=== PATIENT | female | born 1950 | race Hispanic/Latino ===

== ENCOUNTER 2018-10-13 17:51 | Emergency (ER) | payer MEDICARE, OTHER ==
--- OUTSIDE RECORDS SUMMARY | 2018-10-13 17:53 | XMS REPORT ---
:1950 [facility] [address] [place] [address] Care Team Providers Name Role Phone Unavailable Unavailable Unavailable Problems This patient has no known problems. Allergies, Adverse Reactions, Alerts This patient has no known allergies or adverse reactions. Medications This patient has no known medications.
[2018-10-13] MEDS ORDERED: HYDROCODONE/APAP 5/325 MG TAB ONE (19:17)
--- NOTE | 2018-10-13 20:46 | RAD REPORT ---
EXAM DESCRIPTION: US - Extremity Venous Uni Ltd - 10/13/2018 8:10 pm CLINICAL HISTORY: Left leg pain and swelling COMPARISON: None. TECHNIQUE: Real-time sonographic evaluation of the left lower extremity deep venous system was perfo rmed. FINDINGS: Normal compressibility, flow augmentation, phasic flow and spontaneous flow are identified in the left lower extremity common femoral, superficial femoral, popliteal and posterior tibial vein s. No intraluminal filling defects seen. IMPRESSION: No DVT in the left lower extremity.
[2018-10-13] MEDS ORDERED: KETOROLAC 30 MG/ML INJ ONE (20:52)
--- NOTE | 2018-10-13 21:00 | ER ---
Nurse's Notes [facility] Name: Chanel Castillo Age: 67 yrs Sex: Female : 1950 Arrival Date: 10/13/2018 Time: 17:53 Bed 16 Private MD: Diagnosis: Pain in left knee Presentation: 10/13 18:14 Presenting complaint: Patient states: Pain to the back of the left knee since 1500 aj1 today. States that she has tried lidocaine and icy hot with no relief. Denies any injury to the knee. Transition of care: patient was not received from another setting of care. Onset of symptoms was October 13, 2018 at 15:00. Risk Assessment: Do you want to hurt yourself or someone else? Patient reports no desire to harm self or others. Initial Sepsis Screen: Does the patient meet any 2 criteria? No. Patient's initial sepsis screen is negative. Does the patient have a suspected source of infection? No. Patient's initial sepsis screen is negative. Care prior to arrival: None. 18:14 Method Of Arrival: Wheelchair aj1 18:14 Acuity: TYRESE 4 aj1 Triage Assessment: 18:16 General: Appears in no apparent distress. uncomfortable, Behavior is calm, cooperative, aj1 appropriate for age. Pain: Complains of pain in posterior aspect of left knee Pain currently is 7 out of 10 on a pain scale. Neuro: Level of Consciousness is awake, alert, obeys commands. Cardiovascular: Patient's skin is warm and dry. Respiratory: Airway is patent Respiratory effort is even, unlabored, Respiratory pattern is regular, symmetrical. Historical: - Allergies: 18:16 No Known Allergies; aj1 - PMHx: 18:16 Hypothyroidism; Diabetes - NIDDM; Hyperlipidemia; Hypertension; aj1 - Immunization history:: Flu vaccine is not up to date. - Social history:: Smoking status: Patient/guardian denies using tobacco. - Ebola Screening: : Patient denies travel to an Ebola-affected area in the 21 days before illness onset. Screenin:25 Abuse screen: Denies threats or abuse. Nutritional screening: No deficits noted. rb1 Tuberculosis screening: No symptoms or risk factors identified. Fall Risk None identified. Assessment: 18:25 General: Appears comfortable, Behavior is calm, cooperative, Denies fever. Pain: rb1 Complains of pain in posterior aspect of left knee Pain currently is 10 out of 10 on a pain scale. Pain began x 3 days Aggravated by increased activity, weight bearing. Neuro: Level of Consciousness is awake, alert, obeys commands, Oriented to person, place, time, situation. Cardiovascular: Capillary refill < 3 seconds is brisk in bilateral fingers. Respiratory: Airway is patent Respiratory effort is even, unlabored, Respiratory pattern is regular, symmetrical, Denies cough, shortness of breath. GI: No signs and/or symptoms were reported involving the gastrointestinal system. : No signs and/or symptoms were reported regarding the genitourinary system. Derm: Skin is pink, warm \T\ dry. Musculoskeletal: Range of motion: intact in all extremities. 19:25 Reassessment: Patient is alert, oriented x 3, equal unlabored respirations, skin lp1 warm/dry/pink. Reassessment: Aware of pending ultrasound. Pain: Complains of pain in posterior aspect of left knee Pain currently is 8 out of 10 on a pain scale. 19:52 Reassessment: Ultrasound at bedside. lp1 20:35 Reassessment: Patient and/or family updated on plan of care and expected duration. Pain lp1 level reassessed. Patient states no pain relief; Provider notified. Vital Signs: 18:16 BP 173 / 73; Pulse 81; Resp 18; Temp 98.1; Pulse Ox 99% on R/A; Weight 112.94 kg (R); aj1 Height 5 ft. 3 in. (160.02 cm) (R); Pain 7/10; 19:30 BP 151 / 62; Pulse 66; Resp 18; Pulse Ox 97% on R/A; lp1 21:00 BP 162 / 63; Pulse 73; Resp 18; Pulse Ox 98% on R/A; Pain 7/10; lp1 18:16 Body Mass Index 44.11 (112.94 kg, 160.02 cm) aj1 ED Course: 17:53 Patient arrived in ED. as 18:15 Triage completed. aj1 18:16 Arm band placed on. aj1 18:21 Chantel Hurley NP is PHCP. rh1 18:21 Gianni Jerez MD is Attending Physician. rh1 18:25 Patient has correct armband on for positive identification. Placed in gown. Bed in low rb1 position. Call light in reach. Side rails up X 1. Pulse ox on. NIBP on. 18:49 Gela Bhatt, RN is Primary Nurse. rb1 20:08 US Extremity Venous Unilateral Ltd In Process Unspecified. EDMS 20:08 Ultrasound completed. Patient tolerated well. sg3 20:36 Patient did not have IV access during this emergency room visit. lp1 20:58 Kenny Aldana MD is Referral Physician. rh1 21:19 No provider procedures requiring assistance completed. lp1 Administered Medications: 19:19 Drug: Hersey 5 mg-325 mg 1 tabs {Note: RASS 0.} Route: PO; lp1 20:36 Follow up: Response: No change in condition; Pain is unchanged, physician notified; lp1 RASS: Alert and Calm (0) 20:55 Drug: Ketorolac 30 mg Route: IM; Site: left deltoid; lp1 21:20 Follow up: Response: Medication administered at discharge. lp1 Outcome: 20:59 Discharge ordered by . rh1 21:19 Discharged to home via wheelchair, with family. lp1 21:19 Condition: good 21:19 Discharge instructions given to patient, Instructed on discharge instructions, follow up and referral plans. medication usage, Demonstrated understanding of instructions, follow-up care, medications, Prescriptions given X 1. 21:20 Patient left the ED. lp1 Signatures: Dispatcher [employer] EDNJ Anca Banks RN RN ajAni Espino Laura, RN RN lp1 Chantel Hurley, PACK OPERATOR PACK OPERATOR rh1 Gela Bhatt, RN RN rb1 [place] sg3 Corrections: (The following items were deleted from the chart) 20:36 19:19 Hersey 5 mg-325 mg 1 tabs PO lp1 lp1
--- NOTE | 2018-10-13 21:01 | EDPHYS ---
Physician Documentation [facility] Name: Chanel Castillo Age: 67 yrs Sex: Female : 1950 Arrival Date: 10/13/2018 Time: 17:53 Bed 16 Private MD: ED Physician Gianni Jerez HPI: 10/13 18:27 This 67 yrs old Female presents to ER via Wheelchair with complaints of Thigh rh1 Pain, Knee Pain. 18:27 The patient presents with decreased range of motion, pain, that is acute, tenderness. rh1 The complaints affect the left hamstring, posterior aspect of left knee and left calf. Context: The problem was sustained at home, resulted from an unknown cause, the patient can fully bear weight, the patient is able to ambulate, with moderate difficulty, Problem is a result from a previous injury: No. Onset: The symptoms/episode began/occurred 3 day(s) ago. Modifying factors: The symptoms are alleviated by laying back, abduction of leg. the symptoms are aggravated by movement, bending knee. Associated signs and symptoms: Pertinent positives: calf tenderness, Pertinent negatives fever, numbness, swelling, tingling, warmth, weakness. Treatment prior to arrival includes: over the counter medications, Tylenol. Severity of symptoms: At their worst the symptoms were moderate, in the emergency department the symptoms are unchanged. The patient has experienced similar episodes in the past, with the last episode occurring last month, today's symptoms are similar, to when the patient was apparently diagnosed with osteoarthritis, with steroid injection. The patient has not recently seen a physician. She began with left leg pain 3 days ago, worse today. Pain worse at popliteal fossa, and radiates into posterior thigh. Also with pain and tenderness into left calf. No trauma, no recent travel, no SOB, chest pain, soughing or hemoptysis.. Historical: - Allergies: 18:16 No Known Allergies; aj1 - PMHx: 18:16 Hypothyroidism; Diabetes - NIDDM; Hyperlipidemia; Hypertension; aj1 - Immunization history:: Flu vaccine is not up to date. - Social history:: Smoking status: Patient/guardian denies using tobacco. - Ebola Screening: : Patient denies travel to an Ebola-affected area in the 21 days before illness onset. ROS: 18:27 Constitutional: Negative for fever, chills rh1 18:27 Cardiovascular: Negative for chest pain, edema, palpitations. 18:27 Respiratory: Negative for cough, dyspnea on exertion, hemoptysis, shortness of breath, wheezing. 18:27 Abdomen/GI: Negative for abdominal pain, nausea, vomiting. 18:27 Abdomen/GI: Negative for 18:27 Back: Negative for decreased range of motion, pain at rest, pain with movement, radiated pain. 18:27 : Negative for small amounts, burning with urination. 18:27 MS/extremity: Positive for decreased range of motion, pain, tenderness, Negative for abrasion, contusion, ecchymosis, laceration, paresthesias, swelling, tingling. 18:27 Skin: Negative for cellulitis, discoloration, ecchymosis, erythema. 18:27 Neuro: Negative for numbness, tingling, weakness. 18:27 All other systems are negative. Exam: 18:27 Constitutional: This is a well developed, well nourished patient who is awake, alert, rh1 and in no acute distress. Head/Face: Normocephalic, atraumatic. 18:27 Neck: Trachea midline, and no cervical lymphadenopathy. Supple, full range of motion without nuchal rigidity. No Meningismus. Chest/axilla: Normal chest wall appearance and motion. Nontender with no deformity. No lesions are appreciated. Cardiovascular: Regular rate and rhythm with a normal S1 and S2. No gallops, murmurs, or rubs. No JVD. No pulse deficits. Respiratory: Lungs have equal breath sounds bilaterally, clear to auscultation. No rales, rhonchi or wheezes noted. No increased work of breathing. Abdomen/GI: Soft, non-tender, with normal bowel sounds. No distension. No guarding or rebound. No evidence of tenderness throughout. Back: No spinal tenderness. No costovertebral tenderness. Full range of motion. Skin: Warm, dry with normal turgor. Normal color with no rashes, no lesions, and no evidence of cellulitis. 18:27 ENT: Mouth: Oral mucosa: normal, pink and intact. 18:27 Musculoskeletal/extremity: Extremities: grossly normal except: noted in the left hamstring and posterior aspect of left knee: decreased ROM, pain, swelling, tenderness, difficult to assess for swelling due to adipose tissue, no appreciable asymmetry at posterior leg, There is no evidence of abrasion, contusion, deformity, erythema, laceration, ROM: full passive range of motion, in the left leg and left hamstring and posterior aspect of left knee, limited active range of motion, in the left hamstring and posterior aspect of left knee, limited active range of motion due to pain, in the left hamstring and posterior aspect of left knee, limited passive range of motion due to pain, in the left hamstring and posterior aspect of left knee, Pulses: noted to be 2+ in the right radial artery, right posterior tibial artery, right dorsalis pedis artery, left radial artery, left posterior tibial artery and left dorsalis pedis artery, Perfusion: the extremity is pink, warm, with brisk capillary refill, Calf tenderness, that is mild, of the left lower extremeity, Sensation intact. DVT Exam: no tenderness, negative Homans' sign noted on exam, no appreciated bluish discoloration, no erythema, no increased warmth, pain, that is mild, of the left leg, of the left hamstring and posterior aspect of left knee, Calves: have equal circumference, are tender, on left. 18:27 Neuro: Orientation: is normal, to person, place \T\ time. Mentation: is normal, lucid, able to follow commands, Motor: is normal, moves all fours, strength is 5/5 in all extremities, Sensation: is normal, no obvious gross deficits, numbness, is not appreciated, tingling, is not appreciated, Gait: is steady, antalgic. Vital Signs: 18:16 BP 173 / 73; Pulse 81; Resp 18; Temp 98.1; Pulse Ox 99% on R/A; Weight 112.94 kg (R); aj1 Height 5 ft. 3 in. (160.02 cm) (R); Pain 7/10; 19:30 BP 151 / 62; Pulse 66; Resp 18; Pulse Ox 97% on R/A; lp1 21:00 BP 162 / 63; Pulse 73; Resp 18; Pulse Ox 98% on R/A; Pain 7/10; lp1 18:16 Body Mass Index 44.11 (112.94 kg, 160.02 cm) aj MDM: 18:27 Patient medically screened. rh1 20:57 Data reviewed: vital signs, nurses notes, radiologic studies, ultrasound, and as a rh1 result, I will discharge patient. Data interpreted: Pulse oximetry: on room air is 97 %. Interpretation: normal. Counseling: I had a detailed discussion with the patient and/or guardian regarding: the historical points, exam findings, and any diagnostic results supporting the discharge/admit diagnosis, radiology results, the need for outpatient follow up, a family practitioner, a orthopedic surgeon, to return to the emergency department if symptoms worsen or persist or if there are any questions or concerns that arise at home. Special discussion: I discussed with the patient/guardian in detail that at this point there is no indication for admission to the hospital. It is understood, however, that if the symptoms persist or worsen the patient needs to return immediately for re-evaluation. 10/13 19:00 Order name: US Extremity Venous Unilateral Ltd; Complete Time: 20:50 rh1 Administered Medications: 19:19 Drug: [place] 5 mg-325 mg 1 tabs {Note: RASS 0.} Route: PO; lp1 20:36 Follow up: Response: No change in condition; Pain is unchanged, physician notified; lp1 RASS: Alert and Calm (0) 20:55 Drug: Ketorolac 30 mg Route: IM; Site: left deltoid; lp1 21:20 Follow up: Response: Medication administered at discharge. lp1 Disposition: 10/14 07:39 Co-signature as Attending Physician, Gianni Jerez MD. rn Disposition: 10/13/18 20:59 Discharged to Home. Impression: Pain in left knee. - Condition is Stable. - Discharge Instructions: Elastic Bandage and RICE, Joint Pain, Arthritis, Musculoskeletal Pain, Knee Pain. - Prescriptions for Tramadol 50 mg Oral Tablet - take 1 tablet by ORAL route every 8 hours as needed; 12 tablet. - Medication Reconciliation Form, Thank You Letter, Antibiotic Education, Prescription Opioid Use form. - Follow up: Private Physician; When: 1 - 2 days; Reason: Recheck today's complaints, Continuance of care, Re-evaluation by your physician. Follow up: Kenny Aldana MD; When: 7 - 10 days; Reason: Further diagnostic work-up, Recheck today's complaints, Continuance of care. Follow up: Emergency Department; When: As needed; Reason: If symptoms return, Worsening of condition. - Problem is new. - Symptoms have improved. Signatures: Dispatcher [employer] EDMS Darren, Anca, RN RN aj1 Gianni Jerez MD MD rn Genesis Pena RN RN lp1 Chantel Hurley, [employer] ASSEMBLER [employer] rh1 Corrections: (The following items were deleted from the chart) 10/13 21:20 20:59 10/13/2018 20:59 Discharged to Home. Impression: Pain in left knee. Condition is lp1 Stable. Forms are Medication Reconciliation Form, Thank You Letter, Antibiotic Education, Prescription Opioid Use. Follow up: Private Physician; When: 1 - 2 days; Reason: Recheck today's complaints, Continuance of care, Re-evaluation by your physician. Follow up: Dr. Kenny Aldana; When: 7 - 10 days; Reason: Further diagnostic work-up, Recheck today's complaints, Continuance of care. Follow up: Emergency Department; When: As needed; Reason: If symptoms return, Worsening of condition. Problem is new. Symptoms have improved. rh1
[2018-10-14 04:14] VITALS: TEMP 98.1
[2018-10-14 04:17] VITALS: BP 162/63; O2SAT 98
== END 2018-10-13 21:20 | disposition home or self-care (01) ==
LOC: ER 17:51
DX: M25.562 Pain in left knee (principal)
CPT/HCPCS: 93971; 96372; 99284

== ENCOUNTER 2018-10-27 15:43 | Emergency (ER) | payer MEDICARE ==
--- OUTSIDE RECORDS SUMMARY | 2018-10-27 15:45 | XMS REPORT ---
:1950 [facility] Address [address] [place] [address] Care Team Providers Name Role Phone Unavailable Unavailable Unavailable Problems This patient has no known problems. Allergies, Adverse Reactions, Alerts This patient has no known allergies or adverse reactions. Medications This patient has no known medications.
--- NOTE | 2018-10-27 16:28 | ER ---
Nurse's Notes [facility] Name: Chanel Castillo Age: 67 yrs Sex: Female : 1950 Arrival Date: 10/27/2018 Time: 15:47 Bed 14 Private MD: Unknown, Unknown Diagnosis: Allergy, unspecified;Rash and other nonspecific skin eruption Presentation: 10/27 15:52 Presenting complaint: Patient states: I feel like I have a bug in my left ear. la1 Transition of care: patient was not received from another setting of care. Onset of symptoms was October 27, 2018. Risk Assessment: Do you want to hurt yourself or someone else? Patient reports no desire to harm self or others. Initial Sepsis Screen: Does the patient meet any 2 criteria? No. Patient's initial sepsis screen is negative. Does the patient have a suspected source of infection? No. Patient's initial sepsis screen is negative. Care prior to arrival: None. 15:52 Method Of Arrival: Ambulatory la1 15:52 Acuity: TYRESE 5 la1 Historical: - Allergies: 15:52 No Known Allergies; la1 - PMHx: 15:52 Diabetes - NIDDM; Hyperlipidemia; Hypertension; Hypothyroidism; la1 - Immunization history:: Adult Immunizations up to date. - Social history:: Smoking status: Patient/guardian denies using tobacco. - Ebola Screening: : No symptoms or risks identified at this time. Screenin:00 Abuse screen: Denies threats or abuse. Nutritional screening: No deficits noted. rb1 Tuberculosis screening: No symptoms or risk factors identified. Fall Risk None identified. Assessment: 16:00 General: Appears in no apparent distress. comfortable, Behavior is calm, cooperative. rb1 Pain: Denies pain. Neuro: Level of Consciousness is awake, alert, obeys commands, Oriented to person, place, time, situation. Cardiovascular: Capillary refill < 3 seconds is brisk in bilateral fingers. Respiratory: Airway is patent Respiratory effort is even, unlabored, Respiratory pattern is regular, symmetrical. GI: No signs and/or symptoms were reported involving the gastrointestinal system. : No signs and/or symptoms were reported regarding the genitourinary system. Derm: Rash noted that is red, on generalized. Musculoskeletal: Range of motion: intact in all extremities. 16:44 Reassessment: Patient appears in no apparent distress at this time. No changes from rb1 previously documented assessment. Vital Signs: 15:52 BP 164 / 59; Pulse 77; Resp 16; Temp 98.1; Pulse Ox 98% on R/A; Weight 112.04 kg; la1 Height 5 ft. 3 in. (160.02 cm); 15:52 Body Mass Index 43.75 (112.04 kg, 160.02 cm) la1 ED Course: 15:47 Patient arrived in ED. ag5 15:49 Unknown, Unknown is Private Physician. ag5 15:52 Triage completed. la1 15:52 Arm band placed on left wrist. la1 16:00 Patient has correct armband on for positive identification. Bed in low position. Call rb1 light in reach. Side rails up X 1. Pulse ox on. NIBP on. 16:06 Shelly Chaparro FNP-C is [facility]. snw 16:06 Shari Quan MD is Attending Physician. snw 16:22 Gela Bhatt, RN is Primary Nurse. rb1 16:44 No provider procedures requiring assistance completed. Patient did not have IV access rb1 during this emergency room visit. Administered Medications: 16:33 Drug: Pepcid 20 mg Route: PO; rb1 16:43 Follow up: Response: Medication administered at discharge. rb1 16:34 Drug: Atarax 50 mg Route: PO; rb1 16:43 Follow up: Response: Medication administered at discharge. rb1 Outcome: 16:26 Discharge ordered by . snw 16:44 Discharged to home ambulatory, with family. rb1 16:44 Condition: stable 16:44 Discharge instructions given to patient, Instructed on discharge instructions, follow up and referral plans. medication usage, Demonstrated understanding of instructions, follow-up care, medications, Prescriptions given X 2. 16:44 Patient left the ED. rb1 Signatures: Shelly Chaparro FNP-C [employer]PAREL RENTAL CLERK-[employer]nw Jasvir Mon RN RN la Gela Bhatt, JAVIER RN rb1 Mello Anderson ag5
--- NOTE | 2018-10-27 16:28 | EDPHYS ---
Physician Documentation [facility] Name: Chanel Castillo Age: 67 yrs Sex: Female : 1950 Arrival Date: 10/27/2018 Time: 15:47 Bed 14 Private MD: Unknown, Unknown ED Physician Shari Quan HPI: 10/27 16:16 This 67 yrs old Female presents to ER via Ambulatory with complaints of Rash, snw Insect In Ear. 16:16 The patient's rash thought to be caused by insect bites, Dermatitis. The rash is snw located on the body diffusely. The rash can be described as papular, patchy. Onset: The symptoms/episode began/occurred suddenly, 2 day(s) ago, and became persistent. Associated signs and symptoms: Pertinent positives: itching. Severity of symptoms: At their worst the symptoms were moderate. The patient has not experienced similar symptoms in the past. It is unknown whether or not the patient has recently seen a physician. helping move and felt something fly at left ear, no fb noted. Pt with rash, papule, concerned for bedbugs. Historical: - Allergies: 15:52 No Known Allergies; la1 - PMHx: 15:52 Diabetes - NIDDM; Hyperlipidemia; Hypertension; Hypothyroidism; la1 - Immunization history:: Adult Immunizations up to date. - Social history:: Smoking status: Patient/guardian denies using tobacco. - Ebola Screening: : No symptoms or risks identified at this time. ROS: 16:16 Constitutional: Negative for fever, chills, and weight loss, Eyes: Negative for injury, snw pain, redness, and discharge, ENT: Negative for injury, pain, and discharge, concerned for bug in left ear canal Neck: Negative for injury, pain, and swelling, Cardiovascular: Negative for chest pain, palpitations, and edema, Respiratory: Negative for shortness of breath, cough, wheezing, and pleuritic chest pain, Abdomen/GI: Negative for abdominal pain, nausea, vomiting, diarrhea, and constipation, Back: Negative for injury and pain, : Negative for injury, bleeding, discharge, and swelling, MS/Extremity: Negative for injury and deformity, Neuro: Negative for headache, weakness, numbness, tingling, and seizure, Psych: Negative for depression, anxiety, suicide ideation, homicidal ideation, and hallucinations. 16:16 Skin: Positive for rash. Exam: 16:15 Constitutional: This is a well developed, well nourished patient who is awake, alert, snw and in no acute distress. Head/Face: Normocephalic, atraumatic. Eyes: Pupils equal round and reactive to light, extra-ocular motions intact. Lids and lashes normal. Conjunctiva and sclera are non-icteric and not injected. Cornea within normal limits. Periorbital areas with no swelling, redness, or edema. Neck: Trachea midline, no thyromegaly or masses palpated, and no cervical lymphadenopathy. Supple, full range of motion without nuchal rigidity, or vertebral point tenderness. No Meningismus. Chest/axilla: Normal chest wall appearance and motion. Nontender with no deformity. No lesions are appreciated. Cardiovascular: Regular rate and rhythm with a normal S1 and S2. No gallops, murmurs, or rubs. Normal PMI, no JVD. No pulse deficits. Respiratory: Lungs have equal breath sounds bilaterally, clear to auscultation and percussion. No rales, rhonchi or wheezes noted. No increased work of breathing, no retractions or nasal flaring. Abdomen/GI: Soft, non-tender, with normal bowel sounds. No distension or tympany. No guarding or rebound. No evidence of tenderness throughout. Back: No spinal tenderness. No costovertebral tenderness. Full range of motion. MS/ Extremity: Pulses equal, no cyanosis. Neurovascular intact. Full, normal range of motion. Neuro: Awake and alert, GCS 15, oriented to person, place, time, and situation. Cranial nerves II-XII grossly intact. Motor strength 5/5 in all extremities. Sensory grossly intact. Cerebellar exam normal. Normal gait. Psych: Awake, alert, with orientation to person, place and time. Behavior, mood, and affect are within normal limits. 16:15 ENT: External ear(s): are unremarkable, Ear canal(s): are normal, TM's: are normal, Nose: is normal. 16:15 Skin: Appearance: normal except for affected area, lesion(s), papule(s) noted. Vital Signs: 15:52 BP 164 / 59; Pulse 77; Resp 16; Temp 98.1; Pulse Ox 98% on R/A; Weight 112.04 kg; la1 Height 5 ft. 3 in. (160.02 cm); 15:52 Body Mass Index 43.75 (112.04 kg, 160.02 cm) la1 MDM: 16:06 Patient medically screened. snw 16:41 Data reviewed: vital signs, nurses notes. Data interpreted: Pulse oximetry: on room air snw is 98 %. Interpretation: normal. Counseling: I had a detailed discussion with the patient and/or guardian regarding: the historical points, exam findings, and any diagnostic results supporting the discharge/admit diagnosis, the need for outpatient follow up, to return to the emergency department if symptoms worsen or persist or if there are any questions or concerns that arise at home. Special discussion: Based on the history and exam findings, there is no indication for further emergent testing or inpatient evaluation. I discussed with the patient/guardian the need to see the primary care provider for further evaluation of the symptoms. Administered Medications: 16:33 Drug: Pepcid 20 mg Route: PO; rb1 16:43 Follow up: Response: Medication administered at discharge. rb1 16:34 Drug: Atarax 50 mg Route: PO; rb1 16:43 Follow up: Response: Medication administered at discharge. rb1 Disposition: 10/28 07:13 Co-signature as Attending Physician, Shari Quan MD. ma2 Disposition: 10/27/18 16:26 Discharged to Home. Impression: Allergy, unspecified, Rash and other nonspecific skin eruption. - Condition is Stable. - Discharge Instructions: Allergies, Adult, Insect Bite, Rash. - Prescriptions for Vistaril 50 mg Oral capsule - take 1 capsule by ORAL route 4 times per day; 30 capsule. Pepcid 20 mg Oral Tablet - take 1 tablet by ORAL route once daily; 20 tablet. - Medication Reconciliation Form, Thank You Letter, Antibiotic Education, Prescription Opioid Use form. - Follow up: Private Physician; When: 2 - 3 days; Reason: Recheck today's complaints, Continuance of care, Re-evaluation by your physician. Follow up: Emergency Department; When: As needed; Reason: Worsening of condition. Signatures: Shelly Chaparro, DANIELLE-C NEWSPAPER JOURNALIST-[employer] Jasvir Mon RN RN la1 Gela Bhatt RN RN rb1 Shari Quan MD MD ma2 Corrections: (The following items were deleted from the chart) 10/27 16:44 16:26 10/27/2018 16:26 Discharged to Home. Impression: Allergy, unspecified; Rash and rb1 other nonspecific skin eruption. Condition is Stable. Forms are Medication Reconciliation Form, Thank You Letter, Antibiotic Education, Prescription Opioid Use. Follow up: Private Physician; When: 2 - 3 days; Reason: Recheck today's complaints, Continuance of care, Re-evaluation by your physician. Follow up: Emergency Department; When: As needed; Reason: Worsening of condition. snw
[2018-10-27] MEDS ORDERED: FAMOTIDINE 20 MG TAB ONE (16:31)
[2018-10-27] MEDS ORDERED: hydrOXYzine HCl 25 MG TAB ONE (16:31)
[2018-10-27 16:49] VITALS: BP 164/59; TEMP 98.1; O2SAT 98
== END 2018-10-27 16:44 | disposition home or self-care (01) ==
LOC: ER 15:43
DX: R21 Rash and other nonspecific skin eruption (principal); T78.40XA Allergy, unspecified, initial encounter
CPT/HCPCS: 99283

== ENCOUNTER 2019-10-17 14:47 | Emergency (ER) | payer MEDICARE ==
--- OUTSIDE RECORDS SUMMARY | 2019-10-17 14:49 | XMS REPORT | Continuity of Care Document ---
:1950 Author Organization [facility] t Address [address] [place] [address] Care Team Providers Name Role Phone Unavailable Unavailable Unavailable Problems This patient has no known problems. Allergies, Adverse Reactions, Alerts This patient has no known allergies or adverse reactions. Medications This patient has no known medications. Procedures This patient has no known procedures. Results This patient has no known results.
[2019-10-17] MEDS ORDERED: MORPHINE 4 MG/ML SYR ONE (15:55)
[2019-10-17] MEDS ORDERED: DIAZEPAM 10 MG/2 ML INJ SYRINGE ONE (15:55)
[2019-10-17] MEDS ORDERED: ONDANSETRON 4 MG/2 ML VIAL ONE (15:56)
--- NOTE | 2019-10-17 16:17 | RAD REPORT ---
EXAM DESCRIPTION: CT - Stone Protocol - 10/17/2019 3:49 pm CLINICAL HISTORY: low back pain , abdominal pain COMPARISON: CT ABD PELVIS W CONTRAST dated 03/31/2014 TECHNIQUE: Axial [address] imaging of the abdomen and pelvis was performed without IV contrast. No IV contrast was given because of allergy, abnormal renal function, patient refusal or physician re quest. No oral contrast administered. All CT scans are performed using dose optimization technique as appropriate and may include automated exposure control or mA/KV adjustment according to patient size. FINDINGS: No suspicious findings in the lung bases. No pericardial thickening or effusion. No focal suspicious liver parenchymal lesion. An anterior subcapsular right lobe low-density mass is probably a cyst unchanged from 2015. There is a slightly nodular contour to the liver. Cirrhosis or h epatic parenchymal disease cannot be excluded. There is been minimal change from 2015. Spleen and rae creas show no acute findings. Gallbladder is absent. No biliary tree dilatation. No hydronephrosis or suspicious renal mass. No significant adrenal finding. Isodense renal masses an d pyelonephritis cannot be excluded in the absence of IV contrast. The urinary bladder is without sig nificant finding. No dilated bowel loops or bowel wall thickening. No appendicitis findings or acute GI finding. No noni e air, free fluid or inflammatory stranding. No hernia, mass or bulky lymphadenopathy. Pelvic floor laxity present. Uterus and ovaries show no suspicious findings. Disc and bone degenerative changes are present. IMPRESSION: No acute or emergent CT abdomen or pelvis finding. Liver shows a slightly nodular capsule contour which could indicate cirrhosis or diffuse hepatic pare nchymal disease. No suspicious liver lesion. Full assessment is limited is the absence of IV contrast. Isodense renal masses and pyelonephritis ca nnot be excluded in the absence of contrast.
[2019-10-17] MEDS ORDERED: FENTANYL CITR 100 MCG/2 ML ONE (17:16)
--- NOTE | 2019-10-17 18:36 | EDPHYS ---
Physician Documentation [facility] Name: Chanel Castillo Age: 68 yrs Sex: Female : 1950 Arrival Date: 10/17/2019 Time: 15:00 Bed 13 Private MD: ED Physician Gianni Jerez HPI: 10/16 15:25 This 68 yrs old Female presents to ER via EMS with complaints of Back Pain. jmm 15:25 The patient presents with pain that is acute. Onset: The symptoms/episode jmm began/occurred gradually, 1 day(s) ago. The pain radiates to the left leg. Associated signs and symptoms: Pertinent negatives: abdominal pain, dysuria, fever, hematuria, incontinence, numbness, tingling, urinary retention, vomiting, weakness. This is a 68 year old female with a history of DM, HLP, HTN, hypothyroidism that presents to the ED with complaints of left lower back pain which radiates down her left leg. Denies incontinence, weakness, numbness to that extremity. Patient states having milder episodes of pain over the past 3 months. Denies fever. . Historical: - Allergies: 15:03 No Known Allergies; bp - Home Meds: 15:03 levothyroxine 137 mcg tab 1 tab once daily [Active]; hydrochlorothiazide 25 mg Oral tab bp 1 tab once daily [Active]; metoprolol succinate 50 mg oral Tb24 1 tab once daily [Active]; glipizide 10 mg Oral tab 1 tab 2 times per day [Active]; metformin 1,000 mg Oral tab 1 tab 2 times per day [Active]; - PMHx: 15:03 Diabetes - NIDDM; Hyperlipidemia; Hypertension; Hypothyroidism; bp - Immunization history:: Adult Immunizations up to date. - Social history:: Smoking status: Patient denies any tobacco usage or history of. ROS: 15:25 Constitutional: Negative for fever, chills, and weight loss, Cardiovascular: Negative jmm for chest pain, palpitations, and edema, Respiratory: Negative for shortness of breath, cough, wheezing, and pleuritic chest pain. 15:25 Back: Positive for pain with movement. 15:25 All other systems are negative. Exam: 15:25 Constitutional: This is a well developed, well nourished patient who is awake, alert, jmm and in no acute distress. Head/Face: atraumatic. Eyes: EOMI, no conjunctival erythema appreciated ENT: Moist Mucus Membranes Neck: Trachea midline, Supple Chest/axilla: Normal chest wall appearance and motion. Cardiovascular: Regular rate and rhythm. No edema appreciated Respiratory: Normal respirations, no respiratory distress appreciated Abdomen/GI: Non distended, soft 15:25 Back: pain noted to the left lower lumbar region, no midline tenderness. 15:25 Musculoskeletal/extremity: ROM: intact in all extremities. 15:25 Neuro: extensor hallucis longus intact. 15:25 Psych: Behavior/mood is pleasant, cooperative. Vital Signs: 15:00 BP 116 / 86; Pulse 79; Resp 19; Temp 98.5; Pulse Ox 99% ; bp 16:14 BP 145 / 62; Pulse 64; Resp 16; Pulse Ox 91% ; bp 17:00 BP 143 / 50; Pulse 62; Resp 17; Pulse Ox 99% ; bp 18:00 BP 151 / 61; Pulse 59; Resp 16; Pulse Ox 97% ; bp MDM: 15:25 Patient medically screened. [facility] 18:17 Data reviewed: vital signs, nurses notes. Counseling: I had a detailed discussion with [facility] the patient and/or guardian regarding: the historical points, exam findings, and any diagnostic results supporting the discharge/admit diagnosis, the need for outpatient follow up, to return to the emergency department if symptoms worsen or persist or if there are any questions or concerns that arise at home. ED course: Pain is improved.. 10/16 15:33 Order name: CT Stone Protocol; Complete Time: 16:22 [facility] 10/16 15:33 Order name: Saline Lock; Complete Time: 16:13 [facility] 10/16 17:26 Order name: Misc. Order: ambulate; Complete Time: 18:46 [facility] Administered Medications: 16:00 Drug: morphine 4 mg Route: IVP; Site: right forearm; bp 17:07 Follow up: Response: Pain is decreased bp 16:00 Drug: Zofran (Ondansetron) 4 mg Route: IVP; Site: right forearm; bp 17:08 Follow up: Response: No adverse reaction bp 16:00 Drug: Valium 2 mg Route: IVP; Site: right forearm; bp 17:08 Follow up: Response: Pain is decreased bp 17:00 Drug: fentaNYL (PF) 50 mcg Route: IVP; Site: right forearm; bp 17:28 Follow up: Response: Pain is decreased bp Disposition: 10/17/19 18:35 Discharged to Home. Impression: Sciatica, left side. - Condition is Stable. - Discharge Instructions: Sciatica. - Prescriptions for Ultracet 37.5- 325 mg Oral Tablet - take 1 tablet by ORAL route every 6 hours - for up to 5 days; do not exceed 8 tablets per day.; 20 tablet. orphenadrine citrate 100 mg Oral Tablet Sustained Release - take 1 tablet by ORAL route 2 times per day As needed; 20 tablet. - Medication Reconciliation Form, Thank You Letter, Antibiotic Education, Prescription Opioid Use form. - Follow up: Private Physician; When: 2 - 3 days; Reason: Recheck today's complaints, Continuance of care, Re-evaluation by your physician. Addendum: 10/19/2019 19:28 Co-signature as Attending Physician, Gianni Jerez MD. r n Signatures: Dispatcher [employer] EDMS Lucas Ahmadi PA PA jmm Nieto, Roman, MD MD rn Peltier, Brian RN RN bp Dayanna Pavon RN RN vc Corrections: (The following items were deleted from the chart) 10/16 19:11 18:35 10/17/2019 18:35 Discharged to Home. Impression: Sciatica, left side. Condition vc is Stable. Forms are Medication Reconciliation Form, Thank You Letter, Antibiotic Education, Prescription Opioid Use. Follow up: Private Physician; When: 2 - 3 days; Reason: Recheck today's complaints, Continuance of care, Re-evaluation by your physician. mekhi
--- NOTE | 2019-10-17 18:36 | ER ---
Nurse's Notes [facility] Name: Chanel Castillo Age: 68 yrs Sex: Female : 1950 Arrival Date: 10/17/2019 Time: 15:00 Bed 13 Private MD: Diagnosis: Sciatica, left side Presentation: 10/16 15:00 Chief complaint: EMS states: SCIATIC PATTERN PAIN SINCE Y/D ON LEFT. Coronavirus bp screen: At this time, the client does not indicate any symptoms associated with coronavirus-19. Ebola Screen: No symptoms or risks identified at this time. Initial Sepsis Screen: Does the patient meet any 2 criteria? No. Patient's initial sepsis screen is negative. Does the patient have a suspected source of infection? No. Patient's initial sepsis screen is negative. Risk Assessment: Do you want to hurt yourself or someone else? Patient reports no desire to harm self or others. Onset of symptoms was October 16, 2019. Care prior to arrival: Glucose check: 188. 15:00 Method Of Arrival: EMS: [facility] bp 15:00 Acuity: TYRESE 3 bp Triage Assessment: 15:03 General: Appears in no apparent distress. uncomfortable, obese, Behavior is bp cooperative, appropriate for age, anxious. Pain: Complains of pain in back. EENT: No deficits noted. Neuro: No deficits noted. Cardiovascular: No deficits noted. Respiratory: No deficits noted. GI: No signs and/or symptoms were reported involving the gastrointestinal system. : No signs and/or symptoms were reported regarding the genitourinary system. Derm: No deficits noted. Musculoskeletal: Range of motion: intact in all extremities. Historical: - Allergies: 15:03 No Known Allergies; bp - Home Meds: 15:03 levothyroxine 137 mcg tab 1 tab once daily [Active]; hydrochlorothiazide 25 mg Oral tab bp 1 tab once daily [Active]; metoprolol succinate 50 mg oral Tb24 1 tab once daily [Active]; glipizide 10 mg Oral tab 1 tab 2 times per day [Active]; metformin 1,000 mg Oral tab 1 tab 2 times per day [Active]; - PMHx: 15:03 Diabetes - NIDDM; Hyperlipidemia; Hypertension; Hypothyroidism; bp - Immunization history:: Adult Immunizations up to date. - Social history:: Smoking status: Patient denies any tobacco usage or history of. Screenin:00 Abuse screen: Denies threats or abuse. Denies injuries from another. Nutritional bp screening: No deficits noted. Tuberculosis screening: No symptoms or risk factors identified. Fall Risk None identified. Assessment: 15:00 General: SEE TRIAGE NOTE. bp 16:00 Reassessment: PT RETURNED FROM CT. bp 17:00 Reassessment: PT STATES SOME RELIEF OF S/S. Neuro: Level of Consciousness is awake, bp alert, obeys commands, Oriented to person, place, time, situation. 18:00 Reassessment: PROVIDER AT B/S FOR RE-EVAL. bp 18:46 Reassessment: PT AMBULATED TO BATHROOM WITH ASSISTANCE. AWAITING FAMILY ARRIVAL FOR D/C bp HOME. Vital Signs: 15:00 BP 116 / 86; Pulse 79; Resp 19; Temp 98.5; Pulse Ox 99% ; bp 16:14 BP 145 / 62; Pulse 64; Resp 16; Pulse Ox 91% ; bp 17:00 BP 143 / 50; Pulse 62; Resp 17; Pulse Ox 99% ; bp 18:00 BP 151 / 61; Pulse 59; Resp 16; Pulse Ox 97% ; bp ED Course: 15:00 Patient arrived in ED. bp 15:00 Patient has correct armband on for positive identification. Bed in low position. Call bp light in reach. Side rails up X2. 15:01 Triage completed. bp 15:05 Arm band placed on. bp 15:10 Lucas Ahmadi PA is PHCP. jm 15:10 Gianni Jerez MD is Attending Physician. jmm 15:39 Sly Reese, JAVIER is Primary Nurse. bp 15:49 CT Stone Protocol In Process Unspecified. EDMS 16:00 Inserted saline lock: 22 gauge in right forearm, using aseptic technique. bp 18:46 No provider procedures requiring assistance completed. IV discontinued, intact, bp bleeding controlled, No redness/swelling at site. Pressure dressing applied. Administered Medications: 16:00 Drug: morphine 4 mg Route: IVP; Site: right forearm; bp 17:07 Follow up: Response: Pain is decreased bp 16:00 Drug: Zofran (Ondansetron) 4 mg Route: IVP; Site: right forearm; bp 17:08 Follow up: Response: No adverse reaction bp 16:00 Drug: Valium 2 mg Route: IVP; Site: right forearm; bp 17:08 Follow up: Response: Pain is decreased bp 17:00 Drug: fentaNYL (PF) 50 mcg Route: IVP; Site: right forearm; bp 17:28 Follow up: Response: Pain is decreased bp Outcome: 18:35 Discharge ordered by MD. rooney 18:47 Discharged to home via wheelchair. bp 18:47 Condition: stable 18:47 Discharge instructions given to patient, Instructed on discharge instructions, follow up and referral plans. medication usage, Demonstrated understanding of instructions, follow-up care, medications, Prescriptions given X 2. 19:11 Patient left the ED. vc Signatures: Dispatcher [employer] EDMS Lucas Ahmadi PA PA Sly Boswell RN RN bp Dayanna Pavon RN RN vc Corrections: (The following items were deleted from the chart) 15:05 15:05 Antipyretic given from triage as ordered by the ER provider. Arm band placed on bpbp 18:48 18:46 Reassessment: PT AMBULATED TO BATHROOM WITH ASSISTANCE bp bp
[2019-10-17 19:38] VITALS: TEMP 98.5
[2019-10-17 19:42] VITALS: BP 151/61; O2SAT 97
== END 2019-10-17 19:11 | disposition home or self-care (01) ==
LOC: ER 14:47
DX: M54.32 Sciatica, left side (principal); I10 Essential (primary) hypertension; E03.9 Hypothyroidism, unspecified; E78.5 Hyperlipidemia, unspecified; E11.9 Type 2 diabetes mellitus without complications
CPT/HCPCS: 76377; 74176; 96375; 96374; 99284; J3360; J3010; J2405

== ENCOUNTER 2020-11-05 10:44 | Inpatient (IN) | payer MEDICARE ==
[2020-11-05] MEDS ORDERED: ONDANSETRON 4 MG/2 ML VIAL ONE (12:27)
[2020-11-05] MEDS ORDERED: NA CHLORIDE 0.9% 500 ML ONE (12:28)
[2020-11-05 12:38] LABS: Absolute Lymphocytes (CBC) 1.3 K/uL (0.7-4.9); Basophils % 0.5 % (0-1.3); Hematocrit 31.2 % (36.0-45.0); Lymphocytes % 24.1 % (15.3-44.8); MPV 7.4 fL (7.6-11.3); RBC Red Blood Cell Count 3.53 M/uL (3.86-4.86)
[2020-11-05 12:59] LABS: ALT/SGPT 21 U/L (12-78); AST/SGOT 35 U/L (15-37); Albumin 3.3 g/dL (3.4-5.0); Alkaline Phosphatase 117 U/L (45-117); BUN Blood Urea Nitrogen 38 mg/dL (7-18); Bicarbonate 15 mmol/L (21-32); Bilirubin Direct 0.1 mg/dL (0-0.2); Bilirubin Total 0.3 mg/dL (0.2-1.0); Glucose Level 158 mg/dL (74-106); Lipase 208 U/L (73-393); Potassium 4.6 mmol/L (3.5-5.1); Protein, Total 8.2 g/dL (6.4-8.2); Sodium Level 136 mmol/L (136-145); Troponin (Emerg Dept Use Only) < 0.02 ng/mL (0.0-0.045)
--- NOTE | 2020-11-05 13:25 | RAD REPORT ---
EXAM DESCRIPTION: Peter Single View11/05/2020 1:13 pm CLINICAL HISTORY: Cough COMPARISON: 2014 FINDINGS: Mild bilateral pulmonary opacities. The heart is normal size IMPRESSION: Mild bilateral pulmonary opacities suspicious for a mild pneumonia
[2020-11-05 13:28] LABS: Urine Blood Trace-lysed (Negative); Urine Glucose 1+ (Negative); Urine Protein 2+ (Negative); Urine pH 5.5 (5.0-7.0)
[2020-11-05 14:10] LABS: SARS-COV-2 RT PCR POSITIVE (NEGATIVE)
--- NOTE | 2020-11-05 15:10 | ER ---
Nurse's Notes [facility] Name: Chanel Castillo Age: 69 yrs Sex: Female : 1950 Arrival Date: 11/05/2020 Time: 10:48 Bed 23 Private MD: James Solitario Diagnosis: Acute Kidney Injury;Diarrhea;Coronavirus Presentation: 11/05 11:35 Chief complaint: Patient states: Feeling weak/tired for about a week, states cough and vg1 shortness of breath. Went to [facility] yesterday for Covid test, results are pending. States has been having diarrhea for about a week as well that comes and goes. Coronavirus screen: Vaccine status: Patient reports receiving the 2nd dose of the covid vaccine. Client presents with at least one sign or symptom that may indicate coronavirus-19. Standard/surgical mask placed on the client. Provider contacted for isolation considerations. Ebola Screen: Patient negative for fever greater than or equal to 101.5 degrees Fahrenheit, and additional compatible Ebola Virus Disease symptoms. No acute neurological deficit is noted. Initial Sepsis Screen: Does the patient meet any 2 criteria? No. Patient's initial sepsis screen is negative. Does the patient have a suspected source of infection? No. Patient's initial sepsis screen is negative. Risk Assessment: Do you want to hurt yourself or someone else? Patient reports no desire to harm self or others. Onset of symptoms was October 29, 2020. 11:35 Method Of Arrival: Wheelchair vg1 11:35 Method Of Arrival: EMS: [facility] vg1 11:35 Acuity: TYRESE 3 vg1 Triage Assessment: 11:38 The onset of the patients symptoms was. General: Appears in no apparent distress. vg1 uncomfortable, Behavior is calm, cooperative. Pain: Denies pain. Neuro: Level of Consciousness is awake, alert, obeys commands, Oriented to person, place, time, situation. Historical: - Allergies: 11:38 No Known Allergies; vg1 - Home Meds: 11:38 metoprolol succinate 50 mg Oral Tb24 1 tab once daily [Active]; metformin 1,000 mg Oral vg1 tab 1 tab 2 times per day [Active]; levothyroxine 137 mcg tab 1 tab once daily [Active]; glipizide 10 mg Oral tab 1 tab 2 times per day [Active]; - PMHx: 11:38 Diabetes - NIDDM; Hyperlipidemia; Hypertension; Hypothyroidism; vg1 - Immunization history:: Adult Immunizations up to date, Client reports receiving the 2nd dose of the Covid vaccine. - Social history:: Smoking status: Patient denies any tobacco usage or history of. Assessment: 12:33 General: Appears uncomfortable. Pain: Denies pain. Neuro: Level of Consciousness is tc5 awake, alert, obeys commands, Oriented to person, place, time, situation, Food Analyst are equal bilaterally. Cardiovascular: No deficits noted. Respiratory: Reports shortness of breath on exertion cough that is non-productive, dry, persistent. GI: No deficits noted. : No deficits noted. Musculoskeletal: Reports general weakness x 1 week. kavon tested yesterday,states she called her PCP about her spouse because he has covid and her PCP told her to come to the er because how she sounds on the phone. Vital Signs: 11:35 BP 113 / 60; Pulse 70; Resp 20; Temp 97.1; Pulse Ox 99% ; Weight 111.13 kg; Height 5 vg1 ft. 3 in. (160.02 cm); Pain 0/10; 12:39 BP 155 / 60; Pulse 67; Resp 16; Pulse Ox 100% ; Pain 0/10; tc5 14:00 BP 145 / 63; Pulse 69; Resp 16; Pulse Ox 100% ; tc5 14:00 BP 145 / 63; Pulse 64; Resp 20; Pulse Ox 99% ; tc5 17:52 BP 155 / 68; Pulse 62; Resp 20; Pulse Ox 99% ; tc5 11:35 Body Mass Index 43.40 (111.13 kg, 160.02 cm) vg1 ED Course: 10:48 Patient arrived in ED. mr 10:48 James Solitario MD is Private Physician. mr 11:38 Triage completed. vg1 11:38 Arm band placed on. vg1 11:42 COVID swab sent to lab. Flu and/or RSV swab sent to lab. vg1 11:45 Lucas Ahmadi PA is PHCP. [facility] 11:45 Gianni Jerez MD is Attending Physician. [facility] 11:54 Ghazal Lopez RN is Primary Nurse. tc5 12:32 Inserted saline lock: 20 gauge in right antecubital area, using aseptic technique. tc5 Blood collected. 13:13 XRAY Chest (1 view) In Process Unspecified. EDMS 15:08 James Solitario MD is Hospitalizing Provider. nevin Administered Medications: 12:20 Drug: NS 0.9% 500 ml Route: IV; Rate: bolus; Site: right antecubital; tc5 14:00 Follow up: BP 145 / 63; Pulse 69 bpm; Resp 16 bpm; Pulse Ox 100% tc5 17:54 Follow up: Response: No adverse reaction tc5 12:20 Drug: Zofran (Ondansetron) 4 mg Route: IVP; Site: right antecubital; tc5 13:59 Follow up: Response: No adverse reaction tc5 17:54 Follow up: Response: No adverse reaction tc5 14:49 Drug: NS 0.9% 1000 ml Route: IV; Rate: 75 ml/hr; Site: right antecubital; tc5 Outcome: 15:09 Decision to Hospitalize by Provider. nevin 10 17:03 Patient left the ED. oh Signatures: Dispatcher [employer] EDMS Lucas Ahmadi PA PA jmm Rivera, Mary mr Silvia Burger, RN RN vg1 Juaquin Lovelace, RN RN oh Ghazal Lopez, RN RN tc5
--- NOTE | 2020-11-05 15:10 | EDPHYS ---
Physician Documentation [facility] Name: Chanel Castillo Age: 69 yrs Sex: Female : 1950 Arrival Date: 11/05/2020 Time: 10:48 Bed 23 Private MD: James Solitario ED Physician Gianni Jerez HPI: 11/05 10:57 This 69 yrs old Female presents to ER via EMS with complaints of Weakness, jmm COVID+. 10:57 The patient or guardian reports cough. Onset: The symptoms/episode began/occurred jmm gradually. Modifying factors: The symptoms are alleviated by nothing. the symptoms are aggravated by nothing. Associated signs and symptoms: Pertinent positives: diarrhea. The patient has not experienced similar symptoms in the past. This 69-year-old female with history of hyperlipidemia, diabetes mellitus, hypertension, hypothyroidism that presents emerged part with complaints of cough, shortness of breath, diarrhea, generalized weakness beginning approximately 1 week ago. Denies vomiting, abdominal pain.. Historical: - Allergies: 11:38 No Known Allergies; vg1 - Home Meds: 11:38 metoprolol succinate 50 mg Oral Tb24 1 tab once daily [Active]; metformin 1,000 mg Oral vg1 tab 1 tab 2 times per day [Active]; levothyroxine 137 mcg tab 1 tab once daily [Active]; glipizide 10 mg Oral tab 1 tab 2 times per day [Active]; - PMHx: 11:38 Diabetes - NIDDM; Hyperlipidemia; Hypertension; Hypothyroidism; vg1 - Immunization history:: Adult Immunizations up to date, Client reports receiving the 2nd dose of the Covid vaccine. - Social history:: Smoking status: Patient denies any tobacco usage or history of. ROS: 10:57 Constitutional: Positive for fatigue. jmm 10:57 Respiratory: Positive for cough. 10:57 Abdomen/GI: Positive for diarrhea. 10:57 All other systems are negative. Exam: 10:57 Constitutional: This is a well developed, well nourished patient who is awake, alert, jmm and in no acute distress. Head/Face: atraumatic. Eyes: EOMI, no conjunctival erythema appreciated ENT: Moist Mucus Membranes Neck: Trachea midline, Supple Chest/axilla: Normal chest wall appearance and motion. Cardiovascular: Regular rate and rhythm. No edema appreciated Respiratory: Normal respirations, no respiratory distress appreciated Abdomen/GI: Non distended, soft Back: Normal ROM Skin: General appearance color normal MS/ Extremity: Moves all extremities, no obvious deformities appreciated, no edema noted to the lower extremities Neuro: Awake and alert, normal gait Psych: Behavior is normal, Mood is normal, Patient is cooperative and pleasant Vital Signs: 11:35 BP 113 / 60; Pulse 70; Resp 20; Temp 97.1; Pulse Ox 99% ; Weight 111.13 kg; Height 5 vg1 ft. 3 in. (160.02 cm); Pain 0/10; 12:39 BP 155 / 60; Pulse 67; Resp 16; Pulse Ox 100% ; Pain 0/10; tc5 14:00 BP 145 / 63; Pulse 69; Resp 16; Pulse Ox 100% ; tc5 14:00 BP 145 / 63; Pulse 64; Resp 20; Pulse Ox 99% ; tc5 17:52 BP 155 / 68; Pulse 62; Resp 20; Pulse Ox 99% ; tc5 11:35 Body Mass Index 43.40 (111.13 kg, 160.02 cm) vg1 MDM: 12:26 Patient medically screened. [facility] 15:07 Data reviewed: vital signs, nurses notes. Counseling: I had a detailed discussion with [facility] the patient and/or guardian regarding: the historical points, exam findings, and any diagnostic results supporting the discharge/admit diagnosis, lab results, radiology results, the need for further work-up and treatment in the hospital. ED course: Patient's creatinine is elevated. Most likely ARNOLD secondary to diarrhea. I discussed the patient with Dr. Solitario whom accepted the patient to his service. . 11/05 11:46 Order name: Basic Metabolic Panel; Complete Time: 13: [facility] 11/05 11:46 Order name: CBC with Diff; Complete Time: 12:58 [facility] 11/05 11:46 Order name: Hepatic Function; Complete Time: 13: [facility] 11/05 11:46 Order name: Lipase; Complete Time: 13:01 [facility] 11/05 11:46 Order name: Troponin (emerg Dept Use Only); Complete Time: 13: [facility] 11/05 13:28 Order name: Urine Dipstick-Ancillary; Complete Time: 13:29 [facility] 11/05 14:11 Order name: COVID-19/FLU A+B; Complete Time: 14:15 [facility] 11/05 17:48 Order name: Hemoglobin A1c [facility] 11/05 17:48 Order name: Thyroid Stimulating Hormone [facility] 11/05 17:48 Order name: Comprehensive Metabolic Panel [facility] 11/05 17:48 Order name: Comprehensive Metabolic Panel [facility] 11/05 17:48 Order name: Comprehensive Metabolic Panel [facility] 11/05 10:57 Order name: XRAY Chest (1 view); Complete Time: 13:29 rn 11/05 11:46 Order name: IV Saline Lock; Complete Time: 12:29 [facility] 11/05 11:46 Order name: Labs collected and sent; Complete Time: 12:30 [facility] 11/05 17:48 Order name: Comprehensive Metabolic Panel [facility] 11/05 17:48 Order name: Social Service Consult [facility] 11/05 17:48 Order name: 75g Consistent Carbohydrate (ADA 2200) [facility] 11/05 17:48 Order name: CBC with Automated Diff [facility] 11/05 17:48 Order name: CBC with Automated Diff [facility] 11/05 17:48 Order name: CBC with Automated Diff [facility] 11/05 17:48 Order name: CBC with Automated Diff [facility] 11/05 19:59 Order name: Glucose, Ancillary Testing [facility] 11/06 06:47 Order name: Glucose, Ancillary Testing [facility] 11/06 13:02 Order name: Glucose, Ancillary Testing [facility] Administered Medications: 12:20 Drug: NS 0.9% 500 ml Route: IV; Rate: bolus; Site: right antecubital; tc5 14:00 Follow up: BP 145 / 63; Pulse 69 bpm; Resp 16 bpm; Pulse Ox 100% tc5 17:54 Follow up: Response: No adverse reaction tc5 12:20 Drug: Zofran (Ondansetron) 4 mg Route: IVP; Site: right antecubital; tc5 13:59 Follow up: Response: No adverse reaction tc5 17:54 Follow up: Response: No adverse reaction tc5 14:49 Drug: NS 0.9% 1000 ml Route: IV; Rate: 75 ml/hr; Site: right antecubital; tc5 Disposition: 18:20 Co-signature as Attending Physician, Gianni Jerez MD I agree with the assessment and rn plan of care. Attestation: The patient's history, exam findings, diagnostics, and a summary of any interventions or procedures was reviewed in detail with Lucas LATHAM. Disposition Summary: 11/05/20 15:09 Hospitalization Ordered Hospitalization Status: Observation [facility] Provider: James Solitario Condition: Stable jm Problem: new jmm Symptoms: are unchanged jmm Bed/Room Type: Standard [facility] Location: [facility] ER HOLD(11/05/20 19:20) tl1 Room Assignment: ERHOLD-(11/05/20 19:20) tl1 Diagnosis - Acute Kidney Injury jmm - Diarrhea jmm - Coronavirus [facility] Forms: - Medication Reconciliation Form jmm - SBAR form [facility] Signatures: Dispatcher [employer] EDSD Lucas Ahmadi PA PA [facility] Gianni Jerez MD MD rn Lasagna, Tonya, RN RN tl1 Silvia Burger, RN RN vg1 Ghazal Lopez, RN RN tc5 Corrections: (The following items were deleted from the chart) 12:51 11:41 CORONAVIRUS+MR.LAB.BRZ ordered. [facility] EDMS 12:52 11:41 Influenza Screen (A \T\ B)+BA.LAB.BRZ ordered. [facility] EDMS 19:20 15:09 Telemetry/MedSurg (observation) [facility] tl1 19:20 15:09 [facility] tl1
[2020-11-05] MEDS ORDERED: NA CHLORIDE 0.9% 1,000 ML ONE (15:11)
[2020-11-05] MEDS ORDERED: D50W 25 GM/50 ML SYRINGE IV PRN (17:46)
[2020-11-05] MEDS ORDERED: HYDRALAZINE HCL 20 MG/ML VIAL IV PRN (17:46)
[2020-11-05] MEDS ORDERED: GLUCAGON 1 MG/VIAL IM PRN (17:46)
--- NOTE | 2020-11-05 17:54 | P.HP ---
Certification for Inpatient Patient admitted to: Inpatient With expected LOS: >2 Midnights Practitioner: I am a practitioner with admitting privileges, knowledge of patient current condition, hospital course, and medical plan of care. Services: Services provided to patient in accordance with Admission requirements found in Title 42 Section 412.3 of the Code of Federal Regulations Patient History Date of Service: 11/05/20 Primary Care Provider: Altaf Reason for admission: covid History of Present Illness: Patient is an office patient of [facility]. She called this morning as her was admitted this weekend for covid. Was discharged earlier this week. They are both fully vaccinated. The patient stated that her was sob on exertion. However she was cough and seem sob herself. The patient had gotten tested yesterday and was waiting for the results. However she did not have a pulse oximeter for either of them. Was instructed to call ems and both of them to come to the ER. She was actually found to have covid and pneumonia. She is doing well. not hypoxic on room air. She is a little tachypic. Allergies No Known Drug Allergies Allergy (Verified 07/25/16 11:53) Unknown Home Medications: Glyburide,Micronized [Glynase] 5 mg PO BID 03/31/14 Levothyroxine [Synthroid*] 137 mcg PO [id number] 03/31/14 Loratadine [Claritin*] 10 mg PO DAILY PRN 03/31/14 Metformin HCl [Metformin ER Osmotic] 1,000 mg PO BID 03/31/14 Ferrous Sulfate [Iron] 325 mg PO DAILY 06/16/16 Gabapentin [Neurontin*] 100 mg PO TID 06/16/16 Pantoprazole [Protonix Tab*] 40 mg PO DAILY 06/16/16 Rosuvastatin [Crestor*] 10 mg PO BEDTIME 06/16/16 Vitamin B Complex [B Complex] 1 each PO DAILY 06/16/16 - Past Medical/Surgical History Diabetic: Yes -: oa, thyroid, dm, -: appy, [place], l breast biopsy, tumor removed l calf - Social History Alcohol use: No CD- Drugs: No Caffeine use: Yes Review of Systems 10-point ROS is otherwise unremarkable Respiratory: Shortness of Breath Physical Examination - Physical Exam General: Alert, In no apparent distress HEENT: Atraumatic, PERRLA, Mucous membr. moist/pink, EOMI, Sclerae nonicteric Neck: Supple, 2+ carotid pulse no bruit, No LAD, Without JVD or thyroid abnormality Respiratory: Crackles/rales, Expiratory wheezes Cardiovascular: Regular rate/rhythm, Normal S1 S2 Gastrointestinal: Normal bowel sounds, No tenderness Musculoskeletal: No tenderness Integumentary: No rashes Neurological: Normal gait, Normal speech, Normal strength at 5/5 x4 extr, Normal tone, Normal affect Lymphatics: No axilla or inguinal lymphadenopathy - Studies Laboratory Data (last 24 hrs) 11/05/20 12:20: WBC 5.50, Hgb 10.1 L, Hct 31.2 L, Plt Count 208 11/05/20 12:20: Sodium 136, Potassium 4.6, BUN 38 H, Creatinine 1.81 H, Glucose 158 H, Total Bilirubin 0.3, AST 35, ALT 21, Alkaline Phosphatase 117, Lipase 208 Assessment and Plan - Problems (Diagnosis) (1) COVID-19 Current Visit: Yes Status: Acute Plan: will admit start the patient on steroids, eliquis and vitamin protochol. Will need home oxygen and see if we can get her home health. She most likely will do well at home with the right support As well as follow up (2) DM2 (diabetes mellitus, type 2) Current Visit: Yes Status: Chronic Plan: will start her on sliding scale insulin. Will check her a1c Qualifiers: Diabetes mellitus terminal clerk insulin use: without terminal clerk use Diabetes mellitus complication status: without complication Qualified Code(s): E11.9 - Type 2 diabetes mellitus without complications (3) Hypothyroidism Current Visit: Yes Status: Acute Plan: restart her levothyroxine. Check a tsh on the patient Qualifiers: Hypothyroidism type: unspecified Qualified Code(s): E03.9 - Hypothyroidism, unspecified (4) Hyperlipidemia Current Visit: Yes Status: Acute Plan: continue statin Qualifiers: Hyperlipidemia type: mixed hyperlipidemia Qualified Code(s): E78.2 - Mixed hyperlipidemia Discharge Plan: Home Plan to discharge in: 24 Hours - Advance Directives Does patient have a Living Will: No Does patient have a Durable POA for Healthcare: No - Code Status/Comfort Care Code Status Assessed: No Code Status: Full Code Physician Review: Patient Assessed, Agree with Above Assessment and Plan Critical Care: No Time Spent Managing Pts Care (In Minutes): 70
[2020-11-05] MEDS ORDERED: NA CHLORIDE 0.9% 1,000 ML IV SCH (18:00)
[2020-11-05] MEDS: APIXABAN 5 MG TABLET PO SCH (20:39)
[2020-11-05] MEDS: METHYLPREDNISOLONE 125 MG INJ IV SCH (20:41)
[2020-11-05] MEDS: GABAPENTIN 100 MG CAP PO SCH (20:43)
[2020-11-05] MEDS: INSULIN -REGULAR HUMAN 50 UNIT/0.5 ML ML SQ SCH (20:44)
[2020-11-05] MEDS ORDERED: ROSUVASTATIN 10 MG TAB PO SCH (21:00)
[2020-11-05] MEDS ORDERED: METHYLPRED NA SUC 80 MG in NA CHLORIDE 0.9% 100 ML IV SCH (21:00)
[2020-11-06 01:31] VITALS: BMI 45.7
[2020-11-06 03:53] LABS: Absolute Lymphocytes (CBC) 0.4 K/uL (0.7-4.9); Basophils % 0.3 % (0-1.3); Hematocrit 29.7 % (36.0-45.0); Lymphocytes % 9.2 % (15.3-44.8); MPV 8.2 fL (7.6-11.3); RBC Red Blood Cell Count 3.34 M/uL (3.86-4.86)
[2020-11-06 04:16] LABS: Albumin 2.9 g/dL (3.4-5.0); Bilirubin Total 0.2 mg/dL (0.2-1.0); Potassium 5.5 mmol/L (3.5-5.1); Protein, Total 7.6 g/dL (6.4-8.2)
[2020-11-06] MEDS ORDERED: LEVOTHYROXINE SOD 0.025 MG TAB PO SCH (06:30)
[2020-11-06] MEDS ORDERED: LEVOTHYROXINE SOD 0.112 MG TAB PO SCH (06:30)
[2020-11-06] MEDS ORDERED: PANTOPRAZOLE 40MG TABLET PO SCH (07:30)
[2020-11-06] MEDS: INSULIN -REGULAR HUMAN 50 UNIT/0.5 ML ML SQ SCH ×2 (07:30→11:30)
[2020-11-06] MEDS ORDERED: INFLUENZA VACCINE (for 6+ mo) 0.5 ML DOSE IMVAC ONE ×2 (08:00→09:13)
[2020-11-06] MEDS ORDERED: INSULIN -REGULAR HUMAN 50 UNIT/0.5 ML ML ONE ×2 (08:49→13:20)
[2020-11-06] MEDS ORDERED: NA CHLORIDE 0.9% 1,000 ML ONE (08:49)
[2020-11-06] MEDS: GABAPENTIN 100 MG CAP PO SCH (09:00)
[2020-11-06] MEDS: METHYLPREDNISOLONE 125 MG INJ IV SCH (09:00)
[2020-11-06] MEDS ORDERED: ASCORBIC ACID 500 MG TABLET PO SCH (09:00)
[2020-11-06] MEDS: APIXABAN 5 MG TABLET PO SCH (09:00)
[2020-11-06] MEDS ORDERED: VITAMIN D 5,000 UNIT CAP PO SCH (09:00)
[2020-11-06] MEDS ORDERED: ZINC SULFATE 220 MG CAP PO SCH (09:00)
[2020-11-06] MEDS ORDERED: ASCORBIC ACID 500 MG TABLET ONE (09:11)
[2020-11-06] MEDS ORDERED: ZINC SULFATE 220 MG CAP ONE (09:12)
[2020-11-06] MEDS ORDERED: APIXABAN 5 MG TABLET ONE (09:12)
[2020-11-06] MEDS ORDERED: METHYLPREDNISOLONE 40 MG INJ ONE (09:13)
--- NOTE | 2020-11-06 10:44 | P.DS ---
Admission Date: 11/05/20 Discharge Date: 11/06/20 Primary Care Provider: Altaf Disposition: ROUTINE DISCHARGE Discharge Condition: GOOD Reason for Admission: covid - Problems (1) COVID-19 Current Visit: Yes Status: Acute (2) DM2 (diabetes mellitus, type 2) Current Visit: Yes Status: Chronic Qualifiers: Diabetes mellitus mcfp insulin use: without mcfp use Diabetes mellitus complication status: without complication Qualified Code(s): E11.9 - Type 2 diabetes mellitus without complications (3) Hypothyroidism Current Visit: Yes Status: Acute Qualifiers: Hypothyroidism type: unspecified Qualified Code(s): E03.9 - Hypothyroidism, unspecified (4) Hyperlipidemia Current Visit: Yes Status: Acute Qualifiers: Hyperlipidemia type: mixed hyperlipidemia Qualified Code(s): E78.2 - Mixed hyperlipidemia Brief History of Present Illness: Patient is an office patient of [facility]. She called this morning as her was admitted this weekend for covid. Was discharged earlier this week. They are both fully vaccinated. The patient stated that her was sob on exertion. However she was cough and seem sob herself. The patient had gotten tested yesterday and was waiting for the results. However she did not have a pulse oximeter for either of them. Was instructed to call ems and both of them to come to the ER. She was actually found to have covid and pneumonia. She is doing well. not hypoxic on room air. She is a little tachypic. Hospital Course: Patient did well. Will discharge her on 10 days of decadrone. Will have her follow up on Monday with a home visit. Will have the patiient discharged at the same time as her in room 411. Vital Signs/Physical Exam: Temp Pulse Resp BP Pulse Ox 98.3 F 76 20 173/76 H 96 11/06/20 08:00 11/06/20 08:00 11/05/20 20:00 11/06/20 08:00 11/06/20 08:00 General: Alert, In no apparent distress HEENT: Atraumatic, PERRLA, EOMI Neck: Supple, JVD not distended Respiratory: Clear to auscultation bilaterally, Normal air movement Cardiovascular: Regular rate/rhythm, Normal S1 S2 Gastrointestinal: Normal bowel sounds, No tenderness Musculoskeletal: No tenderness Integumentary: No rashes Neurological: Normal speech, Normal tone, Normal affect Lymphatics: No axilla or inguinal lymphadenopathy Laboratory Data at Discharge: WBC 4.00 K/uL (4.3-10.9) L D 11/06/20 03:13 Hgb 9.5 g/dL (12.0-15.0) L 11/06/20 03:13 Hct 29.7 % (36.0-45.0) L 11/06/20 03:13 Plt Count 172 K/uL (152-406) 11/06/20 03:13 Sodium 140 mmol/L (136-145) 11/06/20 03:13 Potassium 5.5 mmol/L (3.5-5.1) H 11/06/20 03:13 BUN 36 mg/dL (7-18) H 11/06/20 03:13 Creatinine 1.41 mg/dL (0.55-1.3) H 11/06/20 03:13 Glucose 194 mg/dL (74-106) H 11/06/20 03:13 Total Bilirubin 0.2 mg/dL (0.2-1.0) 11/06/20 03:13 AST 30 U/L (15-37) 11/06/20 03:13 ALT 21 U/L (12-78) 11/06/20 03:13 Alkaline Phosphatase 109 U/L (45-117) 11/06/20 03:13 Lipase 208 U/L (73-393) 11/05/20 12:20 Home Medications: Glyburide,Micronized [Glynase] 5 mg PO BID 03/31/14 Levothyroxine [Synthroid*] 137 mcg PO [id number] 03/31/14 Loratadine [Claritin*] 10 mg PO DAILY PRN 03/31/14 Metformin HCl [Metformin ER Osmotic] 1,000 mg PO BID 03/31/14 Ferrous Sulfate [Iron] 325 mg PO DAILY 06/16/16 Gabapentin [Neurontin*] 100 mg PO TID 06/16/16 Pantoprazole [Protonix Tab*] 40 mg PO DAILY 06/16/16 Rosuvastatin [Crestor*] 10 mg PO BEDTIME 06/16/16 Vitamin B Complex [B Complex] 1 each PO DAILY 06/16/16 Apixaban [Eliquis] 5 mg PO BID 15 Days #30 tablet 11/06/20 Ascorbic Acid [Vitamin C*] 500 mg PO DAILY 30 Days #30 tablet 11/06/20 Cholecalciferol (Vitamin D3) [Vitamin D 5,000 IU Cap*] 5,000 unit PO DAILY 30 Days #30 cap 11/06/20 Dexamethasone [Decadron] 4 mg PO DAILY 10 Days #10 tablet 11/06/20 Zinc Sulfate [Zinc Sulfate*] 220 mg PO DAILY 30 Days #30 cap 11/06/20 New Medications: Dexamethasone [Decadron] 4 mg PO DAILY 10 Days #10 tablet Apixaban [Eliquis] 5 mg PO BID 15 Days #30 tablet Ascorbic Acid [Vitamin C*] 500 mg PO DAILY 30 Days #30 tablet Cholecalciferol (Vitamin D3) [Vitamin D 5,000 IU Cap*] 5,000 unit PO DAILY 30 Days #30 cap Zinc Sulfate [Zinc Sulfate*] 220 mg PO DAILY 30 Days #30 cap Diet: ADA Activity: Ad marcelino Followup: James Solitario MD [Primary Care Provider] - 11/09/20 Physician Review: Patient Assessed, Agree with Above Assessment and Plan Time spent managing pt's care (in minutes): 30
[2020-11-06 17:01] VITALS: BP 168/81; TEMP 98.1
[2020-11-06 17:14] VITALS: O2SAT 99
== END 2020-11-06 17:50 | disposition home health service (06) | DRG 177 ==
LOC: SUPCPDRO 10:44 → ER 10:44 → ERHOLD 17:47
PROVIDERS: ADMIT Internal Medicine; ATTEND Internal Medicine
DX: U07.1 COVID-19 (principal); J12.82 Pneumonia due to coronavirus disease 2019; E11.9 Type 2 diabetes mellitus without complications; E03.9 Hypothyroidism, unspecified; E78.2 Mixed hyperlipidemia; Z23 Encounter for immunization
CPT/HCPCS: 0240U; 36415; 71045; 80048; 80053; 80076; 81003; 82947; 83036; 83690; 84443; 84484; 85025; 90471; 96374; 99284; J2405; J2920; J7030; J7040; Q2035

== ENCOUNTER 2022-02-06 10:17 | Inpatient (IN) | payer MEDICARE, OTHER ==
--- OUTSIDE RECORDS SUMMARY | 2022-02-06 10:20 | XMS REPORT | Continuity of Care Document ---
:1950 Author Organization [facility] t Address [address] [place] [address] Dr. [address]. [address] [place] [address] Care Team Providers Name Role Phone MENG CALHOUN Primary Care Physician Unavailable RADIOLOGY Attending Clinician Unavailable Radiology Attending Clinician Unavailable Pob, Adc Lab Main Attending Clinician Unavailable Meagan Brown MD Attending Clinician MEAGAN BROWN Attending Clinician Unavailable Doctor Unassigned, [place] Attending Clinician Unavailable Michelle Pringle RN Attending Clinician Unavailable Only, Ang Db Test Attending Clinician Unavailable Ana Pond Attending Clinician HOMERO GONZALES Attending Clinician Unavailable Marcio Linares Attending Clinician Lab, Adc Fam Pob I Attending Clinician Unavailable TAYLOR MCADAMSAYDOMINGO Attending Clinician Unavailable MENG PRADO Admitting Clinician Unavailable Payers Payer Name Policy Type Policy Number Effective Date Expiration Date Rossi sohaitzel GAMA/KADE [id number] 2020 MEDICARE ADVANTAGE 00:00:00 Problems Condition Condition Condition Status Onset Resolution Last Treating Co mments Source Name Details Category Date Date Treatment Clinician Date Obesity Obesity Disease Active Overview: Univ ers 09-12 Formattin ity of 00:00: g of this [place] 00 note Medical might be Branch different from the original. ICD10 Diagnosis Term Coin Collector Utility Type II or Type II or Disease Active U nivers unspecifie unspecifie 09-12 it y of d type d type 00:00: [place] diabetes diabetes 00 Medica l mellitus mellitus Branch with with unspecifie unspecifie d d complicati complicati on, not on, not stated as stated as uncontroll uncontroll ed ed Essential Essential Disease Active Overview: Univers hypertensi hypertensi 09-12 Formattin ity of on on 00:00: g of this note Medical might be Branch different from the original. ICD10 Diagnosis Term Coin Collector Utility Hypothyroi Hypothyroi Disease Active U nivers d d 09-12 ity of 00:00: [place] [address] Medical Branch Lump or Lump or Disease Active Univers mass in mass in 09-12 ity of breast breast 00:00: [address] Branch Allergies, Adverse Reactions, Alerts Allergy Allergy Status Severity Reaction(s) Onset Inactive Treating Comm ents Source Name Type Date Date Clinician NO KNOWN Drug Active Univers ALLERGIE Class ity of S [facility] [place] Social History Social Habit Start Date Stop Date Quantity Comments Source Alcohol intake 2017-12-26 2017-12-26 Current University of 00:00:00 00:00:00 non-drinker of [facility] alcohol [place] (finding) Tobacco use and 2012-09-12 2012-09-12 Never used Universit y of exposure 00:00:00 00:00:00 [facility] History of 1992-09-12 Smoker University of tobacco use 00:00:00 [facility] Sex Ass[birth year] At [birth year] Universit y of 00:00:00 00:00:00 [facility] [place] Smoking Status Start Date Stop Date Source Former smoker 2012-09-12 00:00:00 2012-09-12 00:00:00 Universi ty of [facility] Medications Ordered Filled Start Stop Current Ordering Indication Dosage Frequency Signature Comments Components Source Medication Medication Date Date Medication? Clinician (SIG) Name Name GLYBURIDE Yes 10mg Take 10 mg Un maddison ORAL 4-05 by mouth 2 ity of 14:33: (two) [place] 56 times Medical daily. Branch METFORMIN Yes 100mg Take 100 Uni vers HCL 4-05 mg by ity of (METFORMIN 14:33: [place] OR[place] 56 (two) Medical times Branch daily. Levothyroxi Yes Take by Uni vers ne 4-05 mouth ity of (TIROSINT) 14:33: daily. [place] 125 mcg Cap [address] [place] [address] Branch LORATADINE 2017-0 Yes Take by Univ ers (CLARITIN 4-05 mouth ity of ORAL) 14:33: daily. [address] DIPHENHYDRA 2017-0 Yes Take by Uni vers MINE HCL 4-05 mouth. ity of (BENADRYL 14:33: [place] ALLERGY Medical ORAL) Branch ferrous 2017-0 Yes 325mg Take 325 Unive rs sulfate 4-05 mg by ity of (IRON) 325 14:33: mouth 2 [place] mg (65 mg 56 (two) Medical iron) times Branch tablet daily. OMEPRAZOLE 2017-0 Yes Take by Univ ers ORAL 4-05 mouth. ity of 14:33: [address] GLYBURIDE 2017-0 Yes 10mg Take 10 mg Un maddison ORAL 4-05 by mouth 2 ity of 14:33: (two) [place] [address] times Medical daily. Branch METFORMIN 2017-0 Yes 100mg Take 100 Uni vers HCL 4-05 mg by ity of (METFORMIN 14:33: [place] 2 [place] ORAL[place] 56 (two) Medical times Branch daily. Levothyroxi 2017-0 Yes Take by Uni vers ne 4-05 mouth ity of (TIROSINT) 14:33: daily. [place] [address] Cap [address] [place] [address] Branch LORATADINE 2017-0 Yes Take by Univ ers (CLARITIN 4-05 mouth ity of ORAL) 14:33: daily. [address] DIPHENHYDRA 2017-0 Yes Take by Uni vers MINE HCL 4-05 mouth. ity of (BENADRYL 14:33: [place] ALLERGY Medical ORAL) Branch ferrous 2017-0 Yes 325mg Take 325 Unive rs sulfate 4-05 mg by ity of (IRON) 325 14:33: mouth 2 [place] mg (65 mg 56 (two) Medical iron) times Branch tablet daily. OMEPRAZOLE 2017-0 Yes Take by Univ ers ORAL 4-05 mouth. ity of 14:33: [address] Immunizations Ordered Filled Immunization Date Status Comments [facility] e Immunization Name Name SARS-COV-2 COVID-19 2020-05-23 Completed Unive rsity of PFIZER VACCINE 00:00:00 [facility] SARS-COV-2 COVID-19 2020-05-23 Completed Unive rsity of PFIZER VACCINE 00:00:00 [facility] SARS-COV-2 COVID-19 2020-05-03 Completed Unive rsity of PFIZER VACCINE 00:00:00 [facility] SARS-COV-2 COVID-19 2020-05-03 Completed Unive rsity of PFIZER VACCINE 00:00:00 [facility] Branch TDAP 2011-08-04 Completed University 00:00:00 [facility] TDAP 2011-08-04 Completed University 00:00:00 [facility] [place] Procedures Procedure Date / Time Performed Performing Clinician Sour e CONSENT/REFUSAL FOR 2021-05-26 14:57:40 Doctor Unassigned, No [facility] DIAGNOSIS AND Name Medical Branch TREATMENT ASSIGNMENT OF BENEFITS 2021-05-26 14:57:09 Doctor Unassigned, No [facility] Name Medical Branch IR FNA (FINE NEEDLE 2021-03-10 19:42:30 [facility], [facility] WITH [facility] Encounters Start End Encounter Admission Attending Care Care Encounter Source Date/Time Date/Time Type Type Clinicians Facility Department ID 2021-05-26 2021-05-26 Outpatient R RADIOLOGY [facility] [id number] Univers 10:01:16 23:59:00 ity of [facility] [place] 2021-05-26 2021-05-26 [facility] Radiology [facility] 1.2.840.114 [id number] Univers 10:01:16 23:59:00 Encounter [place] [id number] ity of [place] [id number] [facility] [id number] [facility] 800 Branch 2021-03-10 2021-03-10 [facility] Radiology [facility] 1.2.840.114 [id number] Univers 10:22:38 23:59:00 Encounter [place] [id number] ity of [place] [id number] [facility] [id number] [facility] 806 Branch 2021-03-10 2021-03-10 Swatch Clerk Martina Hernandez Lab Main [facility] 1.2.8 40.114 [id number] Univers 13:15:00 13:30:00 Visit Meagan Brown [id number] ity of [place] [id number] [place] [id number] Fl dical [address] 2021-03-10 2021-03-10 Outpatient R KEVIN, [facility] [id number] Univers 13:15:00 13:15:00 MEAGAN ity [facility] 2021-03-10 2021-03-10 Outpatient R ZOEYAKIL, [facility] [id number] Univers 13:15:00 13:15:00 MEAGAN ity [facility] 2021-03-10 2021-03-10 Outpatient R RADIOLOGY [facility] [id number] Univers 00:00:00 00:00:00 ity of [facility] [place] 2021-01-14 2021-01-14 Hospital Radiology [facility] 1.2.840.114 [id number] Univers 09:30:24 23:59:00 Encounter [place] [id number] ity of [place] [id number] [facility] [place] [id number] [address] 2021-01-14 2021-01-14 Hospital Radiology [facility] 1.2.840.114 [id number] Univers 09:29:47 09:29:47 Encounter [place] [id number] ity of [place] [id number] [facility] [id number] [address] 2021-01-14 2021-01-14 Outpatient R RADIOLOGY [facility] [id number] Univers 09:29:02 09:29:02 ity of [facility] [place] 2021-01-14 2021-01-14 Hospital Radiology [facility] 1.2.840.114 [id number] Univers 09:29:02 09:29:02 Encounter [place] [id number] ity of [place] [id number] [facility] [id number] [address] 2021-01-14 2021-01-14 Orders Doctor MORSE 1.2.840.114 [id number] Univers 00:00:00 00:00:00 Only Unassigned, DONALDO [id number] ity of [place] [facility] [id number] Adam as [id number] [facility] 009 Branch 2020-11-06 2020-11-06 Letter LITO Pringle 1.2.840.114 [id number] Univers 00:00:00 00:00:00 (Out) Michelle FULTON [id number] it y of [facility] [id number] Adam as [id number] [facility] 019 Branch 2020-11-04 2020-11-04 Laboratory Only, Ang Db Test [facility] 1.2.8 40.114 [id number] Univers 13:35:53 13:50:53 Only Ana Saucedo [facility] [id number] ity of [place] [id number] Adam as Demetris?Blea [phone] [address] Medical Office Building 2020-11-04 2020-11-04 Outpatient R [facility] [id number] Univers 13:30:00 13:30:00 ity of [facility] [place] 2020-05-24 2020-05-24 Outpatient [facility] [id number] Univers 14:40:00 14:40:00 ity of [facility] [place] 2020-05-23 2020-05-23 Outpatient [facility] [id number] Univers 14:40:00 14:40:00 ity of [facility] [place] 2020-05-06 2020-05-06 Hospital Radiology [facility] 1.2.840.114 [id number] Univers 10:24:40 23:59:00 Encounter [place] [id number] ity [place] [id number] [place] [id number] [facility] 800 Branch 2020-05-06 2020-05-06 Outpatient R RADIOLOGY [facility] [id number] Univers 00:00:00 00:00:00 ity of [facility] [place] 2020-05-06 2020-05-06 Orders Doctor MORSE 1.2.840.114 [id number] Univers 00:00:00 00:00:00 Only Unassigned, DONALDO [id number] ity of [place] [facility] [id number] Adam as [id number] [place] [address] Branch 2020-05-03 2020-05-03 Outpatient R CHRISTIAN [facility] [id number] Univers 15:25:00 15:25:00 HOMERO ity of [facility] [place] 2020-02-05 2020-02-05 [facility] 1.2.840.114 [id number] Univers 00:00:00 00:00:00 [facility] [place] [id number] it y of [place] [id number] Adam as Professio [id number] Fl dical nal [address] [place] Office Building 2020-02-04 2020-02-04 Laboratory Lab, Adc Fam Pob I [facility] 1.2. 840.114 [id number] Univers 14:24:19 14:44:19 Only [facility] [place] [id number] ity of [place] [id number] Adam as Professio [phone] Fl dical nal [address] [place] Office [address] One 2020-02-04 2020-02-04 [facility] [id number] Univers 14:40:00 14:40:00 [facility] ity [facility] 2020-02-04 2020-02-04 Letter Doctor MORSE 1.2.840.114 [id number] Univers 00:00:00 00:00:00 (Out) Unassigned, DONALDO [id number] ity of [place] [facility] [id number] Adam as [phone] [address] Results This patient has no known results.
[2022-02-06 11:16] LABS: Absolute Lymphocytes (CBC) 0.8 K/uL (0.7-4.9); Hematocrit 35.4 % (36.0-45.0); Lymphocytes % 15.7 % (15.3-44.8); MCV 92.9 fL (80-100); RBC Red Blood Cell Count 3.81 M/uL (3.86-4.86)
[2022-02-06 11:24] LABS: Protime INR 1.03
[2022-02-06 11:36] LABS: Albumin 3.5 g/dL (3.4-5.0); Bilirubin Direct 0.2 mg/dL (0-0.2); Bilirubin Total 0.5 mg/dL (0.2-1.0); Magnesium 2.3 mg/dL (1.6-2.4); Protein, Total 8.3 g/dL (6.4-8.2)
[2022-02-06 11:40] LABS: Troponin High Sensitivity 123.4 pg/mL (<58.9)
[2022-02-06 11:48] LABS: SARS-COV-2 RT PCR NEGATIVE (NEGATIVE)
[2022-02-06] MEDS ORDERED: FUROSEMIDE 40 MG/4 ML VIAL ONE (12:00)
[2022-02-06] MEDS ORDERED: FUROSEMIDE 20 MG/ 2ML VIAL ONE (12:00)
--- NOTE | 2022-02-06 12:13 | EDPHYS ---
Physician Documentation [facility] Name: Chanel Castillo Age: 71 yrs Sex: Female : 1950 Arrival Date: 02/06/2022 Time: 10:18 Bed 14 Private MD: ED Physician Gianni Jerez HPI: 02/06 11:14 This 71 yrs old Female presents to ER via EMS with complaints of Breathing rn Difficulty, Shortness Of Breath. 11:14 The patient has shortness of breath at rest, with light activity. Onset: The rn symptoms/episode began/occurred 3 month(s) ago. Duration: The symptoms are intermittent. The patient's shortness of breath is aggravated by exertion, light activity, walking, is alleviated by rest, sitting up. Associated signs and symptoms: Pertinent positives: non-productive cough, Pertinent negatives: fever, hemoptysis, loss of consciousness. Severity of symptoms: At their worst the symptoms were moderate in the emergency department the symptoms are unchanged. The patient has experienced similar episodes in the past. The patient has been recently seen by a physician:. Pt reports 3-4 months of sob, seen by cardiology and pcp, has had ECHO, told needs heart cath. Came in because sob got worse over last 2 days, assoc with cough, no fever. . Historical: - Allergies: 10:56 carvedilol; kc6 - PMHx: 10:30 Diabetes - NIDDM; Hyperlipidemia; Hypothyroidism; Hypertension; kr3 - PSHx: 10:30 Cholecystectomy; kr3 - Immunization history:: Adult Immunizations up to date. - Social history:: Smoking status: Patient/guardian denies using tobacco, the patient reports quitting approximately 30 years ago. - Family history:: not pertinent. - Hospitalizations: : No recent hospitalization is reported. ROS: 11:14 Constitutional: Negative for fever, chills, and weight loss, Eyes: Negative for injury, rn pain, redness, and discharge, Neck: Negative for injury, pain, and swelling, Cardiovascular: Negative for palpitations, and edema, Respiratory: Negative for wheezing, and pleuritic chest pain, Abdomen/GI: Negative for abdominal pain, nausea, vomiting, diarrhea, and constipation, MS/Extremity: Negative for injury and deformity, Skin: Negative for injury, rash, and discoloration, Neuro: Negative for headache, weakness, numbness, tingling, and seizure. Exam: 11:14 Constitutional: This is a well developed, well nourished patient who is awake, alert, rn mild tachypnea, on nasal cannula Head/Face: Normocephalic, atraumatic. Cardiovascular: Regular rate and rhythm. No pulse deficits. Respiratory: Mild tachypnea, no retractions, clear bilateral breath sounds Abdomen/GI: Soft, non-tender Skin: Warm, dry MS/ Extremity: Pulses equal, no cyanosis. + non-pitting edema bilateral lower ext Neuro: Awake and alert, GCS 15 13:28 ECG was reviewed by the Attending Physician. rn Vital Signs: 10:19 BP 153 / 72; Pulse 71; Resp 18; Temp 98.1; Pulse Ox 100% on 2 lpm NC; Weight 94.8 kg; kr3 Height 5 ft. 2 in. (157.48 cm); Pain 0/10; 10:59 BP 155 / 69; Pulse 72; Resp 18 S; Pulse Ox 95% on 2 lpm NC; Pain 0/10; kc6 11:59 BP 159 / 76; Pulse 74; Resp 22 S; Pulse Ox 97% on 4 lpm NC; Pain 0/10; kc6 12:59 BP 141 / 67; Pulse 67; Resp 20 S; Pulse Ox 95% on 3 lpm NC; Pain 0/10; kc6 13:59 BP 144 / 67; Pulse 71; Resp 15 S; Pulse Ox 96% on 3 lpm NC; Pain 0/10; kc6 16:00 BP 104 / 67; Pulse 68; Resp 18; Pulse Ox 95% on 3 lpm NC; kb3 18:00 BP 157 / 69; Pulse 80; Resp 20; Pulse Ox 95% on 3 lpm NC; kb3 18:00 BP 157 / 73; Pulse 71; Resp 20; Pulse Ox 93% on 3 lpm NC; kb3 10:19 Body Mass Index 38.23 (94.80 kg, 157.48 cm) kr3 MDM: 10:26 Patient medically screened. rn 12:09 Differential diagnosis: Anemia CHF exacerbation, Myocardial Infarction Pneumothorax rn pulmonary edema. Data reviewed: vital signs, nurses notes, lab test result(s), EKG, radiologic studies, plain films, and as a result, I will admit patient. Counseling: I had a detailed discussion with the patient and/or guardian regarding: the historical points, exam findings, and any diagnostic results supporting the discharge/admit diagnosis, lab results, radiology results, the need for further work-up and treatment in the hospital. Response to treatment: the patient's symptoms have mildly improved after treatment, and as a result, I will admit patient. Admission orders: after a detailed discussion of the patient's condition and case, the admit orders are written by me. ED course: Pt walked to bathroom, had severe sob, O2 sat dropped to low 80s, improved on oxygen, ordered bipap but improved without it. Elevated BNP and troponin, possible CHF, will admit for further care to hospitalist service, yenni given here. Acute SC considered given elevated troponin, and was recommended to get heart cath, will have cardiology consultation as well. COVID/flu neg. . 14:40 Test interpretation: by ED physician or midlevel provider: ECG, plain radiologic rn studies, CXR consistent with interstitial prominence/volume overload. 02/06 10:32 Order name: BMP; Complete Time: 11:49 rn 02/06 10:32 Order name: Blood Culture Adult (2) rn 02/06 10:32 Order name: CBC with Diff; Complete Time: 11:40 rn 02/06 10:32 Order name: Hepatic Function; Complete Time: 11:49 rn 02/06 10:32 Order name: Magnesium; Complete Time: 11:49 rn 02/06 10:32 Order name: NT PRO-BNP; Complete Time: 11:49 rn 02/06 10:32 Order name: PT-INR; Complete Time: 11:40 rn 02/06 10:32 Order name: Ptt, Activated; Complete Time: 11:40 rn 02/06 10:32 Order name: Troponin HS; Complete Time: 11:49 rn 02/06 10:32 Order name: COVID-19/FLU A+B; Complete Time: 11:49 rn 02/06 14:00 Order name: Hemoglobin A1c EDPA 02/06 14:00 Order name: Lipid Profile EDPA 02/06 14:00 Order name: Thyroid Stimulating Hormone EDPA 02/06 14:00 Order name: CBC with Automated Diff EDPA 02/06 10:32 Order name: XRAY CXR (1 view) rn 02/06 10:32 Order name: EKG; Complete Time: 10:33 rn 02/06 11:50 Order name: BIPAP rn 02/06 13:56 Order name: Social Service Consult EDMS 02/06 14:00 Order name: 60g Consistent Carbohydrate (ADA 1800/1999) EDMS 02/06 14:00 Order name: CBC with Automated Diff EDMS 02/06 14:00 Order name: CBC with Automated Diff EDMS 02/06 14:00 Order name: CBC with Automated Diff EDMS 02/06 14:00 Order name: Comprehensive Metabolic Panel EDMS 02/06 14:00 Order name: Comprehensive Metabolic Panel EDMS 02/06 14:00 Order name: Comprehensive Metabolic Panel EDMS 02/06 14:00 Order name: Comprehensive Metabolic Panel EDMS 02/06 14:03 Order name: CONS Physician Consult EDMS 02/06 17:01 Order name: Glucose, Ancillary Testing EDMS 02/06 21:09 Order name: Troponin High Sensitivity EDMS 02/06 10:32 Order name: Cardiac monitoring; Complete Time: 10:55 rn 02/06 10:32 Order name: EKG - Nurse/Tech; Complete Time: 10:56 rn 02/06 10:32 Order name: IV Saline Lock; Complete Time: 10:56 rn 02/06 10:32 Order name: Labs collected and sent; Complete Time: 10:56 rn 02/06 10:32 Order name: O2 Per Protocol; Complete Time: 10:56 rn 02/06 10:32 Order name: O2 Sat Monitoring; Complete Time: 10:56 rn EC:28 Rate is 73 beats/min. Rhythm is regular. QRS is negative in leads I, aVF. AK interval rn is normal. QRS interval is prolonged at 142 msec. QT interval is normal. No Q waves. T waves are Normal. No ST changes noted. Clinical impression: NSR w/ Non-specific ST/T Changes. Interpreted by me. Reviewed by me. Administered Medications: 12:12 Drug: Lasix (furosemide) 60 mg Route: IVP; Site: right antecubital; kc6 13:13 Follow up: Response: No adverse reaction kc6 Disposition Summary: 02/06/22 12:12 Hospitalization Ordered Hospitalization Status: Inpatient Admission rn Location: Telemetry/MedSur (Inpatient) rn Condition: Stable rn Problem: an ongoing problem rn Symptoms: have improved rn Bed/Room Type: Standard rn Provider: James Solitario(02/06/22 12:53) rn Room Assignment: 224(02/06/22 18:33) dw Diagnosis - Unspecified combined systolic (congestive) and diastolic (congestive) heart failure rn - Hypoxemia rn - Elevated troponin rn Forms: - Medication Reconciliation Form rn - SBAR form rn Signatures: Dispatcher [employer] Romana Pinzon RN RN dw Gianni Jerez MD MD rn Reid, Kelley, RN RN kr3 Sarah Presley RN RN kc6 Corrections: (The following items were deleted from the chart) 12:53 12:12 Zaid Farias rn rn 18:33 12:12 rn marika
--- NOTE | 2022-02-06 12:13 | ER ---
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 PCP mentioned CHF but has not diagnosed anything yet. Patient was told to come to ER if breathing difficulty became worse. The SOB became worse over the last couple of days, I can only walk a couple steps now. Patient allowed son to take car and she got in after him and drank out of a bottle of water and she believes she developed a cough from that. Coronavirus screen: Vaccine status: Patient reports receiving the 2nd dose of the covid vaccine. Client denies travel out of the [place] in the last 14 days. Ebola Screen: Patient denies travel to an Ebola-affected area in the 21 days before illness onset. Initial Sepsis Screen: Does the patient meet any 2 criteria? No. Patient's initial sepsis screen is negative. Does the patient have a suspected source of infection? No. Patient's initial sepsis screen is negative. Risk Assessment: Do you want to hurt yourself or someone else? Patient reports no desire to harm self or others. Onset of symptoms was February 02, 2022. 10:19 Method Of Arrival: EMS kr3 10:19 Acuity: TYRESE 3 kr3 Triage Assessment: 10:32 General: Appears in no apparent distress. comfortable, Behavior is cooperative, kr3 appropriate for age. Pain: Denies pain. Historical: - Allergies: 10:56 carvedilol; kc6 - PMHx: 10:30 Diabetes - NIDDM; Hyperlipidemia; Hypothyroidism; Hypertension; kr3 - PSHx: 10:30 Cholecystectomy; kr3 - Immunization history:: Adult Immunizations up to date. - Social history:: Smoking status: Patient/guardian denies using tobacco, the patient reports quitting approximately 30 years ago. - Family history:: not pertinent. - Hospitalizations: : No recent hospitalization is reported. Screenin:58 [facility] ED Fall Risk Assessment (Adult) History of falling in the last 3 months, kc6 including since admission No falls in past 3 months (0 pts) Confusion or Disorientation No (0 pts) Intoxicated or Sedated No (0 pts) Impaired Gait No (0 pts) Mobility Assist Device Used No (0 pt) Altered Elimination No (0 pt) Score/Fall Risk Level 0 - 2 = Low Risk Oriented to surroundings, Maintained a safe environment, Educated pt \T\ family on fall prevention, incl call for assistance when getting out of bed, Assessed \T\ reinforced patient's understanding of fall precautions, Provided non-skid footwear, Hourly rounding (assess needs \T\ fall precautionary measures) done, Used ambulatory aids as needed (educated on \T\ assisted with), Used gait belt as appropriate. Abuse screen: Denies threats or abuse. Denies injuries from another. Nutritional screening: No deficits noted. Tuberculosis screening: No symptoms or risk factors identified. Assessment: 10:57 General: Appears in no apparent distress. comfortable, Behavior is calm, cooperative, kc6 appropriate for age. Pain: Denies pain. Neuro: Reece Agitation-Sedation Scale (RASS): 0 - Alert and Calm Level of Consciousness is awake, alert, obeys commands, Oriented to person, place, time, situation, Appropriate for age. Cardiovascular: Heart tones S1 S2 present Capillary refill < 3 seconds. Respiratory: Reports shortness of breath Airway is patent Trachea midline Respiratory effort is even, unlabored, Respiratory pattern is regular, symmetrical, Breath sounds with wheezes bilaterally. GI: No signs and/or symptoms were reported involving the gastrointestinal system. : No signs and/or symptoms were reported regarding the genitourinary system. EENT: No signs and/or symptoms were reported regarding the EENT system. Derm: No signs and/or symptoms reported regarding the dermatologic system. Skin is intact, Skin is pink, warm \T\ dry. Musculoskeletal: No signs and/or symptoms reported regarding the musculoskeletal system. Circulation, motion, and sensation intact. Capillary refill < 3 seconds, Range of motion: intact in all extremities. 11:54 Reassessment: client short of breath ambulating to bathroom. 77% on RA. 94% on 3L NC. kc6 Dr. Jerez notified. 11:57 Reassessment: Patient appears in no apparent distress at this time. No changes from kc6 previously documented assessment. Patient and/or family updated on plan of care and expected duration. Pain level reassessed. Patient is alert, oriented x 3, equal unlabored respirations, skin warm/dry/pink. Patient denies pain at this time. 12:57 Reassessment: Patient appears in no apparent distress at this time. No changes from kc6 previously documented assessment. Patient and/or family updated on plan of care and expected duration. Pain level reassessed. Patient is alert, oriented x 3, equal unlabored respirations, skin warm/dry/pink. Patient denies pain at this time. 13:57 Reassessment: Patient appears in no apparent distress at this time. No changes from kc6 previously documented assessment. Patient and/or family updated on plan of care and expected duration. Pain level reassessed. Patient is alert, oriented x 3, equal unlabored respirations, skin warm/dry/pink. Patient denies pain at this time. Reassessment: please see [facility] for further charting. Vital Signs: 10:19 BP 153 / 72; Pulse 71; Resp 18; Temp 98.1; Pulse Ox 100% on 2 lpm NC; Weight 94.8 kg; kr3 Height 5 ft. 2 in. (157.48 cm); Pain 0/10; 10:59 BP 155 / 69; Pulse 72; Resp 18 S; Pulse Ox 95% on 2 lpm NC; Pain 0/10; kc6 11:59 BP 159 / 76; Pulse 74; Resp 22 S; Pulse Ox 97% on 4 lpm NC; Pain 0/10; kc6 12:59 BP 141 / 67; Pulse 67; Resp 20 S; Pulse Ox 95% on 3 lpm NC; Pain 0/10; kc6 13:59 BP 144 / 67; Pulse 71; Resp 15 S; Pulse Ox 96% on 3 lpm NC; Pain 0/10; kc6 16:00 BP 104 / 67; Pulse 68; Resp 18; Pulse Ox 95% on 3 lpm NC; kb3 18:00 BP 157 / 69; Pulse 80; Resp 20; Pulse Ox 95% on 3 lpm NC; kb3 18:00 BP 157 / 73; Pulse 71; Resp 20; Pulse Ox 93% on 3 lpm NC; kb3 10:19 Body Mass Index 38.23 (94.80 kg, 157.48 cm) kr3 ED Course: 10:18 Patient arrived in ED. kr3 10:26 Gianni Jerez MD is Attending Physician. rn 10:27 Triage completed. kr3 10:52 Sarah Presley, RN is Primary Nurse. kc6 10:55 XRAY CXR (1 view) Sent. mm9 10:55 COVID-19/FLU A+B Sent. mm9 10:56 BMP Sent. mm9 10:56 Blood Culture Adult (2) Sent. mm9 10:56 CBC with Diff Sent. mm9 10:56 Hepatic Function Sent. mm9 10:56 Magnesium Sent. mm9 10:56 NT PRO-BNP Sent. mm9 10:56 PT-INR Sent. mm9 10:56 Ptt, Activated Sent. mm9 10:56 Troponin HS Sent. mm9 10:56 Patient has correct armband on for positive identification. Placed in gown. Bed in low mm9 position. Call light in reach. Side rails up X 1. Warm blanket given. vehicle monitor technician on. Pulse ox on. NIBP on. 10:57 EKG done, by ED staff, reviewed by Gianni Jerez MD. mm9 11:12 Arm band placed on. kc6 11:35 BMP Sent. rs5 11:35 Blood Culture Adult (2) Sent. rs5 11:35 Hepatic Function Sent. rs5 11:35 Magnesium Sent. rs5 11:35 NT PRO-BNP Sent. rs5 11:35 Troponin HS Sent. rs5 11:35 Inserted saline lock: 22 gauge in right antecubital area, using aseptic technique. rs5 Blood collected. 11:36 Inserted saline lock: 22 gauge in left antecubital area, using aseptic technique. Blood rs5 collected. intraosseous access. 11:36 IV discontinued, intact, bleeding controlled, No redness/swelling at site. Pressure rs5 dressing applied. 12:09 XRAY CXR (1 view) In Process Unspecified. EDMS 12:11 Richard Brady MD is Hospitalizing Provider. rn 12:11 Zaid Farias is Hospitalizing Provider. rn 12:14 pur-wick in place. kc6 12:53 James Solitario MD is Hospitalizing Provider. rn 18:46 No provider procedures requiring assistance completed. kc6 19:10 Primary Nurse role handed off by Sarah Presley RN mw2 20:36 Bree Murillo, RN is Primary Nurse. kb3 Administered Medications: 12:12 Drug: Lasix (furosemide) 60 mg Route: IVP; Site: right antecubital; kc6 13:13 Follow up: Response: No adverse reaction kc6 Medication: 18:46 VIS not applicable for this client. kc6 Output: 21:11 Urine: 1200ml (Voided); Total: 1200ml. kb3 Outcome: 12:12 Decision to Hospitalize by Provider. rn 13:31 Admitted to ER Hold. Please see [facility] for further documentation. kc6 13:31 Condition: stable 13:31 Instructed on the need for admit. 20:57 Admitted to Med/surg accompanied by tech, via stretcher, with oxygen, Report called to kb3 Noé RN 20:57 Condition: stable 20:57 Instructed on the need for admit. 21:13 Patient left the ED. 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 PCP mentioned CHF but has not diagnosed anything yet. Patient was told to come to ER if breathing difficulty became worse. Patient allowed son to take car and she got in after him and drank out of a bottle of water and she believes she developed a cough from that. kr3
--- NOTE | 2022-02-06 13:32 | RAD REPORT ---
EXAM DESCRIPTION: RAD - Chest Single View - 02/06/2022 12:07 pm CLINICAL HISTORY: Cough COMPARISON: Two view chest 12/13/2021 TECHNIQUE: AP portable chest image was obtained 02/06/2022 12:07 pm . FINDINGS: No one focal area of dense consolidation seen. Interstitial markings are increased over th e comparison are scattered alveolar opacities in the lung hernandez. Findings are more prominent in the right base. Heart size is upper normal to slightly enlarged. Vasculature is within upper limits of normal. Trach ea is in the midline. No measurable pleural effusion and no pneumothorax. No acute bony abnormality seen. No acute aortic findings suspected. IMPRESSION: Increased interstitial opacification in the lung hernandez with scattered alveolar opacitie s, more prominent in the right base. Of mild failure or volume overload is suspected. Patient could have right base mild or early pneumoni a.
--- NOTE | 2022-02-06 13:49 | P.HP ---
Certification for Inpatient Patient admitted to: Inpatient With expected LOS: >2 Midnights Patient will require the following post-hospital care: Home Health Services Practitioner: I am a practitioner with admitting privileges, knowledge of patient current condition, hospital course, and medical plan of care. 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 She only suffered from diabetes previously. 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 The patient developed chronic sob with hypoxia. ckd. Was seen by Dr. Harmon last month. He was considering a cath on the patient. The last 3 days the patient has been getting progressively sob with minimal exertion. She came to the ER as instructed by Dr. Harmon. The patient was found to be hypoxic, fluid overloaded and with an elevated bnp and troponin. Nursing reports she desaturated to 77% ambulating to the bathroom. which is less than 50 feet from her room. The patient has a slightly elevated creatine. Was approx 1.4 to 1.8 at her baseline. Allergies No Known Drug Allergies Allergy (Verified 07/25/16 11:53) Unknown Home Medications: Glyburide,Micronized [Glynase] 5 mg PO BID 03/31/14 Levothyroxine [Synthroid*] 137 mcg PO [id number] 03/31/14 Loratadine [Claritin*] 10 mg PO DAILY PRN 03/31/14 Metformin HCl [Metformin ER Osmotic] 1,000 mg PO BID 03/31/14 Ferrous Sulfate [Iron] 325 mg PO DAILY 06/16/16 Gabapentin [Neurontin*] 100 mg PO TID 06/16/16 Pantoprazole [Protonix Tab*] 40 mg PO DAILY 06/16/16 Rosuvastatin [Crestor*] 10 mg PO BEDTIME 06/16/16 Vitamin B Complex [B Complex] 1 each PO DAILY 06/16/16 Apixaban [Eliquis] 5 mg PO BID 15 Days #30 tablet 11/06/20 Ascorbic Acid [Vitamin C*] 500 mg PO DAILY 30 Days #30 tablet 11/06/20 Cholecalciferol (Vitamin D3) [Vitamin D 5,000 IU Cap*] 5,000 unit PO DAILY 30 Days #30 cap 11/06/20 Zinc Sulfate [Zinc Sulfate*] 220 mg PO DAILY 30 Days #30 cap 11/06/20 dexAMETHasone [Decadron] 4 mg PO DAILY 10 Days #10 tablet 11/06/20 - Past Medical/Surgical History Diabetic: Yes -: oa, thyroid, dm, -: appy, kerwin, l breast biopsy, tumor removed l calf - Social History Alcohol use: No CD- Drugs: No Caffeine use: Yes Review of Systems 10-point ROS is otherwise unremarkable Respiratory: Shortness of Breath Cardiovascular: Edema Physical Examination - Physical Exam General: Alert, In no apparent distress HEENT: Atraumatic, PERRLA, Mucous membr. moist/pink, EOMI, Sclerae nonicteric Neck: Supple, 2+ carotid pulse no bruit, No LAD, Without JVD or thyroid abnormality Respiratory: Clear to auscultation bilaterally, Normal air movement, Crackle s/rales (mild basilar) Cardiovascular: Regular rate/rhythm, Normal S1 S2, Edema (1+) Gastrointestinal: Normal bowel sounds, No tenderness Musculoskeletal: No tenderness Integumentary: No rashes Neurological: Normal gait, Normal speech, Normal strength at 5/5 x4 extr, Normal tone, Normal affect Lymphatics: No axilla or inguinal lymphadenopathy - Studies Laboratory Data (last 24 hrs) 02/06/22 10:57: PT 11.3, INR 1.03, APTT 32.5 02/06/22 10:57: WBC 5.10, Hgb 11.5 L, Hct 35.4 L, Plt Count 140 L 02/06/22 10:57: Sodium 139, Potassium 4.0, BUN 45 H, Creatinine 1.97 H, Glucose 127 H, Magnesium 2.3, Total Bilirubin 0.5, AST 34, ALT 38, Alkaline Phosphatase 201 H Assessment and Plan - Problems (Diagnosis) (1) Acute CHF (congestive heart failure) Current Visit: Yes Status: Acute Plan: Will start the patient on Lasix. Will have her seen by Dr. Harmon. will need to monitor the creatine. Qualifiers: Heart failure type: unspecified Qualified Code(s): I50.9 - Heart failure, unspecified (2) Hypothyroidism Current Visit: No Status: Chronic Plan: restart her levothyroxine. Will check a thyroid level. Qualifiers: Hypothyroidism type: unspecified Qualified Code(s): E03.9 - Hypothyroidism, unspecified (3) DM2 (diabetes mellitus, type 2) Current Visit: No Status: Chronic Plan: normally on januvia. Start the patient on a sliding scale and an ada diet. Qualifiers: Diabetes mellitus exterminator helper insulin use: without detention use Diabetes mellitus complication status: without complication Qualified Code(s): E11.9 - Type 2 diabetes mellitus without complications Discharge Plan: Home Plan to discharge in: 24 Hours - Advance Directives Does patient have a Living Will: No Does patient have a Durable POA for Healthcare: No - Code Status/Comfort Care Code Status Assessed: Yes Code Status: Full Code Physician Review: Patient Assessed, Agree with Above Assessment and Plan Critical Care: No Time Spent Managing Pts Care (In Minutes): 50
[2022-02-06] MEDS ORDERED: HYDRALAZINE HCL 20 MG/ML VIAL IV PRN (13:56)
[2022-02-06] MEDS: BENZONATATE 100 MG CAP PO PRN ×2 (14:55→22:00)
[2022-02-06] MEDS: ENOXAPARIN 30 MG/0.3 ML SQ SCH (17:00)
[2022-02-06] MEDS: ACETAMINOPHEN 500 MG TAB PO SCH (17:00)
[2022-02-06] MEDS ORDERED: ENOXAPARIN 30 MG/0.3 ML SQ ONE (17:37)
--- NOTE | 2022-02-06 19:34 | CON ---
Date of Consultation: 02/06/2022 Reason For Consultation: Shortness of breath and CHF exacerbation. History Of Present Illness: This is a 71-year-old female with a past medical history of hypertension , diabetes, hypothyroidism, dyslipidemia, presented to the hospital with progressive shortness of yong ath on minimal exertion along with orthopnea and lower extremity edema. In the emergency room, she w as hypoxic, fluid overloaded, and after diuresis with Lasix, the patient is feeling better. Denies h aving any active chest pain. Past Medical History: As outlined above in the HPI. Medications: Refer to reconciliation sheet for detailed list. Allergies: NO KNOWN DRUG ALLERGIES. Family History: No premature coronary artery disease or cancer. Social History: She does not smoke or drink. Does not use any drugs. Review of Systems: All systems reviewed and they were negative except what mentioned in HPI. Physical Examination: Vital Signs: Temperature is 98.4, pulse 81, breathing at 18, blood pressure 138/61, saturating 96%. General: Pleasant middle-aged female, in no apparent distress. Head and Neck: Pupils are equal, reactive to light. Intact eye movements. Mild JVD elevation. Lungs: Positive bilateral air entry with faint crackles on the bases. No accessory muscle use or mu scle retraction. Heart: Irregular. No extra sounds. Abdomen: Soft, nontender. Bowel sounds positive. No organomegaly. No masses or hernia. No rigidi ty or rebound. Extremities: 2+ edema bilaterally. No clubbing or cyanosis. Intact pulses. Skin: No rash. Neurologic: Alert, awake, oriented x3. No acute focal deficits appreciated. Investigations: BUN 45, creatinine 1.97, and hemoglobin is 11.5. Troponin is 123. NT-proBNP is 11, 542. Chest x-ray showed a CHF. Assessment And Recommendations: 1.Acute congestive heart failure exacerbation. Agree with 80 mg of Lasix; however, we will make it q.12 hours. Monitor BUN, creatinine, electrolytes, and obtain echo tomorrow. 2.Elevated troponin. Obtain an echo and trend troponin further and diurese. Reassess labs in the m orning. 3.Chronic kidney disease, unsure for creatinine baseline. Recommend Nephrology evaluation. SR/MODL Voice ID: [id number] Report ID: [id number]
[2022-02-07] MEDS: ACETAMINOPHEN 500 MG TAB PO SCH ×3 (01:28→16:07)
[2022-02-07 06:50] LABS: Absolute Lymphocytes (CBC) 0.7 K/uL (0.7-4.9); Hematocrit 33.7 % (36.0-45.0); Lymphocytes % 16.2 % (15.3-44.8); MCV 92.9 fL (80-100); RBC Red Blood Cell Count 3.62 M/uL (3.86-4.86)
[2022-02-07 07:20] LABS: Albumin 2.9 g/dL (3.4-5.0); Bilirubin Total 0.5 mg/dL (0.2-1.0); Protein, Total 7.1 g/dL (6.4-8.2); Thyroid Stimulating Hormone 2.14 uIU/mL (0.358-3.740)
[2022-02-07] MEDS: FUROSEMIDE 40 MG/4 ML VIAL IV SCH ×2 (07:56→16:05)
[2022-02-07] MEDS ORDERED: FUROSEMIDE 40 MG/4 ML VIAL IV SCH (09:00)
--- NOTE | 2022-02-07 11:51 | P.PN ---
Subjective Date of Service: 02/07/22 Primary Care Provider: Iggy Chief Complaint: chf exacerbation Subjective: Improving Review of Systems 10-point ROS is otherwise unremarkable Physical Examination - Vital Signs Temperature: 97.5 F Blood Pressure: 132/61 Pulse: 69 Respirations: 16 Pulse Ox (%): 95 - Physical Exam General: Alert, In no apparent distress HEENT: Atraumatic, PERRLA, EOMI Neck: Supple, JVD not distended Respiratory: Clear to auscultation bilaterally, Normal air movement Cardiovascular: No edema (much improved from yesterday), Regular rate/rhythm, Normal S1 S2 Gastrointestinal: Normal bowel sounds, No tenderness Musculoskeletal: No tenderness Integumentary: No rashes Neurological: Normal speech, Normal tone, Normal affect Lymphatics: No axilla or inguinal lymphadenopathy Assessment And Plan - Current Problems (Diagnosis) (1) Acute CHF (congestive heart failure) Current Visit: Yes Status: Acute Plan: Will start the patient on Lasix. Will have her seen by Dr. Harmon. will need to monitor the creatine. 02/07/22 Will await the echo. She is improving from a fluid standpoint. Her baseline creatine is 1.4-1.8 Qualifiers: Heart failure type: unspecified Qualified Code(s): I50.9 - Heart failure, unspecified (2) Hypothyroidism Current Visit: No Status: Chronic Plan: restart her levothyroxine. Will check a thyroid level. Qualifiers: Hypothyroidism type: unspecified Qualified Code(s): E03.9 - Hypothyroidism, unspecified (3) DM2 (diabetes mellitus, type 2) Current Visit: No Status: Chronic Plan: normally on januvia. Start the patient on a sliding scale and an ada diet. Qualifiers: Diabetes mellitus chcf insulin use: without terminal makeup operator use Diabetes mellitus complication status: without complication Qualified Code(s): E11.9 - Type 2 diabetes mellitus without complications (4) CKD (chronic kidney disease) stage 3, GFR 30-59 ml/min Current Visit: Yes Status: Chronic Plan: baseline creatine is 1.4 to 1.8 She is improving. Will continue to monitor. Will hold on the nephrology consult unless she worsens. She has seen Dr. Wilson in the past. Qualifiers: Chronic kidney disease stage 3 subtype: stage 3b (GFR 30-44) Qualified Code(s): N18.32 - Chronic kidney disease, stage 3b Discharge Plan: Home Plan to discharge in: 48 Hours - Code Status/Comfort Care Code Status Assessed: No Physician Review: Patient Assessed, Agree with Above Assessment and Plan Critical Care: No Time Spent Managing PTS Care (In Minutes): 20
[2022-02-07] MEDS: ENOXAPARIN 30 MG/0.3 ML SQ SCH (16:04)
[2022-02-07] MEDS: BENZONATATE 100 MG CAP PO PRN (16:07)
[2022-02-07 16:34] VITALS: BMI 36.0
--- NOTE | 2022-02-07 17:23 | PN ---
Date of Progress Note: 02/07/2022 Subjective: Seen by bedside. She is improving. Diuresed very well on Lasix. Her BUN and creatinin e improved. Denies having any chest pain. She is generally weak. No nausea, vomiting, or diaphores is. No other complaints. Physical Examination: Vital Signs: Reviewed. Head and Neck: Pupils are equal, reactive to light. Intact eye movements. No JVD. No cervical lym phadenopathy. Neck is supple. Thyroid is not enlarged. Lungs: Clear to auscultation bilaterally. No rhonchi, wheezing, or crackles. No accessory muscle u se. Heart: Irregular with S3 gallop. Abdomen: Soft, nontender. Bowel sounds positive. No organomegaly. No masses or hernia. No rigidi ty or rebound. Extremities: She has 1 to 2+ pedal edema. No clubbing or cyanosis. Intact pulses. Skin: No rash. Neurologic: Alert, awake, oriented x3. No acute focal deficits appreciated. Investigations: BUN is 43, creatinine 1.7, down from 40 5/1.97 and troponin remained low at 121. Assessment And Recommendations: 1.Acute congestive heart failure exacerbation. Responding very well to diuretics. Continue Lasix 8 0 mg q.12 hours. Monitor BUN, creatinine, electrolytes, and obtain an echo. 2.Elevated troponin. Troponin remains in the low level. Likely, this is demand ischemia. Diurese the patient appropriately and obtain the echo. There are no wall motion abnormalities and the patien t can be evaluated further as an outpatient. 3.Acute on chronic renal failure due to fluid retention and elevated central venous pressure. Improved with Lasix and diuresis. Continue current management. SR/MODL Voice ID: [id number] Report ID: [id number]
[2022-02-08] MEDS: ACETAMINOPHEN 500 MG TAB PO SCH ×3 (00:26→18:28)
[2022-02-08] MEDS: BENZONATATE 100 MG CAP PO PRN ×3 (00:26→21:25)
[2022-02-08 06:49] LABS: Absolute Lymphocytes (CBC) 0.9 K/uL (0.7-4.9); Hematocrit 35.8 % (36.0-45.0); Lymphocytes % 19.4 % (15.3-44.8); MCV 91.9 fL (80-100); MPV 7.8 fL (7.6-11.3); RBC Red Blood Cell Count 3.89 M/uL (3.86-4.86)
[2022-02-08 07:11] LABS: Bilirubin Total 0.6 mg/dL (0.2-1.0); Potassium 4.2 mmol/L (3.5-5.1); Protein, Total 7.6 g/dL (6.4-8.2)
--- NOTE | 2022-02-08 08:12 | P.PN ---
Subjective Date of Service: 02/08/22 Primary Care Provider: Iggy Chief Complaint: chf exacerbation Subjective: Improving Review of Systems 10-point ROS is otherwise unremarkable Physical Examination - Vital Signs Temperature: 97.3 F Blood Pressure: 117/58 Pulse: 64 Respirations: 18 Pulse Ox (%): 96 - Physical Exam General: Alert, In no apparent distress HEENT: Atraumatic, PERRLA, EOMI Neck: Supple, JVD not distended Respiratory: Clear to auscultation bilaterally, Normal air movement Cardiovascular: Regular rate/rhythm, Normal S1 S2 Gastrointestinal: Normal bowel sounds, No tenderness Musculoskeletal: No tenderness Integumentary: No rashes Neurological: Normal speech, Normal tone, Normal affect Lymphatics: No axilla or inguinal lymphadenopathy Assessment And Plan - Current Problems (Diagnosis) (1) CKD (chronic kidney disease) stage 3, GFR 30-59 ml/min Current Visit: Yes Status: Chronic Plan: baseline creatine is 1.4 to 1.8 She is improving. Will continue to monitor. Will hold on the nephrology consult unless she worsens. She has seen Dr. Wilson in the past. 02/08/21 Slight worsening. Will hold the lasix. She is currently has a normal fluid status. Will given intermittent lasix on a day by day basis Qualifiers: Chronic kidney disease stage 3 subtype: stage 3b (GFR 30-44) Qualified Code(s): N18.32 - Chronic kidney disease, stage 3b (2) Acute CHF (congestive heart failure) Current Visit: Yes Status: Acute Plan: Will start the patient on Lasix. Will have her seen by Dr. Harmon. will need to monitor the creatine. 02/07/22 Will await the echo. She is improving from a fluid standpoint. Her baseline creatine is 1.4-1.8 Qualifiers: Heart failure type: unspecified Qualified Code(s): I50.9 - Heart failure, unspecified (3) Hypothyroidism Current Visit: No Status: Chronic Plan: restart her levothyroxine. Will check a thyroid level. Qualifiers: Hypothyroidism type: unspecified Qualified Code(s): E03.9 - Hypothyroidism, unspecified (4) DM2 (diabetes mellitus, type 2) Current Visit: No Status: Chronic Plan: normally on januvia. Start the patient on a sliding scale and an ada diet. Qualifiers: Diabetes mellitus moth exterminator insulin use: without moth exterminator use Diabetes mellitus complication status: without complication Qualified Code(s): E11.9 - Type 2 diabetes mellitus without complications Discharge Plan: Home Plan to discharge in: 24 Hours - Code Status/Comfort Care Code Status Assessed: No Physician Review: Patient Assessed, Agree with Above Assessment and Plan Critical Care: No Time Spent Managing PTS Care (In Minutes): 20
[2022-02-08] MEDS ORDERED: LEVOTHYROXINE SOD 0.112 MG TAB PO SCH (09:00)
[2022-02-08] MEDS ORDERED: APIXABAN 5 MG TABLET PO SCH (09:00)
[2022-02-08] MEDS: dexAMETHasone 4 MG TAB PO SCH (09:05)
[2022-02-08] MEDS: PANTOPRAZOLE 40MG TABLET PO SCH (09:06)
[2022-02-08] MEDS: ASCORBIC ACID 500 MG TABLET PO SCH (09:06)
[2022-02-08] MEDS: FERROUS SULFATE 325 MG TAB PO SCH (09:06)
[2022-02-08] MEDS: GABAPENTIN 100 MG CAP PO SCH ×3 (09:07→21:25)
[2022-02-08] MEDS: LEVOTHYROXINE SOD 0.112 MG TAB PO SCH (10:15)
[2022-02-08] MEDS: LEVOTHYROXINE SOD 0.025 MG TAB PO SCH (10:15)
--- NOTE | 2022-02-08 18:10 | PN ---
Date of Progress Note: 02/08/2022 Subjective: Seen by bedside. She is doing better. Continues to have shortness of breath on exertio n. No orthopnea. No lower extremity edema. No nausea, vomiting, or diarrhea. No dysuria, polyuria , or urinary urgency. All other systems reviewed and they are negative. Physical Examination: Vital Signs: Temperature is 97.8, pulse 70, breathing at 16, blood pressure 104/57, and saturating 9 6% on room air. General: A pleasant elderly female, in no apparent distress. Head And Neck: Pupils are equal and reactive to light. Intact eye movements. No JVD. No cervical lymphadenopathy. Neck is supple. Thyroid is not enlarged. Lungs: Clear to auscultation bilaterally. No rhonchi, wheezing, or crackles. No accessory muscle u se. Heart: Regular rate and rhythm. No extra sounds. Abdomen: Soft, nontender. Bowel sounds positive. No organomegaly. No masses or hernia. No rigidi ty or rebound. Extremities: No clubbing or cyanosis. Intact pulses. Skin: No rash. Neurologic: Alert, awake, and oriented x3. No acute focal deficits appreciated. Investigations: BUN 52 and creatinine 1.9. Assessment/recommendation: 1.Severe pulmonary hypertension. On echo her right ventricular systolic pressure is above 90 mmHg. She will need further evaluation with left and right heart catheterization to determine the etiology behind the pulmonary hypertension. The patient seems to be euvolemic from the fluid standpoint. 2.Kggci-ie-rrvulyv diastolic heart failure. The patient has normal ejection fraction; however, she has severe pulmonary hypertension and the filling pressures appear normal on echo now so likely we ar e dealing with the primary pulmonary arterial hypertension. Plan for left and right heart catheteriz ation as above. 3.Chronic kidney failure, this is stable. Hold Lasix for now due to the fact that she is slightly o gerda diuresed. SR/MODL Voice ID: [id number] Report ID: [id number]
[2022-02-08] MEDS ORDERED: GLUCAGON 1 MG/VIAL IM PRN (18:44)
[2022-02-08] MEDS ORDERED: DEXTROSE 10%-WATER 500 ML IV BAG IV PRN (18:57)
[2022-02-08] MEDS: ROSUVASTATIN 10 MG TAB PO SCH (21:25)
[2022-02-08] MEDS: INSULIN -REGULAR HUMAN 50 UNIT/0.5 ML ML SQ SCH (21:31)
[2022-02-09] MEDS: ACETAMINOPHEN 500 MG TAB PO SCH ×3 (00:52→21:35)
[2022-02-09] MEDS: LEVOTHYROXINE SOD 0.112 MG TAB PO SCH (05:22)
[2022-02-09] MEDS: LEVOTHYROXINE SOD 0.025 MG TAB PO SCH (05:22)
[2022-02-09 06:32] LABS: Absolute Lymphocytes (CBC) 0.6 K/uL (0.7-4.9); Hematocrit 36.9 % (36.0-45.0); Lymphocytes % 9.4 % (15.3-44.8); MCV 93.7 fL (80-100); MPV 7.9 fL (7.6-11.3); RBC Red Blood Cell Count 3.94 M/uL (3.86-4.86)
[2022-02-09 06:48] LABS: Albumin 3.1 g/dL (3.4-5.0); Bilirubin Total 0.4 mg/dL (0.2-1.0); Potassium 4.3 mmol/L (3.5-5.1); Protein, Total 7.6 g/dL (6.4-8.2)
--- NOTE | 2022-02-09 07:08 | ECHO ---
HEIGHT: 5 ft 2 in WEIGHT: 197 lb 0 oz DATE OF STUDY: 02/08/[address]: Trey Harmon 2-DIMENSIONAL: YES M.MODE: YES DOPPLER: YES COLOR FLOW: YES TDS: PORTABLE: YES DEFINITY: BUBBLE STUDY: DIAGNOSIS: CONGESTIVE HEART FAILURE CARDIAC HISTORY: CATHERIZATION: SURGERY: PROSTHETIC VALVE: PACEMAKER: MEASUREMENTS (cm) DIASTOLIC (NORMALS) SYSTOLIC (NORMALS) IVSd 1.2 (0.6-1.2) LA Diam 3.2 (1.9-4.0) LVEF 78% LVIDd 3.9 (3.5-5.7) LVIDs 2.1 (2.0-3.5) %FS 46% LVPWd 1.2 (0.6-1.2) Ao Diam 3.0 (2.0-3.7) 2 DIMENSIONAL ASSESSMENT: RIGHT ATRIUM: NORMAL LEFT ATRIUM: NORMAL RIGHT VENTRICLE: MILDLY DILATED LEFT VENTRICLE: MILD LEFT VENTRICULAR HYPERTROPHY TRICUSPID VALVE: MILD TRICUSPID REGURGITATION MITRAL VALVE: TRACE MITRAL REGURGITATION PULMONIC VALVE: NORMAL AORTIC VALVE: NORMAL PERICARDIAL EFFUSION: SMALL AORTIC ROOT: NORMAL LEFT VENTRICULAR WALL MOTION: NORMAL DOPPLER/COLOR FLOW: SEE BELOW COMMENTS: 1. NORMAL LEFT VENTRICULAR EJECTION FRACTION GREATER THAN 60% WITH NORMAL WALL MOTION. 2. MILD CONCENTRIC LEFT VENTRICULAR HYPERTROPHY 3. MODERATE TRICUSPID REGURGITATION 4. MILDLY DILATED RIGHT VENTRICLE WITH NORMAL RIGHT VENTRICULAR FUNCTION 5. SEVERE PULMONARY HYPERTENSION WITH RIGHT VENTRICULAR SYSTOLIC PRESSURE OF GREATER THAN 90 mmHg. 6. MILD MITRAL REGURGITATION 7. SMALL PERICARDIAL EFFUSION TECHNOLOGIST: TITI DOZIER
[2022-02-09] MEDS: INSULIN -REGULAR HUMAN 50 UNIT/0.5 ML ML SQ SCH ×4 (07:30→21:35)
[2022-02-09] MEDS: GABAPENTIN 100 MG CAP PO SCH ×3 (08:54→21:34)
[2022-02-09] MEDS: FERROUS SULFATE 325 MG TAB PO SCH (08:54)
[2022-02-09] MEDS: PANTOPRAZOLE 40MG TABLET PO SCH (08:55)
[2022-02-09] MEDS: dexAMETHasone 4 MG TAB PO SCH (08:57)
[2022-02-09] MEDS: ASCORBIC ACID 500 MG TABLET PO SCH (08:58)
--- NOTE | 2022-02-09 09:12 | P.PN ---
Subjective Date of Service: 02/09/22 Primary Care Provider: Iggy Chief Complaint: chf exacerbation Subjective: No new changes Review of Systems 10-point ROS is otherwise unremarkable Physical Examination - Vital Signs Temperature: 97.5 F Blood Pressure: 121/58 Pulse: 69 Respirations: 18 Pulse Ox (%): 95 - Physical Exam General: Alert, In no apparent distress HEENT: Atraumatic, PERRLA, EOMI Neck: Supple, JVD not distended Respiratory: Clear to auscultation bilaterally, Normal air movement Cardiovascular: Regular rate/rhythm, Normal S1 S2 Gastrointestinal: Normal bowel sounds, No tenderness Musculoskeletal: No tenderness Integumentary: No rashes Neurological: Normal speech, Normal tone, Normal affect Lymphatics: No axilla or inguinal lymphadenopathy Assessment And Plan - Current Problems (Diagnosis) (1) Pulmonary HTN Current Visit: Yes Status: Acute Plan: Possible cath tormorrow. This may be diastolic dysfunction Will consult Dr. Ybarra. Who has seen her in the past (2) CKD (chronic kidney disease) stage 3, GFR 30-59 ml/min Current Visit: Yes Status: Chronic Plan: baseline creatine is 1.4 to 1.8 She is improving. Will continue to monitor. Will hold on the nephrology consult unless she worsens. She has seen Dr. Wilson in the past. 02/[address] Lester/Anamika . Especially as the patient has a possible cath tomorrow Qualifiers: Chronic kidney disease stage 3 subtype: stage 3b (GFR 30-44) Qualified Code(s): N18.32 - Chronic kidney disease, stage 3b (3) Acute CHF (congestive heart failure) Current Visit: Yes Status: Acute Plan: Will start the patient on Lasix. Will have her seen by Dr. Harmon. will need to monitor the creatine. 02/07/22 Will await the echo. She is improving from a fluid standpoint. Her baseline creatine is 1.4-1.8 Qualifiers: Heart failure type: unspecified Qualified Code(s): I50.9 - Heart failure, unspecified (4) Hypothyroidism Current Visit: No Status: Chronic Plan: restart her levothyroxine. Will check a thyroid level. Qualifiers: Hypothyroidism type: unspecified Qualified Code(s): E03.9 - Hypothyroidism, unspecified (5) DM2 (diabetes mellitus, type 2) Current Visit: No Status: Chronic Plan: normally on januvia. Start the patient on a sliding scale and an ada diet. Qualifiers: Diabetes mellitus residential insulin use: without residential use Diabetes mellitus complication status: without complication Qualified Code(s): E11.9 - Type 2 diabetes mellitus without complications Discharge Plan: Home Plan to discharge in: 48 Hours - Code Status/Comfort Care Code Status Assessed: No Physician Review: Patient Assessed, Agree with Above Assessment and Plan Critical Care: No Time Spent Managing PTS Care (In Minutes): 25
--- NOTE | 2022-02-09 11:56 | PN ---
Date of Progress Note: 02/09/2022 Subjective: Seen by bedside. Clinically, is doing much better. No significant shortness of breath. Review of Systems: No chest pain. Has shortness of breath on exertion. No nausea, vomiting, or diarrhea. No abdominal pain. No dysuria, polyuria, or urinary urgency. All other systems reviewed and they were negative. Physical Examination: Vital Signs: Temperature is 97.5, pulse 69, breathing at 18, blood pressure 121/58, saturating 95%. General: Pleasant elderly female, in no apparent distress. Head and Neck: Pupils are equal, reactive to light. Intact eye movements. No JVD. No cervical lym phadenopathy. Neck is supple. Thyroid is not enlarged. Lungs: Clear to auscultation bilaterally. No rhonchi, wheezing, or crackles. No accessory muscle u se. Heart: Regular rate and rhythm. No extra sounds. Abdomen: Soft, nontender. Bowel sounds positive. No organomegaly. No masses or hernia. No rigidi ty or rebound. Extremities: No edema, clubbing, or cyanosis. Intact pulses. Skin: No rash. Neurologic: Alert, awake, oriented x3. No acute focal deficits appreciated. Lymph Nodes: No cervical or axillary lymphadenopathy. Investigations: BUN is 74, creatinine is 2.24, hemoglobin is 11.9. Assessment And Recommendation: 1.Severe pulmonary hypertension. The right ventricular systolic pressure on echo is above 90 mmHg d espite the fact that she is dry and diuresed very well. This is suggestive of primary arterial pulmo nary hypertension. I will plan for left and right heart catheterization once her kidney status is mo re stable. 2.Acute on chronic renal failure. Recommend Nephrology evaluation, keep her off the diuretics and m aybe gentle hydration might be required. 3.Acute on chronic diastolic heart failure exacerbation. She is euvolemic at the present time. SR/MODL Voice ID: [id number] Report ID: [id number]
[2022-02-09] MEDS: BENZONATATE 100 MG CAP PO PRN ×2 (12:08→21:35)
--- NOTE | 2022-02-09 12:40 | P.CNS ---
Date of Consult: 02/09/22 Reason for Consult: Pulmonary hypertension Primary Care Provider: Iggy Chief Complaint: Pulmonary hypertension shortness of breath History of Present Illness: Patient is 71 years of age admitted with acute on chronic dyspnea she has been having problems patient since patient got COVID and was found to have severe pulmonary hypertension with mild right ventricular dilatation no prior history of any cardiopulmonary problems history of coronary artery disease currently feels better denies any swelling of lower extremity also has chronic renal failure patient's renal function is steadily worsened Allergies No Known Drug Allergies Allergy (Verified 07/25/16 11:53) Unknown Home Medications: Levothyroxine [Synthroid*] 137 mcg PO [id number] 03/31/14 Loratadine [Claritin*] 10 mg PO DAILY PRN 03/31/14 Ferrous Sulfate [Iron] 325 mg PO DAILY 06/16/16 Gabapentin [Neurontin*] 100 mg PO TID 06/16/16 Rosuvastatin [Crestor*] 10 mg PO BEDTIME 06/16/16 Vitamin B Complex [B Complex] 1 each PO DAILY 06/16/16 Apixaban [Eliquis] 5 mg PO BID 15 Days #30 tablet 11/06/20 Ascorbic Acid [Vitamin C*] 500 mg PO DAILY 30 Days #30 tablet 11/06/20 Cholecalciferol (Vitamin D3) [Vitamin D 5,000 IU Cap*] 5,000 unit PO DAILY 30 Days #30 cap 11/06/20 Zinc Sulfate [Zinc Sulfate*] 220 mg PO DAILY 30 Days #30 cap 11/06/20 Amlodipine [Norvasc] 5 mg PO DAILY 02/08/22 Sitagliptin Phosphate [Januvia] 100 mg PO 02/08/22 - Past Medical/Surgical History Diabetic: Yes -: oa, thyroid, dm, -: appy, kerwin, l breast biopsy, tumor removed l calf - Social History Smoking Status: Never smoker Alcohol use: No CD- Drugs: No Caffeine use: Yes Place of Residence: Home Review of Systems 10-point ROS is otherwise unremarkable General: Weakness Respiratory: Shortness of Breath Physical Examination Temp Pulse Resp BP Pulse Ox 97.7 F 76 16 135/63 94 02/09/22 12:00 02/09/22 12:00 02/09/22 12:00 02/09/22 12:00 02/09/22 12:00 General: Alert, In no apparent distress, Oriented x3 Respiratory: Clear to auscultation bilaterally, Diminished Cardiovascular: No edema, Regular rate/rhythm, Normal S1 S2 Gastrointestinal: Normal bowel sounds, Soft and benign - Problems (1) Pulmonary HTN Current Visit: Yes Status: Acute Plan: Patient is 71 years of age admitted with dyspnea on exertion she does have severe pulmonary hypertension suspect is due to diastolic dysfunction her symptoms of gotten worse since COVID chest x-ray does show some interstitial changes and is anticoagulated on Eliquis recommend perfusion scan and a CT of the chest without contrast to evaluate for pulmonary fibrosis demand holding on cardiac catheterization for now we will start her on low-dose sildenafil that can be increased labs reviewed oxygenation satisfactory patient does not smoke patient's BNP was 11,000VQ R/O Chronic thromboembloic pulm HTN./ add IV lasix /DC steroids
--- NOTE | 2022-02-09 13:23 | RAD REPORT ---
EXAM DESCRIPTION: CT - Thorax Wo Con - 02/09/2022 12:56 pm CLINICAL HISTORY: Pulmonary hypertension blood pulmonary fibrosis COMPARISON: February 06, 2022 chest x-ray TECHNIQUE: Computed axial tomography of the chest was obtained. Contrast was not requested. All CT scans are performed using dose optimization technique as appropriate and may include automated exposure control or mA/KV adjustment according to patient size. FINDINGS: The evaluation of mediastinum, elly and vessels is limited secondary to lack of IV contras t administration. The lungs are clear. Gvyc-nu-nndkkvhb centrilobular emphysema. No mediastinal or hilar lymphadenopathy is seen. A pleural effusion is not present. No pericardial effusion. Prominence of the central pulmonary arteries. Cirrhotic liver. 12 millimeter low-density lesion liver IMPRESSION: Prominence of the central pulmonary arteries can indicate pulmonary to hypertension Mild to moderate COPD Cirrhosis. 12 millimeter low-density lesion liver probably a cyst
[2022-02-09] MEDS: [UNRECOGNIZED DRUG - OTHER] PO SCH (15:32)
[2022-02-09] MEDS: FUROSEMIDE 40 MG/4 ML VIAL IV SCH (15:37)
--- NOTE | 2022-02-09 15:50 | RAD REPORT ---
EXAM DESCRIPTION: NM - Vent Perfusion VQ Scan - 02/09/2022 3:12 pm CLINICAL HISTORY: Shortness of breath/pulmonary hypertension COMPARISON: CT chest February 09, 2022 TECHNIQUE: Ventilation images not obtained secondary to xenon shortage 6.8 millicuries Technetium-99 MAA was administered intravenously. Anterior, posterior, lateral and ob lique views of the lungs were taken. FINDINGS: The lungs demonstrate relatively homogeneous radiotracer activity on the perfusion sequenc es. No large segmental/lobar defects seen IMPRESSION: No evidence of a pulmonary embolus
--- NOTE | 2022-02-09 16:09 | EKG ---
Test Date: 2022-02-06 Test Time: 10:50:31 Round Cutter Operator: DILCIA MEASUREMENT RESULTS: Intervals: Rate: 73 HI: 188 QRSD: 142 QT: 446 QTc: 491 Batchelor: P: 60 HI: 188 QRS: -82 T: 25 INTERPRETIVE STATEMENTS: Normal sinus rhythm Right bundle branch block Left anterior fascicular block Bifascicular block Septal infarct, age undetermined Abnormal ECG Compared to ECG 04/27/2016 14:13:25 Myocardial infarct finding now present Bifascicular block still present Electronically Signed On 02-09-22 16:06:43 LASTING MACHINE OPERATOR HAND METHOD by Trey Harmon
[2022-02-09] MEDS: ROSUVASTATIN 10 MG TAB PO SCH (21:34)
--- NOTE | 2022-02-09 22:31 | P.CNS ---
Date of Consult: 02/09/22 Reason for Consult: ARNOLD/ CKD Requesting Physician: James Solitario Primary Care Provider: Iggy Chief Complaint: Pulmonary hypertension shortness of breath History of Present Illness: She only suffered from diabetes previously. 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 The patient developed chronic sob with hypoxia. ckd. Was seen by Dr. Harmon last month. He was considering a cath on the patient. The last 3 days the patient has been getting progressively sob with minimal exertion. She came to the ER as instructed by Dr. Harmon. The patient was found to be hypoxic, fluid overloaded and with an elevated bnp and troponin. Nursing reports she desaturated to 77% ambulating to the bathroom, which is less than 50 feet from her room. The patient has a slightly elevated creatine was approx 1.4 to 1.8 at her baseline. [facility] [place] 11:14 This 71 yrs old Female presents to ER via EMS with complaints of Breathing rn Difficulty, Shortness Of Breath. 11:14 The patient has shortness of breath at rest, with light activity. Onset: The rn symptoms/episode began/occurred 3 month(s) ago. Duration: The symptoms are intermittent. The patient's shortness of breath is aggravated by exertion, light activity, walking, is alleviated by rest, sitting up. Associated signs and symptoms: Pertinent positives: non-productive cough, Pertinent negatives: fever, hemoptysis, loss of consciousness. Severity of symptoms: At their worst the symptoms were moderate in the emergency department the symptoms are unchanged. The patient has experienced similar episodes in the past. The patient has been recently seen by a physician:. Pt reports 3-4 months of sob, seen by cardiology and pcp, has had ECHO, told needs heart cath. Came in because sob got worse over last 2 days, assoc with cough, no fever. She denies NSAIDs and reports Tylenol prn. She denies any difficulty with urination. Allergies No Known Drug Allergies Allergy (Verified 07/25/16 11:53) Unknown Home medications list reviewed: Yes Home Medications: Levothyroxine [Synthroid*] 137 mcg PO [id number] 03/31/14 Loratadine [Claritin*] 10 mg PO DAILY PRN 03/31/14 Ferrous Sulfate [Iron] 325 mg PO DAILY 06/16/16 Gabapentin [Neurontin*] 100 mg PO TID 06/16/16 Rosuvastatin [Crestor*] 10 mg PO BEDTIME 06/16/16 Vitamin B Complex [B Complex] 1 each PO DAILY 06/16/16 Apixaban [Eliquis] 5 mg PO BID 15 Days #30 tablet 11/06/20 Ascorbic Acid [Vitamin C*] 500 mg PO DAILY 30 Days #30 tablet 11/06/20 Cholecalciferol (Vitamin D3) [Vitamin D 5,000 IU Cap*] 5,000 unit PO DAILY 30 Days #30 cap 11/06/20 Zinc Sulfate [Zinc Sulfate*] 220 mg PO DAILY 30 Days #30 cap 11/06/20 Amlodipine [Norvasc] 5 mg PO DAILY 02/08/22 Sitagliptin Phosphate [Januvia] 100 mg PO 02/08/22 - Past Medical/Surgical History Diabetic: Yes -: oa, thyroid, dm, -: appy, kerwin, l breast biopsy, tumor removed l calf - Social History Smoking Status: Never smoker Alcohol use: No CD- Drugs: No Caffeine use: Yes Place of Residence: Home Review of Systems 10-point ROS is otherwise unremarkable General: Weakness Respiratory: SOB with Excertion Physical Examination Temp Pulse Resp BP Pulse Ox 97.7 F 71 18 130/60 93 02/09/22 20:00 02/09/22 20:00 02/09/22 20:00 02/09/22 20:00 02/09/22 20:00 General: Oriented x3, Cooperative HEENT: Atraumatic Neck: Supple Respiratory: Clear to auscultation bilaterally Cardiovascular: No edema, Regular rate/rhythm Gastrointestinal: Soft and benign, Non-distended Musculoskeletal: No clubbing, No contractures Integumentary: No rashes, No cyanosis Neurological: Normal speech Blood work reviewed in the chart. Imagings Data: EXAM DESCRIPTION: NM - Vent Perfusion VQ Scan - 02/09/2022 3:12 pm CLINICAL HISTORY: Shortness of breath/pulmonary hypertension COMPARISON: CT chest February 09, 2022 TECHNIQUE: Ventilation images not obtained secondary to xenon shortage 6.8 millicuries Technetium-99 MAA was administered intravenously. Anterior, posterior, lateral and oblique views of the lungs were taken. FINDINGS: The lungs demonstrate relatively homogeneous radiotracer activity on the perfusion sequences. No large segmental/lobar defects seen IMPRESSION: No evidence of a pulmonary embolus EXAM DESCRIPTION: RAD - Chest Single View - 02/06/2022 12:07 pm CLINICAL HISTORY: Cough COMPARISON: Two view chest 12/13/2021 TECHNIQUE: AP portable chest image was obtained 02/06/2022 12:07 pm . FINDINGS: No one focal area of dense consolidation seen. Interstitial markings are increased over the comparison are scattered alveolar opacities in the lung hernandez. Findings are more prominent in the right base. Heart size is upper normal to slightly enlarged. Vasculature is within upper limits of normal. Trachea is in the midline. No measurable pleural effusion and no pneumothorax. No acute bony abnormality seen. No acute aortic findings suspected. IMPRESSION: Increased interstitial opacification in the lung hernandez with scattered alveolar opacities, more prominent in the right base. Of mild failure or volume overload is suspected. Patient could have right base mild or early pneumonia. LEFT VENTRICULAR WALL MOTION: NORMAL DOPPLER/COLOR FLOW: SEE BELOW COMMENTS: 1. NORMAL LEFT VENTRICULAR EJECTION FRACTION GREATER THAN 60% WITH NORMAL WALL MOTION. 2. MILD CONCENTRIC LEFT VENTRICULAR HYPERTROPHY 3. MODERATE TRICUSPID REGURGITATION 4. MILDLY DILATED RIGHT VENTRICLE WITH NORMAL RIGHT VENTRICULAR FUNCTION 5. SEVERE PULMONARY HYPERTENSION WITH RIGHT VENTRICULAR SYSTOLIC PRESSURE OF GREATER THAN 90 mmHg. 6. MILD MITRAL REGURGITATION 7. SMALL PERICARDIAL EFFUSION Conclusions/Impression: Stage I ARNOLD in the setting of diuresis CKD IIIb -No NSAIDs Hyponatremia -Continue furosemide Diastolic CHF, A/C Pulmonary HTN Moderate TR -Continue furosemide DM II with polyneuropathy -RISS -Continue Gabapentin Anemia in chronic illness -Monitor H&H Thank you kindly for the consultation
[2022-02-10] MEDS: ACETAMINOPHEN 500 MG TAB PO SCH ×3 (01:00→17:00)
[2022-02-10] MEDS: LEVOTHYROXINE SOD 0.112 MG TAB PO SCH (06:12)
[2022-02-10] MEDS: INSULIN -REGULAR HUMAN 50 UNIT/0.5 ML ML SQ SCH ×4 (07:30→21:41)
--- NOTE | 2022-02-10 08:04 | P.PN ---
Subjective Date of Service: 02/10/22 Primary Care Provider: Iggy Chief Complaint: Pulmonary hypertension shortness of breath Subjective: No new changes Review of Systems 10-point ROS is otherwise unremarkable Physical Examination - Vital Signs Temperature: 97.0 F Blood Pressure: 124/65 Pulse: 69 Respirations: 18 Pulse Ox (%): 96 - Physical Exam General: Alert, In no apparent distress HEENT: Atraumatic, PERRLA, EOMI Neck: Supple, JVD not distended Respiratory: Clear to auscultation bilaterally, Normal air movement Cardiovascular: Regular rate/rhythm, Normal S1 S2 Gastrointestinal: Normal bowel sounds, No tenderness Musculoskeletal: No tenderness Integumentary: No rashes Neurological: Normal speech, Normal tone, Normal affect Lymphatics: No axilla or inguinal lymphadenopathy Assessment And Plan - Current Problems (Diagnosis) (1) Pulmonary HTN Current Visit: Yes Status: Acute Plan: Possible cath tormorrow. This may be diastolic dysfunction Will consult Dr. Ybarra. Who has seen her in the past (2) CKD (chronic kidney disease) stage 3, GFR 30-59 ml/min Current Visit: Yes Status: Chronic Plan: baseline creatine is 1.4 to 1.8 She is improving. Will continue to monitor. Will hold on the nephrology consult unless she worsens. She has seen Dr. Wilson in the past. 02/[address] Lester/Anamika . Especially as the patient has a possible cath tomorrow Qualifiers: Chronic kidney disease stage 3 subtype: stage 3b (GFR 30-44) Qualified Code(s): N18.32 - Chronic kidney disease, stage 3b (3) Acute CHF (congestive heart failure) Current Visit: Yes Status: Acute Plan: Will start the patient on Lasix. Will have her seen by Dr. Harmon. will need to monitor the creatine. 02/07/22 Will await the echo. She is improving from a fluid standpoint. Her baseline creatine is 1.4-1.8 Qualifiers: Heart failure type: unspecified Qualified Code(s): I50.9 - Heart failure, unspecified (4) Hypothyroidism Current Visit: No Status: Chronic Plan: restart her levothyroxine. Will check a thyroid level. Qualifiers: Hypothyroidism type: unspecified Qualified Code(s): E03.9 - Hypothyroidism, unspecified (5) DM2 (diabetes mellitus, type 2) Current Visit: No Status: Chronic Plan: normally on januvia. Start the patient on a sliding scale and an ada diet. Qualifiers: Diabetes mellitus correction insulin use: without predatory animal exterminator use Diabetes mellitus complication status: without complication Qualified Code(s): E11.9 - Type 2 diabetes mellitus without complications Discharge Plan: Home Plan to discharge in: 48 Hours - Code Status/Comfort Care Code Status Assessed: No Physician Review: Patient Assessed, Agree with Above Assessment and Plan Critical Care: No Time Spent Managing PTS Care (In Minutes): 20
[2022-02-10] MEDS ORDERED: ALOGLIPTIN BENZOATE 12.5 MG TABLET PO SCH (09:00)
[2022-02-10] MEDS: [UNRECOGNIZED DRUG - OTHER] PO SCH (10:56)
[2022-02-10] MEDS: ASCORBIC ACID 500 MG TABLET PO SCH (10:57)
[2022-02-10] MEDS: FERROUS SULFATE 325 MG TAB PO SCH (10:57)
[2022-02-10] MEDS: GABAPENTIN 100 MG CAP PO SCH ×3 (10:58→21:41)
[2022-02-10] MEDS: SILDENAFIL CITRATE 20 MG TABLET PO SCH (10:59)
[2022-02-10] MEDS: FUROSEMIDE 40 MG/4 ML VIAL IV SCH (11:08)
[2022-02-10] MEDS: PANTOPRAZOLE 40MG TABLET PO SCH (11:09)
--- NOTE | 2022-02-10 12:41 | P.PN ---
Subjective Date of Service: 02/10/22 Primary Care Provider: Iggy Chief Complaint: Pulmonary hypertension shortness of breath Subjective: Improving (Patient is improving doing better edema has decreased) Review of Systems Unremarkable Respiratory: Shortness of Breath Physical Examination - Vital Signs Temperature: 97.1 F Blood Pressure: 131/51 Pulse: 72 Respirations: 16 Pulse Ox (%): 98 - Physical Exam General: Alert, Oriented x3 Neck: Supple Respiratory: Clear to auscultation bilaterally Cardiovascular: Regular rate/rhythm, Normal S1 S2, Edema Assessment And Plan - Current Problems (Diagnosis) (1) Pulmonary HTN Current Visit: Yes Status: Acute Plan: Patient has secondary pulmonary hypertension troponins are only mildly elevated continue with sildenafil right now we will slowly increase the dose of sildenafil as an outpatient labs are currently pending awaiting labs for today I recommend against a cardiac catheterization optimize medical therapy for now there is no evidence of pulmonary embolism perfusion scan is normal CT scan does not show any evidence of interstitial lung disease patient can go home. Kidney function is stable follow-up with me in 2 weeks we will slowly titrate the dose of sildenafil Physician Review: Patient Assessed, Agree with Above Assessment and Plan
[2022-02-10 12:46] LABS: Absolute Lymphocytes (CBC) 0.6 K/uL (0.7-4.9); Hematocrit 36.9 % (36.0-45.0); Lymphocytes % 6.2 % (15.3-44.8); MCV 92.8 fL (80-100); MPV 8.2 fL (7.6-11.3); RBC Red Blood Cell Count 3.98 M/uL (3.86-4.86)
[2022-02-10 13:05] LABS: Albumin 3.4 g/dL (3.4-5.0); Bilirubin Total 0.4 mg/dL (0.2-1.0); Potassium 4.3 mmol/L (3.5-5.1); Protein, Total 8.1 g/dL (6.4-8.2)
--- NOTE | 2022-02-10 19:44 | PN ---
Date of Progress Note: 02/10/2022 Subjective: Seen by bedside. She is still doing well; however, creatinine is high today. Review of Systems: No chest pain, shortness of breath, orthopnea, or cough. No nausea, vomiting, or diarrhea. All othe r systems reviewed and they were negative. Physical Examination: Vital signs: Reviewed. Head And Neck: Pupils are equal and reactive to light. Intact eye movements. No JVD. No cervical lymphadenopathy. Neck is supple. Thyroid is not enlarged. Lungs: Clear to auscultation bilaterally. No rhonchi, wheezing, or crackles. No accessory muscle u se. Heart: Regular rate and rhythm. No extra sounds. Abdomen: Soft, nontender. Bowel sounds positive. No organomegaly. No masses or hernia. No rigidi ty or rebound. Extremities: No edema, clubbing, or cyanosis. Intact pulses below. Neurologic: Alert, awake, oriented x3. No acute focal deficits appreciated. Investigations: BUN is 83, creatinine is 2.4. Hemoglobin is 12.0. Assessment/recommendation: 1.Severe pulmonary hypertension, likely primary arterial. This patient needs heart catheterization to determine the etiology of her pulmonary hypertension prior to administration of any anti pulmonary hypertension medications to determine the etiology. More un likely this is a primary arterial pulmo nary hypertension and V/Q scan did not show chronic pulmonary embolus. At this point, I will hold of f on Lasix as she has been having a significant renal failure response to Lasix and she appears to be euvolemic. We will hold off on any heart catheterization now as the kidney function is getting wors e. 2.[id number] renal failure. Her creatinine is worsening. Discontinue Lasix please and no fur ther diuretics until we finish the workup and evaluation of pulmonary hypertension. 3.Chronic diastolic heart failure and she is euvolemic. SR/MODL Voice ID: [id number] Report ID: [id number]
[2022-02-10] MEDS: ROSUVASTATIN 10 MG TAB PO SCH (21:40)
[2022-02-10] MEDS: BENZONATATE 100 MG CAP PO PRN (21:40)
--- NOTE | 2022-02-10 22:16 | P.PN ---
Date of Service: 02/10/22 Vital Signs Temp Pulse Resp BP Pulse Ox 97.6 F 66 16 120/51 L 100 02/10/22 20:00 02/10/22 20:00 02/10/22 20:00 02/10/22 20:00 02/10/22 20:00 Medications Acetaminophen (Acetaminophen 500 Mg Tab) 500 mg PO Q8HR [facility] Last Admin: 02/10/22 10:59 Dose: 500 mg Apixaban (Apixaban 5 Mg Tablet) 5 mg PO BID [facility] Last Admin: 02/08/22 09:06 Dose: 5 mg Ascorbic Acid (Ascorbic Acid 500 Mg Tablet) 500 mg PO DAILY [facility] Last Admin: 02/10/22 10:57 Dose: 500 mg Benzonatate (Benzonatate 100 Mg Cap) 100 mg PO TID PRN PRN Reason: COUGH Last Admin: 02/10/22 21:40 Dose: 100 mg Dextrose (Dextrose 10%-Water 500 Ml Iv Bag) 125 ml IV PRN PRN; Protocol PRN Reason: HYPOGLYCEMIA Ferrous Sulfate (Ferrous Sulfate 325 Mg Tab) 325 mg PO DAILY [facility] Last Admin: 02/10/22 10:57 Dose: 325 mg Gabapentin (Gabapentin 100 Mg Cap) 100 mg PO TID [facility] Last Admin: 02/10/22 21:41 Dose: 100 mg Glucagon (Glucagon 1 Mg/Vial) 1 mg IM 1X PRN; Protocol PRN Reason: HYPOGLYCEMIA Home Med (Home Med [Sitagliptin (Januvia) 100 Mg Tablet]) 1 ea PO DAILY [facility] Last Admin: 02/10/22 10:56 Dose: 1 ea Hydralazine HCl (Hydralazine Hcl 20 Mg/Ml Vial) 10 mg IV Q6HP PRN PRN Reason: SBP>160 MMHG OR DBP>100 MMHG Insulin Human Regular (Insulin -Regular Human 50 Unit/0.5 Ml Ml) 0 unit SQ ACHS [facility]; Protocol Last Admin: 02/10/22 21:41 Dose: 2 unit Levothyroxine Sodium (Levothyroxine Sod 0.025 Mg Tab) 0.025 mg PO DAILYAC [facility] Last Admin: 02/09/22 05:22 Dose: 0.025 mg Levothyroxine Sodium (Levothyroxine Sod 0.112 Mg Tab) 0.112 mg PO DAILYAC [facility] Last Admin: 02/10/22 06:12 Dose: 0.112 mg Pantoprazole Sodium (Pantoprazole 40mg Tablet) 40 mg PO DAILY [facility]; Protocol Last Admin: 02/10/22 11:09 Dose: 40 mg Rosuvastatin Calcium (Rosuvastatin 10 Mg Tab) 10 mg PO BEDTIME [facility] Last Admin: 02/10/22 21:40 Dose: 10 mg Sildenafil Citrate (Sildenafil Citrate 20 Mg Tablet) 20 mg PO DAILY [facility] Last Admin: 02/10/22 10:59 Dose: 20 mg Microbiology Results 02/06/22 11:35 Blood - Blood Aerobic Blood Culture - Preliminary No growth in 24 hours. 02/06/22 11:35 Blood - Blood Anaerobic Blood Culture - Preliminary No growth in 24 hours. 02/06/22 10:57 Blood - Blood Aerobic Blood Culture - Preliminary No growth in 24 hours. 02/06/22 10:57 Blood - Blood Anaerobic Blood Culture - Preliminary No growth in 24 hours. Assessment/ Plan: Nephrology No dyspnea No chest pain Feeling better No acute events overnight Vitals, medications, blood work and imaging reviewed in the chart. General: Oriented x3, Cooperative HEENT: Atraumatic Neck: Supple Respiratory: Clear to auscultation bilaterally Cardiovascular: No edema, Regular rate/rhythm Gastrointestinal: Soft and benign, Non-distended Musculoskeletal: No clubbing, No contractures Integumentary: No rashes, No cyanosis Neurological: Normal speech Blood work reviewed in the chart. Imagings Data: EXAM DESCRIPTION: NM - Vent Perfusion VQ Scan - 02/09/2022 3:12 pm CLINICAL HISTORY: Shortness of breath/pulmonary hypertension COMPARISON: CT chest February 09, 2022 TECHNIQUE: Ventilation images not obtained secondary to xenon shortage 6.8 millicuries Technetium-99 MAA was administered intravenously. Anterior, posterior, lateral and oblique views of the lungs were taken. FINDINGS: The lungs demonstrate relatively homogeneous radiotracer activity on the perfusion sequences. No large segmental/lobar defects seen IMPRESSION: No evidence of a pulmonary embolus EXAM DESCRIPTION: RAD - Chest Single View - 02/06/2022 12:07 pm CLINICAL HISTORY: Cough COMPARISON: Two view chest 12/13/2021 TECHNIQUE: AP portable chest image was obtained 02/06/2022 12:07 pm . FINDINGS: No one focal area of dense consolidation seen. Interstitial markings are increased over the comparison are scattered alveolar opacities in the lung hernandez. Findings are more prominent in the right base. Heart size is upper normal to slightly enlarged. Vasculature is within upper limits of normal. Trachea is in the midline. No measurable pleural effusion and no pneumothorax. No acute bony abnormality seen. No acute aortic findings suspected. IMPRESSION: Increased interstitial opacification in the lung hernandez with scattered alveolar opacities, more prominent in the right base. Of mild failure or volume overload is suspected. Patient could have right base mild or early pneumonia. LEFT VENTRICULAR WALL MOTION: NORMAL DOPPLER/COLOR FLOW: SEE BELOW COMMENTS: 1. NORMAL LEFT VENTRICULAR EJECTION FRACTION GREATER THAN 60% WITH NORMAL WALL MOTION. 2. MILD CONCENTRIC LEFT VENTRICULAR HYPERTROPHY 3. MODERATE TRICUSPID REGURGITATION 4. MILDLY DILATED RIGHT VENTRICLE WITH NORMAL RIGHT VENTRICULAR FUNCTION 5. SEVERE PULMONARY HYPERTENSION WITH RIGHT VENTRICULAR SYSTOLIC PRESSURE OF GREATER THAN 90 mmHg. 6. MILD MITRAL REGURGITATION 7. SMALL PERICARDIAL EFFUSION Conclusions/Impression: Stage I ARNOLD in the setting of diuresis CKD IIIb -No NSAIDs Hyponatremia -Continue furosemide Diastolic CHF, A/C Pulmonary HTN Moderate TR -Continue furosemide DM II with polyneuropathy -RISS -Continue Gabapentin Anemia in chronic illness -Monitor H&H
[2022-02-11] MEDS: ACETAMINOPHEN 500 MG TAB PO SCH ×2 (00:43→08:57)
[2022-02-11] MEDS: LEVOTHYROXINE SOD 0.112 MG TAB PO SCH (05:28)
[2022-02-11] MEDS: LEVOTHYROXINE SOD 0.025 MG TAB PO SCH (05:28)
[2022-02-11 06:18] LABS: Absolute Lymphocytes (CBC) 0.8 K/uL (0.7-4.9); Hematocrit 32.7 % (36.0-45.0); Lymphocytes % 11.3 % (15.3-44.8); MCV 92.6 fL (80-100); MPV 7.7 fL (7.6-11.3); RBC Red Blood Cell Count 3.53 M/uL (3.86-4.86)
[2022-02-11 06:34] LABS: Albumin 2.8 g/dL (3.4-5.0); Bilirubin Total 0.2 mg/dL (0.2-1.0); Potassium 4.4 mmol/L (3.5-5.1); Protein, Total 6.8 g/dL (6.4-8.2)
[2022-02-11] MEDS: INSULIN -REGULAR HUMAN 50 UNIT/0.5 ML ML SQ SCH ×2 (07:30→12:30)
--- NOTE | 2022-02-11 08:10 | P.PN ---
Subjective Date of Service: 02/11/22 Primary Care Provider: Iggy Chief Complaint: Pulmonary hypertension shortness of breath Subjective: No new changes Review of Systems 10-point ROS is otherwise unremarkable Physical Examination - Vital Signs Temperature: 97.2 F Blood Pressure: 119/56 Pulse: 69 Respirations: 17 Pulse Ox (%): 97 - Physical Exam General: Alert, In no apparent distress HEENT: Atraumatic, PERRLA, EOMI Neck: Supple, JVD not distended Respiratory: Clear to auscultation bilaterally, Normal air movement Cardiovascular: Regular rate/rhythm, Normal S1 S2 Gastrointestinal: Normal bowel sounds, No tenderness Musculoskeletal: No tenderness Integumentary: No rashes Neurological: Normal speech, Normal tone, Normal affect Lymphatics: No axilla or inguinal lymphadenopathy Assessment And Plan - Current Problems (Diagnosis) (1) Pulmonary HTN Current Visit: Yes Status: Acute Plan: Possible cath tormorrow. This may be diastolic dysfunction Will consult Dr. Ybarra. Who has seen her in the past (2) CKD (chronic kidney disease) stage 3, GFR 30-59 ml/min Current Visit: Yes Status: Chronic Plan: baseline creatine is 1.4 to 1.8 She is improving. Will continue to monitor. Will hold on the nephrology consult unless she worsens. She has seen Dr. Wilson in the past. 02/11 some improvement. Will discuss her with dr. Rowland Qualifiers: Chronic kidney disease stage 3 subtype: stage 3b (GFR 30-44) Qualified Code(s): N18.32 - Chronic kidney disease, stage 3b (3) Acute CHF (congestive heart failure) Current Visit: Yes Status: Acute Plan: Will start the patient on Lasix. Will have her seen by Dr. Harmon. will need to monitor the creatine. 02/07/22 Will await the echo. She is improving from a fluid standpoint. Her baseline creatine is 1.4-1.8 Qualifiers: Heart failure type: unspecified Qualified Code(s): I50.9 - Heart failure, unspecified (4) Hypothyroidism Current Visit: No Status: Chronic Plan: restart her levothyroxine. Will check a thyroid level. Qualifiers: Hypothyroidism type: unspecified Qualified Code(s): E03.9 - Hypothyroidism, unspecified (5) DM2 (diabetes mellitus, type 2) Current Visit: No Status: Chronic Plan: normally on januvia. Start the patient on a sliding scale and an ada diet. Qualifiers: Diabetes mellitus jail insulin use: without jail use Diabetes mellitus complication status: without complication Qualified Code(s): E11.9 - Type 2 diabetes mellitus without complications Discharge Plan: Home Plan to discharge in: 24 Hours - Code Status/Comfort Care Code Status Assessed: No Physician Review: Patient Assessed, Agree with Above Assessment and Plan Critical Care: No Time Spent Managing PTS Care (In Minutes): 20
[2022-02-11] MEDS: SILDENAFIL CITRATE 20 MG TABLET PO SCH (08:57)
[2022-02-11] MEDS: PANTOPRAZOLE 40MG TABLET PO SCH (08:57)
[2022-02-11] MEDS: GABAPENTIN 100 MG CAP PO SCH ×2 (08:57→14:32)
[2022-02-11] MEDS: [UNRECOGNIZED DRUG - OTHER] PO SCH (08:58)
[2022-02-11] MEDS: ASCORBIC ACID 500 MG TABLET PO SCH (08:58)
[2022-02-11] MEDS: FERROUS SULFATE 325 MG TAB PO SCH (08:58)
[2022-02-11] MEDS: BENZONATATE 100 MG CAP PO PRN (08:59)
[2022-02-11] MEDS ORDERED: DOCUSATE NA 100 MG CAP PO SCH (09:00)
[2022-02-11 09:04] VITALS: O2SAT 94
[2022-02-11 12:30] VITALS: BP 100/55; TEMP 97.3
--- NOTE | 2022-02-11 13:26 | P.DS ---
Admission Date: 02/06/22 Discharge Date: 02/11/22 Primary Care Provider: Iggy Disposition: ROUTINE DISCHARGE Discharge Condition: GOOD Reason for Admission: Pulmonary hypertension shortness of breath - Problems (1) Pulmonary HTN Current Visit: Yes Status: Acute (2) CKD (chronic kidney disease) stage 3, GFR 30-59 ml/min Current Visit: Yes Status: Chronic Qualifiers: Chronic kidney disease stage 3 subtype: stage 3b (GFR 30-44) Qualified C ode(s): N18.32 - Chronic kidney disease, stage 3b (3) Acute CHF (congestive heart failure) Current Visit: Yes Status: Acute Qualifiers: Heart failure type: unspecified Qualified Code(s): I50.9 - Heart failure, unspecified (4) Hypothyroidism Current Visit: No Status: Chronic Qualifiers: Hypothyroidism type: unspecified Qualified Code(s): E03.9 - Hypothyroidism, unspecified (5) DM2 (diabetes mellitus, type 2) Current Visit: No Status: Chronic Qualifiers: Diabetes mellitus oysterman insulin use: without oysterman use Diabetes mellitus complication status: without complication Qualified Code(s): E11.9 - Type 2 diabetes mellitus without complications Brief History of Present Illness: Patient is an office patient of [employer]. She only suffered from diabetes previously. 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 The patient developed chronic sob with hypoxia. ckd. Was seen by Dr. Harmon last month. He was considering a cath on the patient. The last 3 days the patient has been getting progressively sob with minimal exertion. She came to the ER as instructed by Dr. Harmon. The patient was found to be hypoxic, fluid overloaded and with an elevated bnp and troponin. Nursing reports she desaturated to 77% ambulating to the bathroom. which is less than 50 feet from her room. The patient has a slightly elevated creatine. Was approx 1.4 to 1.8 at her baseline. Hospital Course: Patient was admitted for sob and chf exacerbation. The patient was started on diuresis with furosemide. She had an echocardiogram which showed HfEFP. She had severe pulmonary htn. There was also an elevation of her creatine above her 1.[address] Oconnor and Dr. Ybarra were consulted. Her kidney function recovered. Dr. Ybarra start her on oral sildenafil. This is the most affordable medication for pulmonary htn. There was a plan for cardiac cath. However this was held due her kidney function. She will need one in the future. However we can do this as an outpatient when her kidney function recovers Vital Signs/Physical Exam: Temp Pulse Resp BP Pulse Ox 97.3 F 80 18 100/55 L 99 02/11/22 12:00 02/11/22 12:00 02/11/22 12:00 02/11/22 12:00 02/11/22 12:00 General: Alert, In no apparent distress HEENT: Atraumatic, PERRLA, EOMI Neck: Supple, JVD not distended Respiratory: Clear to auscultation bilaterally, Normal air movement Cardiovascular: Regular rate/rhythm, Normal S1 S2 Gastrointestinal: Normal bowel sounds, No tenderness Musculoskeletal: No tenderness Integumentary: No rashes Neurological: Normal speech, Normal tone, Normal affect Lymphatics: No axilla or inguinal lymphadenopathy Laboratory Data at Discharge: WBC 6.80 K/uL (4.3-10.9) 02/11/22 06:10 Hgb 10.7 g/dL (12.0-15.0) L D 02/11/22 06:10 Hct 32.7 % (36.0-45.0) L 02/11/22 06:10 Plt Count 153 K/uL (152-406) 02/11/22 06:10 PT 11.3 SECONDS (9.5-12.5) 02/06/22 10:57 INR 1.03 02/06/22 10:57 APTT 32.5 SECONDS (24.3-36.9) 02/06/22 10:57 Sodium 138 mmol/L (136-145) D 02/11/22 06:10 Potassium 4.4 mmol/L (3.5-5.1) 02/11/22 06:10 BUN 92 mg/dL (7-18) H 02/11/22 06:10 Creatinine 2.27 mg/dL (0.55-1.02) H 02/11/22 06:10 Glucose 128 mg/dL (74-106) H 02/11/22 06:10 Magnesium 2.3 mg/dL (1.6-2.4) 02/06/22 10:57 Total Bilirubin 0.2 mg/dL (0.2-1.0) 02/11/22 06:10 AST 27 U/L (15-37) 02/11/22 06:10 ALT 27 U/L (13-56) 02/11/22 06:10 Alkaline Phosphatase 123 U/L (45-117) H D 02/11/22 06:10 Triglycerides 133 mg/dL (<150) 02/07/22 06:26 Cholesterol 100 mg/dL (<200) 02/07/22 06:26 HDL Cholesterol 39 mg/dL (40-60) L 02/07/22 06:26 Cholesterol/HDL Ratio 2.56 02/07/22 06:26 Home Medications: Levothyroxine [Synthroid*] 137 mcg PO [id number] 03/31/14 Loratadine [Claritin*] 10 mg PO DAILY PRN 03/31/14 Ferrous Sulfate [Iron] 325 mg PO DAILY 06/16/16 Gabapentin [Neurontin*] 100 mg PO TID 06/16/16 Rosuvastatin [Crestor*] 10 mg PO BEDTIME 06/16/16 Vitamin B Complex [B Complex] 1 each PO DAILY 06/16/16 Apixaban [Eliquis] 5 mg PO BID 15 Days #30 tablet 11/06/20 Ascorbic Acid [Vitamin C*] 500 mg PO DAILY 30 Days #30 tablet 11/06/20 Cholecalciferol (Vitamin D3) [Vitamin D 5,000 IU Cap*] 5,000 unit PO DAILY 30 Days #30 cap 11/06/20 Zinc Sulfate [Zinc Sulfate*] 220 mg PO DAILY 30 Days #30 cap 11/06/20 Amlodipine [Norvasc] 5 mg PO DAILY 02/08/22 Sitagliptin Phosphate [Januvia] 100 mg PO 02/08/22 Sildenafil Citrate [Revatio*] 20 mg PO DAILY 90 Days #90 tab 02/11/22 New Medications: Sildenafil Citrate [Revatio*] 20 mg PO DAILY 90 Days #90 tab Diet: ADA Followup: Richard Brady MD [ACTIVE - CAN ADMIT] - (1 month) James Solitario MD [Primary Care Provider] - 1-2 Weeks Trey Harmon MD [ACTIVE - CAN ADMIT] - 1-2 Weeks Brenton Randolph MD [ACTIVE - CAN ADMIT] - 1 Week Time spent managing pt's care (in minutes): 30
--- NOTE | 2022-02-11 20:12 | PN ---
Date of Progress Note: 02/11/2022 Subjective: Seen by bedside. She is doing well. No significant shortness of breath. Review of Systems: No chest pain, shortness of breath, orthopnea, cough. No nausea, vomiting, diarrhea. Generally, she is weak. All other systems reviewed and they are negative. Physical Examination: Vital Signs: Reviewed. Head and Neck: Pupils are equal, reactive to light. Intact eye movements. No JVD. No cervical lym phadenopathy. Neck is supple. Thyroid is not enlarged. Lungs: Clear to auscultation bilaterally. No rhonchi, rales, or crackles. No accessory muscle use. Heart: Regular rate and rhythm. No extra sounds. Abdomen: Soft, nontender. Bowel sounds positive. No organomegaly. No masses or hernia. No rigidi ty or rebound. Extremities: No edema, clubbing, cyanosis. Intact pulses. Skin: No rash. Neurologic: Alert, awake, oriented x3. No acute focal deficit appreciated. Investigations: BUN is 92, creatinine 2.27. Assessment And Recommendation: 1.Severe pulmonary hypertension. Waiting on her kidney function to improve before proceeding with i nvasive workup including left and right heart catheterization. This is likely primary arterial pulmo nary hypertension. 2.Acute on chronic renal failure. It is improving. Keep diuretics on hold. Her BUN is increasing. We will monitor the patient for at least 1 more day to make sure that the BUN and creatinine are not rising. Encouraged oral fluid intake and repeat labs in the morning. /MODL Voice ID: [id number] Report ID: [id number]
== END 2022-02-11 16:22 | disposition home health service (06) | DRG 291 ==
LOC: ER 10:17 → SUPCPDRO 10:17 → ERHOLD 13:57 → 2ND 20:50
PROVIDERS: ADMIT Internal Medicine; ATTEND Internal Medicine
PROC: 5A09457 Assistance with Respiratory Ventilation, 24-96 Consecutive Hours, Continuous Positive Airway Pressure (ICD-10-PCS; principal; 2022-02-06)
DX: I13.0 Hypertensive heart and chronic kidney disease with heart failure and stage 1 through stage 4 chronic kidney disease, or unspecified chronic kidney disease (principal); I50.33 Acute on chronic diastolic (congestive) heart failure; J96.01 Acute respiratory failure with hypoxia; N17.9 Acute kidney failure, unspecified; E87.1 Hypo-osmolality and hyponatremia; N18.32 Chronic kidney disease, stage 3b; E11.22 Type 2 diabetes mellitus with diabetic chronic kidney disease; E11.42 Type 2 diabetes mellitus with diabetic polyneuropathy; D63.1 Anemia in chronic kidney disease; E78.5 Hyperlipidemia, unspecified; E03.9 Hypothyroidism, unspecified; I27.20 Pulmonary hypertension, unspecified; M19.90 Unspecified osteoarthritis, unspecified site; R77.8 Other specified abnormalities of plasma proteins; Z88.8 Allergy status to other drugs, medicaments and biological substances; Z90.49 Acquired absence of other specified parts of digestive tract; Z79.84 Long term (current) use of oral hypoglycemic drugs; Z86.16 Personal history of COVID-19; Z79.01 Long term (current) use of anticoagulants; Z87.891 Personal history of nicotine dependence; Z79.899 Other long term (current) drug therapy; Z79.890 Hormone replacement therapy; Z20.822 Contact with and (suspected) exposure to COVID-19
CPT/HCPCS: 0240U; 36415; 36680; 71045; 71250; 78582; 80048; 80053; 80061; 80076; 82947; 83036; 83735; 83880; 84443; 84484; 85025; 85610; 85730; 87040; 93005; 93306; 96365; 96372; 96374; 99285; A9500; J1650; J1815; J1940; J8540; Q0138; Q5106

== ENCOUNTER 2022-04-28 06:37 | Day surgery (SDC) | payer MEDICARE, OTHER ==
[2022-04-26 14:29] LABS: Absolute Lymphocytes (CBC) 0.6 K/uL (0.7-4.9); Hematocrit 33.5 % (36.0-45.0); Lymphocytes % 9.1 % (15.3-44.8); MCV 96.2 fL (80-100); MPV 7.8 fL (7.6-11.3); RBC Red Blood Cell Count 3.48 M/uL (3.86-4.86)
[2022-04-26 14:45] LABS: Protime INR 1.06
[2022-04-26 14:50] LABS: Potassium 5.5 mEq/L (3.5-5.1)
--- NOTE | 2022-04-27 17:24 | EKG ---
Test Date: 2022-04-26 Test Time: 14:06:10 Cashier Office: [facility] MEASUREMENT RESULTS: Intervals: Rate: 75 VT: 188 QRSD: 138 QT: 422 QTc: 471 Ider: P: 24 VT: 188 QRS: 172 T: -4 INTERPRETIVE STATEMENTS: Normal sinus rhythm Right bundle branch block Abnormal ECG Compared to ECG 02/06/2022 10:50:31 Left anterior fascicular block no longer present Bifascicular block no longer present Myocardial infarct finding no longer present Electronically Signed On 04-27-22 17:21:40 CDT by Trey Harmon
[~2022-04-28 06:37] MED LIST: ASPIRIN 325 MG TAB ONE; ATROPINE SULF 1 MG/10 ML SYR IV ONE; CLOPIDOGREL 75 MG TABLET ONE; FENTANYL CITR 100 MCG/2 ML ONE; HEPARIN 10,000 UNIT/10 ML VIAL IV ONE; HEPARIN 5000 UNIT/ML 1 ML VIAL ONE; MIDAZOLAM HCL 2 MG/2 ML INJ ONE; TICAGRELOR 90 MG TABLET PO ONE; VERAPAMIL HCL 10 MG/4 ML VIAL IV ONE
[2022-04-28] MEDS ORDERED: NA CHLORIDE 0.9% 500 ML ONE (06:43)
[2022-04-28] MEDS ORDERED: LIDOCAINE 1% 20 ML MDV ONE (07:05)
[2022-04-28] MEDS ORDERED: HEPA 1000U/500MLS 2,000 UNIT/1,000 ML BAG IV ONE (07:21)
[2022-04-28] MEDS ORDERED: REGADENOSON 0.4 MG/5 ML SYR IV ONE (07:29)
[2022-04-28 10:36] VITALS: BP 144/66; O2SAT 98
--- NOTE | 2022-04-28 16:53 | OP ---
Date of Procedure: 04/28/2022 Surgeon: BRENNA GIBBS Procedures Performed: 1.Selective coronary angiogram. 2.Left heart catheterization. 3.Right heart catheterization. Indication: 1.Chest pain. 2.Pulmonary hypertension. Access: 1.Right radial artery 6-Danish closed with TR band. 2.Right IJ 7-Danish closed with manual pressure. Complications: None. Bleeding: Less than 10 mL. Anesthesia: Total sedation time was 35 minutes. Used fentanyl and Versed. Description Of Procedure: After risks, benefits, and alternatives were explained, the patient agreed to the procedure and signed informed consent. The patient was brought into the cardiac catheterizat ion laboratory, prepped and draped in the usual sterile fashion. Then, we accessed right radial lashaun ry using pediatric micropuncture kit, placed 6-Danish Slender sheath and then I accessed right IJ usi ng micropuncture kit and ultrasound guidance and placed 7-Danish pinnacle sheath. Then, I took 5-Lanre [facility] 4.0 catheter into the aortic root, engaged the left main and then the right coronary artery and took standard views, and then the catheter was pushed over the wire into the LV, measured LVEDP, pullback did not record any gradient and catheter was removed. Sheath was removed. TR band was tanvi marcellus with good hemostasis. Then, I took the 7-Danish Oldhams-Terry catheter through the IJ access into th e right atrium, right ventricle, PA, and then wedge, obtained waveform and pressure and then using th ermodilution method, cardiac output was obtained. Then, I removed the Oldhams, removed the sheath. Man ual pressure was used with good hemostasis. Findings: Selective coronary angiogram; 1.Left main is normal. 2.LAD is normal. Diagonal branches. 3.Left circumflex is normal. 4.RCA is normal. 5.LVEDP is borderline at 30 mmHg. Right heart catheterization numbers: RA pressure was 8. RV pressure was 90/3, mean of 16. PA press ure was 90/30, mean of 51. Pulmonary wedge pressure was 6. LVEDP was 13. Cardiac output on average was 5.13. The transpulmonary gradient is 45 mmHg and the pulmonary vascular resistance is 9 verdugo u nit. Conclusion: 1.Normal coronary arteries. 2.Borderline normal LVEDP. 3.Severe primary pulmonary arterial hypertension with mean pulmonary artery pressure of 51 mmHg and transpulmonary gradient of 45 mmHg and pulmonary vascular resistance being at 9 verdugo units, makes it primary artery hypertension. Plan: Follow up with me in the office next week and we will start a workup for pulmonary hypertensio n and management accordingly. /ZULEYKA Voice ID: [id number] Report ID: [id number]
== END 2022-04-28 10:38 | disposition home or self-care (01) ==
LOC: PRE 06:37
PROVIDERS: ATTEND Internal Medicine
DX: I27.20 Pulmonary hypertension, unspecified (principal); I10 Essential (primary) hypertension; E78.5 Hyperlipidemia, unspecified; Z87.891 Personal history of nicotine dependence; Z79.899 Other long term (current) drug therapy
CPT/HCPCS: 93005; 85025; 80048; 36415; 85610; 82947; 85730; 93460; 76937; C1893; Q9966; J1644; J2001; J2250; J3010; J7040; J0461; J2785

== ENCOUNTER 2022-07-01 20:58 | Emergency (ER) | payer MEDICARE ==
--- OUTSIDE RECORDS SUMMARY | 2022-07-01 21:01 | XMS REPORT | Continuity of Care Document ---
:1950 Author Organization [facility] t Address [address] [facility] [address] [place] [address] Care Team Providers Name Role Phone MENG CALHOUN Primary Care Physician Unavailable RADIOLOGY Attending Clinician Unavailable Radiology Attending Clinician Unavailable Pob, Adc Lab Main Attending Clinician Unavailable Meagan Brown MD Attending Clinician MEAGAN BROWN Attending Clinician Unavailable Doctor Unassigned, [place] Attending Clinician Unavailable Michelle Pringle RN Attending Clinician Unavailable Only, Ang Db Test Attending Clinician Unavailable Ana Pond Attending Clinician HOMERO GONZALES Attending Clinician Unavailable Marcio Linares Attending Clinician Lab, Adc Fam Pob I Attending Clinician Unavailable TAYLOR MCADAMSAYDOMINGO Attending Clinician Unavailable MENG PRADO Admitting Clinician Unavailable Payers Payer Name Policy Type Policy Number Effective Date Expiration Date Rossi sohaitzel GAMA/KADE [id number] 2020 MEDICARE ADVANTAGE 00:00:00 Problems Condition Condition Condition Status Onset Resolution Last Treating Co mments Source Name Details Category Date Date Treatment Clinician Date Obesity Obesity Disease Active Overview: Univ ers 09-12 Formattin ity of 00:00: g of this [place] 00 note Medical might be Branch different from the original. ICD10 Diagnosis Term [employer] Ax Consultant Utility Type II or Type II or Disease Active U nivers unspecifie unspecifie 09-12 it y of d type d type 00:00: [place] diabetes diabetes 00 Medica l mellitus mellitus Branch with with unspecifie unspecifie d d complicati complicati on, not on, not stated as stated as uncontroll uncontroll ed ed Essential Essential Disease Active Overview: Univers hypertensi hypertensi 09-12 Formattin ity of on on 00:00: g of this note Medical might be Branch different from the original. ICD10 Diagnosis Term [employer] Ax Consultant Utility Hypothyroi Hypothyroi Disease Active U nivers d d 09-12 ity of 00:00: [place] [address] Medical Branch Lump or Lump or Disease Active Univers mass in mass in 09-12 ity of breast breast 00:00: [address] Branch Allergies, Adverse Reactions, Alerts Allergy Allergy Status Severity Reaction(s) Onset Inactive Treating Comm ents Source Name Type Date Date Clinician NO KNOWN Drug Active Univers ALLERGIE Class ity of S [facility] Social History Social Habit Start Date Stop Date Quantity Comments Source Alcohol intake 2017-12-26 2017-12-26 Current University of 00:00:00 00:00:00 non-drinker of [facility] alcohol [place] (finding) Tobacco use and 2012-09-12 2012-09-12 Never used Universit y of exposure 00:00:00 00:00:00 [facility] History of 1992-09-12 Smoker University of tobacco use 00:00:00 [facility] Sex Ass[birth year] Universit y of 00:00:00 00:00:00 [facility] Smoking Status Start Date Stop Date Source Former smoker 2012-09-12 00:00:00 2012-09-12 00:00:00 Universi ty of [facility] Medications Ordered Filled Start Stop Current Ordering [...] 4-05 mouth ity of (TIROSINT) 14:33: daily. [place] 125 mcg Cap [address] [place] [address] Branch LORATADINE 2017-0 Yes Take by Univ ers (CLARITIN 4-05 mouth ity of ORAL) 14:33: daily. [address] DIPHENHYDRA 2017-0 Yes Take by Uni vers MINE HCL 4-05 mouth. ity of (BENADRYL 14:33: [place] ALLERGY Medical ORAL) Branch ferrous 2017-0 Yes 325mg Take 325 Unive rs sulfate 4-05 mg by ity of (IRON) 325 14:33: mouth [place] mg (65 mg 56 (two) Medical iron) times Branch tablet daily. OMEPRAZOLE 2017-0 Yes Take by Univ ers ORAL 4-05 mouth. ity of 14:33: [address] GLYBURIDE 2017-0 Yes 10mg Take 10 mg Un [place] ORAL 4-05 by mouth 2 ity of 14:33: (two) [place] [address] times Medical daily. Branch METFORMIN 2017-0 Yes 100mg Take 100 Uni vers HCL 4-05 mg by ity of (METFORMIN 14:33: [place] ORAL[place] 56 (two) Medical times Branch daily. Levothyroxi 2017-0 Yes Take by Uni vers ne 4-05 mouth ity of (TIROSINT) 14:33: daily. [place] 125 mcg Cap [address] [place] [address] Branch LORATADINE 2017-0 Yes Take by Univ ers (CLARITIN 4-05 mouth ity of ORAL) 14:33: daily. [address] DIPHENHYDRA 2017-0 Yes Take by Uni vers MINE HCL 4-05 mouth. ity of (BENADRYL 14:33: [place] ALLERGY Medical ORAL) Branch ferrous 2017-0 Yes 325mg Take 325 Unive rs sulfate 4-05 mg by ity of (IRON) 325 14:33: mouth [place] mg (65 mg 56 (two) Medical iron) times Branch tablet daily. OMEPRAZOLE 2017-0 Yes Take by Univ ers ORAL 4-05 mouth. ity of 14:33: [address] Immunizations Ordered Filled Immunization Date Status Comments [facility] e Immunization Name Name SARS-COV-2 COVID-19 2020-05-23 Completed Unive rsity of PFIZER VACCINE 00:00:00 [facility] SARS-COV-2 COVID-19 2020-05-23 Completed Unive rsity of PFIZER VACCINE 00:00:00 [facility] SARS-COV-2 COVID-19 2020-05-03 Completed Unive rsity of PFIZER VACCINE 00:00:00 [facility] SARS-COV-2 COVID-19 2020-05-03 Completed Unive rsity of PFIZER VACCINE 00:00:00 [facility] Branch TDAP 2011-08-04 Completed University 00:00:00 [facility] TDAP 2011-08-04 Completed University 00:00:00 [facility] Procedures Procedure Date / Time Performed Performing Clinician Sour e CONSENT/REFUSAL FOR 2021-05-26 14:57:40 Doctor Unassigned, No [facility] DIAGNOSIS AND Name Medical Branch TREATMENT ASSIGNMENT OF BENEFITS 2021-05-26 14:57:09 Doctor Unassigned, No [facility] Name Medical Branch IR FNA (FINE NEEDLE 2021-03-10 19:42:30 [facility], [facility] Encounters Start End Encounter Admission Attending Care Care Encounter Source Date/Time Date/Time Type Type Clinicians Facility Department ID 2021-05-26 2021-05-26 Outpatient R RADIOLOGY [facility] [id number] Univers 10:01:16 23:59:00 ity of [facility] 2021-05-26 2021-05-26 [facility] Radiology [facility] [id number] Univers 10:01:16 23:59:00 Encounter [place] [id number] ity of [place] [id number] [facility] [phone] [facility] 800 Branch 2021-03-10 2021-03-10 [facility] Radiology [facility] [id number] Univers 10:22:38 23:59:00 Encounter [place] [id number] ity of [place] [id number] [facility] [phone] [facility] 806 Branch 2021-03-10 2021-03-10 [employer] Teacher Martina Hernandez Lab Main [facility] 1.2.8 40.114 [id number] Univers 13:15:00 13:30:00 Visit Meagan Brown [id number] ity of [id number] [place] [id number] Sd dical [address] 2021-03-10 2021-03-10 Outpatient R KEVIN, [facility] [id number] Univers 13:15:00 13:15:00 MEAGAN ity [facility] 2021-03-10 2021-03-10 Outpatient R ZOEYAKIL, [facility] [id number] Univers 13:15:00 13:15:00 MEAGAN ity [facility] 2021-03-10 2021-03-10 Outpatient R RADIOLOGY [facility] [id number] Univers 00:00:00 00:00:00 ity of [facility] 2021-01-14 2021-01-14 Hospital Radiology [facility] [id number] Univers 09:30:24 23:59:00 Encounter [place] [id number] ity of [place] [id number] [facility] [place] [id number] [address] 2021-01-14 2021-01-14 Hospital Radiology [facility] [id number] Univers 09:29:47 09:29:47 Encounter [place] [id number] ity of [place] [id number] [facility] [id number] [address] 2021-01-14 2021-01-14 Outpatient R RADIOLOGY [facility] [id number] Univers 09:29:02 09:29:02 ity of [facility] 2021-01-14 2021-01-14 Hospital Radiology [facility] [id number] Univers 09:29:02 09:29:02 Encounter [place] [id number] ity of [place] [id number] [facility] [phone] [address] 2021-01-14 2021-01-14 Orders Doctor MORSE [id number] Univers 00:00:00 00:00:00 Only Unassigned, DONALDO [id number] ity of [place] [facility] [id number] [place] as [phone] [facility] 009 Branch 2020-11-06 2020-11-06 Letter LITO Pringle [id number] Univers 00:00:00 00:00:00 (Out) [place] [id number] it y of [facility] [id number] [place] as [id number] [facility] 019 Branch 2020-11-04 2020-11-04 Laboratory Only, Ang Db Test [facility] 1.2.8 40.114 [id number] Univers 13:35:53 13:50:53 Only Ana Saucedo [facility] [id number] ity of [place] [id number] Adam as Demetris?Blea [id number] [address] Medical Office Building 2020-11-04 2020-11-04 Outpatient R [facility] [id number] Univers 13:30:00 13:30:00 ity of [facility] 2020-05-24 2020-05-24 Outpatient [facility] [id number] Univers 14:40:00 14:40:00 ity of [facility] 2020-05-23 2020-05-23 Outpatient [facility] [id number] Univers 14:40:00 14:40:00 ity of [facility] 2020-05-06 2020-05-06 Hospital Radiology [facility] [id number] Univers 10:24:40 23:59:00 Encounter [place] [id number] ity [place] [id number] [id number] [facility] 800 Branch 2020-05-06 2020-05-06 Outpatient R RADIOLOGY [facility] [id number] Univers 00:00:00 00:00:00 ity of [facility] 2020-05-06 2020-05-06 Orders Doctor MORSE 1.2.840.114 [id number] Univers 00:00:00 00:00:00 Only Unassigned, DONALDO [id number] ity of [place] [facility] [id number] Adam as [id number] [place] [address] Branch 2020-05-03 2020-05-03 Outpatient R CHRISTIAN [facility] [id number] Univers 15:25:00 15:25:00 HOMERO ity of [facility] 2020-02-05 2020-02-05 Telephone [facility] 1.2.840.114 [id number] Univers 00:00:00 00:00:00 [facility] [employer] [id number] it y of [place] [id number] Adam as Professio [phone] Sd dical nal [address] [place] [address] 2020-02-04 2020-02-04 Laboratory Lab, Adc Fam Pob I [facility] 1.2. 840.114 [id number] Univers 14:24:19 14:44:19 Only [facility] [employer] [id number] ity of [place] [id number] Adam as Professio [phone] Sd dical nal [address] [place] [address] One 2020-02-04 2020-02-04 [facility] [id number] Univers 14:40:00 14:40:00 [facility] 2020-02-04 2020-02-04 Letter Doctor MORSE 1.2.840.114 [id number] Univers 00:00:00 00:00:00 (Out) Unassigned, DONALDO [id number] ity of [place] [facility] [id number] [place] [phone] [address] Results This patient has no known results.
[2022-07-01] MEDS ORDERED: TETANUS & DIPHTHERIA TOX,ADULT 0.5 ML VIAL ONE (21:26)
--- NOTE | 2022-07-01 22:29 | RAD REPORT ---
EXAM DESCRIPTION: RAD - Foot Left 3 View - 07/01/2022 9:36 pm CLINICAL HISTORY: PAIN COMPARISON: No comparisons TECHNIQUE: Left foot, 3 views. FINDINGS: No fracture, dislocation or periosteal reaction. No air or foreign body in the soft tissues. 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 Moderate calcaneal spur. Vascular calcifications IMPRESSION: No acute osseus abnormality of the left foot. Chronic findings as above.
--- NOTE | 2022-07-01 22:47 | EDPHYS ---
Physician Documentation [facility] Name: Chanel Castillo Age: 71 yrs Sex: Female : 1950 Arrival Date: 07/01/2022 Time: 20:58 Bed 15 Private MD: ED Physician Reid Tolbert HPI: 07/01 22:00 This 71 yrs old Female presents to ER via Wheelchair with complaints of Toe cp Injury. 22:00 The patient presents with injury to left foot. cp 22:00 Context: oxygen tank fell onto top of left foot. Onset: The symptoms/episode cp began/occurred today. Associated signs and symptoms: The patient has no apparent associated signs or symptoms. Historical: - Allergies: 21:11 carvedilol; lg3 - Home Meds: 21:11 hydrochlorothiazide 25 mg Oral tab 1 tab once daily [Active]; levothyroxine 62.5 mcg lg3 oral capsule [Active]; metoprolol succinate 50 mg Oral Tb24 1 tab once daily [Active]; metformin 1,000 mg Oral tab 1 tab 2 times per day [Active]; Januvia 100 mg oral tablet once [Active]; sildenafil oral 10 MG [Active]; - PMHx: 21:11 Diabetes - NIDDM; Hyperlipidemia; Hypertension; Hypothyroidism; lg3 - PSHx: 21:11 Cholecystectomy; lg3 - Immunization history:: Adult Immunizations up to date, Last tetanus immunization: unknown. - Social history:: Smoking status: Patient denies any tobacco usage or history of. Patient/guardian denies using alcohol, street drugs. ROS: 22:05 MS/extremity: Positive for contusion, pain, swelling, tenderness, of the left foot and cp left great toe, Negative for paresthesias. 22:05 Constitutional: Negative for body aches, chills, fever, poor PO intake. cp 22:05 Respiratory: Negative for cough, shortness of breath, wheezing. 22:05 Abdomen/GI: Negative for abdominal pain, nausea, vomiting, and diarrhea. 22:05 All other systems are negative. Exam: 22:10 Constitutional: The patient appears in no acute distress, alert, awake, non-toxic, well cp developed, well nourished, uncomfortable. 22:10 Head/Face: Normocephalic, atraumatic. cp 22:10 Chest/axilla: Inspection: normal. 22:10 Cardiovascular: Rate: normal. 22:10 Respiratory: the patient does not display signs of respiratory distress, Respirations: normal, no use of accessory muscles, no retractions, labored breathing, is not present. 22:10 Abdomen/GI: Inspection: abdomen appears normal. 22:10 Musculoskeletal/extremity: Extremities: grossly normal except: noted in the left great toe and dorsum left foot: tenderness, mild swelling noted to dorsum left great toe with mild bleeding noted along nail edges and subungual hematoma, nail intact. Vital Signs: 21:08 BP 169 / 66; Pulse 74; Resp 17; Temp 97.7(TE); Pulse Ox 97% on R/A; Weight 93.89 kg mb9 (R); Height 5 ft. 3 in. (R); 23:02 BP 142 / 76; Pulse 88; Resp 18; Pulse Ox 99% on R/A; mb9 21:08 Body Mass Index 36.67 (93.89 kg, 160.02 cm) mb9 MDM: 21:16 Patient medically screened. cp 22:00 Differential diagnosis: fracture, contusion, dislocation. cp 22:45 Data reviewed: vital signs, nurses notes, radiologic studies, plain films. cp 22:45 Care significantly affected by the following chronic conditions: Diabetes, cp Hypertension. Counseling: I had a detailed discussion with the patient and/or guardian regarding: the historical points, exam findings, and any diagnostic results supporting the discharge/admit diagnosis, radiology results, to return to the emergency department if symptoms worsen or persist or if there are any questions or concerns that arise at home. Response to treatment: the patient's symptoms have markedly improved after treatment, and as a result, I will discharge patient. 07/01 21:09 Order name: XRAY Foot LEFT 3 View; Complete Time: 22:34 cp 07/01 22:34 Interpretation: Reviewed report. 07/01 22:34 Order name: Post-op shoe; Complete Time: 22:44 cp 07/01 22:34 Order name: Wound Care; Complete Time: 22:44 cp Administered Medications: 21:20 Drug: Tetanus-Diphtheria Toxoid IM Adult 0.5 ml {Regional Program Manager: [employer]. Exp: lg3 07/17/2023. Lot #: [id number]. } Route: IM; Site: right deltoid; 21:21 Follow up: Response: (VIS) Vaccine information sheet provided today. Questions and/or lg3 concerns addressed. VIS edition date: Sep 11, 2020.; No adverse reaction 22:44 Drug: Ibuprofen PO 800 mg Route: PO; mb9 23:03 Follow up: Response: No adverse reaction mb9 22:44 Drug: HYDROcodone-acetaminophen PO 5 mg-325 mg 1 tabs Route: PO; mb9 23:03 Follow up: Response: No adverse reaction mb9 Disposition: 07/02 03:16 Co-signature as Attending Physician, Reid DUONG was immediately available on-site ms3 in the Emergency Department for consultation in the care of the patient. Disposition Summary: 07/01/22 22:46 Discharge Ordered Location: Home cp Problem: new cp Symptoms: have improved cp Condition: Stable cp Diagnosis - Contusion of left great toe with damage to nail cp Followup: cp - With: Private Physician - When: 2 - 3 days - Reason: Worsening of condition Discharge Instructions: - Discharge Summary Sheet cp - Foot Contusion cp Forms: - Medication Reconciliation Form cp - Thank You Letter cp - Antibiotic Education cp - Prescription Opioid Use cp Prescriptions: - Ibuprofen 800 mg Oral Tablet - take 1 tablet by ORAL route every 8 hours As needed take with food; 30 tablet; cp Refills: 0, Product Selection Permitted Signatures: Dispatcher [employer] EDEdson Jean PA PA cp Gibson, Lacie RN RN lg3 Reid Tolbert DO DO ms3 Chanel Romero RN RN mb9 Corrections: (The following items were deleted from the chart) 07/01 21:14 21:11 Home Meds: glipizide 10 mg Oral tab 1 tab 2 times per day; lg3 lg3 22:48 22:46 Contusion of left foot cp cp 07/02 22:50 07/01 22:05 MS/extremity: Positive for contusion, pain, swelling, tenderness, Negative cp for paresthesias, cp
--- NOTE | 2022-07-01 22:47 | ER ---
Nurse's Notes [facility] Name: Chanel Castillo Age: 71 yrs Sex: Female : 1950 Arrival Date: 07/01/2022 Time: 20:58 Bed 15 Private MD: Diagnosis: Contusion of left great toe with damage to nail Presentation: 07/01 21:08 Chief complaint: Patient states: dropped oxygen tank on left foot and my big toe nail lg3 wont quit bleeding. Coronavirus screen: Client denies travel out of the [place] in the last 14 days. At this time, the client does not indicate any symptoms associated with coronavirus-19. Ebola Screen: No symptoms or risks identified at this time. Initial Sepsis Screen: Does the patient meet any 2 criteria? No. Patient's initial sepsis screen is negative. Does the patient have a suspected source of infection? No. Patient's initial sepsis screen is negative. Risk Assessment: Do you want to hurt yourself or someone else? Patient reports no desire to harm self or others. Onset of symptoms was July 01, 2022. 21:08 Method Of Arrival: Wheelchair lg3 21:08 Acuity: TYRESE 4 lg3 Triage Assessment: 21:11 General: Appears in no apparent distress. uncomfortable, Behavior is calm, cooperative. lg3 Pain: Complains of pain in Left first toenail. EENT: No deficits noted. No signs and/or symptoms were reported regarding the EENT system. Neuro: No deficits noted. Reece Agitation-Sedation Scale (RASS): 0 - Alert and Calm Level of Consciousness is awake, alert, obeys commands, Oriented to person, place, time, situation. Cardiovascular: No deficits noted. Denies chest pain, shortness of breath, Capillary refill < 3 seconds Clubbing of nail beds is absent JVD is absent Patient's skin is warm and dry. Respiratory: No deficits noted. Airway is patent Respiratory effort is even, unlabored, Respiratory pattern is regular, symmetrical. GI: No deficits noted. No signs and/or symptoms were reported involving the gastrointestinal system. : No deficits noted. No signs and/or symptoms were reported regarding the genitourinary system. Derm: Wound noted Left first toenail. Musculoskeletal: Reports pain in left foot. Historical: - Allergies: 21:11 carvedilol; lg3 - Home Meds: 21:11 hydrochlorothiazide 25 mg Oral tab 1 tab once daily [Active]; levothyroxine 62.5 mcg lg3 oral capsule [Active]; metoprolol succinate 50 mg Oral Tb24 1 tab once daily [Active]; metformin 1,000 mg Oral tab 1 tab 2 times per day [Active]; Januvia 100 mg oral tablet once [Active]; sildenafil oral 10 MG [Active]; - PMHx: 21:11 Diabetes - NIDDM; Hyperlipidemia; Hypertension; Hypothyroidism; lg3 - PSHx: 21:11 Cholecystectomy; lg3 - Immunization history:: Adult Immunizations up to date, Last tetanus immunization: unknown. - Social history:: Smoking status: Patient denies any tobacco usage or history of. Patient/guardian denies using alcohol, street drugs. Screenin:48 [facility] ED Fall Risk Assessment (Adult) History of falling in the last 3 months, mb9 including since admission No falls in past 3 months (0 pts) Confusion or Disorientation No (0 pts) Intoxicated or Sedated No (0 pts) Impaired Gait Yes (1 pt) Mobility Assist Device Used No (0 pt) Altered Elimination No (0 pt) Score/Fall Risk Level 0 - 2 = Low Risk Oriented to surroundings, Maintained a safe environment, Educated pt \T\ family on fall prevention, incl call for assistance when getting out of bed. Abuse screen: Denies threats or abuse. Nutritional screening: No deficits noted. Tuberculosis screening: No symptoms or risk factors identified. Assessment: 21:47 Reassessment: see triage assessment. mb9 Vital Signs: 21:08 BP 169 / 66; Pulse 74; Resp 17; Temp 97.7(TE); Pulse Ox 97% on R/A; Weight 93.89 kg mb9 (R); Height 5 ft. 3 in. (R); 23:02 BP 142 / 76; Pulse 88; Resp 18; Pulse Ox 99% on R/A; mb9 21:08 Body Mass Index 36.67 (93.89 kg, 160.02 cm) mb9 ED Course: 21:01 Patient arrived in ED. ja2 21:03 Edson Haddad PA is PHCP. cp 21:04 Reid Tolbert DO is Attending Physician. cp 21:11 Triage completed. lg3 21:11 Arm band placed on left wrist. lg3 21:39 XRAY Foot LEFT 3 View In Process Unspecified. EDMS 21:47 Chanel Romero, RN is Primary Nurse. mb9 21:48 Placed in gown. Bed in low position. Call light in reach. Side rails up X 1. Client mb9 placed on continuous cardiac and pulse oximetry monitoring. NIBP monitoring applied. Door closed. Noise minimized. Warm blanket given. 21:48 No provider procedures requiring assistance completed. Patient did not have IV access mb9 during this emergency room visit. Administered Medications: 21:20 Drug: Tetanus-Diphtheria Toxoid IM Adult 0.5 ml {Kiln Firer Helper: [employer]. Exp: lg3 07/17/2023. Lot #: [id number]. } Route: IM; Site: right deltoid; 21:21 Follow up: Response: (VIS) Vaccine information sheet provided today. Questions and/or lg3 concerns addressed. VIS edition date: Sep 11, 2020.; No adverse reaction 22:44 Drug: Ibuprofen PO 800 mg Route: PO; mb9 23:03 Follow up: Response: No adverse reaction mb9 22:44 Drug: HYDROcodone-acetaminophen PO 5 mg-325 mg 1 tabs Route: PO; mb9 23:03 Follow up: Response: No adverse reaction mb9 Medication: 21:21 Vaccine Information Statement (VIS) provided today. Questions and/or concerns lg3 addressed. VIS edition date: September 11, 2020. Outcome: 22:46 Discharge ordered by . cp 23:03 Discharged to home ambulatory. mb9 23:03 Condition: stable 23:03 Discharge instructions given to patient, Instructed on discharge instructions, follow up and referral plans. Demonstrated understanding of instructions, follow-up care, medications, Prescriptions given X 1. 23:03 Patient left the ED. mb9 Signatures: Dispatcher [employer] EDMS Edson Haddad PA PA cp Gibson, Lacie, RN RN lg3 Isabella Gutiérrez Mary Beth, RN RN lina9 Corrections: (The following items were deleted from the chart) 21:14 21:11 Home Meds: glipizide 10 mg Oral tab 1 tab 2 times per day; lg3 lg3 21:48 21:08 BP 169 / 66; Pulse 74bpm; Resp 74bpm; Pulse Ox 97% RA; Temp 97.7F Temporal; 93.89 mb9 kg Reported; Height 5 ft. 3 in. Reported; BMI: 36.6; lg3
[2022-07-01] MEDS ORDERED: HYDROCODONE/APAP 5/325 MG TAB ONE (22:49)
[2022-07-01] MEDS ORDERED: IBUPROFEN 400 MG TAB ONE (22:49)
[2022-07-01 23:07] VITALS: TEMP 97.7
[2022-07-01 23:08] VITALS: BP 142/76; O2SAT 99
== END 2022-07-01 23:03 | disposition home or self-care (01) ==
LOC: ER 20:58
DX: S90.212A Contusion of left great toe with damage to nail, initial encounter (principal); Z23 Encounter for immunization; Z88.8 Allergy status to other drugs, medicaments and biological substances
CPT/HCPCS: 90471; 90714; 99284

== ENCOUNTER 2023-03-20 17:56 | Inpatient (IN) | payer OTHER ==
--- OUTSIDE RECORDS SUMMARY | 2023-03-20 17:59 | XMS REPORT | Continuity of Care Document ---
Author Name Unknown Address [address] [facility] [address] [place] [address] [facility] thconnect Address [address] [facility]. [address] [place] [address] Care Team Providers Care Gate Cutter Name Role Phone Judith Hayden Primary Care Physician [phone] Radiology Attending Clinician Unavailable RADIOLOGY Attending Clinician Unavailable Doctor Unassigned, Wink Attending Clinician U navailable Pob, Adc Lab Main Attending Clinician Meaagn Garzon MD Attending Clinician [phone] MEAGAN BROWN Attending Clinician Unavailyessica Pringle RN, Michelle Dixon Attending Clinician Unavail le Only, Ang Db Test Attending Clinician UnavailAna Fritz Attending Clinician + [phone] HOMERO GONZALES Attending Clinician Unavailable Shonna Linares Attending Clinician [phone] Lab, Adc Fam Pob I Attending Clinician Unavailab pascale MCADAMS OMAYEMI Attending Clinician UnavailJUDITH Stubbs Admitting Clinician Unavailke ble Payers Payer Name Policy Type Policy Number Effective Date Expirati on Date Source Problems Condition Name Condition Details Condition Category Status Onset Date Resolution Date Last Treatment Date Treating Clinician Comments Source Type II or unspecifie d type diabetes mellitus with unspecifie d complicati on, not stated as uncontroll ed Type II or unspecifie d type diabetes mellitus with unspecifie d complicati on, not stated as uncontroll ed Disease Active 09-12 00:00: 00 [facility] Essential hypertensi on Essential hypertensi on Disease Active 09-12 00:00: 00 Overview: Formattin g of this note might be different from the original. 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 [facility] Allergies, Adverse Reactions, Alerts Allergy Name Allergy Type Status Severity Reaction(s) Onset Date Inactive Date Treating Clinician Comments Source NO KNOWN ALLERGIE S Drug Class Active [facility] Social History Social Habit Start Date Stop Date Quantity Comments Source Gender identity [facility] Sexual orientation U [facility] History of Social function 2018-10-31 00:00:00 2018-10-31 00:00:00 [facility] Alcohol intake 2017-12-26 00:00:00 2017-12-26 00:00:00 Current non-drinker of alcohol (finding) [facility] Tobacco use and exposure 2012-09-12 00:00:00 2012-09-12 00:00:00 Smokeless tobacco non-user [facility] History of tobacco use 1992-09-12 00:00:00 Cigarette Smoker [facility] Sex Ass[birth year] At 1950 00:00:00 1950 00:00:00 [facility] Smoking Status Start Date Stop Date Source Ex-smoker 2012-09-12 00:00:00 2012-09-12 00:00:00 [facility] Medications Ordered Medication Name Filled Medication Name Start Date Stop Date Current Medication? Ordering Clinician Indication Dosage Frequency Signature (SIG) Comments Components Source GLYBURIDE ORAL 05-11 14:33: 56 Yes 10mg Take 10 mg by mouth 2 (two) times daily. [facility] METFORMIN HCL (METFORMIN ORAL) 05-11 14:33: 56 Yes 100mg Take 100 mg by mouth 2 (two) times daily. [facility] Levothyroxi ne (TIROSINT) 125 mcg Cap 05-11 14:33: 56 Yes Take by mouth daily. [facility] LORATADINE (CLARITIN ORAL) 05-11 14:33: 56 Yes Take by mouth daily. [facility] DIPHENHYDRA MINE HCL (BENADRYL ALLERGY ORAL) 05-11 14:33: 56 Yes Take by mouth. [facility] ferrous sulfate (IRON) 325 mg (65 mg iron) tablet 05-11 14:33: 56 Yes 325mg Take 325 mg by mouth 2 (two) times daily. [facility] OMEPRAZOLE ORAL 05-11 14:33: 56 Yes Take by mouth. [facility] GLYBURIDE ORAL 05-11 14:33: 56 Yes 10mg Take 10 mg by mouth 2 (two) times daily. [facility] METFORMIN HCL (METFORMIN ORAL) 05-11 14:33: 56 Yes 100mg Take 100 mg by mouth 2 (two) times daily. [facility] Levothyroxi ne (TIROSINT) 125 mcg Cap 05-11 14:33: 56 Yes Take by mouth daily. [facility] LORATADINE (CLARITIN ORAL) 05-11 14:33: 56 Yes Take by mouth daily. [facility] DIPHENHYDRA MINE HCL (BENADRYL ALLERGY ORAL) 05-11 14:33: 56 Yes Take by mouth. [facility] ferrous sulfate (IRON) 325 mg (65 mg iron) tablet 05-11 14:33: 56 Yes 325mg Take 325 mg by mouth 2 (two) times daily. [facility] OMEPRAZOLE ORAL 05-11 14:33: 56 Yes Take by mouth. [facility] GLYBURIDE ORAL 05-11 14:33: 56 Yes 10mg Take 10 mg by mouth 2 (two) times daily. [facility] METFORMIN HCL (METFORMIN ORAL) 05-11 14:33: 56 Yes 100mg Take 100 mg by mouth 2 (two) times daily. [facility] Levothyroxi ne (TIROSINT) 125 mcg Cap 05-11 14:33: 56 Yes Take by mouth daily. [facility] LORATADINE (CLARITIN ORAL) 05-11 14:33: 56 Yes Take by mouth daily. [facility] DIPHENHYDRA MINE HCL (BENADRYL ALLERGY ORAL) 05-11 14:33: 56 Yes Take by mouth. [facility] ferrous sulfate (IRON) 325 mg (65 mg iron) tablet 05-11 14:33: 56 Yes 325mg Take 325 mg by mouth 2 (two) times daily. [facility] OMEPRAZOLE ORAL 05-11 14:33: 56 Yes Take by mouth. [facility] GLYBURIDE ORAL 05-11 14:33: 56 Yes 10mg Take 10 mg by mouth 2 (two) times daily. [facility] METFORMIN HCL (METFORMIN ORAL) 05-11 14:33: 56 Yes 100mg Take 100 mg by mouth 2 (two) times daily. [facility] Levothyroxi ne (TIROSINT) 125 mcg Cap 05-11 14:33: 56 Yes Take by mouth daily. [facility] LORATADINE (CLARITIN ORAL) 05-11 14:33: 56 Yes Take by mouth daily. [facility] DIPHENHYDRA MINE HCL (BENADRYL ALLERGY ORAL) 05-11 14:33: 56 Yes Take by mouth. [facility] ferrous sulfate (IRON) 325 mg (65 mg iron) tablet 05-11 14:33: 56 Yes 325mg Take 325 mg by mouth 2 (two) times daily. [facility] OMEPRAZOLE ORAL 05-11 14:33: 56 Yes Take by mouth. [facility] GLYBURIDE ORAL 05-11 14:33: 56 Yes 10mg Take 10 mg by mouth 2 (two) times daily. [facility] METFORMIN HCL (METFORMIN ORAL) 05-11 14:33: 56 Yes 100mg Take 100 mg by mouth 2 (two) times daily. [facility] Levothyroxi ne (TIROSINT) 125 mcg Cap 05-11 14:33: 56 Yes Take by mouth daily. [facility] LORATADINE (CLARITIN ORAL) 05-11 14:33: 56 Yes Take by mouth daily. [facility] DIPHENHYDRA MINE HCL (BENADRYL ALLERGY ORAL) 05-11 14:33: 56 Yes Take by mouth. [facility] ferrous sulfate (IRON) 325 mg (65 mg iron) tablet 05-11 14:33: 56 Yes 325mg Take 325 mg by mouth 2 (two) times daily. [facility] OMEPRAZOLE ORAL 05-11 14:33: 56 Yes Take by mouth. [facility] Procedures Procedure Date / Time Performed Performing Clinicia n Source DEXA AXIAL (HIP AND SPINE) 2022-09-29 19:00:44 Requisition, Paper [facility] CONSENT/REFUSAL FOR DIAGNOSIS AND TREATMENT 2022-09-29 17:54:40 Doctor Unassigned, Wink [facility] CONSENT/REFUSAL FOR DIAGNOSIS AND TREATMENT 2021-05-26 14:57:40 Doctor Unassigned, Wink [facility] ASSIGNMENT OF BENEFITS 2021-05-26 14:57:09 Docto r Unassigned, Wink [facility] IR FNA (FINE NEEDLE ASP) WITH IMAGING 2021-03-10 19:42:30 Requisition, Paper [facility] Encounters Start Date/Time End Date/Time Encounter Type Admission Type Attending Clinicians Care Facility Care Department Encounter ID Source 2022-09-29 12:57:31 2022-09-29 23:59:00 Hospital Encounter Radiology [facility] [id number] 350.1.13.10 4.2.7.2.686 [id number] [facility] 2022-09-29 12:57:16 2022-09-29 23:59:00 Outpatient R RADIOLOGY [facility] [id number] [facility] 2022-09-29 12:57:16 2022-09-29 23:59:00 Hospital Encounter Radiology [facility] [id number] 350.1.13.10 4.2.7.2.686 [id number] [facility] 2022-09-29 00:00:00 2022-09-29 00:00:00 Orders Only Doctor Unassigned, Wink [facility] [id number] 350.1.13.10 4.2.7.2.686 [id number] [facility] 2021-05-26 10:01:16 2021-05-26 23:59:00 Hospital Encounter Radiology [facility] [id number] 350.1.13.10 4.2.7.2.686 [id number] [facility] 2021-05-26 10:01:16 2021-05-26 23:59:00 Outpatient R RADIOLOGY [facility] [id number] [facility] 2021-03-10 10:22:38 2021-03-10 23:59:00 Hospital Encounter Radiology [facility] 1.2.840.114 350.1.13.10 4.2.7.2.686 [id number] [facility] 2021-03-10 13:15:00 2021-03-10 13:30:00 [employer] Administrator Visit Pob, Adc Lab Main Meagan Brown [facility] 1.2.840.114 350.1.13.10 4.2.7.2.686 [id number] [facility] 2021-03-10 13:15:00 2021-03-10 13:15:00 Outpatient R MEAGAN BROWN [facility] [id number] [facility] 2021-03-10 13:15:00 2021-03-10 13:15:00 Outpatient R MEAGAN BROWN [facility] [id number] [facility] 2021-03-10 00:00:00 2021-03-10 00:00:00 Outpatient R RADIOLOGY [facility] [id number] [facility] 2021-01-14 09:30:24 2021-01-14 23:59:00 Hospital Encounter Radiology [facility] 1.2.840.114 350.1.13.10 4.2.7.2.686 [id number] [facility] 2021-01-14 09:29:47 2021-01-14 09:29:47 Hospital Encounter Radiology [facility] 1.2.840.114 350.1.13.10 4.2.7.2.686 [id number] [facility] 2021-01-14 09:29:02 2021-01-14 09:29:02 Outpatient R RADIOLOGY [facility] [id number] [facility] 2021-01-14 09:29:02 2021-01-14 09:29:02 Hospital Encounter Radiology [facility] 1.2.840.114 350.1.13.10 4.2.7.2.686 [id number] [facility] 2021-01-14 00:00:00 2021-01-14 00:00:00 Orders Only Doctor Unassigned, Wink [facility] 1.2.840.114 350.1.13.10 4.2.7.2.686 [id number] [facility] 2020-11-06 00:00:00 2020-11-06 00:00:00 Letter (Out) Michelle Pringle [facility] 1.2.840.114 350.1.13.10 4.2.7.2.686 [id number] [facility] 2020-11-04 13:35:53 2020-11-04 13:50:53 Laboratory Only Only, Ang Db Test Ana Saucedo [facility] 1.84.114 350.1.13.10 4.2.7.2.686 [id number] [facility] 2020-11-04 13:30:00 2020-11-04 13:30:00 Outpatient R [facility] [id number] [facility] 2020-05-24 14:40:00 2020-05-24 14:40:00 Outpatient [facility] [id number] [facility] 2020-05-23 14:40:00 2020-05-23 14:40:00 Outpatient [facility] [id number] [facility] 2020-05-06 10:24:40 2020-05-06 23:59:00 Hospital Encounter Radiology [facility] 1..114 350.1.13.10 4.2.7.2.686 [id number] [facility] 2020-05-06 00:00:00 2020-05-06 00:00:00 Outpatient R RADIOLOGY [facility] [id number] [facility] 2020-05-06 00:00:00 2020-05-06 00:00:00 Orders Only Doctor Unassigned, Wink [facility] 1..114 350.1.13.10 4.2.7.2.686 [id number] [facility] 2020-05-03 15:25:00 2020-05-03 15:25:00 Outpatient R HOMERO GONZALES [facility] [id number] [facility] 2020-02-05 00:00:00 2020-02-05 00:00:00 Telephone Shonna Mcadams [facility] 1..114 350.1.13.10 4.2.7.2.686 [id number] [facility] 2020-02-04 14:24:19 2020-02-04 14:44:19 Laboratory Only Lab, Adc Fam Pob I Shonna Mcadams [facility] 1.84.114 350.1.13.10 4.2.7.2.686 [id number] [facility] 2020-02-04 14:40:00 2020-02-04 14:40:00 Outpatient R SHONNA MCADAMS [facility] [id number] [facility] 2020-02-04 00:00:00 2020-02-04 00:00:00 Letter (Out) Doctor Unassigned, Wink [facility] 1.840.114 350.1.13.10 4.2.7.2.686 [id number] [facility]
--- NOTE | 2023-03-20 19:01 | RAD REPORT ---
EXAM DESCRIPTION: Peter Mc (2 Views)03/20/2023 6:38 pm CLINICAL HISTORY: sob COMPARISON: 2022 FINDINGS: The lungs appear clear of acute infiltrate. The heart is normal size IMPRESSION: No acute abnormalities displayed
[2023-03-20 19:48] LABS: Absolute Lymphocytes (CBC) 0.5 K/uL (0.7-4.9); Hematocrit 36.3 % (36.0-45.0); Lymphocytes % 12.2 % (15.3-44.8); MCV 98.8 fL (80-100); MPV 8.5 fL (7.6-11.3); Platelets 106 thou/uL (152-406); RBC Red Blood Cell Count 3.68 M/uL (3.86-4.86)
[2023-03-20 19:50] LABS: Protime INR 1.04
[2023-03-20 20:07] LABS: Albumin 2.8 g/dL (3.4-5.0); Bilirubin Direct 0.3 mg/dL (0-0.2); Bilirubin Indirect, Calculated 0.3 mg/dL (0.2-0.8); Bilirubin Total 0.6 mg/dL (0.2-1.0); Magnesium 2.3 mg/dL (1.6-2.4); Potassium 5.3 mEq/L (3.5-5.1); Protein, Total 7.1 g/dL (6.4-8.2)
[2023-03-20 20:18] LABS: Troponin High Sensitivity 172.7 pg/mL (<58.9)
--- NOTE | 2023-03-20 20:32 | EDPHYS ---
Physician Documentation [facility] Name: Chanel Castillo Age: 72 yrs Sex: Female : 1950 Arrival Date: 03/20/2023 Time: 17:56 Bed 15 Private MD: ED Physician Sundeep Chung HPI: 03/20 18:26 This 72 yrs old Female presents to ER via EMS with complaints of Shortness Of sb4 Breath. 18:26 patient reports progressively worsening dyspnea on exertion over the past week. she sb4 does endorse lower extremity edema. states she is prescribed PRN lasix and has taken it a few times without significant improvement. denies orthopnea. Historical: - Allergies: 18:10 carvedilol; nj1 - PMHx: 18:10 Diabetes - NIDDM; Hyperlipidemia; Hypertension; Hypothyroidism; nj1 18:17 Pulmonary hypertension; sb4 - PSHx: 18:10 Cholecystectomy; nj1 - Immunization history:: Client reports receiving the 2nd dose of the Covid vaccine. - Social history:: Smoking status: Patient denies any tobacco usage or history of. ROS: 18:26 Constitutional: Negative for fever, chills, and weight loss, sb4 18:26 Respiratory: Positive for dyspnea on exertion, shortness of breath, on exertion. 18:26 All other systems are negative, Exam: 18:26 Constitutional: This is a well developed, well nourished patient who is awake, alert, sb4 and in no acute distress. Head/Face: Normocephalic, atraumatic. Eyes: Extra-ocular motions intact. Periorbital areas with no swelling, redness, or edema. ENT: Mucous membranes moist. Cardiovascular: Regular rate and rhythm with a normal S1 and S2. Abdomen/GI: Soft, non-tender, no distension. Skin: Warm, dry with normal turgor. Normal color with no rashes, no lesions, and no evidence of cellulitis. MS/ Extremity: Pulses equal, no cyanosis. Neurovascular intact. Full, normal range of motion. Neuro: Awake and alert, GCS 15, oriented to person, place, time, and situation. Motor strength 5/5 in all extremities. Sensory grossly intact. 18:26 Respiratory: mild respiratory distress is noted, Respirations: labored breathing, that is mild, Breath sounds: are clear throughout, 20:30 Neck: sb4 20:30 Cardiovascular: Edema: 2+ edema to level of left midcalf, left ankle, right midcalf and right ankle, JVD: is noted bilaterally, Vital Signs: 18:06 BP 174 / 71; Pulse 71; Resp 17; Temp 98.1(O); Pulse Ox 100% ; Weight 95.25 kg; Height 5 nj1 ft. 3 in. ; Pain 6/10; 19:00 BP 207 / 68; Pulse 71; Resp 20; Pulse Ox 99% on R/A; me1 20:00 BP 156 / 68; Pulse 66; Resp 21; Pulse Ox 99% on R/A; me1 21:00 BP 161 / 68; Pulse 66; Resp 19; Pulse Ox 99% on R/A; me1 22:00 BP 159 / 69; Pulse 66; Resp 16; Pulse Ox 99% on R/A; km8 23:00 BP 165 / 75; Pulse 69; Resp 16; Pulse Ox 98% on R/A; km8 18:06 Body Mass Index 37.20 (95.25 kg, 160.02 cm) nj1 18:06 Pain Scale: Adult nj1 MDM: 18:15 Patient medically screened. sb4 18:26 Differential diagnosis: Bronchitis CHF exacerbation, Chronic Obstructive Pulmonary sb4 Disease Pneumothorax pulmonary edema. 20:30 Data reviewed: vital signs, nurses notes, lab test result(s), EKG, radiologic studies, sb4 and as a result, I will admit patient. Consideration of Admission/Observation Patient was admitted/placed on observation. Management of patient was discussed with the following: Hospitalist: dr. srerano. Equipment Operator Warehouse: dr beckham. Care significantly affected by the following chronic conditions: Diabetes, Hypertension, Congestive Heart Failure. Counseling: I had a detailed discussion with the patient and/or guardian regarding the historical points, exam findings, and any diagnostic results supporting the discharge/admit diagnosis, lab results, radiology results, the need for further work-up and treatment in the hospital. 03/20 18:14 Order name: BMP; Complete Time: 20:19 sb4 03/20 18:14 Order name: CBC with Diff; Complete Time: 20:02 sb4 03/20 18:14 Order name: Hepatic Function; Complete Time: 20:19 sb4 03/20 18:14 Order name: Magnesium; Complete Time: 20:19 sb4 03/20 18:14 Order name: NT PRO-BNP; Complete Time: 20:19 sb4 03/20 18:14 Order name: PT-INR; Complete Time: 19:54 sb4 03/20 18:14 Order name: Ptt, Activated; Complete Time: 19:54 sb4 03/20 18:14 Order name: Troponin HS; Complete Time: 20:19 sb4 03/20 22:43 Order name: Basic Metabolic Panel EDMS 03/20 22:43 Order name: Basic Metabolic Panel EDMS 03/20 22:43 Order name: Basic Metabolic Panel EDMS 03/20 22:43 Order name: Basic Metabolic Panel EDMS 03/20 22:43 Order name: CBC with Automated Diff EDMS 03/20 22:43 Order name: CBC with Automated Diff EDMS 03/20 22:43 Order name: CBC with Automated Diff EDMS 03/20 22:43 Order name: CBC with Automated Diff EDMS 03/20 18:14 Order name: XRAY Chest Pa And Lat (2 Views); Complete Time: 19:08 sb4 03/20 18:14 Order name: EKG; Complete Time: 18:14 sb4 03/20 18:14 Order name: Cardiac monitoring; Complete Time: 20:20 sb4 03/20 18:14 Order name: EKG - Nurse/Tech; Complete Time: 20:20 sb4 03/20 18:14 Order name: IV Saline Lock; Complete Time: 19:48 sb4 03/20 18:14 Order name: Labs collected and sent; Complete Time: 19:48 sb4 03/20 18:14 Order name: O2 Per Protocol; Complete Time: 19:48 sb4 03/20 18:14 Order name: O2 Sat Monitoring; Complete Time: 19:48 sb4 EC:54 Rate is 70 beats/min. Rhythm is regular, Sinus Rhythm with Occasional PVCs. VT interval sb4 is normal at 188 msec. QRS interval is normal at 142 msec. QT interval is prolonged at 456 msec. Clinical impression: bifasicular block present today, not present april 2022, present in february 2022. Interpreted by me. Reviewed by me. 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 I did not e c2 personally see the patient or discuss the patient with the BOB. . Signatures: Dispatcher [employer] Charis Dasilva PA-C PA-C sb4 Berenice Holman RN RN nj1 Ade Betancur RN RN me1 Sundeep Chung MD MD 2 Alaina Santos [facility] Corrections: (The following items were deleted from the chart) 03/20 18:20 18:20 PMHx: Hypothyroidism; sb4 sb4 23:13 20:31 sb4 [facility]
--- NOTE | 2023-03-20 20:32 | ER ---
Nurse's Notes [facility] Name: Chanel Castillo Age: 72 yrs Sex: Female : 1950 Arrival Date: 03/20/2023 Time: 17:56 Bed 15 Private MD: Diagnosis: Acute on chronic combined systolic (congestive) and diastolic (congestive) heart failure Presentation: 03/20 18:04 Chief complaint: EMS states: Short of breath for years, got worse February, called PCP leila last week who advised her to come to ED. Onset of symptoms was February 2023. Care prior to arrival: Glucose check: 201. 18:04 Method Of Arrival: EMS: [facility] 18:04 Acuity: TYRESE 3 [facility] 18:06 Coronavirus screen: Vaccine status: Patient reports receiving the 2nd dose of the covid nj1 vaccine. Ebola Screen: Patient denies travel to an Ebola-affected area in the 21 days before illness onset. Initial Sepsis Screen: Does the patient meet any 2 criteria? No. Patient's initial sepsis screen is negative. Does the patient have a suspected source of infection? No. Patient's initial sepsis screen is negative. Risk Assessment: Do you want to hurt yourself or someone else? Patient reports no desire to harm self or others. Historical: - Allergies: 18:10 carvedilol; nj1 - PMHx: 18:10 Diabetes - NIDDM; Hyperlipidemia; Hypertension; Hypothyroidism; nj1 18:17 Pulmonary hypertension; sb4 - PSHx: 18:10 Cholecystectomy; nj1 - Immunization history:: Client reports receiving the 2nd dose of the Covid vaccine. - Social history:: Smoking status: Patient denies any tobacco usage or history of. Screenin:48 [facility] ED Fall Risk Assessment (Adult) History of falling in the last 3 months, me1 including since admission No falls in past 3 months (0 pts) Confusion or Disorientation No (0 pts) Intoxicated or Sedated No (0 pts) Impaired Gait No (0 pts) Mobility Assist Device Used No (0 pt) Altered Elimination No (0 pt) Score/Fall Risk Level 0 - 2 = Low Risk Maintained a safe environment, Provided non-skid footwear, Hourly rounding (assess needs \T\ fall precautionary measures) done. Abuse screen: Denies threats or abuse. Nutritional screening: No deficits noted. Tuberculosis screening: No symptoms or risk factors identified. Assessment: 19:48 General: Appears uncomfortable, well groomed, well developed, well nourished, Behavior me1 is calm, cooperative, appropriate for age, Reports Short of breath for years, got worse February, called PCP last week who advised her to come to ED. Pain: Denies pain. Neuro: Level of Consciousness is awake, alert, obeys commands, Oriented to person, place, time, situation, Appropriate for age. Respiratory: Reports shortness of breath at rest on exertion since Short of breath for years, got worse February, called PCP last week who advised her to come to ED. Airway is patent Trachea midline Respiratory effort is even, unlabored, Respiratory pattern is regular, symmetrical, Breath sounds are clear bilaterally. 22:00 Reassessment: Patient appears in no apparent distress at this time. No changes from [facility] previously documented assessment. Patient and/or family updated on plan of care and expected duration. Pain level reassessed. Patient is alert, oriented x 3, equal unlabored respirations, skin warm/dry/pink. General: Appears in no apparent distress. comfortable, Behavior is calm, cooperative, appropriate for age. Pain: Denies pain. Neuro: Level of Consciousness is awake, alert, obeys commands, Oriented to person, place, time, situation. Cardiovascular: Reports shortness of breath, Denies chest pain, Patient's skin is warm and dry. Rhythm is regular. Respiratory: Reports shortness of breath on exertion Airway is patent Respiratory effort is even, unlabored, Respiratory pattern is regular, symmetrical. 23:00 Reassessment: Patient appears in no apparent distress at this time. No changes from [facility] previously documented assessment. Patient and/or family updated on plan of care and expected duration. Pain level reassessed. Patient is alert, oriented x 3, equal unlabored respirations, skin warm/dry/pink. 23:26 General: called 4th floor to give report, notified that JAVIER Cano will be told to call [facility] back for report. Vital Signs: 18:06 BP 174 / 71; Pulse 71; Resp 17; Temp 98.1(O); Pulse Ox 100% ; Weight 95.25 kg; Height 5 nj1 ft. 3 in. ; Pain 6/10; 19:00 BP 207 / 68; Pulse 71; Resp 20; Pulse Ox 99% on R/A; me1 20:00 BP 156 / 68; Pulse 66; Resp 21; Pulse Ox 99% on R/A; me1 21:00 BP 161 / 68; Pulse 66; Resp 19; Pulse Ox 99% on R/A; me1 22:00 BP 159 / 69; Pulse 66; Resp 16; Pulse Ox 99% on R/A; km8 23:00 BP 165 / 75; Pulse 69; Resp 16; Pulse Ox 98% on R/A; km8 18:06 Body Mass Index 37.20 (95.25 kg, 160.02 cm) nj1 18:06 Pain Scale: Adult [facility] ED Course: 18:01 Patient arrived in ED. im 18:02 Charis Parker PA-C is PHCP. sb4 18:02 Sundeep Chung MD is Attending Physician. sb4 18:06 Triage completed. nj1 18:11 Arm band placed on left wrist. nj1 18:40 XRAY Chest Pa And Lat (2 Views) In Process Unspecified. EDMS 19:40 Ade Betancur RN is Primary Nurse. me1 19:48 Patient has correct armband on for positive identification. Bed in low position. Call me1 light in reach. Side rails up X2. Provided Education on: POC. Verbalized understanding. . 19:48 No provider procedures requiring assistance completed. me1 20:13 Notified Nurse Practitioner and/or Physician Presetter Operator of a critical lab result(s), me1 troponin 172.7. 20:31 Elver Serrano MD is Hospitalizing Provider. sb4 23:20 Patient admitted, IV remains in place. km8 Administered Medications: 21:09 Drug: Furosemide IVP 40 mg IVP once; give over 2 minutes Route: IVP; Site: right me1 antecubital; 21:15 Follow up: Response: No adverse reaction me1 Medication: 19:48 VIS not applicable for this client. me1 Outcome: 20:31 Decision to Hospitalize by Provider. sb4 23:25 Instructed on the need for admit, Demonstrated understanding of instructions, km8 23:50 Admitted to Med/surg accompanied by tech, via wheelchair, room 431, with chart, Report km8 called to JAVIER Cano 23:50 Condition: stable 03/21 00:06 Patient left the ED. km8 Signatures: Dispatcher [employer] EDMS Charis Parker PA-C PA-C sb4 Berenice Holman RN RN nj1 Kena Negron Michelle, RN RN dc1 Lisette Hernandez, RN RN km8 Corrections: (The following items were deleted from the chart) 03/20 18:10 18:06 Pulse 71bpm; Resp 17bpm; Pulse Ox 100%; Temp 98.1F Oral; 95.25 kg; Height 5 ft. 3 nj1 in.; BMI: 37.2; Pain 6/10, Adult; nj1 18:20 18:20 PMHx: Hypothyroidism; sb4 sb4 19:48 18:04 Chief complaint: EMS states: Short of breath for years, got worse February, called me1 PCP last week who advised her to come to ED. nj1 03/21 00:06 03/20 23:50 Admitted to Med/surg accompanied by nurse, via wheelchair, room 431, with km8 chart, Report called to JAVIER Cano km8
[2023-03-20] MEDS ORDERED: FUROSEMIDE 40 MG/4 ML VIAL ONE (21:11)
[2023-03-20] MEDS ORDERED: ONDANSETRON 4 MG/2 ML VIAL IV PRN (22:38)
--- NOTE | 2023-03-20 22:49 | P.HP ---
Certification for Inpatient Patient admitted to: Inpatient With expected LOS: >2 Midnights Practitioner: I am a practitioner with admitting privileges, knowledge of patient current condition, hospital course, and medical plan of care. Services: Services provided to patient in accordance with Admission requirements found in Title 42 Section 412.3 of the Code of Federal Regulations Patient History Date of Service: 03/21/23 Reason for admission: CHF exacerbation, pedal edema. History of Present Illness: 72-year-old female patient with medical history significant for hypertension, hyperlipidemia, diabetes type 2, hypothyroidism was evaluated for episode of worsening shortness of breath and leg swelling. She reports this been going on for about 1 week. She has associated orthopnea and PND symptoms. She came to the ED for evaluation and in the ED she was found to have significant pedal edema with elevated BNP and chest x-ray was done that showed no significant pleural effusions. There was mild cardiomegaly. She was started on IV diuretic therapy and was admitted for inpatient care. She did report oral diuretic use on as needed basis prior to encounter however this was not helping her situation. She denies chest pain, fever, chills, rigor, nausea, vomiting episode. Allergies No Known Drug Allergies Allergy (Verified 04/26/22 13:47) Unknown Home Medications: Levothyroxine [Synthroid*] 137 mcg PO [id number] 03/31/14 Loratadine [Claritin*] 10 mg PO DAILY PRN 03/31/14 Ferrous Sulfate [Iron] 325 mg PO DAILY 06/16/16 Gabapentin [Neurontin*] 100 mg PO TID 06/16/16 Rosuvastatin [Crestor*] 10 mg PO BEDTIME 06/16/16 Vitamin B Complex [B Complex] 1 each PO DAILY 06/16/16 Apixaban [Eliquis] 5 mg PO BID 15 Days #30 tablet 11/06/20 Ascorbic Acid [Vitamin C*] 500 mg PO DAILY 30 Days #30 tablet 11/06/20 Cholecalciferol (Vitamin D3) [Vitamin D 5,000 IU Cap*] 5,000 unit PO DAILY 30 Days #30 cap 11/06/20 Zinc Sulfate [Zinc Sulfate*] 220 mg PO DAILY 30 Days #30 cap 11/06/20 Amlodipine [Norvasc] 5 mg PO DAILY 02/08/22 Sitagliptin Phosphate [Januvia] 100 mg PO 02/08/22 Sildenafil Citrate [Revatio*] 20 mg PO DAILY 90 Days #90 tab 02/11/22 - Past Medical/Surgical History Diabetic: Yes -: oa, thyroid, dm, -: appy, kerwin, l breast biopsy, tumor removed l calf - Social History Alcohol use: No CD- Drugs: No Caffeine use: Yes Review of Systems General: Weakness, Malaise Eyes: Unremarkable ENT: Unremarkable Respiratory: Unremarkable Cardiovascular: Orthopnea, Paroxysmal Noc. Dyspnea, Edema Genitourinary: Unremarkable Musculoskeletal: Unremarkable Integumentary: Unremarkable Neurological: Unremarkable Lymphatics: Unremarkable Physical Examination - Physical Exam General: Alert, Oriented x3 HEENT: Atraumatic Neck: Supple Respiratory: Diminished Cardiovascular: Regular rate/rhythm, Normal S1 S2 Gastrointestinal: Soft and benign Musculoskeletal: Swelling Neurological: Normal speech, Normal strength at 5/5 x4 extr - Studies Laboratory Data (last 24 hrs) 03/20/23 03/20/23 03/20/23 19:37 19:37 19:37 WBC 4.30 Hgb 12.0 Hct 36.3 Plt Count 106 L PT 11.4 INR 1.04 APTT 34.2 Sodium 137 Potassium 5.3 H BUN 51 H Creatinine 2.18 H Glucose 187 H Magnesium 2.3 Total Bilirubin 0.6 AST 45 H ALT 45 Alkaline Phosphatase 291 H Assessment and Plan - Plan CHF exacerbation: Patient does have clinical findings and imaging studies concerning with labs. Will continue Lasix IV 40mg every 8 hour and monitor input and output closely. Will fluid restrict to 1.2 L/day. Will obtain echocardiogram to assess cardiac function. We will continue on low sodium diet. Hypertension: We will monitor vital signs per unit protocol and continue antihy pertensive medications. Diabetes type 2: Continue sliding scale insulin for glucose control and carb restricted diet. Hyperlipidemia continue on statin therapy. Hypothyroidism: Continue levothyroxine dose. Prophylaxis: Lovenox for DVT prophylaxis. CODE STATUS: Full code. Disposition: We will treat her CHF exacerbation and she will be discharged once deemed clinically stable. - Advance Directives Does patient have a Living Will: No Does patient have a Durable POA for Healthcare: No
[2023-03-21] MEDS: FUROSEMIDE 40 MG/4 ML VIAL IV SCH (00:43)
[2023-03-21] MEDS: ACETAMINOPHEN 325 MG TABLET PO PRN (00:44)
[2023-03-21 06:25] LABS: Absolute Lymphocytes (CBC) 0.7 K/uL (0.7-4.9); Hematocrit 33.7 % (36.0-45.0); Lymphocytes % 15.5 % (15.3-44.8); MCV 98.4 fL (80-100); MPV 8.8 fL (7.6-11.3); Platelets 108 thou/uL (152-406); RBC Red Blood Cell Count 3.42 M/uL (3.86-4.86)
[2023-03-21 06:48] LABS: Potassium 5.1 mEq/L (3.5-5.1)
[2023-03-21] MEDS: ENOXAPARIN 30 MG/0.3 ML SQ SCH (08:07)
--- NOTE | 2023-03-21 08:09 | P.CNS ---
Date of Consult: 03/21/23 Reason for Consult: CKD Requesting Physician: Noe Jerez Chief Complaint: CHF exacerbation, pedal edema. History of Present Illness: 72-year-old female patient with medical history significant for hypertension, hyperlipidemia, diabetes type 2, hypothyroidism was evaluated for episode of worsening shortness of breath and leg swelling. She reports this been going on for about 1 week. She has associated orthopnea and PND symptoms. She came to the ED for evaluation and in the ED she was found to have significant pedal edema with elevated BNP and chest x-ray was done that showed no significant pleural effusions. There was mild cardiomegaly. She was started on IV diuretic therapy and was admitted for inpatient care. She did report oral diuretic use on as needed basis prior to encounter however this was not helping her s ituation. She denies chest pain, fever, chills, rigor, nausea, vomiting episode. [id number] 18:26 This 72 yrs old Female presents to ER via EMS with complaints of Shortness Of sb4 Breath. 18:26 patient reports progressively worsening dyspnea on exertion over the past week. she sb4 does endorse lower extremity edema. states she is prescribed PRN lasix and has taken it a few times without significant improvement. denies orthopnea. No NSAIDs No bladder difficulties Allergies No Known Drug Allergies Allergy (Verified 04/26/22 13:47) Unknown Home medications list reviewed: Yes Home Medications: Levothyroxine [Synthroid*] 137 mcg PO [id number] 03/31/14 Loratadine [Claritin*] 10 mg PO DAILY PRN 03/31/14 Ferrous Sulfate [Iron] 325 mg PO DAILY 06/16/16 Gabapentin [Neurontin*] 100 mg PO TID 06/16/16 Rosuvastatin [Crestor*] 10 mg PO BEDTIME 06/16/16 Vitamin B Complex [B Complex] 1 each PO DAILY 06/16/16 Apixaban [Eliquis] 5 mg PO BID 15 Days #30 tablet 11/06/20 Ascorbic Acid [Vitamin C*] 500 mg PO DAILY 30 Days #30 tablet 11/06/20 Cholecalciferol (Vitamin D3) [Vitamin D 5,000 IU Cap*] 5,000 unit PO DAILY 30 Days #30 cap 11/06/20 Zinc Sulfate [Zinc Sulfate*] 220 mg PO DAILY 30 Days #30 cap 11/06/20 Amlodipine [Norvasc] 5 mg PO DAILY 02/08/22 Sitagliptin Phosphate [Januvia] 100 mg PO 02/08/22 Sildenafil Citrate [Revatio*] 20 mg PO DAILY 90 Days #90 tab 02/11/22 - Past Medical/Surgical History Diabetic: Yes -: DM -: Hypothyroidism -: OA -: Diastolic CHF -: Pulmonary HTN -: CKD IV (Dr. Rowland/ Dr. Maria) -: HTN -: appy, kerwin, l breast biopsy, tumor removed l calf - Social History Smoking Status: Never smoker Alcohol use: No CD- Drugs: No Caffeine use: Yes Place of Residence: Home Review of Systems 10-point ROS is otherwise unremarkable Respiratory: SOB with Excertion Physical Examination Temp Pulse Resp BP Pulse Ox 98.4 F 73 14 178/70 H 94 03/21/23 08:00 03/21/23 08:00 03/21/23 08:00 03/21/23 08:00 03/21/23 08:00 General: In no apparent distress, Oriented x3, Cooperative HEENT: Atraumatic Neck: Supple Respiratory: Normal air movement Cardiovascular: Regular rate/rhythm Gastrointestinal: Soft and benign, Non-distended Musculoskeletal: No clubbing, No contractures Integumentary: No rashes, No cyanosis Neurological: Normal speech Laboratory Data (last 24 hrs) 03/20/23 03/20/23 03/20/23 19:37 19:37 19:37 WBC 4.30 Hgb 12.0 Hct 36.3 Plt Count 106 L PT 11.4 INR 1.04 APTT 34.2 Sodium 137 Potassium 5.3 H BUN 51 H Creatinine 2.18 H Glucose 187 H Magnesium 2.3 Total Bilirubin 0.6 AST 45 H ALT 45 Alkaline Phosphatase 291 H Imagings Data: [id number] EXAM DESCRIPTION: Peter Nolasco And Latisha (2 Views)03/20/2023 6:38 pm CLINICAL HISTORY: sob COMPARISON: 2022 FINDINGS: The lungs appear clear of acute infiltrate. The heart is normal size IMPRESSION: No acute abnormalities displayed Conclusions/Impression: Echocardiogram-LVEF 55 to 60%, right ventricular systolic pressure 40 to 45 mmHg, dilated inferior vena cava, right atrial pressure 15 to 20 mmHg Last heart catheterization 04/28/2022-normal coronaries-severe pulmonary hypertension CKD IV -No NSAIDs Hyperkalemia -Continue furosemide Metabolic Acidosis -Continue furosemide HTN with CKD/ CHF -Continue Amlodipine Diastolic CHF, A/C Pulmonary HTN -Continue furosemide -Continue Sildenafil Hypoalbuminemia -Maintain nutrition Anemia in chronic illness -Monitor H&H Case reviewed with hospitalist team Thank you kindly for the consultation
[2023-03-21] MEDS: TRAMADOL HCL 50 MG TAB PO PRN (10:25)
[2023-03-21] MEDS: INFLUENZA VACCINE (for 6+ mo) 0.5 ML DOSE IMVAC ONE (12:00)
[2023-03-21] MEDS: PNEUMOCOCCAL VACCINE 0.5 ML IMVAC ONE (12:00)
--- NOTE | 2023-03-21 12:14 | RAD REPORT ---
EXAM DESCRIPTION: MRI - Lumbar Spine Wo Con- 03/21/2023 11:59 am CLINICAL HISTORY: RLE weakness, back pain COMPARISON: No comparisons FINDINGS: Vertebral body heights are within normal limits. No aggressive marrow pattern is observed. No fracture is suspected. The conus medullaris terminates at a normal level. No thickening of the cauda equina or clumping of n erve roots seen. L1-2 level: Mild posterior disc bulge is present with mild facet and ligamentum flavum hypertrophy. L2-3 level: Moderate broad-based disc protrusion is present with [id number] facet and ligament flavum hypertrophy. Moderate central canal stenosis with attenuation lateral recesses. L3-4 level: Large central disc extrusion is present with moderate facet ligamentum flavum hypertrophy . The findings result in severe canal stenosis. Mild narrowing of the exit foramina. L4-5 level: Large broad-based disc protrusion is present with moderate facet and ligament flavum hype rtrophy. There is bilateral lateral recess stenosis, greater on the right with moderate central canal stenosis. Moderate right-sided exit foraminal narrowing. L5-S1 level: Moderate broad-based disc protrusion is present greatest centrally. Moderately severe fa cet and ligament flavum hypertrophy. Right lateral recess stenosis is present. Moderate central canal narrowing is evident. Mild right-sided exit foraminal stenosis. IMPRESSION: Significant lower lumbar degenerative changes are present with severe canal stenosis victor m ntified L3-4 caused by a large disc extrusion. Additional levels of significant spondylosis are detai led above.
--- NOTE | 2023-03-21 12:40 | ECHO ---
HEIGHT: 5 ft 3 in WEIGHT: 210 lb 0 oz DATE OF STUDY: 03/21/[address]: Elver Serrano MD 2-DIMENSIONAL: YES M.MODE: YES DOPPLER: YES COLOR FLOW: YES TDS: PORTABLE: YES DEFINITY: BUBBLE STUDY: DIAGNOSIS: EVALUATION OF CONGESTIVE HEART FAILURE CARDIAC HISTORY: CATHERIZATION: NO SURGERY: NO PROSTHETIC VALVE: NO PACEMAKER: NO MEASUREMENTS (cm) DIASTOLIC (NORMALS) SYSTOLIC (NORMALS) IVSd 1.2 (0.6-1.2) LA Diam 3.4 (1.9-4.0) LVEF 67% LVIDd 4.1 (3.5-5.7) LVIDs 2.6 (2.0-3.5) %FS 37% LVPWd 1.3 (0.6-1.2) Ao Diam 2.7 (2.0-3.7) 2 DIMENSIONAL ASSESSMENT: RIGHT ATRIUM: DILATED LEFT ATRIUM: ENLARGED RIGHT VENTRICLE: NORMAL LEFT VENTRICLE: NORMAL TRICUSPID VALVE: NORMAL MITRAL VALVE: MODERATE MITRAL REGURGITATION PULMONIC VALVE: NORMAL AORTIC VALVE: NORMAL PERICARDIAL EFFUSION: NONE AORTIC ROOT: NORMAL LEFT VENTRICULAR WALL MOTION: NORMAL DOPPLER/COLOR FLOW: GRADE I DIASTOLIC DYSFUNCTION. MODERATE MITRAL REGURGITATION COMMENTS: 1. NORMAL LEFT VENTRICULAR SYSTOLIC FUNCTION, EJECTION FRACTION 55-60%, NORMAL WALL MOTION 2. GRADE I DIASTOLIC DYSFUNCTION 3. MODERATE CENTRAL MITRAL REGURGITATION 4. SEVERE ENLARGED LEFT ATRIUM 5. RIGHT VENTRICULAR SYSTOLIC PRESSURE 40-45 mmHg, DILATED INFERIOR VENA CAVA, RIGHT ATRIAL PRESSURE 15-20 mmHg TECHNOLOGIST: TRAVON OSMAN
--- NOTE | 2023-03-21 13:00 | P.CNS ---
Date of Consult: 03/21/23 Chief Complaint: CHF exacerbation, pedal edema. History of Present Illness: patient with PMH of severe pulmonary hypertension, diastolic heart failure, presented with worsening SOB and Bilateral lower extremity swellings, no other cardiac symptoms. Allergies No Known Drug Allergies Allergy (Verified 04/26/22 13:47) Unknown Home Medications: Levothyroxine [Synthroid*] 137 mcg PO [id number] 03/31/14 Loratadine [Claritin*] 10 mg PO DAILY PRN 03/31/14 Ferrous Sulfate [Iron] 325 mg PO DAILY 06/16/16 Gabapentin [Neurontin*] 100 mg PO TID 06/16/16 Rosuvastatin [Crestor*] 10 mg PO BEDTIME 06/16/16 Vitamin B Complex [B Complex] 1 each PO DAILY 06/16/16 Apixaban [Eliquis] 5 mg PO BID 15 Days #30 tablet 11/06/20 Ascorbic Acid [Vitamin C*] 500 mg PO DAILY 30 Days #30 tablet 11/06/20 Cholecalciferol (Vitamin D3) [Vitamin D 5,000 IU Cap*] 5,000 unit PO DAILY 30 Days #30 cap 11/06/20 Zinc Sulfate [Zinc Sulfate*] 220 mg PO DAILY 30 Days #30 cap 11/06/20 Amlodipine [Norvasc] 5 mg PO DAILY 02/08/22 Sitagliptin Phosphate [Januvia] 100 mg PO 02/08/22 Sildenafil Citrate [Revatio*] 20 mg PO DAILY 90 Days #90 tab 02/11/22 - Past Medical/Surgical History Diabetic: Yes -: oa, thyroid, dm, -: appy, kerwin, l breast biopsy, tumor removed l calf - Social History Smoking Status: Never smoker Alcohol use: No CD- Drugs: No Caffeine use: Yes Place of Residence: Home Review of Systems 10-point ROS is otherwise unremarkable Physical Examination Temp Pulse Resp BP Pulse Ox 98.6 F 63 16 155/66 H 94 03/21/23 12:00 03/21/23 12:00 03/21/23 12:00 03/21/23 12:00 03/21/23 12:00 General: Alert, Oriented x3 HEENT: Atraumatic, Normocephalic Neck: Supple, 2+ carotid pulse no bruit Respiratory: Diminished Cardiovascular: Normal S1 S2 Gastrointestinal: Normal bowel sounds Musculoskeletal: Swelling (bilateral lower extremities) Laboratory Data (last 24 hrs) 03/20/23 03/20/23 03/20/23 19:37 19:37 19:37 WBC 4.30 Hgb 12.0 Hct 36.3 Plt Count 106 L PT 11.4 INR 1.04 APTT 34.2 Sodium 137 Potassium 5.3 H BUN 51 H Creatinine 2.18 H Glucose 187 H Magnesium 2.3 Total Bilirubin 0.6 AST 45 H ALT 45 Alkaline Phosphatase 291 H - Problems (1) Acute CHF (congestive heart failure) Current Visit: No Status: Acute Plan: agree with lasix 40 mg IV TID Monitor input and output replace electrolytes Qualifiers: Heart failure type: unspecified Qualified Code(s): I50.9 - Heart failure, unspecified (2) Pulmonary HTN Current Visit: No Status: Acute Plan: resume patient sildenafil 20 mg TID RHC after volume optimization (most likely )
--- NOTE | 2023-03-21 14:09 | P.PN ---
Date of Service: 03/21/23 Subjective: No acute events overnight Denies chest pain Reports right lower extremity weakness, pain and low back pain ROS: 10 point ROS as noted above, otherwise negative Physical exam GEN: Alert, oriented, NAD HEENT: Normal conjunctiva, sclera anicteric CV: Regular rate and rhythm, edema present bilateral lower extremities Pulm: Nonlabored respirations on room air ABD: Soft, nontender, nondistended MSK: No joint tenderness Integumentary: No rashes Neuro: Normal speech, normal affect, right lower extremity weakness Vitals reviewed Problem List Acute on chronic diastolic congestive heart failure Svere pulmonary hypertension NSTEMI CKD 4 Low back pain, right lower extremity weakness/pain Hypertension Hypothyroidism Hyperlipidemia Plan Acute on chronic diastolic congestive heart failure Svere pulmonary hypertension NSTEMI Echocardiogram-LVEF 55 to 60%, right ventricular systolic pressure 40 to 45 mmHg, dilated inferior vena cava, right atrial pressure 15 to 20 mmHg Last heart catheterization 04/28/2022-normal coronaries-severe pulmonary hypertension Continue diuresis with IV Lasix Resume sildenafil 20 mg 3 times daily for pulmonary hypertension Plan for right heart catheterization during hospitalization-likely 03/23/2023 CKD 4 Continue diuresis Nephrology following Monitor renal function daily Low back pain, right lower extremity weakness/pain Reports worsening back pain, right lower extremity weakness recently MRI lumbar spine without contrast ordered PT consult placed Denies saddle paresthesia, bowel or bladder incontinence Hypertension Hypothyroidism Hyperlipidemia Continue medications VTE: Lovenox Code: Full Dispo: 48 to 72 hours Time Spent Managing Pts Care (In Minutes): 35
[2023-03-21] MEDS: SILDENAFIL CITRATE 20 MG TABLET PO SCH (14:26)
[2023-03-22 07:51] LABS: Hematocrit 34.8 % (36.0-45.0); RBC Red Blood Cell Count 3.52 M/uL (3.86-4.86)
[2023-03-22 07:52] LABS: Absolute Lymphocytes (CBC) 0.8 K/uL (0.7-4.9); Lymphocytes % 17.3 % (15.3-44.8); MCV 98.7 fL (80-100); MPV 8.8 fL (7.6-11.3); Platelets 118 thou/uL (152-406)
[2023-03-22 08:05] LABS: Potassium 4.9 mEq/L (3.5-5.1)
[2023-03-22] MEDS: FUROSEMIDE 40 MG/4 ML VIAL IV SCH (08:24)
[2023-03-22] MEDS: AMLODIPINE 5 MG TAB PO SCH (08:24)
[2023-03-22] MEDS ORDERED: SILDENAFIL CITRATE 20 MG TABLET PO SCH (09:00)
--- NOTE | 2023-03-22 10:05 | P.PN ---
Date of Service: 03/22/23 Vital Signs Temp Pulse Resp BP Pulse Ox 98.2 F 65 16 149/69 H 94 03/22/23 08:00 03/22/23 08:25 03/22/23 08:00 03/22/23 08:25 03/22/23 08:00 Medications Acetaminophen (Acetaminophen 325 Mg Tablet) 650 mg PO Q4HP PRN PRN Reason: Pain scale 2-4 (Mild) Last Admin: 03/21/23 00:44 Dose: 650 mg Acetylcysteine (Acetylcyst 20% 800 Mg/4 Ml Vial) 600 mg PO BID [facility] Stop: 03/24/23 09:01 Amlodipine Besylate (Amlodipine 5 Mg Tab) 5 mg PO DAILY [facility] Last Admin: 03/22/23 08:25 Dose: 5 mg Enoxaparin Sodium (Enoxaparin 30 Mg/0.3 Ml) 30 mg SQ DAILY [facility] Last Admin: 03/22/23 08:24 Dose: 30 mg Ondansetron HCl (Ondansetron 4 Mg/2 Ml Vial) 4 mg IV Q6HP PRN PRN Reason: NAUSEA / VOMITING Sildenafil Citrate (Sildenafil Citrate 20 Mg Tablet) 20 mg PO TID [facility] Last Admin: 03/21/23 19:46 Dose: 20 mg Tramadol HCl (Tramadol Hcl 50 Mg Tab) 50 mg PO Q8HP PRN PRN Reason: pain in right leg,back Last Admin: 03/22/23 02:46 Dose: 50 mg Assessment/ Plan: Nephrology Doing well No chest pain No dyspnea Good urine output. +DM No acute events overnight Vitals, medications, blood work and imaging reviewed in the chart General: In no apparent distress, Oriented x3, Cooperative HEENT: Atraumatic Neck: Supple Respiratory: Normal air movement Cardiovascular: Regular rate/rhythm Gastrointestinal: Soft and benign, Non-distended Musculoskeletal: No clubbing, No contractures Integumentary: No rashes, No cyanosis Neurological: Normal speech Laboratory Data (last 24 hrs) 03/20/23 03/20/23 03/20/23 19:37 19:37 19:37 WBC 4.30 Hgb 12.0 Hct 36.3 Plt Count 106 L PT 11.4 INR 1.04 APTT 34.2 Sodium 137 Potassium 5.3 H BUN 51 H Creatinine 2.18 H Glucose 187 H Magnesium 2.3 Total Bilirubin 0.6 AST 45 H ALT 45 Alkaline Phosphatase 291 H Imagings Data: [id number] EXAM DESCRIPTION: Peter Nolasco And Lat (2 Views)03/20/2023 6:38 pm CLINICAL HISTORY: sob COMPARISON: 2022 FINDINGS: The lungs appear clear of acute infiltrate. The heart is normal size IMPRESSION: No acute abnormalities displayed Echocardiogram-LVEF 55 to 60%, right ventricular systolic pressure 40 to 45 mmHg, dilated inferior vena cava, right atrial pressure 15 to 20 mmHg Last heart catheterization 04/28/2022-normal coronaries-severe pulmonary hypertension Conclusions/Impression: CKD IV -No NSAIDs Hyperkalemia, improved Metabolic Acidosis, improved HTN with CKD/ CHF -Continue Amlodipine Diastolic CHF, A/C Pulmonary HTN -Hold furosemide today due to plans for IV contrast exposure tomorrow -Continue Sildenafil Hypoalbuminemia -Maintain nutrition Anemia in chronic illness -Monitor H&H Hospitalist note reviewed Case reviewed with Dr. Jerez
--- NOTE | 2023-03-22 10:42 | P.PN ---
Date of Service: 03/22/23 Subjective: No acute events overnight Denies chest pain Reports right lower extremity weakness, pain and low back pain ROS: 10 point ROS as noted above, otherwise negative Physical exam GEN: Alert, oriented, NAD HEENT: Normal conjunctiva, sclera anicteric CV: Regular rate and rhythm, edema present bilateral lower extremities Pulm: Nonlabored respirations on room air ABD: Soft, nontender, nondistended MSK: No joint tenderness Integumentary: No rashes Neuro: Normal speech, normal affect, right lower extremity weakness Vitals reviewed Problem List Acute on chronic diastolic congestive heart failure Svere pulmonary hypertension NSTEMI CKD 4 Low back pain, right lower extremity weakness/pain Hypertension Hypothyroidism Hyperlipidemia Plan Acute on chronic diastolic congestive heart failure Svere pulmonary hypertension NSTEMI Echocardiogram-LVEF 55 to 60%, right ventricular systolic pressure 40 to 45 mmHg, dilated inferior vena cava, right atrial pressure 15 to 20 mmHg Last heart catheterization 04/28/2022-normal coronaries-severe pulmonary hypertension Mild worsening ARNOLD-hold lasix today as plan for cath tomorrow Resume sildenafil 20 mg 3 times daily for pulmonary hypertension Plan for right heart catheterization during hospitalization-likely 03/23/2023 CKD 4 hold lasix today, anticipate heart cath 03/23 Nephrology following Monitor renal function daily Low back pain, right lower extremity weakness/pain Reports worsening back pain, right lower extremity weakness recently MRI 03/21 IMPRESSION: Significant lower lumbar degenerative changes are present with severe canal stenosis identified L3-4 caused by a large disc extrusion. Additional levels of significant spondylosis are detailed above. PT consult placed Denies saddle paresthesia, bowel or bladder incontinence Will discuss findings with neurology-ambulating with walker Likely outpatient eval with neurosurgery Hypertension Hypothyroidism Hyperlipidemia Continue medications VTE: Lovenox Code: Full Dispo: 48 to 72 hours Time Spent Managing Pts Care (In Minutes): 35
[2023-03-22] MEDS: SODIUM BICARB 325 MG TAB PO SCH (12:42)
--- NOTE | 2023-03-22 17:21 | P.PN ---
Subjective Date of Service: 03/22/23 Chief Complaint: CHF exacerbation, pedal edema. Subjective: No new changes Review of Systems 10-point ROS is otherwise unremarkable Physical Examination - Vital Signs Temperature: 98.3 F Blood Pressure: 107/54 Pulse: 73 Respirations: 15 Pulse Ox (%): 98 - Physical Exam General: Alert, Oriented x3 HEENT: Atraumatic Neck: Supple, JVD not distended Respiratory: Clear to auscultation bilaterally Cardiovascular: Edema (+1 bilateral lower extremities) Gastrointestinal: Normal bowel sounds Assessment And Plan - Current Problems (Diagnosis) (1) Acute CHF (congestive heart failure) Current Visit: No Status: Acute Plan: agree with holding lasix as patient creatinine worsened will get right heart cath in am, please keep NPO after midnight Monitor input and output replace electrolytes Qualifiers: Heart failure type: unspecified Qualified Code(s): I50.9 - Heart failure, unspecified (2) Pulmonary HTN Current Visit: No Status: Acute Plan: resume patient sildenafil 20 mg TID RHC after volume optimization (in am)
[2023-03-22] MEDS: ACETYLCYST 20% 800 MG/4 ML VIAL PO SCH (20:54)
[2023-03-23] MEDS: Ringers Lactate 1,000 ML IV SCH (04:35)
[2023-03-23 06:15] LABS: Absolute Lymphocytes (CBC) 0.8 K/uL (0.7-4.9); Hematocrit 36.3 % (36.0-45.0); Lymphocytes % 17.4 % (15.3-44.8); MCV 98.4 fL (80-100); MPV 8.3 fL (7.6-11.3); Platelets 115 thou/uL (152-406); RBC Red Blood Cell Count 3.68 M/uL (3.86-4.86)
[2023-03-23 06:29] LABS: Phosphorus 4.8 mg/dL (2.5-4.9); Potassium 4.8 mEq/L (3.5-5.1); Uric Acid 8.6 mg/dL (2.6-6.0)
[2023-03-23] MEDS: HYDROCODONE/APAP 5/325 MG TAB PO ONE (08:03)
--- NOTE | 2023-03-23 08:57 | P.PN ---
Date of Service: 03/23/23 Subjective: No acute events overnight Worsening RLE pain/right knee pain, low back pain was able to ambulate with PT yesterday Plan for heart cath today ROS: 10 point ROS as noted above, otherwise negative Physical exam GEN: Alert, oriented, NAD HEENT: Normal conjunctiva, sclera anicteric CV: Regular rate and rhythm, edema present bilateral lower extremities Pulm: Nonlabored respirations on room air ABD: Soft, nontender, nondistended MSK: No joint tenderness Integumentary: No rashes Neuro: Normal speech, normal affect, right lower extremity weakness Vitals reviewed Problem List Acute on chronic diastolic congestive heart failure Svere pulmonary hypertension NSTEMI CKD 4 Low back pain, right lower extremity weakness/pain Hypertension Hypothyroidism Hyperlipidemia Plan Acute on chronic diastolic congestive heart failure Svere pulmonary hypertension NSTEMI Echocardiogram-LVEF 55 to 60%, right ventricular systolic pressure 40 to 45 mmHg, dilated inferior vena cava, right atrial pressure 15 to 20 mmHg Last heart catheterization 04/28/2022-normal coronaries-severe pulmonary hypertension Nephrology giving gentle IVF in preparation for heart cath Resume sildenafil 20 mg 3 times daily for pulmonary hypertension Plan for heart cath today CKD 4 giving gentle IVF today per nephrology Nephrology following Monitor renal function daily Low back pain, right lower extremity weakness/pain Reports worsening back pain, right lower extremity weakness recently MRI 03/21 IMPRESSION: Significant lower lumbar degenerative changes are present with severe canal stenosis identified L3-4 caused by a large disc extrusion. Additional levels of significant spondylosis are detailed above. PT consult placed Denies saddle paresthesia, bowel or bladder incontinence Will discuss findings with neurology-ambulating with walker Likely outpatient eval with neurosurgery/PT/follow up with PCP Started gabapentin 03/23 Hypertension Hypothyroidism Hyperlipidemia Continue home medications VTE: Lovenox Code: Full Dispo: 24 to 48 hours Time Spent Managing Pts Care (In Minutes): 35
[2023-03-23] MEDS: GABAPENTIN 100 MG CAP PO SCH (09:55)
--- NOTE | 2023-03-23 11:14 | P.PN ---
Date of Service: 03/23/23 Vital Signs Temp Pulse Resp BP Pulse Ox 98.4 F 83 16 141/71 H 95 03/23/23 08:00 03/23/23 08:00 03/23/23 09:03 03/23/23 08:14 03/23/23 09:03 Medications Acetaminophen (Acetaminophen 325 Mg Tablet) 650 mg PO Q4HP PRN PRN Reason: Pain scale 2-4 (Mild) Last Admin: 03/21/23 00:44 Dose: 650 mg Hydrocodone Bitart/Acetaminophen (Hydrocodone/Apap 5/325 Mg Tab) 1 tab PO Q6H PRN PRN Reason: Pain scale 5-7 (Moderate) Acetylcysteine (Acetylcyst 20% 800 Mg/4 Ml Vial) 600 mg PO BID [facility] Stop: 03/24/23 09:01 Last Admin: 03/23/23 04:53 Dose: 600 mg Amlodipine Besylate (Amlodipine 5 Mg Tab) 5 mg PO DAILY [facility] Last Admin: 03/23/23 08:14 Dose: 5 mg Enoxaparin Sodium (Enoxaparin 30 Mg/0.3 Ml) 30 mg SQ DAILY [facility] Last Admin: 03/23/23 08:02 Dose: Not Given Gabapentin (Gabapentin 100 Mg Cap) 100 mg PO BID [facility] Last Admin: 03/23/23 09:55 Dose: 100 mg Lactated Ringer's (Lactated Ringers) 1,000 mls @ 100 mls/hr IV .Q10H [facility] Stop: 03/23/23 14:29 Last Admin: 03/23/23 04:35 Dose: 1,000 mls Ondansetron HCl (Ondansetron 4 Mg/2 Ml Vial) 4 mg IV Q6HP PRN PRN Reason: NAUSEA / VOMITING Sildenafil Citrate (Sildenafil Citrate 20 Mg Tablet) 20 mg PO TID [facility] Last Admin: 03/23/23 09:55 Dose: 20 mg Assessment/ Plan: Nephrology Doing well No chest pain No dyspnea Plan for heart cath this morning No acute events overnight Vitals, medications, blood work and imaging reviewed in the chart General: In no apparent distress, Oriented x3, Cooperative HEENT: Atraumatic Neck: Supple Respiratory: Normal air movement Cardiovascular: Regular rate/rhythm Gastrointestinal: Soft and benign, Non-distended Musculoskeletal: No clubbing, No contractures Integumentary: No rashes, No cyanosis Neurological: Normal speech Laboratory Data (last 24 hrs) 03/20/23 03/20/23 03/20/23 19:37 19:37 19:37 WBC 4.30 Hgb 12.0 Hct 36.3 Plt Count 106 L PT 11.4 INR 1.04 APTT 34.2 Sodium 137 Potassium 5.3 H BUN 51 H Creatinine 2.18 H Glucose 187 H Magnesium 2.3 Total Bilirubin 0.6 AST 45 H ALT 45 Alkaline Phosphatase 291 H Imagings Data: [id number] EXAM DESCRIPTION: Peter Nolasco And Lat (2 Views)03/20/2023 6:38 pm CLINICAL HISTORY: sob COMPARISON: 2022 FINDINGS: The lungs appear clear of acute infiltrate. The heart is normal size IMPRESSION: No acute abnormalities displayed Echocardiogram-LVEF 55 to 60%, right ventricular systolic pressure 40 to 45 mmHg, dilated inferior vena cava, right atrial pressure 15 to 20 mmHg Last heart catheterization 04/28/2022-normal coronaries-severe pulmonary hypertension Conclusions/Impression: CKD IV -No NSAIDs -Gentle IVF prior to cath today X1L Hyperkalemia, improved Metabolic Acidosis, improved HTN with CKD/ CHF -Continue Amlodipine Diastolic CHF, A/C Pulmonary HTN -Hold furosemide today due to plans for IV contrast exposure today -Continue Sildenafil Hypoalbuminemia -Maintain nutrition Anemia in chronic illness -Monitor H&H Hospitalist & cardiology notes reviewed
[2023-03-23] MEDS ORDERED: HEPA 1000U/500MLS 2,000 UNIT/1,000 ML BAG IV ONE (12:46)
[2023-03-23] MEDS ORDERED: LIDOCAINE 1% 20 ML MDV ONE (12:46)
[2023-03-23] MEDS ORDERED: FENTANYL CITR 100 MCG/2 ML ONE (12:47)
[2023-03-23] MEDS ORDERED: ATROPINE SULF 1 MG/10 ML SYR IV ONE (12:47)
[2023-03-23] MEDS ORDERED: MIDAZOLAM HCL 2 MG/2 ML INJ ONE (12:47)
[2023-03-23] MEDS: NA CHLORIDE 0.9% 500 ML ONE (12:49)
--- NOTE | 2023-03-23 14:47 | EKG ---
Test Date: 2023-03-20 Test Time: 19:47:07 Center Human Resources Manager: KAVEH MEASUREMENT RESULTS: Intervals: Rate: 70 RI: 188 QRSD: 142 QT: 456 QTc: 492 [place]: P: 24 RI: 188 QRS: 160 T: 57 INTERPRETIVE STATEMENTS: Sinus rhythm with occasional premature ventricular complexes Right bundle branch block Left posterior fascicular block Bifascicular block Abnormal ECG Compared to ECG 04/26/2022 14:06:10 Ventricular premature complex(es) now present Left posterior fascicular block now present Bifascicular block now present Electronically Signed On 03-23-23 14:42:33 CONDITIONER TUMBLER by Trey Harmon
[2023-03-23] MEDS: HYDROCODONE/APAP 5/325 MG TAB PO PRN (15:42)
--- NOTE | 2023-03-23 22:34 | OP ---
Date of Procedure: 03/23/2023 Surgeon: BRENNA GIBBS Procedure Performed: Right heart catheterization. Indication: Pulmonary hypertension. Access: Right IJ, 7-[place], closed with manual pressure. Complications: None. Bleeding: Less than 20 mL. Total Sedation Time: 20 minutes. Description Of Procedure: After risks, benefits, and alternatives were explained, the patient agreed to procedure and signed informed consent. The patient was brought into cardiac catheterization [facility], prepped and draped in usual sterile fashion. Then, I accessed right IJ using micropuncture k it, ultrasound guidance, and placed 7-[place] sheath and took a 7-[place] balloon-tipped [place] catheter through the IJ access into the right atrium, right ventricle, pulmonary artery and wedge, ob tained waveform and pressure, and then obtained thermodilution cardiac output and then removed the Sw an and the sheath, and manual pressure was used for closure with good hemostasis. Findings: RA pressure is 15/12, mean of 10. RV pressure is 102/5, mean of 21. PA pressure is 104/3 1, mean of 56. Pulmonary wedge pressure was 10. Cardiac output averages 4.9 L/minute. The transpul monary gradient is 46 and pulmonary vascular resistance is 9 Wood units. Conclusion: Severe primary pulmonary arterial hypertension. Plan: We will discuss the case with Dr. Brady who is managing her pulmonary hypertension. Adjust medications. The patient will not benefit from diuretics as her wedge pressure is only 10. SR/MODL Voice ID: [id number] Report ID: [id number]
[2023-03-24 06:30] LABS: Albumin 2.4 g/dL (3.4-5.0); Phosphorus 4.7 mg/dL (2.5-4.9); Potassium 5.2 mEq/L (3.5-5.1)
[2023-03-24] MEDS: GABAPENTIN 300 MG CAP PO SCH (08:30)
[2023-03-24] MEDS ORDERED: SILDENAFIL CITRATE 20 MG TABLET PO SCH (09:00)
--- NOTE | 2023-03-24 11:23 | P.CNS ---
Date of Consult: 03/24/23 Reason for Consult: Severe pulmonary hypertension Chief Complaint: CHF exacerbation, pedal edema. Allergies No Known Drug Allergies Allergy (Verified 04/26/22 13:47) Unknown Home Medications: Levothyroxine [Synthroid*] 150 mcg PO [id number] 03/31/14 Loratadine [Claritin*] 10 mg PO DAILY PRN 03/31/14 Ferrous Sulfate [Iron] 325 mg PO DAILY 06/16/16 Rosuvastatin [Crestor*] 10 mg PO BEDTIME 06/16/16 Vitamin B Complex [B Complex] 1 each PO DAILY 06/16/16 Apixaban [Eliquis] 5 mg PO BID 15 Days #30 tablet 11/06/20 Ascorbic Acid [Vitamin C*] 500 mg PO DAILY 30 Days #30 tablet 11/06/20 Cholecalciferol (Vitamin D3) [Vitamin D 5,000 IU Cap*] 5,000 unit PO DAILY 30 Days #30 cap 11/06/20 Zinc Sulfate [Zinc Sulfate*] 220 mg PO DAILY 30 Days #30 cap 11/06/20 Amlodipine [Norvasc] 5 mg PO DAILY 02/08/22 Sitagliptin Phosphate [Januvia] 100 mg PO DAILY 02/08/22 Sildenafil Citrate [Revatio*] 20 mg PO DAILY 90 Days #90 tab 02/11/22 Olmesartan/Hydrochlorothiazide [Olmesartan-Hctz 20-12.5 mg Tab] 20 mg PO DAILY 03/22/23 Tramadol HCl [Ultram] 50 mg PO TID PRN 03/22/23 - Past Medical/Surgical History Diabetic: Yes -: DM -: Hypothyroidism -: OA -: Diastolic CHF -: Pulmonary HTN -: CKD IV (Dr. Rowland/ Dr. Maria) -: HTN -: appy, kerwin, l breast biopsy, tumor removed l calf - Social History Smoking Status: Never smoker Alcohol use: No CD- Drugs: No Caffeine use: Yes Place of Residence: Home Physical Examination Temp Pulse Resp BP Pulse Ox 97.2 F 65 17 122/60 93 03/24/23 08:00 03/24/23 08:39 03/24/23 08:00 03/24/23 08:39 03/24/23 08:00
--- NOTE | 2023-03-24 11:44 | P.PN ---
Nephrology note Seen sitting up in chair, not on O2, no active dyspnea, RHC findings noted and discussed with pt. Discussed plan of care with the primary team (O) Vitals, medications, blood work and imaging reviewed in the chart General: In no apparent distress, Cooperative HEENT: Atraumatic Neck: Supple Respiratory: Normal air movement, no rhonchi Cardiovascular: Regular rate/rhythm Gastrointestinal: Soft and benign, Non-distended Musculoskeletal: No contractures, mild distal edema Integumentary: No rashes Neurological: Normal speech,awake, alert, responsive Laboratory Data (last 24 hrs) Reviewed in the EMR Imagings Data: [id number] EXAM DESCRIPTION: Peter Pa And Lat (2 Views)03/20/2023 6:38 pm CLINICAL HISTORY: sob COMPARISON: 2022 FINDINGS: The lungs appear clear of acute infiltrate. The heart is normal size IMPRESSION: No acute abnormalities displayed Echocardiogram-LVEF 55 to 60%, right ventricular systolic pressure 40 to 45 mmHg, dilated inferior vena cava, right atrial pressure 15 to 20 mmHg Last heart catheterization 04/28/2022-normal coronaries-severe pulmonary hypertension Conclusions/Impression: CKD IV 2nd to chronic conditions under the care of Dr. Randolph as OP -s/p RHC, Cr level stable within 24h of procedure, no CHRISTIE but would cont to monitor for another 24h and needs close OP monitoring Hyperkalemia, at ULN Dose Lokelma once HTN with CKD/ CHF -Continue CCB, monitor closely Diastolic CHF, chronic MR, non rheumatic Pulmonary HTN, per Cardiology appears to be PAH/primary -PCWP not reported as elevated, plan and management per Cardiology and pulm Kavon Maria MD, TIM
--- NOTE | 2023-03-24 13:07 | P.PN ---
Date of Service: 03/24/23 Subjective: No acute events overnight tolerating diet, ambulating with walker back pain improved with gabapentin ROS: 10 point ROS as noted above, otherwise negative Physical exam GEN: Alert, oriented, NAD HEENT: Normal conjunctiva, sclera anicteric CV: Regular rate and rhythm, edema present bilateral lower extremities Pulm: Nonlabored respirations on room air ABD: Soft, nontender, nondistended MSK: No joint tenderness Integumentary: No rashes Neuro: Normal speech, normal affect, right lower extremity weakness Vitals reviewed Problem List Acute on chronic diastolic congestive heart failure Svere pulmonary hypertension NSTEMI CKD 4 Low back pain, right lower extremity weakness/pain Hypertension Hypothyroidism Hyperlipidemia Plan Acute on chronic diastolic congestive heart failure Svere pulmonary hypertension NSTEMI Echocardiogram-LVEF 55 to 60%, right ventricular systolic pressure 40 to 45 mmHg, dilated inferior vena cava, right atrial pressure 15 to 20 mmHg Last heart catheterization 04/28/2022-normal coronaries-severe pulmonary hypertension Nephrology giving gentle IVF in preparation for heart cath Resume sildenafil 20 mg 3 times daily for pulmonary hypertension Right heart cath 03/23 Findings: RA pressure is 15/12, mean of 10. RV pressure is 102/5, mean of 21. PA pressure is 104/31, mean of 56. Pulmonary wedge pressure was 10. Cardiac output averages 4.9 L/minute. The transpulmonary gradient is 46 and pulmonary vascular resistance is 9 Wood units. Conclusion: Severe primary pulmonary arterial hypertension. Cardiology recommends no need for diuretics at discharge given wedge pressure CKD 4 Mild hyperkalemia today-given lokelma by neprho Continue to monitor renal function overnight for CHRISTIE S/P Cath Nephrology following Monitor renal function daily Low back pain, right lower extremity weakness/pain Reports worsening back pain, right lower extremity weakness recently MRI 03/21 IMPRESSION: Significant lower lumbar degenerative changes are present with severe canal stenosis identified L3-4 caused by a large disc extrusion. Additional levels of significant spondylosis are detailed above. PT consult placed Denies saddle paresthesia, bowel or bladder incontinence Will discuss findings with neurology-ambulating with walker Likely outpatient eval with neurosurgery/PT/follow up with PCP Started gabapentin 03/23-increased to 300mg BID Tolerating well Still with some weakness to RLE Hypertension Hypothyroidism Hyperlipidemia Continue home medications VTE: Lovenox Code: Full Dispo: 24 to 48 hours Time Spent Managing Pts Care (In Minutes): 35
[2023-03-24] MEDS: SODIUM ZIRCONIUM CYCLOSILICATE 10 GM/PKT PO ONE (13:25)
--- NOTE | 2023-03-24 19:41 | PN ---
Date of Progress Note: 03/24/2023 Subjective: Seen by bedside. She looks much better today. Review of Systems: No chest pain, shortness of breath, orthopnea, or cough. No nausea, vomiting, or diarrhea. All othe r systems reviewed are negative. Physical Examination: Vital Signs: Reviewed. Head and Neck: Pupils are equal, reactive to light. No JVD. No cervical lymphadenopathy. Neck is supple. Thyroid is not enlarged. Lungs: Clear to auscultation bilaterally. No rhonchi, rales, or crackles. No accessory muscle use. Heart: Regular rate and rhythm. No extra sounds. Abdomen: Soft, nontender. Bowel sounds positive. No organomegaly. No masses or hernia. No rigidi ty or rebound. Extremities: No edema, clubbing, or cyanosis. Intact pulses. Skin: No rash. Neurologic: Alert, awake, oriented x3. No acute focal deficits appreciated. Investigations: BUN 59 and creatinine 2.35. Assessment And Recommendations: 1.Elevated troponin. This is demand ischemia. Coronary angiogram did not show significant coronary artery disease. 2.Severe pulmonary artery hypertension as the right heart catheterization, communicated with Dr. Nitza savage. The patient started on sildenafil and amlodipine. Feels much better already. I will recommen d evaluation with the right heart catheterization on her after being situated on medical treatment in the next 6 to 8 weeks, which we can arrange for it postdischarge. The patient, of note, does not ne ed diuretics at the present time as her main problem for the shortness of breath is a pulmonary arter ial hypertension and hold off all diuretics. 3.Acute renal failure due to over-diuresis. Hold diuretics. SR/MODL Voice ID: [id number] Report ID: [id number]
[2023-03-25 10:26] LABS: Albumin 2.5 g/dL (3.4-5.0); Phosphorus 5.1 mg/dL (2.5-4.9)
[2023-03-25 10:31] LABS: Potassium 5.2 mEq/L (3.5-5.1)
--- NOTE | 2023-03-25 10:39 | P.PN ---
Subjective Date of Service: 03/25/23 Chief Complaint: Pulmonary hypertension spinal stenosis Subjective: Improving (Patient is improving has been complaining of weakness of the right leg apparently it folded over upon her and she fell no problems with shortness of breath or lower extremity edema) Review of Systems Unremarkable General: Weakness Musculoskeletal: Other (Outlined in HPI) Physical Examination - Vital Signs Temperature: 98.7 F Blood Pressure: 115/58 Pulse: 76 Respirations: 18 Pulse Ox (%): 92 - Physical Exam General: Alert, Oriented x3 Neck: Supple Respiratory: Clear to auscultation bilaterally Cardiovascular: No edema, Regular rate/rhythm, Normal S1 S2 Assessment And Plan - Current Problems (Diagnosis) (1) Pulmonary HTN Current Visit: No Status: Acute Plan: Patient is 72 years of age with a history of severe pulmonary hypertension continue with sildenafil will add on further treatment as an outpatient avoid diuretics awaiting renal function test potassium was mildly elevated renal function is worse oxygenation satisfactory (2) Spinal stenosis Current Visit: Yes Status: Acute Plan: Patient is scheduled to see neurosurgery as an outpatient she does complain of some weakness of her right leg upon walking
--- NOTE | 2023-03-25 11:29 | P.PN ---
Date of Service: 03/25/23 Subjective: Gabapentin helping with back pain/leg pain Had a near fall yesterday while working with physical therapy-stated right leg " gave out" Breathing well-feeling better Concerned about risk of falls ROS: 10 point ROS as noted above, otherwise negative Physical exam GEN: Alert, oriented, NAD HEENT: Normal conjunctiva, sclera anicteric CV: Regular rate and rhythm, edema present bilateral lower extremities Pulm: Nonlabored respirations on room air ABD: Soft, nontender, nondistended MSK: No joint tenderness Integumentary: No rashes Neuro: Normal speech, normal affect, right lower extremity weakness Vitals reviewed Problem List Acute on chronic diastolic congestive heart failure Svere pulmonary hypertension NSTEMI CKD 4 Low back pain, right lower extremity weakness/pain Hypertension Hypothyroidism Hyperlipidemia Plan Acute on chronic diastolic congestive heart failure Svere pulmonary hypertension NSTEMI Echocardiogram-LVEF 55 to 60%, right ventricular systolic pressure 40 to 45 mmHg, dilated inferior vena cava, right atrial pressure 15 to 20 mmHg Last heart catheterization 04/28/2022-normal coronaries-severe pulmonary hypertension Nephrology giving gentle IVF in preparation for heart cath Resume sildenafil 20 mg 3 times daily for pulmonary hypertension Right heart cath 03/23 Findings: RA pressure is 15/12, mean of 10. RV pressure is 102/5, mean of 21. PA pressure is 104/31, mean of 56. Pulmonary wedge pressure was 10. Cardiac output averages 4.9 L/minute. The transpulmonary gradient is 46 and pulmonary vascular resistance is 9 Wood units. Conclusion: Severe primary pulmonary arterial hypertension. Cardiology recommends no need for diuretics at discharge given wedge pressure CKD 4 Nephrology following Mild worsening renal function concerning for possible CHRISTIE Nephrology adjusting IV fluids/medications Repeat BMP tomorrow morning to ensure plateau/improvement Low back pain, right lower extremity weakness/pain Reports worsening back pain, right lower extremity weakness recently MRI 03/21 IMPRESSION: Significant lower lumbar degenerative changes are present with severe canal stenosis identified L3-4 caused by a large disc extrusion. Additional levels of significant spondylosis are detailed above. PT consult placed Denies saddle paresthesia, bowel or bladder incontinence Will discuss findings with neurology-ambulating with walker Likely outpatient eval with neurosurgery/PT/follow up with PCP Started gabapentin 03/23-increased to 300mg BID Tolerating well Still with some weakness to RLE Case was discussed with spine surgeryDr. Castillo-if discharged may follow-up Monday for appointment Hypertension Hypothyroidism Hyperlipidemia Continue home medications VTE: Lovenox Code: Full Dispo: 24 to 48 hours Time Spent Managing Pts Care (In Minutes): 35
--- NOTE | 2023-03-25 11:47 | PN ---
Date of Progress Note: 03/25/2023 Subjective: The patient is seen and evaluated in room 431. She is alert, awake, able to answer ques tions. Speaks Niuean and Kiswahili. Denies any headache, nausea, vomiting. Feels overall okay, but is concerned about her kidneys. Recently has had a cardiac evaluation done. Understands the risks w ith dye. The patient's creatinine has creeped up slightly and that it is about 3.37. Potassium is s till about 5.2, was about 5.2 yesterday as well. Sodium at 132. Discussed case with nurse, also dis cussed with the rounding nurse practitioner with the hospitalist team. The patient overall is lookin g stable clinically. She denies any headache, nausea, vomiting. Objective: Vital Signs: Stable. Blood pressure 115/58, last pulse is about 70-80 and regular, resp irations about 12 and comfortable. The patient's O2 sats are 92% on room air. Afebrile, temperature is 98.7. Lungs: Clear to auscultation. Abdomen: Soft. Extremities: Reveal trace edema. Heart: Sounds are regular. Lab Data: Showed WBC of 4.8, hemoglobin, hematocrit of 12.1 and 36.3, glucose 115, sodium 132, potas sium 5.2, chloride 104, bicarb is 20, BUN 69, creatinine 3.37, phosphorus 5.1, calcium 8.2. Assessment And Plan: The patient with chronic kidney disease with acute worsening in the setting of possibly CHRISTIE with recent dye exposure. The patient is clinically doing well. Potassium slightly on the elevated side. Slight metabolic acidosis. We will give Lokelma 5 g 1 time dose now. We will st art on bicarb 325 mg for 5-7 days. Repeat BMP tomorrow morning. Continue to monitor renal function. Avoid nephrotoxins. /ZULEYKA Voice ID: [id number] Report ID: [id number]
[2023-03-25] MEDS: SODIUM BICARB 325 MG TAB PO SCH (12:11)
[2023-03-25] MEDS: NA CHLORIDE 0.9% 1,000 ML IV SCH (12:11)
[2023-03-25] MEDS: SODIUM ZIRCONIUM CYCLOSILICATE 10 GM/PKT PO ONE (12:48)
[2023-03-26 07:27] LABS: Albumin 2.4 g/dL (3.4-5.0); Phosphorus 5.4 mg/dL (2.5-4.9); Potassium 5.3 mEq/L (3.5-5.1)
--- NOTE | 2023-03-26 09:33 | RAD REPORT ---
EXAM DESCRIPTION: RAD - Foot Right 3 View - 03/26/2023 9:19 am CLINICAL HISTORY: Right great toe pain/swelling at base COMPARISON: No comparisons FINDINGS/IMPRESSION: No acute fracture. No radiographic evidence of osteomyelitis. The cuboid bone a ppears medially subluxed which is probably chronic. Calcaneal spurs. Midfoot and hindfoot degenerativ e changes are present. Osteopenia.
--- NOTE | 2023-03-26 12:24 | PN ---
Date of Progress Note: 03/26/2023 Subjective: The patient seen on 4th floor in room 431 at [facility] on [address]. The patient is alert, awake, sitting comfortably in chair. Denies any headache, nausea, vomiting. Volume status is similar to yesterday. Labs reviewed. On evaluation, the patient does no t have any nausea. Does not have any headache or vomiting. Answers questions well. Speaks in both Cambodian and Telugu. Objective: Vital Signs: On evaluation of her vitals, the patient's blood pressure is 104/42, her re peat blood pressure is 99/42, her pulse is 73, respirations around 14-16, blood pressure is slightly on the lower side. Lungs: Clear. Abdomen: Soft. Extremities: Trace edema. Heart: Sounds are regular. Lab Data: Shows sodium 130, potassium 5.3, chloride 102, bicarb of 18, BUN of 83, creatinine is 3.45 , relatively stable compared to yesterday when it was 3.37. The patient is currently on amlodipine 5 mg and gabapentin 300 mg b.i.d. Assessment And Plan: The patient with acute kidney injury on top of her CKD stage 4. At this point, the patient is with slightly elevated potassium, slight metabolic acidosis. We will increase bicarb to 650 mg daily. We will give another dose of Lokelma at 10 g. We will recommend decreasing gabape ntin. Discussed with Dr. Bajwa as well. May consider just changing it to nightly dose. Cut back on amlodipine to 2.5 mg and hold for systolic blood pressure less than 110. /ZULEYKA Voice ID: [id number] Report ID: [id number]
[2023-03-26] MEDS: SODIUM ZIRCONIUM CYCLOSILICATE 10 GM/PKT PO ONE (12:50)
--- NOTE | 2023-03-26 15:08 | P.PN ---
Date of Service: 03/26/23 Subjective: Gabapentin helping with back pain/leg pain Breathing well-feeling better Concerned about risk of falls-Ambulated with nurse/walker yesterday evenings ROS: 10 point ROS as noted above, otherwise negative Physical exam GEN: Alert, oriented, NAD HEENT: Normal conjunctiva, sclera anicteric CV: Regular rate and rhythm, edema present bilateral lower extremities Pulm: Nonlabored respirations on room air ABD: Soft, nontender, nondistended MSK: No joint tenderness Integumentary: No rashes Neuro: Normal speech, normal affect, right lower extremity weakness Vitals reviewed Problem List Acute on chronic diastolic congestive heart failure Svere pulmonary hypertension NSTEMI CKD 4 Low back pain, right lower extremity weakness/pain Hypertension Hypothyroidism Hyperlipidemia Plan Acute on chronic diastolic congestive heart failure Svere pulmonary hypertension NSTEMI Echocardiogram-LVEF 55 to 60%, right ventricular systolic pressure 40 to 45 mmHg, dilated inferior vena cava, right atrial pressure 15 to 20 mmHg Last heart catheterization 04/28/2022-normal coronaries-severe pulmonary hypertension Nephrology giving gentle IVF in preparation for heart cath Resume sildenafil 20 mg 3 times daily for pulmonary hypertension Right heart cath 03/23 Findings: RA pressure is 15/12, mean of 10. RV pressure is 102/5, mean of 21. PA pressure is 104/31, mean of 56. Pulmonary wedge pressure was 10. Cardiac output averages 4.9 L/minute. The transpulmonary gradient is 46 and pulmonary vascular resistance is 9 Wood units. Conclusion: Severe primary pulmonary arterial hypertension. Cardiology recommends no need for diuretics at discharge given wedge pressure CKD 4 Nephrology following Mild worsening renal function concerning for possible CHRISTIE Nephrology adjusting IV fluids/medications Repeat BMP tomorrow morning to ensure plateau/improvement Low back pain, right lower extremity weakness/pain Reports worsening back pain, right lower extremity weakness recently MRI 03/21 IMPRESSION: Significant lower lumbar degenerative changes are present with severe canal stenosis identified L3-4 caused by a large disc extrusion. Additional levels of significant spondylosis are detailed above. PT consult placed Denies saddle paresthesia, bowel or bladder incontinence Will discuss findings with neurology-ambulating with walker Likely outpatient eval with neurosurgery/PT/follow up with PCP Started gabapentin 03/23-increased to 300mg BID Tolerating well Still with some weakness to RLE Case was discussed with spine surgeryDr. Castillo-if discharged may follow-up Monday for appointment Hypertension Hypothyroidism Hyperlipidemia Continue home medications VTE: Lovenox Code: Full Dispo: 24 to 48 hours Time Spent Managing Pts Care (In Minutes): 35
[2023-03-26] MEDS: GABAPENTIN 300 MG CAP PO SCH (20:33)
[2023-03-27] MEDS: AMLODIPINE 5 MG TAB PO SCH (09:00)
[2023-03-27] MEDS: SODIUM BICARB 325 MG TAB PO SCH ×2 (10:17→16:24)
--- NOTE | 2023-03-27 10:28 | P.PN ---
Date of Service: 03/27/23 Subjective: Gabapentin helping with back pain/leg pain Breathing well-feeling better Concerned about risk of falls-Ambulated with nurse/walker yesterday evenings Renal function slightly worse ROS: 10 point ROS as noted above, otherwise negative Physical exam GEN: Alert, oriented, NAD HEENT: Normal conjunctiva, sclera anicteric CV: Regular rate and rhythm, edema present bilateral lower extremities Pulm: Nonlabored respirations on room air ABD: Soft, nontender, nondistended MSK: No joint tenderness Integumentary: No rashes Neuro: Normal speech, normal affect, right lower extremity weakness Vitals reviewed Problem List Acute on chronic diastolic congestive heart failure Svere pulmonary hypertension NSTEMI CKD 4 Low back pain, right lower extremity weakness/pain Hypertension Hypothyroidism Hyperlipidemia Plan Acute on chronic diastolic congestive heart failure Svere pulmonary hypertension NSTEMI Echocardiogram-LVEF 55 to 60%, right ventricular systolic pressure 40 to 45 mmHg, dilated inferior vena cava, right atrial pressure 15 to 20 mmHg Last heart catheterization 04/28/2022-normal coronaries-severe pulmonary hypertension Nephrology giving gentle IVF in preparation for heart cath Resume sildenafil 20 mg 3 times daily for pulmonary hypertension Right heart cath 03/23 Findings: RA pressure is 15/12, mean of 10. RV pressure is 102/5, mean of 21. PA pressure is 104/31, mean of 56. Pulmonary wedge pressure was 10. Cardiac output averages 4.9 L/minute. The transpulmonary gradient is 46 and pulmonary vascular resistance is 9 Wood units. Conclusion: Severe primary pulmonary arterial hypertension. Cardiology recommends no need for diuretics at discharge given wedge pressure CKD 4 Nephrology following Mild worsening renal function concerning for possible CHRISTIE Nephrology adjusting IV fluids/medications Repeat BMP tomorrow morning to ensure plateau/improvement Low back pain, right lower extremity weakness/pain Reports worsening back pain, right lower extremity weakness recently MRI 03/21 IMPRESSION: Significant lower lumbar degenerative changes are present with severe canal stenosis identified L3-4 caused by a large disc extrusion. Additional levels of signi ficant spondylosis are detailed above. PT consult placed Denies saddle paresthesia, bowel or bladder incontinence Will discuss findings with neurology-ambulating with walker Likely outpatient eval with neurosurgery/PT/follow up with PCP Started gabapentin 03/23, helped a lot with pain, now on 300mg bedtime Tolerating well Still with some weakness to RLE Case was discussed with spine surgeryDr. Jonathan recommend close follow up Disc with images from MRI lumbar spine given to patient to bring to FU apt Hypertension Amlodipine reduced to 2.5mg daily by nephrology as BP was soft Hypothyroidism Hyperlipidemia Continue home medications VTE: Lovenox Code: Full Dispo: 24 to 48 hours Time Spent Managing Pts Care (In Minutes): 35
[2023-03-27] MEDS: DOCUSATE NA 100 MG CAP PO SCH (12:00)
[2023-03-27] MEDS: CALCITROL 0.25 MCG CAP PO SCH (12:56)
--- NOTE | 2023-03-27 21:40 | P.PN ---
Date of Service: 03/27/23 Vital Signs Temp Pulse Resp BP Pulse Ox 98.3 F 76 18 120/56 L 93 03/27/23 19:39 03/27/23 19:39 03/27/23 19:39 03/27/23 19:39 03/27/23 19:39 Medications Acetaminophen (Acetaminophen 325 Mg Tablet) 650 mg PO Q4HP PRN PRN Reason: Pain scale 2-4 (Mild) Last Admin: 03/21/23 00:44 Dose: 650 mg Hydrocodone Bitart/Acetaminophen (Hydrocodone/Apap 5/325 Mg Tab) 1 tab PO Q6H PRN PRN Reason: Pain scale 5-7 (Moderate) Last Admin: 03/27/23 13:31 Dose: 1 tab Calcitriol (Calcitrol 0.25 Mcg Cap) 0.5 mcg PO DAILY [facility] Last Admin: 03/27/23 12:56 Dose: 0.5 mcg Docusate Sodium (Docusate Na 100 Mg Cap) 100 mg PO BID [facility] Last Admin: 03/27/23 19:42 Dose: Not Given Enoxaparin Sodium (Enoxaparin 30 Mg/0.3 Ml) 30 mg SQ DAILY [facility] Last Admin: 03/27/23 10:17 Dose: 30 mg Gabapentin (Gabapentin 300 Mg Cap) 300 mg PO BEDTIME [facility] Last Admin: 03/27/23 19:47 Dose: 300 mg Sodium Chloride (Ns 1000 Ml Ivbag) 1,000 mls @ 75 mls/hr IV .[id number] [facility] Last Admin: 03/27/23 16:25 Dose: 1,000 mls Ondansetron HCl (Ondansetron 4 Mg/2 Ml Vial) 4 mg IV Q6HP PRN PRN Reason: NAUSEA / VOMITING Sildenafil Citrate (Sildenafil Citrate 20 Mg Tablet) 20 mg PO TID [facility] Last Admin: 03/27/23 19:47 Dose: 20 mg Sodium Bicarbonate (Sodium Bicarb 325 Mg Tab) 650 mg PO BIDPC [facility] Stop: 04/02/23 12:01 Last Admin: 03/27/23 16:24 Dose: 650 mg Assessment/ Plan: Nephrology No chest pain No dyspnea Worsening edema No acute events overnight Vitals, medications, blood work and imaging reviewed in the chart General: In no apparent distress, Oriented x3, Cooperative HEENT: Atraumatic Neck: Supple Respiratory: Normal air movement Cardiovascular: Regular rate/rhythm Gastrointestinal: Soft and benign, Non-distended Musculoskeletal: No clubbing, No contractures Integumentary: No rashes, No cyanosis Neurological: Normal speech Laboratory Data (last 24 hrs) 03/20/23 03/20/23 03/20/23 19:37 19:37 19:37 WBC 4.30 Hgb 12.0 Hct 36.3 Plt Count 106 L PT 11.4 INR 1.04 APTT 34.2 Sodium 137 Potassium 5.3 H BUN 51 H Creatinine 2.18 H Glucose 187 H Magnesium 2.3 Total Bilirubin 0.6 AST 45 H ALT 45 Alkaline Phosphatase 291 H Imagings Data: [id number] EXAM DESCRIPTION: Peter Nolasco And Lat (2 Views)03/20/2023 6:38 pm CLINICAL HISTORY: sob COMPARISON: 2022 FINDINGS: The lungs appear clear of acute infiltrate. The heart is normal size IMPRESSION: No acute abnormalities displayed Echocardiogram-LVEF 55 to 60%, right ventricular systolic pressure 40 to 45 mmHg, dilated inferior vena cava, right atrial pressure 15 to 20 mmHg Last heart catheterization 04/28/2022-normal coronaries-severe pulmonary hypertension Conclusions/Impression: Stage I ARNOLD likely CHRISTIE CKD IV -No NSAIDs -DC IVF Hyperkalemia -Lokelma prn Metabolic Acidosis -Start oral bicarb HTN with CKD/ CHF -Discontinue Amlodipine due to hypotension Diastolic CHF, A/C Pulmonary HTN -Restart furosemide prn -Continue Sildenafil Hypoalbuminemia -Maintain nutrition Anemia in chronic illness -Monitor H&H Hospitalist note reviewed
[2023-03-28] MEDS: FUROSEMIDE 40 MG/4 ML VIAL IV SCH (06:19)
[2023-03-28 06:58] LABS: Hematocrit 30.4 % (36.0-45.0); MCV 98.1 fL (80-100); MPV 8.6 fL (7.6-11.3); Platelets 112 thou/uL (152-406)
[2023-03-28 07:15] LABS: Potassium 4.9 mEq/L (3.5-5.1)
--- NOTE | 2023-03-28 17:31 | P.PN ---
Subjective Date of Service: 03/28/23 Chief Complaint: Pulmonary hypertension spinal stenosis Patient denies any shortness of breath. She states her right foot is more swollen. No change in serum creatinine from yesterday. Physical Examination - Vital Signs Temperature: 97.0 F Blood Pressure: 95/54 Pulse: 64 Respirations: 20 Pulse Ox (%): 95 Assessment And Plan - Plan Physical exam GEN: Alert, oriented, NAD, obese. CV: Regular rate and rhythm, edema present bilateral lower extremities Pulm: Clear to auscultation bilaterally ,nonlabored respirations on room air ABD: Soft, nontender, nondistended Integumentary: No rashes Neuro: Normal speech, normal affect. Vitals reviewed Problem List Acute on chronic diastolic congestive heart failure Svere pulmonary hypertension NSTEMI CKD 4 Low back pain, right lower extremity weakness/pain Hypertension Hypothyroidism Hyperlipidemia Plan Acute on chronic diastolic congestive heart failure Svere pulmonary hypertension NSTEMI Echocardiogram-LVEF 55 to 60%, right ventricular systolic pressure 40 to 45 mmHg, dilated inferior vena cava, right atrial pressure 15 to 20 mmHg Last heart catheterization 04/28/2022-normal coronaries-severe pulmonary hyperte nsion Nephrology giving gentle IVF in preparation for heart cath Resume sildenafil 20 mg 3 times daily for pulmonary hypertension Right heart cath 03/23: Severe primary pulmonary arterial hypertension. Cardiology recommends no need for diuretics. Acute on CKD 4 Nephrology following Worsening renal function. IV fluids per nephrology. Continue to monitor renal function. Low back pain, right lower extremity pain Reports worsening back pain, right lower extremity weakness recently MRI 03/21 IMPRESSION: Significant lower lumbar degenerative changes are present with severe canal stenosis identified L3-4 caused by a large disc extrusion. Additional levels of significant spondylosis are detailed above. PT consult placed Denies saddle paresthesia, bowel or bladder incontinence Will discuss findings with neurology-ambulating with walker Continue PT Continue gabapentin. Case was discussed with spine surgeryDr. Jonathan recommend close follow up as outpatient. Disc with images from MRI lumbar spine given to patient to bring to FU apt Hypertension Antihypertensives discontinued due to soft blood pressure. Patient is on sildenafil for pulmonary hypertension. Hypothyroidism Hyperlipidemia Continue home medications VTE: Lovenox Code: Full
--- NOTE | 2023-03-28 19:33 | P.PN ---
Date of Service: 03/28/23 Vital Signs Temp Pulse Resp BP Pulse Ox 97.0 F 72 20 118/58 L 95 03/28/23 17:33 03/28/23 18:46 03/28/23 18:51 03/28/23 18:46 03/28/23 18:51 Medications Acetaminophen (Acetaminophen 325 Mg Tablet) 650 mg PO Q4HP PRN PRN Reason: Pain scale 2-4 (Mild) Last Admin: 03/21/23 00:44 Dose: 650 mg Hydrocodone Bitart/Acetaminophen (Hydrocodone/Apap 5/325 Mg Tab) 1 tab PO Q6H PRN PRN Reason: Pain scale 5-7 (Moderate) Last Admin: 03/28/23 18:51 Dose: 1 tab Calcitriol (Calcitrol 0.25 Mcg Cap) 0.5 mcg PO DAILY [facility] Last Admin: 03/28/23 10:34 Dose: 0.5 mcg Docusate Sodium (Docusate Na 100 Mg Cap) 100 mg PO BID [facility] Last Admin: 03/28/23 19:29 Dose: Not Given Enoxaparin Sodium (Enoxaparin 30 Mg/0.3 Ml) 30 mg SQ DAILY [facility] Last Admin: 03/28/23 10:34 Dose: 30 mg Furosemide (Furosemide 40 Mg/4 Ml Vial) 40 mg IV Q24H [facility] Last Admin: 03/28/23 06:19 Dose: 40 mg Gabapentin (Gabapentin 300 Mg Cap) 300 mg PO BEDTIME [facility] Last Admin: 03/27/23 19:47 Dose: 300 mg Ondansetron HCl (Ondansetron 4 Mg/2 Ml Vial) 4 mg IV Q6HP PRN PRN Reason: NAUSEA / VOMITING Sildenafil Citrate (Sildenafil Citrate 20 Mg Tablet) 20 mg PO TID [facility] Last Admin: 03/28/23 14:00 Dose: Not Given Sodium Bicarbonate (Sodium Bicarb 325 Mg Tab) 650 mg PO BIDPC [facility] Stop: 04/02/23 12:01 Last Admin: 03/28/23 17:39 Dose: 650 mg Assessment/ Plan: Nephrology No chest pain No dyspnea Persistent edema No acute events overnight Vitals, medications, blood work and imaging reviewed in the chart General: In no apparent distress, Oriented x3, Cooperative HEENT: Atraumatic Neck: Supple Respiratory: Normal air movement Cardiovascular: Regular rate/rhythm Gastrointestinal: Soft and benign, Non-distended Musculoskeletal: No clubbing, No contractures Integumentary: No rashes, No cyanosis Neurological: Normal speech Laboratory Data (last 24 hrs) 03/20/23 03/20/23 03/20/23 19:37 19:37 19:37 WBC 4.30 Hgb 12.0 Hct 36.3 Plt Count 106 L PT 11.4 INR 1.04 APTT 34.2 Sodium 137 Potassium 5.3 H BUN 51 H Creatinine 2.18 H Glucose 187 H Magnesium 2.3 Total Bilirubin 0.6 AST 45 H ALT 45 Alkaline Phosphatase 291 H Imagings Data: [id number] EXAM DESCRIPTION: Peter Nolasco And Lat (2 Views)03/20/2023 6:38 pm CLINICAL HISTORY: sob COMPARISON: 2022 FINDINGS: The lungs appear clear of acute infiltrate. The heart is normal size IMPRESSION: No acute abnormalities displayed Echocardiogram-LVEF 55 to 60%, right ventricular systolic pressure 40 to 45 mmHg, dilated inferior vena cava, right atrial pressure 15 to 20 mmHg Last heart catheterization 04/28/2022-normal coronaries-severe pulmonary hypertension Conclusions/Impression: Stage I ARNOLD likely CHRISTIE CKD IV -No NSAIDs Hyperkalemia -kelwv prn Metabolic Acidosis -Continue oral bicarb HTN with CKD/ CHF -Monitor BP Diastolic CHF, A/C Pulmonary HTN -Continue furosemide -Continue Sildenafil Hypoalbuminemia -Maintain nutrition Anemia in chronic illness -Monitor H&H Hospitalist note reviewed
[2023-03-29 06:56] LABS: Hematocrit 29.3 % (36.0-45.0); MCV 98.5 fL (80-100); MPV 8.9 fL (7.6-11.3); Platelets 119 thou/uL (152-406); RBC Red Blood Cell Count 2.97 M/uL (3.86-4.86)
[2023-03-29 07:13] LABS: Potassium 5.2 mEq/L (3.5-5.1); Uric Acid 7.6 mg/dL (2.6-6.0)
[2023-03-29] MEDS: HYDROCODONE/APAP 5/325 MG TAB PO PRN (17:44)
--- NOTE | 2023-03-29 18:23 | P.PN ---
Subjective Date of Service: 03/29/23 Chief Complaint: Pulmonary hypertension spinal stenosis Patient denies any shortness of breath. She has no new complaint No issues overnight. Physical Examination - Vital Signs Temperature: 97.8 F Blood Pressure: 129/62 Pulse: 68 Respirations: 18 Pulse Ox (%): 95 Assessment And Plan - Plan Physical exam GEN: Alert, oriented, NAD, obese. CV: Regular rate and rhythm, edema present bilateral lower extremities Pulm: Clear to auscultation bilaterally ,nonlabored respirations on room air ABD: Soft, nontender, nondistended Integumentary: No rashes Neuro: Normal speech, normal affect. Vitals reviewed Problem List Acute on chronic diastolic congestive heart failure Svere pulmonary hypertension NSTEMI CKD 4 Low back pain, right lower extremity weakness/pain Hypertension Hypothyroidism Hyperlipidemia Plan Acute on chronic diastolic congestive heart failure Svere pulmonary hypertension NSTEMI Echocardiogram-LVEF 55 to 60%, right ventricular systolic pressure 40 to 45 mmHg, dilated inferior vena cava, right atrial pressure 15 to 20 mmHg Last heart catheterization 04/28/2022-normal coronaries-severe pulmonary hypertension Nephrology giving gentle IVF in preparation for heart cath Resume sildenafil 20 mg 3 times daily for pulmonary hypertension Right heart cath 03/23: Severe primary pulmonary arterial hypertension. Cardiology recommends no need for diuretics. Acute on CKD 4/IV contrast nephropathy Nephrology following Worsening renal function. Contrast nephropathy suspected. Serum creatinine appears to have plateaued. IV fluids per nephrology. Continue to monitor renal function. Low back pain, right lower extremity pain Reports worsening back pain, right lower extremity weakness recently MRI 03/21 IMPRESSION: Significant lower lumbar degenerative changes are present with severe canal stenosis identified L3-4 caused by a large disc extrusion. Additional levels of significant spondylosis are detailed above. Continue PT. Denies saddle paresthesia, bowel or bladder incontinence. Continue gabapentin. Case was discussed with spine surgeryDr. Jonathan recommend close follow up as outpatient. Disc with images from MRI lumbar spine given to patient to bring to FU apt Hypertension Antihypertensives discontinued due to soft blood pressure. Patient is on sildenafil for pulmonary hypertension. Hypothyroidism Hyperlipidemia Continue home medications VTE: Lovenox Code: Full
[2023-03-30 07:29] LABS: Hematocrit 29.4 % (36.0-45.0); MCV 98.4 fL (80-100); MPV 8.6 fL (7.6-11.3); Platelets 117 thou/uL (152-406); RBC Red Blood Cell Count 2.99 M/uL (3.86-4.86)
--- NOTE | 2023-03-30 10:35 | P.PN ---
Date of Service: 03/30/23 Vital Signs Temp Pulse Resp BP Pulse Ox 97.9 F 68 14 108/51 L 93 03/30/23 08:00 03/30/23 08:00 03/30/23 08:00 03/30/23 08:00 03/30/23 08:00 Medications Acetaminophen (Acetaminophen 325 Mg Tablet) 650 mg PO Q4HP PRN PRN Reason: Pain scale 2-4 (Mild) Last Admin: 03/21/23 00:44 Dose: 650 mg Hydrocodone Bitart/Acetaminophen (Hydrocodone/Apap 5/325 Mg Tab) 1 tab PO Q6H PRN PRN Reason: Pain scale 5-7 (Moderate) Last Admin: 03/29/23 17:44 Dose: 1 tab Calcitriol (Calcitrol 0.25 Mcg Cap) 0.5 mcg PO DAILY [facility] Last Admin: 03/30/23 07:43 Dose: 0.5 mcg Docusate Sodium (Docusate Na 100 Mg Cap) 100 mg PO BID [facility] Last Admin: 03/30/23 07:44 Dose: 100 mg Enoxaparin Sodium (Enoxaparin 30 Mg/0.3 Ml) 30 mg SQ DAILY [facility] Last Admin: 03/30/23 07:43 Dose: 30 mg Furosemide (Furosemide 40 Mg/4 Ml Vial) 40 mg IV Q24H [facility] Last Admin: 03/30/23 06:16 Dose: 40 mg Gabapentin (Gabapentin 300 Mg Cap) 300 mg PO BEDTIME [facility] Last Admin: 03/29/23 19:50 Dose: 300 mg Ondansetron HCl (Ondansetron 4 Mg/2 Ml Vial) 4 mg IV Q6HP PRN PRN Reason: NAUSEA / VOMITING Sildenafil Citrate (Sildenafil Citrate 20 Mg Tablet) 20 mg PO TID [facility] Last Admin: 03/30/23 07:44 Dose: 20 mg Sodium Bicarbonate (Sodium Bicarb 325 Mg Tab) 650 mg PO BIDPC [facility] Stop: 04/02/23 12:01 Last Admin: 03/30/23 07:43 Dose: 650 mg Assessment/ Plan: Nephrology No chest pain No dyspnea Persistent edema No acute events overnight Vitals, medications, blood work and imaging reviewed in the chart General: In no apparent distress, Oriented x3, Cooperative HEENT: Atraumatic Neck: Supple Respiratory: Normal air movement Cardiovascular: Regular rate/rhythm Gastrointestinal: Soft and benign, Non-distended Musculoskeletal: No clubbing, No contractures Integumentary: No rashes, No cyanosis Neurological: Normal speech Laboratory Data (last 24 hrs) 03/20/23 03/20/23 03/20/23 19:37 19:37 19:37 WBC 4.30 Hgb 12.0 Hct 36.3 Plt Count 106 L PT 11.4 INR 1.04 APTT 34.2 Sodium 137 Potassium 5.3 H BUN 51 H Creatinine 2.18 H Glucose 187 H Magnesium 2.3 Total Bilirubin 0.6 AST 45 H ALT 45 Alkaline Phosphatase 291 H Imagings Data: [id number] EXAM DESCRIPTION: Peter Nolasco And Lat (2 Views)03/20/2023 6:38 pm CLINICAL HISTORY: sob COMPARISON: 2022 FINDINGS: The lungs appear clear of acute infiltrate. The heart is normal size IMPRESSION: No acute abnormalities displayed Echocardiogram-LVEF 55 to 60%, right ventricular systolic pressure 40 to 45 mmHg, dilated inferior vena cava, right atrial pressure 15 to 20 mmHg Last heart catheterization 04/28/2022-normal coronaries-severe pulmonary hypertension Conclusions/Impression: Stage I ARNOLD likely CHRISTIE CKD IV -No NSAIDs Hyperkalemia -kelak prn Metabolic Acidosis -Increase oral bicarb HTN with CKD/ CHF -Monitor BP Diastolic CHF, A/C Pulmonary HTN -Increase furosemide -Continue Sildenafil Hypoalbuminemia -Maintain nutrition Anemia in chronic illness -Monitor H&H -Retacrit X1 Hospitalist note reviewed Case reviewed with Dr. Farias
[2023-03-30] MEDS: EPOETIN ALFA-EPBX 10,000 UNIT/ML VIAL SQ ONE (11:38)
[2023-03-30] MEDS: SODIUM BICARB 325 MG TAB PO SCH (11:39)
[2023-03-30] MEDS: FUROSEMIDE 40 MG/4 ML VIAL IV ONE (11:39)
[2023-03-30] MEDS: FUROSEMIDE 40 MG/4 ML VIAL IV SCH (16:09)
--- NOTE | 2023-03-30 19:01 | P.PN ---
Subjective Date of Service: 03/30/23 Chief Complaint: Pulmonary hypertension spinal stenosis Patient denies any shortness of breath. She has no new complaint No change in lower extremity swelling. Physical Examination - Vital Signs Temperature: 97.8 F Blood Pressure: 121/57 Pulse: 70 Respirations: 18 Pulse Ox (%): 94 Assessment And Plan - Plan Physical exam GEN: Alert, oriented, NAD, obese. CV: Regular rate and rhythm, edema present bilateral lower extremities Pulm: Clear to auscultation bilaterally ,nonlabored respirations on room air ABD: Soft, nontender, nondistended Integumentary: No rashes Neuro: Normal speech, normal affect. Vitals reviewed Problem List Acute on chronic diastolic congestive heart failure Svere pulmonary hypertension NSTEMI CKD 4 Low back pain, right lower extremity weakness/pain Hypertension Hypothyroidism Hyperlipidemia Plan Acute on chronic diastolic congestive heart failure Svere pulmonary hypertension NSTEMI Echocardiogram-LVEF 55 to 60%, right ventricular systolic pressure 40 to 45 mmHg, dilated inferior vena cava, right atrial pressure 15 to 20 mmHg Last heart catheterization 04/28/2022-normal coronaries-severe pulmonary hypertension Nephrology giving gentle IVF in preparation for heart cath Resume sildenafil 20 mg 3 times daily for pulmonary hypertension Right heart cath 03/23: Severe primary pulmonary arterial hypertension. Cardiology recommends no need for diuretics. Acute on CKD 4/IV contrast nephropathy Nephrology following Contrast nephropathy suspected. Serum creatinine appears to have plateaued and waiting for level to trend down. IV fluids per nephrology. Continue to monitor renal function. Low back pain, right lower extremity pain Reports worsening back pain, right lower extremity weakness recently MRI 03/21 IMPRESSION: Significant lower lumbar degenerative changes are present with severe canal stenosis identified L3-4 caused by a large disc extrusion. Additional levels of significant spondylosis are detailed above. Continue PT. Denies saddle paresthesia, bowel or bladder incontinence. Continue gabapentin. Case was discussed with spine surgeryDr. Jonathan recommend close follow up as outpatient. Disc with images from MRI lumbar spine given to patient to bring to FU apt Hypertension Patient is currently normotensive. Patient is on sildenafil for pulmonary hypertension. Other antihypertensives on hold Hypothyroidism Hyperlipidemia Continue home medications VTE: Lovenox Code: Full
[2023-03-31 05:08] LABS: Hematocrit 28.6 % (36.0-45.0); MCV 97.6 fL (80-100); MPV 8.7 fL (7.6-11.3); Platelets 119 thou/uL (152-406); RBC Red Blood Cell Count 2.93 M/uL (3.86-4.86)
[2023-03-31 05:32] LABS: Albumin 2.2 g/dL (3.4-5.0); Bilirubin Direct 0.2 mg/dL (0-0.2); Bilirubin Indirect, Calculated 0.2 mg/dL (0.2-0.8); Bilirubin Total 0.4 mg/dL (0.2-1.0); Magnesium 2.4 mg/dL (1.6-2.4); Phosphorus 7.1 mg/dL (2.5-4.9); Potassium 5.2 mEq/L (3.5-5.1); Protein, Total 5.7 g/dL (6.4-8.2); Uric Acid 8.1 mg/dL (2.6-6.0)
[2023-03-31 06:36] LABS: Hepatitis B Core Ab, Total Nonreactive (Nonreactive); Hepatitis B surface AG Interp. Nonreactive (Nonreactive)
[2023-03-31 06:37] LABS: Hepatitis B Surface Ab - Quant < 3.10 mIU/mL (<8.0)
[2023-03-31 07:33] VITALS: BMI 40.6
[2023-03-31 10:22] VITALS: O2SAT 92
--- NOTE | 2023-03-31 11:50 | P.PN ---
Subjective Date of Service: 03/31/23 Chief Complaint: Pulmonary hypertension spinal stenosis No change in patient's condition renal function is worsening no other complaints some swelling of lower extremities Review of Systems General: Weakness Cardiovascular: Edema Physical Examination - Vital Signs Temperature: 99 F Blood Pressure: 138/60 Pulse: 70 Respirations: 15 Pulse Ox (%): 92 - Physical Exam General: Alert, Oriented x3 Neck: Supple Respiratory: Clear to auscultation bilaterally Cardiovascular: Regular rate/rhythm, Normal S1 S2, Edema (Minimal edema) Assessment And Plan - Current Problems (Diagnosis) (1) Pulmonary HTN Current Visit: No Status: Acute Plan: Patient has severe pulmonary hypertension and is on sildenafil cussed with nephrology probably consider transferring to a tertiary care center for additional treatment for pulmonary hypertension may include starting off of patient with inhaled prostacyclin's oxygenation is satisfactory renal function is getting worse only precipitated by the use of IV contrast patient's weight has also steadily increased and up on dialysis temporarily (2) Spinal stenosis Current Visit: Yes Status: Acute Plan: Patient is scheduled to see neurosurgery as an outpatient she does complain of some weakness of her right leg upon walking
--- NOTE | 2023-03-31 11:56 | P.PN ---
Nephrology note Seen sitting up in chair, not on O2, no active dyspnea at rest but reports desaturating with ambulation. Only walking a few steps to the bathroom. Renal function tests worse post RHC, denies actively diuresing on ordered Lasix. Nursing staff have not charted UOP. Weight is up, standing weight is 229 lbs, up from 210 recorded earlier in admission and she recalls weight as low as 202 lbs at home. Case discussed extensively with Dr. Brady and Dr. Farias (O) Vitals, medications, blood work and imaging reviewed in the chart General: In no apparent distress, Cooperative HEENT: Atraumatic, sclera anicteric, not on O2 Neck: Supple Respiratory: Normal air movement, no rhonchi Cardiovascular: Regular rate/rhythm mostly Gastrointestinal: Soft and NT, obese, and distended Musculoskeletal: No contractures, worsened 2+ distal edema Integumentary: No rashes Neurological: Normal speech,awake, alert, responsive Laboratory Data (last 24 hrs) Reviewed in the EMR Imagings Data: [id number] EXAM DESCRIPTION: Peter Nolasco And Latisha (2 Views)03/20/2023 6:38 pm CLINICAL HISTORY: sob COMPARISON: 2022 FINDINGS: The lungs appear clear of acute infiltrate. The heart is normal size IMPRESSION: No acute abnormalities displayed Echocardiogram-LVEF 55 to 60%, right ventricular systolic pressure 40 to 45 mmHg, dilated inferior vena cava, right atrial pressure 15 to 20 mmHg Last heart catheterization 04/28/2022-normal coronaries-severe pulmonary hyperte nsion Conclusions/Impression: Stage II ARNOLD (Cr level has risen by > 0.5 mg/dl) on underlying CKD IV 2nd to chronic conditions under the care of Dr. Randolph as OP -CHRISTIE accounting for ARNOLD with Cr level rising within 48h of RHC with Cr level plateauing but not downward trending. Azotemia worse but no overt uremia. No emergent indication for [employer] yet but discussed the potential need to initiate HD if renal function tests do not improve Hyperkalemia, at [facility] Place on scheduled lower dose Lokelma Diastolic CHF, chronic MR, non rheumatic Severe pulmonary HTN, per Cardiology appears to be PAH/primary -PCWP not reported as elevated on RHC last week, nonetheless with elevated Rt sided pressures, that will contribute to renal vein congestion and while Cardiology and Pulm feel that diuretics are not helping, as explained above renal function worsening is multifactorial. Additionally, pt needs assessment for direct therapy of PAH as she has not improved or responded to Sildenafil which she was in fact taking at home prior to admission. Recommend transfer to [facility] for evaluation by PH specialists for consideration of Flolan infusion or other. Kavon Maria MD, TIM
[2023-03-31] MEDS: SEVELAMER CARBONATE 800 MG TABLET PO SCH (12:22)
[2023-03-31] MEDS: SODIUM ZIRCONIUM CYCLOSILICATE 10 GM/PKT PO SCH (13:31)
[2023-03-31 17:39] LABS: SARS-COV-2 RT PCR NEGATIVE (NEGATIVE)
--- NOTE | 2023-03-31 18:11 | P.PN ---
Subjective Date of Service: 03/31/23 Chief Complaint: Pulmonary hypertension spinal stenosis Patient denies any shortness of breath. She has no new complaint No change in lower extremity swelling. She appears to be gaining weight. Physical Examination - Vital Signs Temperature: 99.1 F Blood Pressure: 128/59 Pulse: 71 Respirations: 16 Pulse Ox (%): 94 Assessment And Plan - Plan Physical exam GEN: Alert, oriented, NAD, obese. CV: Regular rate and rhythm, edema present bilateral lower extremities Pulm: Clear to auscultation bilaterally ,nonlabored respirations on room air ABD: Soft, nontender, nondistended Integumentary: No rashes Neuro: Normal speech, normal affect. Vitals reviewed Problem List Acute on chronic diastolic congestive heart failure Svere pulmonary hypertension NSTEMI CKD 4 Low back pain, right lower extremity weakness/pain Hypertension Hypothyroidism Hyperlipidemia Plan Acute on chronic diastolic congestive heart failure Svere pulmonary hypertension NSTEMI Echocardiogram-LVEF 55 to 60%, right ventricular systolic pressure 40 to 45 mmHg, dilated inferior vena cava, right atrial pressure 15 to 20 mmHg Last heart catheterization 04/28/2022-normal coronaries-severe pulmonary hypertension Status post gentle IVF in preparation for heart cath Continue sildenafil 20 mg 3 times daily for pulmonary hypertension Right heart cath 03/23: Severe primary pulmonary arterial hypertension. Nephrology recommends transfer to tertiary center for additional treatment for pulmonary hypertension since patient is still gaining weight and her renal function continues to trend up. Patient restarted on IV Lasix yesterday Transfer to [facility] initiated waiting for peer to peer discussions. Acute on CKD 4/IV contrast nephropathy/hyponatremia/hyperkalemia Nephrology following Contrast nephropathy suspected. Serum creatinine appears to have plateaued and waiting for level to trend down. BUN continues to trend up. Impending dialysis per nephrology. Nephrology to follow and assist with management of hyponatremia. Mild hyperkalemia. Anticipating hyperkalemia will improve with IV Lasix. Continue to monitor renal function. Low back pain, right lower extremity pain Reports worsening back pain, right lower extremity weakness recently MRI 03/21 IMPRESSION: Significant lower lumbar degenerative changes are present with severe canal stenosis identified L3-4 caused by a large disc extrusion. Additional levels of significant spondylosis are detailed above. Continue PT. Denies saddle paresthesia, bowel or bladder incontinence. Continue gabapentin. Case was discussed with spine surgeryDr. Jonathan recommend close follow up as outpatient. Disc with images from MRI lumbar spine given to patient to bring to FU apt Hypertension Patient is currently normotensive. Patient is on sildenafil for pulmonary hypertension. Other antihypertensives on hold Hypothyroidism Hyperlipidemia Continue home medications VTE: Lovenox Code: Full
[2023-04-01 07:27] LABS: Absolute Lymphocytes (CBC) 0.8 K/uL (0.7-4.9); Hematocrit 29.1 % (36.0-45.0); Lymphocytes % 19.7 % (15.3-44.8); MCV 97.7 fL (80-100); MPV 8.8 fL (7.6-11.3); Platelets 116 thou/uL (152-406); RBC Red Blood Cell Count 2.98 M/uL (3.86-4.86)
[2023-04-01 07:32] LABS: Potassium 5.2 mEq/L (3.5-5.1)
[2023-04-01] MEDS: CALCITROL 0.25 MCG CAP PO SCH (08:26)
[2023-04-01 09:00] LABS: Blood Morphology Comment NOT SEEN (NOT SEEN); Platelet Estimate DECR
--- NOTE | 2023-04-01 11:08 | PN ---
Date of Progress Note: 04/01/2023 Subjective: The patient was seen and examined at bedside. She says she was able to walk yesterday. Physical Examination: Vital Signs: Have been reviewed. Blood pressure continues to be low in the 100. General: She appears in no acute distress. HEENT: Atraumatic head. Lungs: Auscultation of the lungs revealed diminished breath sounds at bases, but overall clear. Heart: Auscultation of the heart reveals regular rate and rhythm. Abdomen: Obese and nontender. Extremities: Showed anasarca. Laboratory Data: Showing sodium of 129, potassium of 5.2, BUN of 112, and creatinine of 3.5. CBC sh owing stable hemoglobin, hematocrit, and platelet count of 116. Current Medications: Have been reviewed in detail. Her diuretics are currently on hold. She is on sodium bicarbonate for acidosis and Renvela for hyperphosphatemia and calcitriol for hypocalcemia. Impression: Acute on chronic renal insufficiency secondary to cardiorenal syndrome. The patient has severe pulmonary hypertension with shortness of breath and hence has been tried to be diuresed, but that has led to further worsening of renal function. However, she continues to be volume overloaded and will need further management of her pulmonary hypertension as a result of her limited scleroderma with CREST syndrome. The patient will need to be followed by pulmonary hypertension specialist to i nitiate therapy directed towards primary pulmonary hypertension. At this time, her renal function is stable. She does not acutely need dialysis at this time. Potassium is slightly high but stable. Continue to monitor closely and follow up. VV/MODL Voice ID: [id number] Report ID: [id number]
--- NOTE | 2023-04-01 11:41 | P.DS ---
Admission Date: 03/20/23 Discharge Date: 04/01/23 Disposition: TRANSFER TO [facility] Discharge Condition: FAIR Reason for Admission: Pulmonary hypertension spinal stenosis Brief History of Present Illness: 72-year-old female patient with medical history significant for hypertension, hyperlipidemia, diabetes type 2, hypothyroidism was evaluated for episode of worsening shortness of breath and leg swelling. She reports this been going on for about 1 week. Symptoms associated with orthopnea and PND symptoms. In the ED she was found to have significant pedal edema with elevated BNP. Chest x-ray done showed no significant pleural effusions. There was mild cardiomegaly. She did report oral diuretic use on as needed basis prior to encounter however this was not helping her situation. She was started on IV diuretic therapy and was admitted for inpatient care. Hospital Course: Diagnosis Acute on chronic diastolic congestive heart failure Svere pulmonary hypertension NSTEMI Acute on CKD 4 Low back pain, right lower extremity weakness/pain Hypertension Hypothyroidism Hyperlipidemia Plan Acute on chronic diastolic congestive heart failure Svere pulmonary hypertension NSTEMI Echocardiogram-LVEF 55 to 60%, right ventricular systolic pressure 40 to 45 mmHg, dilated inferior vena cava, right atrial pressure 15 to 20 mmHg Last heart catheterization 04/28/2022-normal coronaries-severe pulmonary hypertension Status post gentle IVF. Right heart cath 03/23: Severe primary pulmonary arterial hypertension. Continued home dose sildenafil 20 mg 3 times daily for pulmonary hypertension Nephrology recommended transfer to tertiary center for additional treatment for her severe pulmonary hypertension since patient is still gaining weight and her renal function continues to trend up. Patient restarted on IV Lasix. Transfer to [facility] initiated patient accepted for transfer. Vitals are stable for transfer. Acute on CKD 4/IV contrast nephropathy/hyponatremia/hyperkalemia Nephrology following Contrast nephropathy suspected. Serum creatinine appears to have plateaued and waiting for level to trend down. BUN trended up to 112. Impending dialysis per nephrology. Associated with hyponatremia and mild hyperkalemia. Continue to monitor renal function. Low back pain, right lower extremity pain Reports worsening back pain, right lower extremity weakness recently MRI 03/21 IMPRESSION: Significant lower lumbar degenerative changes are present with severe canal stenosis identified L3-4 caused by a large disc extrusion. Additional levels of significant spondylosis are detailed above. Continue PT. Denied saddle paresthesia, bowel or bladder incontinence. Continued gabapentin. Case was discussed with spine surgeryDr. Jonathan recommend close follow up as outpatient. Hypertension Patient is currently normotensive. Patient is on sildenafil for pulmonary hypertension. Other antihypertensives were held Hypothyroidism Hyperlipidemia Continued home medications Vital Signs/Physical Exam: Temp Pulse Resp BP Pulse Ox 97.8 F 66 16 105/50 L 90 L 04/01/23 08:00 04/01/23 08:00 04/01/23 08:00 04/01/23 08:00 04/01/23 08:00 General: Alert, In no apparent distress, Oriented x3 HEENT: Mucous membr. moist/pink Neck: Supple, JVD not distended Respiratory: Clear to auscultation bilaterally, Normal air movement Cardiovascular: Regular rate/rhythm, Normal S1 S2, Edema (Bilateral legs) Gastrointestinal: Normal bowel sounds, Soft and benign, Non-distended, No tenderness Musculoskeletal: Swelling (Bilateral foot) Integumentary: No rashes, No cyanosis Neurological: Normal strength at 5/5 x4 extr Laboratory Data at Discharge: WBC 4.10 thou/uL (4.3-10.9) L 04/01/23 07:10 Hgb 9.7 g/dL (12.0-15.0) L 04/01/23 07:10 Hct 29.1 % (36.0-45.0) L 04/01/23 07:10 Plt Count 116 thou/uL (152-406) L 04/01/23 07:10 PT 11.4 SECONDS (9.5-12.5) 03/20/23 19:37 INR 1.04 03/20/23 19:37 APTT 34.2 SECONDS (24.3-36.9) 03/20/23 19:37 Sodium 129 mEq/L (136-145) L 04/01/23 07:10 Potassium 5.2 mEq/L (3.5-5.1) H 04/01/23 07:10 BUN 112 mg/dL (7-18) H 04/01/23 07:10 Creatinine 3.58 mg/dL (0.55-1.02) H 04/01/23 07:10 Glucose 109 mg/dL (74-106) H 04/01/23 07:10 Uric Acid 8.1 mg/dL (2.6-6.0) H 03/31/23 04:30 Phosphorus 7.1 mg/dL (2.5-4.9) H 03/31/23 04:30 Magnesium 2.4 mg/dL (1.6-2.4) 03/31/23 04:30 Total Bilirubin 0.4 mg/dL (0.2-1.0) 03/31/23 04:30 AST 32 U/L (15-37) 03/31/23 04:30 ALT 37 U/L (13-56) 03/31/23 04:30 Alkaline Phosphatase 320 U/L (45-117) H 03/31/23 04:30 Home Medications: Levothyroxine [Synthroid*] 150 mcg PO [id number] 03/31/14 Loratadine [Claritin*] 10 mg PO DAILY PRN 03/31/14 Ferrous Sulfate [Iron] 325 mg PO DAILY 06/16/16 Rosuvastatin [Crestor*] 10 mg PO BEDTIME 06/16/16 Vitamin B Complex [B Complex] 1 each PO DAILY 06/16/16 Apixaban [Eliquis] 5 mg PO BID 15 Days #30 tablet 11/06/20 Ascorbic Acid [Vitamin C*] 500 mg PO DAILY 30 Days #30 tablet 11/06/20 Cholecalciferol (Vitamin D3) [Vitamin D 5,000 IU Cap*] 5,000 unit PO DAILY 30 Days #30 cap 11/06/20 Zinc Sulfate [Zinc Sulfate*] 220 mg PO DAILY 30 Days #30 cap 11/06/20 Amlodipine [Norvasc] 5 mg PO DAILY 02/08/22 Sitagliptin Phosphate [Januvia] 100 mg PO DAILY 02/08/22 Sildenafil Citrate [Revatio*] 20 mg PO DAILY 90 Days #90 tab 02/11/22 Olmesartan/Hydrochlorothiazide [Olmesartan-Hctz 20-12.5 mg Tab] 20 mg PO DAILY 0 03/22/23 Tramadol HCl [Ultram] 50 mg PO TID PRN 03/22/23 Physician Discharge Instructions: Home Health Agency: [facility] P: [phone] F: [phone] Diet: Renal Activity: Fall precautions Followup: Judith Parkinson FNP [Primary Care Provider] - Time spent managing pt's care (in minutes): 32
[2023-04-01 13:11] VITALS: BP 115/52; TEMP 98.3
== END 2023-04-01 13:00 | disposition short-term general hospital (02) | DRG 280 ==
LOC: ER 17:56 → 4TH 22:36
PROVIDERS: ADMIT Internal Medicine Nephrology; ATTEND Internal Medicine
PROC: 4A023N6 Measurement of Cardiac Sampling and Pressure, Right Heart, Percutaneous Approach (ICD-10-PCS; principal; 2023-03-23)
PROC: B2111ZZ Fluoroscopy of Multiple Coronary Arteries using Low Osmolar Contrast (ICD-10-PCS; 2023-03-23)
DX: I13.0 Hypertensive heart and chronic kidney disease with heart failure and stage 1 through stage 4 chronic kidney disease, or unspecified chronic kidney disease (principal); I50.43 Acute on chronic combined systolic (congestive) and diastolic (congestive) heart failure; I21.4 Non-ST elevation (NSTEMI) myocardial infarction; N18.4 Chronic kidney disease, stage 4 (severe); E87.20 Acidosis, unspecified; N17.9 Acute kidney failure, unspecified; E87.1 Hypo-osmolality and hyponatremia; E11.22 Type 2 diabetes mellitus with diabetic chronic kidney disease; D63.1 Anemia in chronic kidney disease; E78.5 Hyperlipidemia, unspecified; E87.5 Hyperkalemia; M54.50 Low back pain, unspecified; I27.21 Secondary pulmonary arterial hypertension; E03.9 Hypothyroidism, unspecified; M48.00 Spinal stenosis, site unspecified; E88.09 Other disorders of plasma-protein metabolism, not elsewhere classified; I27.20 Pulmonary hypertension, unspecified; T50.2X5A Adverse effect of carbonic-anhydrase inhibitors, benzothiadiazides and other diuretics, initial encounter; Z88.8 Allergy status to other drugs, medicaments and biological substances; Z90.49 Acquired absence of other specified parts of digestive tract; Z79.02 Long term (current) use of antithrombotics/antiplatelets; Z11.52 Encounter for screening for COVID-19; Z79.01 Long term (current) use of anticoagulants; Z79.890 Hormone replacement therapy; Z79.899 Other long term (current) drug therapy
CPT/HCPCS: 0241U; 36415; 71046; 72148; 76937; 80048; 80069; 80076; 82533; 83735; 83880; 84100; 84484; 84550; 85025; 85027; 85610; 85730; 86704; 86706; 87340; 93005; 93306; 96374; 97110; 97116; 97161; 97530; 99152; 99153; 99285; C1893; J0461; J1650; J1940; J2001; J2250; J3010; J7030; J7040; J7120; Q5106; Q9966

== ENCOUNTER 2023-10-01 20:18 | Emergency (ER) | payer OTHER ==
[2023-10-01] MEDS ORDERED: ONDANSETRON 4 MG/2 ML VIAL ONE (20:51)
[2023-10-01] MEDS ORDERED: NA CHLORIDE 0.9% 500 ML ONE (20:51)
[2023-10-01 21:08] LABS: Absolute Eosinophils 0.2 K/uL (0-0.5); Absolute Lymphocytes (CBC) 0.4 K/uL (0.7-4.9); Absolute Monocytes 0.3 K/uL (0.1-1.3); Absolute Neutrophil 1.8 K/uL (1.8-8.0); Eosinophils % 8.4 % (0-4.4); Hematocrit 36.9 % (36.0-45.0); Hemoglobin 12.1 g/dL (12.0-15.0); Lymphocytes % 13.8 % (15.3-44.8); MCH 33.3 pg (27.0-35.0); MCHC 32.7 g/dL (32.0-36.0); MCV 101.6 fL (80-100); Monocytes % 9.6 % (3.3-12.3); Neutrophils % 67.2 % (41.7-73.7); Nucleated Red Blood Cells % 0.2 % (0-0); Platelets 77 thou/uL (152-406); RBC Red Blood Cell Count 3.64 M/uL (3.86-4.86); Red Cell Distribution Width 16.9 % (12.1-15.2)
[2023-10-01 22:07] LABS: Albumin 2.9 g/dL (3.4-5.0); Albumin/Globulin Ratio 0.7 (1.1-1.8); Anion Gap 11.3 mEq/L (5.0-15.0); Globulin 3.9 g/dL (2.3-3.5); Magnesium 2.1 mg/dL (1.6-2.4); Potassium 3.3 mEq/L (3.5-5.1); Protein, Total 6.8 g/dL (6.4-8.2)
--- NOTE | 2023-10-01 22:21 | RAD REPORT ---
EXAM DESCRIPTION: CT - Abdomen Pelvis Wo Contrast - 10/01/2023 9:22 pm CLINICAL HISTORY: diarrhea, abd pain COMPARISON: [facility] Protocol dated 10/17/2019; CT ABD PELVIS W CONTRAST dated 03/31/2014 TECHNIQUE: Thin cut axial CT imaging of the abdomen and pelvis was performed without IV contrast. Mu ltiplanar reformats were generated and reviewed. All CT scans are performed using dose optimization technique as appropriate and may include automated exposure control or mA/KV adjustment according to patient size. FINDINGS: No suspicious findings in the lung bases. The liver shows a stable subcapsular anterior right lobe 13 mm cyst. Relative hypertrophy of the left liver lobe. Spleen, adrenal glands, and pancreas show no suspicious findings. Gallbladder was surgic ally removed. Atrophic changes of both kidneys, without suspicious parenchymal findings within limits of noncontras t technique. No evidence of radiopaque calculi or hydroureteronephrosis. No dilated bowel loops. Diffuse wall thickening along the stomach and along segments of small bowel. No free air or fluid collections. Moderate volume free ascites. Mild to moderate diffuse body wall ed colleen. No hernia, mass or bulky lymphadenopathy. The urinary bladder is decompressed limiting evaluatio n. No suspicious bony findings. IMPRESSION: Moderate volume free ascites. Diffuse body wall edema. Please correlate for volume overl oad. Relative hypertrophy of the left liver lobe. Please correlate clinically and with liver enzymes for p resence of fibrosis/cirrhosis. Diffuse wall thickening along the stomach and segments of small bowel. This could relate to portal ga stropathy/enteropathy in the setting of portal hypertension. Alternatively, nonspecific infectious/in flammatory enteritis may be present.
[2023-10-01 22:35] LABS: Platelet Estimate DECR; White Blood Cell Scan OK (OK)
[2023-10-01 22:36] LABS: Blood Morphology Comment NOT SEEN (NOT SEEN)
--- NOTE | 2023-10-01 23:14 | ER ---
Nurse's Notes [facility] Name: Chanel Castillo Age: 72 yrs Sex: Female : 1950 Arrival Date: 10/01/2023 Time: 20:18 Bed 14 Private MD: Diagnosis: Nausea and vomiting;Diarrhea Presentation: 09/30 20:30 Chief complaint: EMS states: Diarrhea for seven day has since her PCP over this ha1 condition and was prescribed some medications but medications are not helping. Coronavirus screen: Vaccine status: Patient reports being unvaccinated. Ebola Screen: No symptoms or risks identified at this time. Initial Sepsis Screen: Does the patient meet any 2 criteria? No. Patient's initial sepsis screen is negative. Does the patient have a suspected source of infection? No. Patient's initial sepsis screen is negative. Risk Assessment: Do you want to hurt yourself or someone else? Patient reports no desire to harm self or others. Onset of symptoms was September 24, 2023. 20:30 Method Of Arrival: EMS: [facility] 20:30 Acuity: TYRESE 3 ha1 Triage Assessment: 20:30 General: Appears comfortable, Behavior is calm, cooperative. Pain: Complains of pain in ha1 epigastric area Pain does not radiate. Pain currently is 4 out of 10 on a pain scale. Quality of pain is described as burning, Pain began seven days ago. Neuro: Level of Consciousness is awake, alert, obeys commands, Oriented to person, place, time, situation. Cardiovascular: Capillary refill < 3 seconds Patient's skin is warm and dry. Respiratory: Airway is patent Respiratory effort is even, unlabored, Respiratory pattern is regular, symmetrical. GI: Abdomen is round non-distended, obese, Bowel sounds present X 4 quads. Reports upper abdominal pain, diarrhea, nausea. Derm: Skin is moist, Skin is normal. Musculoskeletal: Circulation, motion, and sensation intact. Range of motion: intact in all extremities. Historical: - Allergies: 20:33 carvedilol; ha1 - PMHx: 20:33 Diabetes - NIDDM; Hyperlipidemia; Hypertension; Hypothyroidism; PULMONARY HYPERTENSION; ha1 dialysis MWF (2022); - PSHx: 20:33 Cholecystectomy; ha1 - Immunization history:: Adult Immunizations up to date. - Infectious Disease History:: Denies. - Social history:: Smoking status: Patient denies any tobacco usage or history of. - Family history:: not pertinent. Screenin:37 [facility] ED Fall Risk Assessment (Adult) History of falling in the last 3 months, ha1 including since admission No falls in past 3 months (0 pts) Confusion or Disorientation No (0 pts) Intoxicated or Sedated No (0 pts) Impaired Gait No (0 pts) Mobility Assist Device Used No (0 pt) Altered Elimination No (0 pt) Score/Fall Risk Level 0 - 2 = Low Risk Oriented to surroundings, Maintained a safe environment, Educated pt \T\ family on fall prevention, incl call for assistance when getting out of bed, Hourly rounding (assess needs \T\ fall precautionary measures) done. Abuse screen: Denies threats or abuse. Denies injuries from another. Nutritional screening: No deficits noted. Tuberculosis screening: No symptoms or risk factors identified. Assessment: 20:30 Reassessment: see triage assessment. ha1 21:30 Reassessment: Patient and/or family updated on plan of care and expected duration. Pain ha1 level reassessed. Patient is alert, oriented x 3, equal unlabored respirations, skin warm/dry/pink. Patient states feeling better. Patient states symptoms have improved. 22:30 Reassessment: Patient and/or family updated on plan of care and expected duration. Pain ha1 level reassessed. Patient is alert, oriented x 3, equal unlabored respirations, skin warm/dry/pink. 23:33 Reassessment: Patient and/or family updated on plan of care and expected duration. Pain ha1 level reassessed. Patient is alert, oriented x 3, equal unlabored respirations, skin warm/dry/pink. Patient denies pain at this time. Patient states feeling better. Patient states symptoms have improved. Vital Signs: 20:30 BP 133 / 63; Pulse 78; Resp 17 S; Temp 97.2(T); Pulse Ox 98% on R/A; Weight 74.84 kg; ha1 Height 5 ft. 4 in. ; 21:13 Pulse Ox 80% on R/A; ty 21:14 Pulse Ox 92% on 2 lpm NC; ty 22:00 BP 132 / 62; Pulse 79; Resp 17 S; Pulse Ox 99% on R/A; ha1 23:00 BP 140 / 69; Pulse 78; Resp 17 S; Temp 97(T); Pulse Ox 98% on R/A; ha1 20:30 Body Mass Index 28.32 (74.84 kg, 162.56 cm) ha1 ED Course: 20:23 Patient arrived in ED. [id number] 20:28 Dave Mcdermott MD is Attending Physician. rt 20:30 Jannette Stokes, JAVIER is Primary Nurse. ha1 20:30 Patient has correct armband on for positive identification. Placed in gown. Bed in low ha1 position. Call light in reach. Side rails up X 1. 20:30 Arm band placed on right wrist. ha1 20:33 Triage completed. ha1 20:37 Maintain EMS IV. Dressing intact. Good blood return noted. Site clean \T\ dry. Gauge \T\ quick 1 site: 20 g LFA. Flushed with 10 mL NS. 21:11 Pulse ox on. O2 sat reading at 80% patient placed on nasal cannula 2l for patient ty comfort. 21:24 CT Abd/Pelvis - Without Contrast In Process Unspecified. EDMS 23:34 IV discontinued, intact, bleeding controlled, No redness/swelling at site. Pressure ha1 dressing applied. 23:34 No provider procedures requiring assistance completed. ha1 23:35 Provided Education on: medication administration and follow up with PCP. ha1 Administered Medications: 20:55 Drug: NS 0.9% IV 500 ml IV at 1 bolus Per protocol; 1000 mL bolus Route: IV; Rate: 1 ha1 bolus; Site: left forearm; 23:39 Follow up: Response: No adverse reaction; IV Status: Completed infusion; IV Intake: ha1 500ml 20:55 Drug: Ondansetron IVP 4 mg IVP once; over 2 minutes Route: IVP; Site: left forearm; ha1 21:20 Follow up: Response: No adverse reaction; Marked relief of symptoms; Nausea is decreasedha1 Medication: 23:35 VIS not applicable for this client. ha1 Intake: 23:39 IV: 500ml; Total: 500ml. ha1 Outcome: 23:14 Discharge ordered by . rt 23:34 Discharged to home via wheelchair, with family, ha1 23:34 Condition: stable 23:34 Discharge instructions given to patient, Instructed on discharge instructions, follow up and referral plans. medication usage, Demonstrated understanding of instructions, follow-up care, medications, Prescriptions given X 3, 23:39 Patient left the ED. ha1 Signatures: Dispatcher [employer] EDMS Mari Webb [id number] Jannette Stokes RN RN ha1 Dave Mcdermott MD MD rt Esau Vicente
--- NOTE | 2023-10-01 23:14 | EDPHYS ---
Physician Documentation [facility] Name: Chanel Castillo Age: 72 yrs Sex: Female : 1950 Arrival Date: 10/01/2023 Time: 20:18 Bed 14 Private MD: ED Physician Dave Mcdermott HPI: 10/01 04:40 This 72 yrs old Female presents to ER via EMS with complaints of Diarrhea. rt 04:40 Patient presents to the ED with diarrhea for about a week. Reports nausea without rt vomiting. Reports mild abdominal cramping. Denies other acute complaints at this time, symptoms are moderate in severity, no other aggravating alleviating factors.. Historical: - Allergies: 09/30 20:33 carvedilol; ha1 - PMHx: 20:33 Diabetes - NIDDM; Hyperlipidemia; Hypertension; Hypothyroidism; PULMONARY HYPERTENSION; ha1 dialysis MWF (2022); - PSHx: 20:33 Cholecystectomy; ha1 - Immunization history:: Adult Immunizations up to date. - Infectious Disease History:: Denies. - Social history:: Smoking status: Patient denies any tobacco usage or history of. - Family history:: not pertinent. ROS: 10/01 04:40 Constitutional: Negative for fever, chills, and weight loss, Cardiovascular: Negative rt for chest pain, palpitations, and edema, Respiratory: Negative for shortness of breath, cough, wheezing, and pleuritic chest pain, MS/Extremity: Negative for injury and deformity, Skin: Negative for injury, rash, and discoloration, Neuro: Negative for headache, weakness, numbness, tingling, and seizure, Abdomen/GI: Positive for nausea, diarrhea, Exam: 04:40 Constitutional: This is a well developed, well nourished patient who is awake, alert, rt and in no acute distress. Head/Face: Normocephalic, atraumatic. Chest/axilla: Normal chest wall appearance and motion. Nontender with no deformity. No lesions are appreciated. Cardiovascular: Regular rate and rhythm with a normal S1 and S2. No gallops, murmurs, or rubs. Normal PMI, no JVD. No pulse deficits. Respiratory: Lungs have equal breath sounds bilaterally, clear to auscultation and percussion. No rales, rhonchi or wheezes noted. No increased work of breathing, no retractions or nasal flaring. Abdomen/GI: Soft, non-tender, with normal bowel sounds. No distension or tympany. No guarding or rebound. No evidence of tenderness throughout. Skin: Warm, dry with normal turgor. Normal color with no rashes, no lesions, and no evidence of cellulitis. MS/ Extremity: Pulses equal, no cyanosis. Neurovascular intact. Full, normal range of motion. Neuro: Awake and alert, GCS 15, oriented to person, place, time, and situation. Cranial nerves II-XII grossly intact. Motor strength 5/5 in all extremities. Sensory grossly intact. Cerebellar exam normal. Normal gait. Vital Signs: 09/30 20:30 BP 133 / 63; Pulse 78; Resp 17 S; Temp 97.2(T); Pulse Ox 98% on R/A; Weight 74.84 kg; ha1 Height 5 ft. 4 in. ; 21:13 Pulse Ox 80% on R/A; ty 21:14 Pulse Ox 92% on 2 lpm NC; ty 22:00 BP 132 / 62; Pulse 79; Resp 17 S; Pulse Ox 99% on R/A; ha1 23:00 BP 140 / 69; Pulse 78; Resp 17 S; Temp 97(T); Pulse Ox 98% on R/A; ha1 20:30 Body Mass Index 28.32 (74.84 kg, 162.56 cm) ha1 MDM: 20:29 Patient medically screened. rt 10/01 04:40 Differential diagnosis: Gastroenteritis, colitis. Data reviewed: vital signs, nurses rt notes, lab test result(s), radiologic studies. Consideration of Admission/Observation Escalation of care including admission/observation considered. Stable vital signs, benign abdominal examination, unremarkable CT, patient stable for outpatient care.. I considered the following discharge prescriptions or medication management in the emergency department Medications were administered in the Emergency Department. See MAR. Independent interpretation of the following test(s) in the Emergency Department CT Scan: My interpretation is No bowel obstruction syndrome interpretation of CT scan images. Care significantly affected by the following chronic conditions: Diabetes. Counseling: I had a detailed discussion with the patient and/or guardian regarding the historical points, exam findings, and any diagnostic results supporting the discharge/admit diagnosis, lab results, radiology results, the need for outpatient follow up, to return to the emergency department if symptoms worsen or persist or if there are any questions or concerns that arise at home. Response to treatment: the patient's symptoms have markedly improved after treatment. 09/30 20:37 Order name: CBC with Diff; Complete Time: 22:47 rt 09/30 20:37 Order name: CMP; Complete Time: 22:08 rt 09/30 20:37 Order name: Lipase; Complete Time: 22:08 rt 09/30 20:37 Order name: Magnesium; Complete Time: 22:08 rt 09/30 22:36 Order name: CBC Smear Scan; Complete Time: 22:47 EDMS 09/30 20:37 Order name: CT Abd/Pelvis - Without Contrast; Complete Time: 22:21 rt 09/30 20:37 Order name: IV Saline Lock; Complete Time: 20:38 rt 09/30 20:37 Order name: Labs collected and sent; Complete Time: 20:38 rt Administered Medications: 09/30 20:55 Drug: NS 0.9% IV 500 ml IV at 1 bolus Per protocol; 1000 mL bolus Route: IV; Rate: 1 ha1 bolus; Site: left forearm; 23:39 Follow up: Response: No adverse reaction; IV Status: Completed infusion; IV Intake: ha1 500ml 20:55 Drug: Ondansetron IVP 4 mg IVP once; over 2 minutes Route: IVP; Site: left forearm; ha1 21:20 Follow up: Response: No adverse reaction; Marked relief of symptoms; Nausea is decreasedha1 Disposition Summary: 10/01/23 23:14 Discharge Ordered Notes: Location: Home rt Problem: new rt Symptoms: have improved rt Condition: Stable rt Diagnosis - Nausea and vomiting rt - Diarrhea rt Followup: rt - With: Private Physician - When: 2 - 3 days - Reason: Discharge Instructions: - Discharge Summary Sheet rt - Diarrhea, Adult rt - Nausea and Vomiting, Adult rt Forms: - Medication Reconciliation Form rt - Antibiotic Education rt - Prescription Opioid Use rt - Patient Portal Instructions rt - Leadership Thank You Letter rt Prescriptions: - ondansetron 4 mg Oral Tablet,disintegrating - take 1 tablet ORAL route every 6 hours as needed for nausea; 18 tablet; rt Refills: 0, Product Selection Permitted - Flagyl 500 mg Oral tablet - take 1 tablet ORAL route every 8 hours for 7 days; 21 tablet; Refills: 0, rt Product Selection Permitted - dicyclomine 10 mg Oral capsule - take 1 capsule ORAL route 3 times per day as needed for pain; 18 capsule; rt Refills: 0, Product Selection Permitted Signatures: Dispatcher [employer] Jannette Ruffin RN RN ha1 Dave Mcdermott MD MD rt Corrections: (The following items were deleted from the chart) 20:37 20:37 CBC+H.LAB.BRZ ordered. EDMS EDMS 20:37 20:37 COMPREHENSIVE METABOLIC PANEL+C.LAB.BRZ ordered. EDMS EDMS 20:37 20:37 LIPASE+C.LAB.BRZ ordered. EDMS EDMS 20:37 20:37 MAGNESIUM+C.LAB.BRZ ordered. EDMS EDMS
[2023-10-02 01:04] VITALS: BP 140/69; TEMP 97; O2SAT 98
== END 2023-10-01 23:39 | disposition home or self-care (01) ==
LOC: ER 20:18
DX: R11.2 Nausea with vomiting, unspecified (principal); R19.7 Diarrhea, unspecified; E11.9 Type 2 diabetes mellitus without complications; I10 Essential (primary) hypertension
CPT/HCPCS: 96361; 85025; 36415; 83735; 83690; 80053; 74176; 96374; 99284; J2405; J7040

== ENCOUNTER 2023-11-06 12:19 | Inpatient (IN) | payer OTHER ==
[2023-11-06 13:05] LABS: Absolute Lymphocytes (CBC) 0.4 K/uL (0.7-4.9); Absolute Monocytes 0.3 K/uL (0.1-1.3); Absolute Neutrophil 2.1 K/uL (1.8-8.0); Basophils % 0.8 % (0-1.3); Eosinophils % 1.5 % (0-4.4); Hematocrit 34.2 % (36.0-45.0); Hemoglobin 11.3 g/dL (12.0-15.0); Lymphocytes % 13.3 % (15.3-44.8); MCHC 33.1 g/dL (32.0-36.0); MCV 99.6 fL (80-100); MPV 8.1 fL (7.6-11.3); Monocytes % 11.5 % (3.3-12.3); Neutrophils % 72.9 % (41.7-73.7); Nucleated Red Blood Cells % 0.1 % (0-0); PT Prothrombin Time 11.5 SECONDS (9.4-12.5); Platelets 61 thou/uL (152-406); Protime INR 1.03; RBC Red Blood Cell Count 3.43 M/uL (3.86-4.86); Red Cell Distribution Width 18.7 % (12.1-15.2)
[2023-11-06 13:24] LABS: AST/SGOT 13 U/L (15-37); Albumin 1.7 g/dL (3.4-5.0); Albumin/Globulin Ratio 0.4 (1.1-1.8); Alkaline Phosphatase 71 U/L (45-117); Anion Gap 8.8 mEq/L (5.0-15.0); BUN Blood Urea Nitrogen 18 mg/dL (7-18); Bicarbonate 24 mEq/L (21-32); Bilirubin Direct 0.3 mg/dL (0-0.2); Bilirubin Indirect, Calculated 0.5 mg/dL (0.2-0.8); Bilirubin Total 0.8 mg/dL (0.2-1.0); Globulin 4.6 g/dL (2.3-3.5); Glomerular Filtration Rate 10 ml/min (=/>90); Glucose Level 58 mg/dL (74-106); Magnesium 1.7 mg/dL (1.6-2.4); Potassium 2.8 mEq/L (3.5-5.1); Protein, Total 6.3 g/dL (6.4-8.2); Sodium Level 132 mEq/L (136-145); Troponin High Sensitivity 48.8 pg/mL (<58.9)
[2023-11-06 13:25] LABS: ALT/SGPT < 14 U/L (13-56)
[2023-11-06 13:53] LABS: Blood Morphology Comment NOT SEEN (NOT SEEN); Platelet Estimate DECR; White Blood Cell Scan OK (OK)
--- NOTE | 2023-11-06 14:24 | RAD REPORT ---
EXAM: CT brain without contrast HISTORY: Weakness. Confusion COMPARISON: 2014 TECHNIQUE: Multiple contiguous axial images were obtained and a CT of the brain without contrast. Sagittal and coronal reformats were performed. Automated exposure control, adjustment of the mA and/or kV according to patient size, and/or itera tive reconstruction. Unless otherwise specified, incidental findings do not require dedicated imaging follow-u FINDINGS: An intracranial bleed is not seen Ventricles are normal caliber No extra-axial fluid collection noted No significant hypodensity within the brain No fluid within the visualized sinuses or mastoids noted. IMPRESSION: No acute intracranial abnormality noted. If the patient's symptoms persist MRI of the brain would be recommended.
--- NOTE | 2023-11-06 14:33 | RAD REPORT ---
EXAMINATION: CT ABDOMEN AND PELVIS WITHOUT CONTRAST CLINICAL INDICATION: Abdominal pain. Vomiting TECHNIQUE: CT abdomen and pelvis was performed, as per department protocol. IV contrast and oral was not administered.Axial, sagittal and coronal reconstructions were obtained. One or more of the following dose reduction techniques were used: Automated exposure control, adjustment of the mA and/o r kV according to the patient size, and/or iterative reconstruction. Unless otherwise specified, incidental findings do not require dedicated imaging follow-up. [id number]. COMPARISON: September 2023 FINDINGS: The lack of intravenous and contrast limits the sensitivity of this exam for evaluation of solid visc eral organs, vascular structures, and bowel. Small right pleural effusion. Mild right lower lobe opacities. Mildly cirrhotic liver. Small hepatic cyst. Cholecystectomy. Spleen measures 13 cm. Kidneys mildly diminished in size. No hydronephrosis. Pancreas and adrenals grossly normal. No evidence of diverticulitis. No adnexal mass Moderate to large amount ascites. Diffuse edema within the subcutaneous Ankylosing spondylitis SI joints IMPRESSION: Cirrhosis with mild splenomegaly Mild right lower lobe opacities may represent atelectasis or pneumonia Moderate to large amount of ascites
--- NOTE | 2023-11-06 14:35 | RAD REPORT ---
Procedure: Chest Single View History: Shortness of breath Comparison: March 2023 Small right pleural effusion. Mild right basilar lung opacities. The heart is mildly enlarged. Central venous catheter in place IMPRESSION: Mild right basilar lung opacities may represent atelectasis or pneumonia Small right pleural effusion.
[2023-11-06] MEDS ORDERED: POTASSIUM 25 MEQ EFFERV TAB ONE (14:48)
[2023-11-06] MEDS ORDERED: D10W 250 ML IV ONE (14:49)
--- NOTE | 2023-11-06 16:59 | EDPHYS ---
Physician Documentation [facility] Name: Chanel Castillo Age: 72 yrs Sex: Female : 1950 Arrival Date: 11/06/2023 Time: 12:19 Bed 3 Private MD: ED Physician Gianni Jerez HPI: 11/05 12:40 This 72 yrs old Female presents to ER via EMS with complaints of General cp Weakness. 12:40 The patient's problem is reported as weakness, that is generalized, low blood pressure. cp 12:40 Onset: The symptoms/episode began/occurred today, while at dialysis. Duration: This was cp a single incident. Associated signs and symptoms: Pertinent positives: abdominal tenderness, Pertinent negatives: fever, chest pain. Patient's baseline: Neuro: alert and fully oriented, Motor: no deficits, Ambulation: walks with assist only, uses walker, Speech: normal. Historical: - Allergies: 12:25 carvedilol; db - PMHx: 12:25 Diabetes - NIDDM; DIALYSIS MWF (2022); Hyperlipidemia; Hypertension; Hypothyroidism; db PULMONARY HYPERTENSION; - PSHx: 12:25 Cholecystectomy; db - Immunization history:: Adult Immunizations unknown. - Infectious Disease History:: Denies. - Social history:: Smoking status: Patient denies any tobacco usage or history of. ROS: 12:45 Constitutional: Positive for poor PO intake, Negative for fever, cp 12:45 Eyes: Negative for injury, pain, redness, and discharge, cp 12:45 ENT: Negative for drainage from ear(s), ear pain, sore throat, difficulty swallowing, difficulty handling secretions, 12:45 Cardiovascular: Negative for chest pain, 12:45 Respiratory: Negative for cough, shortness of breath, wheezing, 12:45 Abdomen/GI: Positive for abdominal pain, Negative for vomiting, diarrhea, constipation, 12:45 Neuro: Positive for weakness, Negative for altered mental status, headache, speech changes, syncope, 12:45 All other systems are negative, Exam: 12:50 Constitutional: The patient appears in no acute distress, alert, awake, cp non-diaphoretic, non-toxic, well developed, well nourished, 12:50 Head/Face: Normocephalic, atraumatic. cp 12:50 Eyes: Periorbital structures: appear normal, Pupils: equal, round, and reactive to light and accomodation, Extraocular movements: intact throughout, Conjunctiva: normal, no exudate, no injection, Sclera: no appreciated abnormality, Lids and lashes: appear normal, bilaterally, 12:50 ENT: External ear(s): are unremarkable, Nose: is normal, Mouth: Lips: moist, Oral mucosa: pink and intact, moist, Posterior pharynx: is normal, airway is patent, no erythema, no exudate, 12:50 Chest/axilla: Inspection: normal, 12:50 Cardiovascular: Rate: normal, Rhythm: regular, 12:50 Respiratory: the patient does not display signs of respiratory distress, Respirations: normal, no use of accessory muscles, no retractions, labored breathing, is not present, Breath sounds: are clear throughout, no decreased breath sounds, no stridor, no wheezing, 12:50 Abdomen/GI: Inspection: abdomen appears normal, Bowel sounds: active, all quadrants, Palpation: soft, in all quadrants, mild abdominal tenderness, in the left upper quadrant, 12:50 Back: CVA tenderness, is absent, 12:50 Neuro: Orientation: to person, place \T\ time. Mentation: is normal, Motor: moves all fours, no focal deficits, Sensation: is normal, Vital Signs: 12:25 BP 103 / 54; Pulse 83; Resp 16; Temp 97.7(O); Pulse Ox 100% ; Weight 85.28 kg; Height 5 db ft. 3 in. ; 13:14 BP 104 / 58 Sitting; Pulse 80; db 13:15 BP 100 / 54 Supine; Pulse 77; db 13:20 BP 103 / 61 Standing; Pulse 85; db 13:30 BP 94 / 58; Pulse 82; Resp 16; Pulse Ox 100% on NC; db 14:46 BP 112 / 50; Pulse 82; Resp 16; Pulse Ox 100% on NC; db 15:30 BP 99 / 53; Pulse 79; Resp 18; Pulse Ox 97% on NC; db 17:30 BP 90 / 55; Pulse 88; Resp 18; Pulse Ox 100% on 2 lpm NC; db 18:00 BP 104 / 61; Pulse 89; Resp 18; Pulse Ox 100% on 2 lpm NC; db 12:25 Body Mass Index 33.30 (85.28 kg, 160.02 cm) db MDM: 12:30 Patient medically screened. rn 17:00 Data reviewed: vital signs, nurses notes, lab test result(s), EKG, radiologic studies, cp and as a result, I will admit patient. 11/05 12:33 Order name: Basic Metabolic Panel; Complete Time: 13:55 11/05 13:56 Interpretation: Normal except: NA 132; K 2.8; GLUC 58; CRE 4.32; GFR 10; CA 7.8. 11/05 12:33 Order name: CBC with Diff; Complete Time: 13:55 11/05 13:13 Interpretation: Normal except: WBC 2.90; RBC 3.43; HGB 11.3; HCT 34.2; PLT 61; RDW cp 18.7; LYM% 13.3; LYMA 0.4. 11/05 12:33 Order name: LFT's; Complete Time: 13:55 11/05 14:41 Interpretation: Normal except: AST 13; BILID 0.3; TP 6.3; ALB 1.7; GLOB 4.6; A/G 0.4. 11/05 12:33 Order name: Magnesium; Complete Time: 13:55 11/05 12:33 Order name: PT-INR; Complete Time: 13:12 11/05 12:33 Order name: Troponin HS; Complete Time: 13:55 11/05 15:44 Interpretation: Reviewed. 11/05 13:09 Order name: CBC Smear Scan; Complete Time: 13:55 EDWI 11/05 16:44 Order name: Glucose, Ancillary Testing; Complete Time: 16:48 EDWI 11/05 16:56 Order name: Blood Culture Adult (2) 11/05 16:56 Order name: Lactate w/ 2H reflex if indic. 11/05 12:33 Order name: XRAY Chest (1 view); Complete Time: 14:40 11/05 14:05 Order name: CT Head Brain wo Cont; Complete Time: 14:33 11/05 14:05 Order name: CT Abd/Pelvis - Without Contrast; Complete Time: 14:40 11/05 17:22 Order name: ERT ORTHOSTATIC V/S EDWI 11/05 17:22 Order name: ERT ORTHOSTATIC V/S EDWI 11/05 12:33 Order name: EKG; Complete Time: 12:33 cp 11/05 17:17 Order name: CONS Physician Consult EDMS 11/05 12:33 Order name: Cardiac monitoring; Complete Time: 13:06 cp 11/05 12:33 Order name: EKG - Nurse/Tech; Complete Time: 13:06 cp 11/05 12:33 Order name: IV Saline Lock; Complete Time: 12:58 cp 11/05 12:33 Order name: Labs collected and sent; Complete Time: 12:58 cp 11/05 12:33 Order name: O2 Per Protocol; Complete Time: 12:58 cp 11/05 12:33 Order name: O2 Sat Monitoring; Complete Time: 12:58 cp 11/05 12:33 Order name: Orthostatics; Complete Time: 13:28 cp 11/05 17:56 Order name: Misc. Order: recollect lactate; Complete Time: 18:08 bp Administered Medications: 14:50 Drug: D10 in Water IVP 250 ml IVP once Route: IVP; Site: right hand; aa5 17:25 Follow up: Response: No adverse reaction; Blood sugar is elevated db 14:50 Drug: Potassium PO Effervescent Tablet 25 mEq PO once; dissolve in 4 ounces of water or aa5 juice Route: PO; 17:25 Follow up: Response: No adverse reaction db 17:49 Drug: Rocephin IV 1 grams IV at calculated rate once; Given slow IV push per pharmacy db instructions Route: IV; Rate: calculated rate; Site: right hand; 19:43 Follow up: Response: No adverse reaction; IV Status: Completed infusion bm8 17:57 Drug: Zithromax IVPB 500 mg IVPB once over 1 hrs; mix in 250 mL NS Route: IVPB; Infused db Over: 1 hrs; Site: right antecubital; 19:43 Follow up: Response: No adverse reaction; IV Status: Completed infusion bm8 Point of Care Testing: Blood Glucose: 16:32 Blood Glucose: 117 mg/dL; db Ranges: Critical Glucose Levels:Adult <50 mg/dl or >400 mg/dl <40 mg/dl or >180 mg/dl Disposition: 11/06 19:44 Chart complete. cp Disposition Summary: 11/06/23 16:59 Hospitalization Ordered Notes: Hospitalization Status: Inpatient Admission cp Provider: Iwueke, Izuchukwu cp Location: Telemetry/MedSurg (Inpatient) cp Condition: Stable cp Problem: new cp Symptoms: have improved cp Bed/Room Type: Standard cp Room Assignment: 211(11/06/23 17:19) bd Diagnosis - Pneumonia, unspecified organism cp - Hypokalemia cp - Weakness cp Forms: - Medication Reconciliation Form cp - SBAR form cp - Leadership Thank You Letter cp Addendum: 11/08/2023 17:06 Co-signature as Attending Physician, Gianni Jerez MD I reviewed the patient's care r n provided by the Advanced Practice Provider and agree with the diagnosis and treatment plan. Signatures: Dispatcher [employer] EDMS Mona Sky Roman, MD MD rn Calderon, Audri RN RN aa5 Edson Haddad PA PA cp Peltier, Brian, RN RN bp Theresa Curry RN RN db Panchito Glover RN bm8 Corrections: (The following items were deleted from the chart) 11/05 17:19 16:59 cp bd
--- NOTE | 2023-11-06 16:59 | ER ---
Nurse's Notes [facility] Name: Chanel Castillo Age: 72 yrs Sex: Female : 1950 Arrival Date: 11/06/2023 Time: 12:19 Bed 3 Private MD: Diagnosis: Pneumonia, unspecified organism;Hypokalemia;Weakness Presentation: 11/05 12:25 Chief complaint: EMS states: PICKED UP FROM DIALYSIS DUE TO WEAKNESS AND LOW BP 87/49. db UPON EMS ARRIVAL BP 108/60. PT REPORTS DECREASED APPETITE AND FEELING INCREASINGLY WEAKER. UNABLE TO TOLERATE SOLIDS ONLY ENSURE. DIALYSIS PORT RIGHT CHEST PERMACATH. Coronavirus screen: Client denies travel out of the [place] in the last 14 days. At this time, the client does not indicate any symptoms associated with coronavirus-19. Ebola Screen: Patient negative for fever greater than or equal to 101.5 degrees Fahrenheit, and additional compatible Ebola Virus Disease symptoms Patient denies exposure to infectious person. Patient denies travel to an Ebola-affected area in the 21 days before illness onset. No symptoms or risks identified at this time. Initial Sepsis Screen: Does the patient meet any 2 criteria? No. Patient's initial sepsis screen is negative. Does the patient have a suspected source of infection? No. Patient's initial sepsis screen is negative. Risk Assessment: Do you want to hurt yourself or someone else? Patient reports no desire to harm self or others. Onset of symptoms was November 06, 2023. Care prior to arrival: Glucose check: 120. 12:25 Method Of Arrival: EMS: [facility] db 12:25 Acuity: TYRESE 3 db Triage Assessment: 12:25 General: Appears in no apparent distress. uncomfortable, Behavior is calm, cooperative, db appropriate for age. Pain: Complains of pain in abdomen. Neuro: Level of Consciousness is awake, alert, obeys commands, Oriented to person, place, time, situation. Respiratory: Airway is patent Respiratory effort is even, unlabored, Respiratory pattern is regular, symmetrical. GI: Abdomen is distended, DIALYSIS Reports upper abdominal pain. Historical: - Allergies: 12:25 carvedilol; db - PMHx: 12:25 Diabetes - NIDDM; DIALYSIS MWF (2022); Hyperlipidemia; Hypertension; Hypothyroidism; db PULMONARY HYPERTENSION; - PSHx: 12:25 Cholecystectomy; db - Immunization history:: Adult Immunizations unknown. - Infectious Disease History:: Denies. - Social history:: Smoking status: Patient denies any tobacco usage or history of. Screenin:30 [facility] ED Fall Risk Assessment (Adult) History of falling in the last 3 months, db including since admission Yes- fall prone (multiple falls) (3 pts) Confusion or Disorientation No (0 pts) Intoxicated or Sedated No (0 pts) Impaired Gait Yes (1 pt) Mobility Assist Device Used Yes (1 pt) Altered Elimination No (0 pt) Score/Fall Risk Level 3 or more points = High Risk Oriented to surroundings, Maintained a safe environment, Hourly rounding (assess needs \T\ fall precautionary measures) done. Abuse screen: Denies threats or abuse. Denies injuries from another. Nutritional screening: No deficits noted. Tuberculosis screening: No symptoms or risk factors identified. Assessment: 13:29 Reassessment: Patient appears in no apparent distress at this time. Patient and/or db family updated on plan of care and expected duration. Pain level reassessed. Patient is alert, oriented x 3, equal unlabored respirations, skin warm/dry/pink. General: Appears in no apparent distress. comfortable, Behavior is calm, cooperative. Neuro: Level of Consciousness is awake, alert, obeys commands, Oriented to person, place, time, situation. Respiratory: Airway is patent Respiratory effort is even, unlabored, Respiratory pattern is regular, symmetrical. 13:30 : Reports NO LONGER MAKES URINE. db 16:27 Reassessment: Patient appears in no apparent distress at this time. Patient and/or db family updated on plan of care and expected duration. Pain level reassessed. Patient is alert, oriented x 3, equal unlabored respirations, skin warm/dry/pink. Vital Signs: 12:25 BP 103 / 54; Pulse 83; Resp 16; Temp 97.7(O); Pulse Ox 100% ; Weight 85.28 kg; Height 5 db ft. 3 in. ; 13:14 BP 104 / 58 Sitting; Pulse 80; db 13:15 BP 100 / 54 Supine; Pulse 77; db 13:20 BP 103 / 61 Standing; Pulse 85; db 13:30 BP 94 / 58; Pulse 82; Resp 16; Pulse Ox 100% on NC; db 14:46 BP 112 / 50; Pulse 82; Resp 16; Pulse Ox 100% on NC; db 15:30 BP 99 / 53; Pulse 79; Resp 18; Pulse Ox 97% on NC; db 17:30 BP 90 / 55; Pulse 88; Resp 18; Pulse Ox 100% on 2 lpm NC; db 18:00 BP 104 / 61; Pulse 89; Resp 18; Pulse Ox 100% on 2 lpm NC; db 12:25 Body Mass Index 33.30 (85.28 kg, 160.02 cm) db ED Course: 12:23 Patient arrived in ED. iw 12:25 Arm band placed on Patient placed in an exam room. db 12:29 Gianni Jerez MD is Attending Physician. rn 12:31 Edson Haddad PA is PHCP. rn 12:33 Theresa Curry, JAVIER is Primary Nurse. db 12:37 Triage completed. db 12:55 Initial lab(s) drawn, by me, sent to lab. Inserted saline lock: 22 gauge in right hand, aa5 using aseptic technique. Blood collected. Flushed with 10 mL NS. 13:02 EKG done, by ED staff, reviewed by Edson LATHAM. aa5 13:30 Patient has correct armband on for positive identification. Bed in low position. Call db light in reach. Side rails up X 1. Client placed on continuous cardiac and pulse oximetry monitoring. NIBP monitoring applied. gun welder on. Pulse ox on. NIBP on. Warm blanket given. Head of bed elevated. 13:38 XRAY Chest (1 view) In Process Unspecified. EDMS 14:19 CT Head Brain wo Cont In Process Unspecified. EDMS 14:21 CT Abd/Pelvis - Without Contrast In Process Unspecified. EDMS 16:58 Huey Shane MD is Hospitalizing Provider. cp 17:48 Initial lab(s) drawn, by me, sent to lab. Second set of blood cultures drawn by me. db Inserted saline lock: 22 gauge in right antecubital area, using aseptic technique. Blood collected. Flushed with 10 mL NS. 18:10 1737 CM met with Ekaterina at the bedside in the ED exam room. Patient identified by ane name and . Demographic sheet confirmed, and additional information sent to appropriate personnel. Patient states she in lives with her son in a single story home. She reports that prior to admission she performs ADLs independently with use of walker and home oxygen on 2L at all times. Patient has an oxygen concentrator through [facility] and is inquiring about the possibility of a portable concentrator. She states she had a portable oxygen delivery system but it became too heavy with the oxygen tanks. Other DME in the home includes 2 shower chairs. No MPOA in place.Ms. Castillo also stated that awhile back she was supposed to be getting meals delivered, but does not recall through who and never heard back from the organization. Patient receives dialysis through [facility] on Mondays, Wednesdays and Fridays. plans on returning home with her son Silverio Galeas, upon discharge and states he will be available to transport her home after 4 pm on most days. Silverio's phone number is as follows: [phone]. CM team will continue to follow and coordinate care during this hospital stay. 19:44 Provided Education on: need for admission. bm8 19:44 No provider procedures requiring assistance completed. Patient admitted, IV remains in bm8 place. Administered Medications: 14:50 Drug: D10 in Water IVP 250 ml IVP once Route: IVP; Site: right hand; aa5 17:25 Follow up: Response: No adverse reaction; Blood sugar is elevated db 14:50 Drug: Potassium PO Effervescent Tablet 25 mEq PO once; dissolve in 4 ounces of water or aa5 juice Route: PO; 17:25 Follow up: Response: No adverse reaction db 17:49 Drug: Rocephin IV 1 grams IV at calculated rate once; Given slow IV push per pharmacy db instructions Route: IV; Rate: calculated rate; Site: right hand; 19:43 Follow up: Response: No adverse reaction; IV Status: Completed infusion bm8 17:57 Drug: Zithromax IVPB 500 mg IVPB once over 1 hrs; mix in 250 mL NS Route: IVPB; Infused db Over: 1 hrs; Site: right antecubital; 19:43 Follow up: Response: No adverse reaction; IV Status: Completed infusion bm8 Medication: 19:44 VIS not applicable for this client. bm8 Point of Care Testing: Blood Glucose: 16:32 Blood Glucose: 117 mg/dL; db Ranges: Outcome: 16:59 Decision to Hospitalize by Provider. cp 19:43 Admitted to Med/surg accompanied by nurse, via stretcher, room 211, bm8 19:43 Condition: stable 19:43 Instructed on the need for admit, Demonstrated understanding of instructions, follow-up care, 19:44 Patient left the ED. bm8 Signatures: Dispatcher [employer] EDTahira Kumar, RN RN Gianni Barrett MD MD rn Calderon, Audri RN RN aa5 Edson Haddad PA PA cp Theresa Curry RN RN db McDonald, Brad, RN RN bm8 Brooke Rodriguez RN RN ane Corrections: (The following items were deleted from the chart) 19:19 15:30 BP 99 / 53; Pulse 79bpm; Resp 18bpm; Pulse Ox 97% RA; db db 19:19 14:46 BP 112 / 50; Pulse 82bpm; Resp 16bpm; Pulse Ox 100% RA; db db 19:19 13:30 BP 94 / 58; Pulse 82bpm; Resp 16bpm; Pulse Ox 100% RA; db db 19:19 18:00 BP 104 / 61; Pulse 89bpm; Resp 18bpm; Pulse Ox 100% RA; db db 19:19 17:30 BP 90 / 55; Pulse 88bpm; Resp 18bpm; Pulse Ox 100% RA; db db
--- NOTE | 2023-11-06 17:13 | P.HP ---
Certification for Inpatient Patient admitted to: Observation With expected LOS: <2 Midnights <Vanessa Camarillo - Last Filed: 11/06/23 18:04> Patient History Date of Service: 11/06/23 Reason for admission: End-stage renal disease, hypotension after dialysis History of Present Illness: 72-year-old femalewith medical history significant for hypertension, hyperlipidemia, diabetes type 2, hypothyroidism was evaluated for episode of hypotension, she reports missing dialysis today due to hypotension. She reported symptoms started after dialysis. ER evaluation shows hypokalemia, hypotension, chest x-ray shows pneumonia, no reported chest pain, nausea vomiting diarrhea, fever. Plan to admit for hypotension, hypokalemia, hypotension after dialysis, acute hypoxic respiratory failure secondary to pneumonia, with nephrology to consult. - Past Medical/Surgical History Diabetic: Yes -: DM -: Hypothyroidism -: OA -: Diastolic CHF -: Pulmonary HTN -: CKD IV (Dr. Rowland/ Dr. Maria) -: HTN -: appy, kerwin, l breast biopsy, tumor removed l calf - Social History Alcohol use: No CD- Drugs: No Caffeine use: Yes <Vanessa Camarillo - Last Filed: 11/06/23 18:04> Date of Service: 11/06/23 <Huey Shane - Last Filed: 11/06/23 21:53> Allergies No Known Drug Allergies Allergy (Verified 04/26/22 13:47) Unknown Home Medications: Levothyroxine [Synthroid*] 150 mcg PO [id number] 03/31/14 Loratadine [Claritin*] 10 mg PO DAILY PRN 03/31/14 Ferrous Sulfate [Iron] 325 mg PO DAILY 06/16/16 Rosuvastatin [Crestor*] 10 mg PO BEDTIME 06/16/16 Vitamin B Complex [B Complex] 1 each PO DAILY 06/16/16 Apixaban [Eliquis] 5 mg PO BID 15 Days #30 tablet 11/06/20 Ascorbic Acid [Vitamin C*] 500 mg PO DAILY 30 Days #30 tablet 11/06/20 Cholecalciferol (Vitamin D3) [Vitamin D 5,000 IU Cap*] 5,000 unit PO DAILY 30 Days #30 cap 11/06/20 Zinc Sulfate [Zinc Sulfate*] 220 mg PO DAILY 30 Days #30 cap 11/06/20 Amlodipine [Norvasc] 5 mg PO DAILY 02/08/22 Sitagliptin Phosphate [Januvia] 100 mg PO DAILY 02/08/22 Sildenafil Citrate [Revatio*] 20 mg PO DAILY 90 Days #90 tab 02/11/22 Olmesartan/Hydrochlorothiazide [Olmesartan-Hctz 20-12.5 mg Tab] 20 mg PO DAILY 03/22/23 Tramadol HCl [Ultram] 50 mg PO TID PRN 03/22/23 Review of Systems Per HPI <Vanessa Camarillo - Last Filed: 11/06/23 18:04> Physical Examination - Physical Exam General: Alert, In no apparent distress, Oriented x3, Other (Generalized) HEENT: Atraumatic, Normocephalic Neck: Supple, JVD not distended Respiratory: Diminished, Crackles/rales Cardiovascular: Normal pulses, Regular rate/rhythm, Edema (+2 lower extremity edema) Capillary refill: <2 Seconds Gastrointestinal: Normal bowel sounds, Soft and benign Musculoskeletal: No clubbing, No swelling Integumentary: No breakdown, No significant lesion, Other (Dry skin) Neurological: Normal speech, Normal strength at 5/5 x4 extr, Cranial nerves 3-12 intact - Studies Laboratory Data (last 24 hrs) 11/06/23 11/06/23 11/06/23 12:50 12:50 12:50 WBC 2.90 L Hgb 11.3 L Hct 34.2 L Plt Count 61 L PT 11.5 INR 1.03 Sodium 132 L Potassium 2.8 L BUN 18 Creatinine 4.32 H Glucose 58 L Magnesium 1.7 Total Bilirubin 0.8 AST 13 L ALT < 14 Alkaline Phosphatase 71 <Vanessa Camarillo - Last Filed: 11/06/23 18:04> - Studies Laboratory Data (last 24 hrs) 11/06/23 11/06/23 11/06/23 12:50 12:50 12:50 WBC 2.90 L Hgb 11.3 L Hct 34.2 L Plt Count 61 L PT 11.5 INR 1.03 Sodium 132 L Potassium 2.8 L BUN 18 Creatinine 4.32 H Glucose 58 L Magnesium 1.7 Total Bilirubin 0.8 AST 13 L ALT < 14 Alkaline Phosphatase 71 <Huey Shane - Last Filed: 11/06/23 21:53> Assessment and Plan - Plan Assessment plan End-stage renal disease on hemodialysis Hypotension Hypokalemia Generalized weakness Nephrology consult, fall precautions, 250 cc IV bolus x 1 Orthostatic vital sign Abdominal CT cirrhosis with splenomegaly, moderate to large amount of ascites Nephrology to consult to evaluate for dialysis Right sided pneumonia, Acute hypoxic respiratory failure, IV antibiotics, nebs, Chest x-ray right bibasilar lung opacities, small right pleural effusion hypertension: We will monitor vital signs per unit protocol and continue antihypertensive medications. Diabetes type 2: Continue sliding scale insulin for glucose control and carb restricted diet. Microcytic anemia anemia secondary to chronic disease Trend H&H Hyperlipidemia continue on statin therapy. Hypothyroidism: Continue levothyroxine dose. Prophylaxis: Lovenox for DVT prophylaxis. CODE STATUS: Full code. Renal diet Disposition Home independent prior Discharge Plan: Home - Advance Directives Does patient have a Living Will: No Does patient have a Durable POA for Healthcare: No - Code Status/Comfort Care Code Status: Full Code Critical Care: No Time Spent Managing Pts Care (In Minutes): 55 <Vanessa Camarillo - Last Filed: 11/06/23 18:04> - Plan Pt seen and examined. I agree with the note by the WEB ART DIRECTOR. Pt is a 72yo female with past medical history of hypertension, hyperlipidemia, diabetes type 2, and hypothyroidism who presents with hypotension. Of note, pt was sent to the ER from dialysis center due to hypotension. He was sent to the ER for evaluation. On admission, Lab studies show hypokalemia, hypotension. chest x-ray shows pneumonia. At bedside, pt is in NAD. A/P: Acute resp failure with hypoxia: Due to pneumonia. Will continue abx, oxygen and prn duoneb. ESRD: Will consult Nephrology. Will give gentle hydration due to hypotension Will continue home meds for other chronic medical problems. <Huey Shane - Last Filed: 11/06/23 21:53>
[2023-11-06] MEDS: POTASSIUM 25 MEQ EFFERV TAB PO ONE (17:20)
[2023-11-06] MEDS ORDERED: CEFTRIAXONE 1000 MG/VIAL ONE (17:27)
[2023-11-06] MEDS ORDERED: AZITHROMYCIN 500 MG INJ IVPB ONE (17:27)
[2023-11-06] MEDS ORDERED: NA CHLORIDE 0.9% 50 ML ONE (17:28)
[2023-11-06] MEDS ORDERED: NA CHLORIDE 0.9% 250 ML ONE (17:28)
[2023-11-06] MEDS ORDERED: LEVALBUTEROL 0.63 MG/3 ML NEB NEB PRN (17:42)
[2023-11-06 21:48] VITALS: BMI 33.3
[2023-11-06] MEDS: ALBUMIN HUMAN 25% 200 ML IV ONE (22:18)
[2023-11-07] MEDS: NA CHLORIDE 0.9% 250 ML IV ONE (06:53)
[2023-11-07] MEDS: NA CHLORIDE 0.9% 1,000 ML IV SCH (07:15)
[2023-11-07 07:21] LABS: Absolute Eosinophils 0.1 K/uL (0-0.5); Absolute Lymphocytes (CBC) 0.5 K/uL (0.7-4.9); Absolute Monocytes 0.4 K/uL (0.1-1.3); Absolute Neutrophil 2.2 K/uL (1.8-8.0); Basophils % 0.7 % (0-1.3); Eosinophils % 2.7 % (0-4.4); Hematocrit 28.3 % (36.0-45.0); Hemoglobin 9.6 g/dL (12.0-15.0); Lymphocytes % 14.4 % (15.3-44.8); MCHC 33.9 g/dL (32.0-36.0); MCV 97.2 fL (80-100); MPV 7.7 fL (7.6-11.3); Monocytes % 12.2 % (3.3-12.3); Nucleated Red Blood Cells % 0.1 % (0-0); Platelets 68 thou/uL (152-406); RBC Red Blood Cell Count 2.91 M/uL (3.86-4.86); Red Cell Distribution Width 18.5 % (12.1-15.2)
--- NOTE | 2023-11-07 07:25 | P.PN ---
Date of Service: 11/07/23 Subjective Blood pressure better today, nephrology following for hemodialysis schedule Review of Systems 10 point ROS negative, listed as per HPI Physical Examination - Physical Exam General: Alert, In no apparent distress, Oriented x3, Other (Generalized) HEENT: Atraumatic, Normocephalic Neck: Supple, JVD not distended Respiratory: Diminished, Crackles/rales Cardiovascular: Normal pulses, Regular rate/rhythm, Edema (+2 lower extremity edema) Capillary refill: <2 Seconds Gastrointestinal: Normal bowel sounds, Soft and benign Musculoskeletal: No clubbing, No swelling Integumentary: No breakdown, No significant lesion, Other (Dry skin) Neurological: Normal speech, Normal strength at 5/5 x4 extr, Cranial nerves 3-12 intact Assessment and Plan - Plan Assessment plan End-stage renal disease on hemodialysis Fluid volume overload Generalized weakness Nephrology consult, fall precautions, 250 cc IV bolus x 1 Orthostatic vital sign Abdominal CT cirrhosis with splenomegaly, moderate to large amount of ascites Nephrology to consult to evaluate for dialysis Right sided pneumonia, Acute hypoxic respiratory failure secondary to pneumonia Right pleural effusion IV antibiotics, nebs, Chest x-ray right bibasilar lung opacities, small right pleural effusion Hypotension Hypokalemia Trend electrolytes replace as needed hypertension: We will monitor vital signs per unit protocol and continue antihypertensive medications. Diabetes type 2: Continue sliding scale insulin for glucose control and carb restricted diet. Microcytic anemia anemia secondary to chronic disease Trend H&H Hyperlipidemia continue on statin therapy. Hypothyroidism: Continue levothyroxine dose. Prophylaxis: Lovenox for DVT prophylaxis. CODE STATUS: Full code. Renal diet Disposition Home independent prior Discharge Plan: Home - Advance Directives Does patient have a Living Will: No Does patient have a Durable POA for Healthcare: No - Code Status/Comfort Care Code Status: Full Code Critical Care: No Time Spent Managing Pts Care (In Minutes): 30
[2023-11-07] MEDS: INSULIN REGULAR (HUMAN) 100 UNIT/ML SQ SCH (07:30)
[2023-11-07 07:43] LABS: AST/SGOT 11 U/L (15-37); Albumin/Globulin Ratio 0.6 (1.1-1.8); Alkaline Phosphatase 56 U/L (45-117); BUN Blood Urea Nitrogen 15 mg/dL (7-18); Bicarbonate 25 mEq/L (21-32); Bilirubin Total 0.7 mg/dL (0.2-1.0); Globulin 3.1 g/dL (2.3-3.5); Glomerular Filtration Rate 10 ml/min (=/>90); Glucose Level 78 mg/dL (74-106); Magnesium 1.7 mg/dL (1.6-2.4); Phosphorus 2.1 mg/dL (2.5-4.9); Protein, Total 5.1 g/dL (6.4-8.2); Sodium Level 131 mEq/L (136-145); Uric Acid 2.8 mg/dL (2.6-6.0)
[2023-11-07 07:47] LABS: ALT/SGPT < 14 U/L (13-56)
--- NOTE | 2023-11-07 07:59 | P.CNS ---
Date of Consult: 11/07/23 Reason for Consult: ESRD Requesting Physician: Shari Ramírez Chief Complaint: End-stage renal disease, hypotension after dialysis History of Present Illness: 72-year-old femalewith medical history significant for hypertension, h yperlipidemia, diabetes type 2, hypothyroidism was evaluated for episode of hypotension, she reports missing dialysis today due to hypotension. She reported symptoms started after dialysis. ER evaluation shows hypokalemia, hypotension, chest x-ray shows pneumonia, no reported chest pain, nausea vomiting diarrhea, fever. Plan to admit for hypotension, hypokalemia, hypotension after dialysis, acute hypoxic respiratory failure secondary to pneumonia, with nephrology to consult. Allergies No Known Drug Allergies Allergy (Verified 04/26/22 13:47) Unknown Home medications list reviewed: Yes Home Medications: Levothyroxine [Synthroid*] 150 mcg PO [id number] 03/31/14 Loratadine [Claritin*] 10 mg PO DAILY PRN 03/31/14 Ferrous Sulfate [Iron] 325 mg PO DAILY 06/16/16 Rosuvastatin [Crestor*] 10 mg PO BEDTIME 06/16/16 Vitamin B Complex [B Complex] 1 each PO DAILY 06/16/16 Apixaban [Eliquis] 5 mg PO BID 15 Days #30 tablet 11/06/20 Ascorbic Acid [Vitamin C*] 500 mg PO DAILY 30 Days #30 tablet 11/06/20 Cholecalciferol (Vitamin D3) [Vitamin D 5,000 IU Cap*] 5,000 unit PO DAILY 30 Days #30 cap 11/06/20 Zinc Sulfate [Zinc Sulfate*] 220 mg PO DAILY 30 Days #30 cap 11/06/20 Amlodipine [Norvasc] 5 mg PO DAILY 02/08/22 Sitagliptin Phosphate [Januvia] 100 mg PO DAILY 02/08/22 Sildenafil Citrate [Revatio*] 20 mg PO DAILY 90 Days #90 tab 02/11/22 Olmesartan/Hydrochlorothiazide [Olmesartan-Hctz 20-12.5 mg Tab] 20 mg PO DAILY 03/22/23 Tramadol HCl [Ultram] 50 mg PO TID PRN 03/22/23 - Past Medical/Surgical History Diabetic: Yes -: DM -: Hypothyroidism -: OA -: Diastolic CHF -: Pulmonary HTN -: CKD V (Dr. Randolph/ Kashif) -: HTN -: appy, kerwin, l breast biopsy, tumor removed l calf - Social History Smoking Status: Never smoker Alcohol use: No CD- Drugs: No Caffeine use: No Place of Residence: Home Review of Systems 10-point ROS is otherwise unremarkable General: Weakness, Malaise Cardiovascular: Edema Gastrointestinal: Distention Physical Examination Temp Pulse Resp BP Pulse Ox 97.3 F 85 16 143/67 H 100 11/07/23 05:15 11/07/23 05:15 11/07/23 05:15 11/07/23 05:15 11/07/23 05:15 General: In no apparent distress, Oriented x3, Cooperative HEENT: Atraumatic Neck: Supple Respiratory: Normal air movement Cardiovascular: Regular rate/rhythm, Edema Gastrointestinal: Distended, Tenderness Musculoskeletal: No clubbing, No contractures Integumentary: No rashes, No cyanosis Neurological: Normal speech Laboratory Data (last 24 hrs) 11/06/23 11/06/23 11/06/23 12:50 12:50 12:50 WBC 2.90 L Hgb 11.3 L Hct 34.2 L Plt Count 61 L PT 11.5 INR 1.03 Sodium 132 L Potassium 2.8 L BUN 18 Creatinine 4.32 H Glucose 58 L Magnesium 1.7 Total Bilirubin 0.8 AST 13 L ALT < 14 Alkaline Phosphatase 71 Imagings Data: [id number] EXAMINATION: CT ABDOMEN AND PELVIS WITHOUT CONTRAST CLINICAL INDICATION: Abdominal pain. Vomiting TECHNIQUE: CT abdomen and pelvis was performed, as per department protocol. IV contrast and oral was not administered.Axial, sagittal and coronal reconstructions were obtained. One or more of the following dose reduction techniques were used: Automated exposure control, adjustment of the mA and/or kV according to the patient size, and/or iterative reconstruction. Unless otherwise specified, incidental findings do not require dedicated imaging follow-up. [id number]. COMPARISON: September 2023 FINDINGS: The lack of intravenous and contrast limits the sensitivity of this exam for evaluation of solid visceral organs, vascular structures, and bowel. Small right pleural effusion. Mild right lower lobe opacities. Mildly cirrhotic liver. Small hepatic cyst. Cholecystectomy. Spleen measures 13 cm. Kidneys mildly diminished in size. No hydronephrosis. Pancreas and adrenals grossly normal. No evidence of diverticulitis. No adnexal mass Moderate to large amount ascites. Diffuse edema within the subcutaneous Ankylosing spondylitis SI joints IMPRESSION: Cirrhosis with mild splenomegaly Mild right lower lobe opacities may represent atelectasis or pneumonia Moderate to large amount of ascites [id number] Procedure: Chest Single View History: Shortness of breath Comparison: March 2023 Small right pleural effusion. Mild right basilar lung opacities. The heart is mildly enlarged. Central venous catheter in place IMPRESSION: Mild right basilar lung opacities may represent atelectasis or pneumonia Small right pleural effusion. Conclusions/Impression: ESRD on HD -HD prn Hyponatremia -Fluid restriction Hypokalemia -Replete as ordered Hypophosphatemia -Encourage nutrition Hypotension -Albumin IV as ordered Diastolic CHF, chronic Pulmonary HTN Peripheral Edema -HD with UF DM II with CKD -RISS Liver Cirrhosis with Ascites Hypoalbuminemia -Albumin IV as ordered -GI consult -Consider a paracentesis Pancytopenia -Retacrit X1 Hospitalist and ER notes reviewed Thank you kindly for the consultation
[2023-11-07] MEDS: EPOETIN ALFA-EPBX 10,000 UNIT/ML VIAL SQ ONE (08:15)
[2023-11-07] MEDS: POTASSIUM CL SA 10 MEQ TAB PO ONE (08:56)
[2023-11-07] MEDS: CEFTRIAXONE 1,000 MG in NA CHLORIDE 0.9% 50 ML IVPB SCH (08:59)
[2023-11-07] MEDS: AZITHROMYCIN IV 500 MG in NA CHLORIDE 0.9% 250 ML IVPB SCH (09:33)
[2023-11-07] MEDS: ONDANSETRON 4 MG/2 ML VIAL IV PRN (09:50)
[2023-11-07] MEDS: FENTANYL CITR 100 MCG/2 ML IV ONE (12:20)
[2023-11-07] MEDS: POTASSIUM CL 40 MEQ in NA CHLORIDE 0.9% 500 ML IV SCH (12:22)
[2023-11-07] MEDS: PIPER TAZO 3.375 GM in NA CHLORIDE 0.9% 100 ML IV SCH (12:30)
[2023-11-07] MEDS: ALBUMIN HUMAN 25% 200 ML IV ONE (17:52)
[2023-11-07] MEDS: NEPRO SHAKE 237 ML CAN PO SCH (20:16)
[2023-11-08 05:18] LABS: Absolute Eosinophils 0.1 K/uL (0-0.5); Absolute Lymphocytes (CBC) 0.5 K/uL (0.7-4.9); Absolute Monocytes 0.5 K/uL (0.1-1.3); Absolute Neutrophil 1.9 K/uL (1.8-8.0); Basophils % 0.6 % (0-1.3); Eosinophils % 2.5 % (0-4.4); Hematocrit 26.9 % (36.0-45.0); Hemoglobin 9.1 g/dL (12.0-15.0); Lymphocytes % 17.8 % (15.3-44.8); MCH 33.1 pg (27.0-35.0); MCHC 33.9 g/dL (32.0-36.0); MCV 97.6 fL (80-100); MPV 8.4 fL (7.6-11.3); Neutrophils % 64.1 % (41.7-73.7); Nucleated Red Blood Cells % 0.2 % (0-0); RBC Red Blood Cell Count 2.76 M/uL (3.86-4.86); Red Cell Distribution Width 18.4 % (12.1-15.2)
[2023-11-08 05:20] LABS: Platelets 74 thou/uL (152-406)
[2023-11-08 05:38] LABS: Albumin 2.2 g/dL (3.4-5.0); Anion Gap 8.4 mEq/L (5.0-15.0); Phosphorus 2.2 mg/dL (2.5-4.9); Potassium 3.4 mEq/L (3.5-5.1)
--- NOTE | 2023-11-08 07:54 | P.PN ---
Date of Service: 11/08/23 Subjective hypotension improving Review of Systems 10 point ROS negative, listed as per HPI Physical Examination - Physical Exam General: Alert, In no apparent distress, Oriented x3, Other (Generalized) HEENT: Atraumatic, Normocephalic Neck: Supple, JVD not distended Respiratory: Diminished, unlabored Cardiovascular: Normal pulses, Regular rate/rhythm, Edema (+2 lower extremity edema) Capillary refill: <2 Seconds Gastrointestinal: Normal bowel sounds, mild abdominal ascites Musculoskeletal: No clubbing, No swelling Integumentary: No breakdown, No significant lesion, Other (Dry skin) Neurological: Normal speech, Normal strength at 5/5 x4 extr, Cranial nerves 3-12 intact Assessment and Plan - Plan Assessment plan End-stage renal disease on hemodialysis Fluid volume overload Generalized weakness Hypotension improved Nephrology consult, fall precautions, 250 cc IV bolus x 1 Orthostatic vital sign Abdominal CT cirrhosis with splenomegaly, moderate to large amount of ascites Nephrology to consult to evaluate for dialysis Right sided pneumonia improved Acute hypoxic respiratory failure secondary to pneumonia Right pleural effusion IV antibiotics, nebs, Chest x-ray right bibasilar lung opacities, small right pleural effusion ascites Diagnostic 11/07 paracentesis, no fluid seen GI consulted eval cirrhosis Leukopenia Trend WBC chronic cdifficile stool C&S 2+ yeast, no leukocytes seen, contact precautions Blood cultures negative for growth Hyponatremia Hypotension Hypokalemia Trend electrolytes replace as needed hypertension: We will monitor vital signs per unit protocol and continue antihypertensive medications. Diabetes type 2: Continue sliding scale insulin for glucose control and carb restricted diet. Microcytic anemia stable anemia secondary to chronic disease Trend H&H Hyperlipidemia continue on statin therapy. Hypothyroidism: Continue levothyroxine dose. Prophylaxis: Lovenox for DVT prophylaxis. CODE STATUS: Full code. Renal diet Disposition Home independent prior Discharge Plan: Home - Advance Directives Does patient have a Living Will: No Does patient have a Durable POA for Healthcare: No - Code Status/Comfort Care Code Status: Full Code Critical Care: No Time Spent Managing Pts Care (In Minutes): 25
[2023-11-08] MEDS: MULTIVITAMINS,THERAPEUT 1 TAB PO SCH (09:48)
[2023-11-08] MEDS: CALCITROL 0.25 MCG CAP PO SCH (09:48)
[2023-11-08] MEDS: INFLUENZA VACCINE (for 6+ mo) 0.5 ML DOSE IMVAC ONE (09:49)
[2023-11-08 10:04] LABS: CDIFF INTERNAL NEG CONTROL White Background (WHITE BKGD); STOOL CONSISTENCY Liquid/Semi-Solid
[2023-11-08 10:07] LABS: C.diff Antigen/Toxin Ag pos : Tox pos (NEG : NEG)
[2023-11-08] MEDS: VANCOMYCIN HCL 125 MG CAPSULE PO SCH ×2 (11:00→13:54)
--- NOTE | 2023-11-08 13:04 | EKG ---
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
--- NOTE | 2023-11-08 13:29 | RAD REPORT ---
PROCEDURE: ULTRASOUND GUIDED PARACENTESIS CLINICAL INDICATION: Ascites PROCEDURE DETAILS: Risks, benefits and alternatives to the procedure explained to the patient and informed consent obtjames estradad. Skin and subcutaneous tissues anesthetized with lidocaine. Under sonographic guidance, a 22-gauge needle was placed into the pelvis. 25 cc yellowish fluid removed and sent to the lab.. Patient experienced no immediate complication IMPRESSION: Diagnostic paracentesis
[2023-11-08 14:43] LABS: Appearance SLT. TURBID (CLEAR); Body Fluid Lymphocytes 80 %; Body Fluid Source PERITONEAL; Body Fluid WBC 97 /mm^3; Color of Supernate Not Xanthochromic (Not Xantho); Color of fluid Yellow (COLORLESS); Fluid Total Cells Count 100; Tube # #1
[2023-11-08] MEDS: ENSURE HIGH PROTEIN 237 ML CAN PO SCH (20:54)
--- NOTE | 2023-11-08 21:05 | P.PN ---
Date of Service: 11/08/23 Vital Signs Temp Pulse Resp BP Pulse Ox 99.6 F 86 18 116/62 90 L 11/08/23 20:00 11/08/23 20:00 11/08/23 20:00 11/08/23 20:00 11/08/23 20:00 Medications Acetaminophen (Acetaminophen 500 Mg Tab) 500 mg PO Q4HP PRN PRN Reason: Pain scale 2-4 (Mild) Calcitriol (Calcitrol 0.25 Mcg Cap) 0.5 mcg PO DAILY [facility] Last Admin: 11/08/23 09:48 Dose: 0.5 mcg Insulin Human Regular (Insulin Regular (Human) 100 Unit/Ml) 0 unit SQ ACHS [facility]; Protocol Last Admin: 11/08/23 20:55 Dose: Not Given Levalbuterol HCl (Levalbuterol 0.63 Mg/3 Ml Neb) 0.63 mg NEB [id number] PRN PRN Reason: SHORTNESS OF BREATH Nutritional Formula (Ensure High Protein 237 Ml Can) 237 ml PO BID [facility] Last Admin: 11/08/23 20:54 Dose: 237 ml Ondansetron HCl (Ondansetron 4 Mg/2 Ml Vial) 4 mg IV Q6HP PRN PRN Reason: NAUSEA / VOMITING Last Admin: 11/07/23 09:50 Dose: 4 mg Vancomycin HCl (Vancomycin Hcl 125 Mg Capsule) 125 mg PO QID [facility]; Protocol Stop: 11/18/23 09:01 Last Admin: 11/08/23 20:54 Dose: 125 mg Vitamin B Complex/Vit C/Folic Acid (Multivitamins,Therapeut 1 Tab) 1 tab PO DAILY [facility] Last Admin: 11/08/23 09:48 Dose: 1 tab Microbiology Results 11/06/23 17:38 Blood - Blood Aerobic Blood Culture - Preliminary No growth in 24 hours. 11/06/23 17:38 Blood - Blood Anaerobic Blood Culture - Preliminary No growth in 24 hours. 11/06/23 17:48 Blood - Blood Aerobic Blood Culture - Preliminary No growth in 24 hours. 11/06/23 17:48 Blood - Blood Anaerobic Blood Culture - Preliminary No growth in 24 hours. Assessment/ Plan: Nephrology No dyspnea No chest pain Abdominal discomfort No acute events overnight Vitals, medications, blood work and imaging reviewed in the chart General: In no apparent distress, Oriented x3, Cooperative HEENT: Atraumatic Neck: Supple Respiratory: Normal air movement Cardiovascular: Regular rate/rhythm, Edema Gastrointestinal: Distended, Tenderness Musculoskeletal: No clubbing, No contractures Integumentary: No rashes, No cyanosis Neurological: Normal speech Laboratory Data (last 24 hrs) 11/06/23 11/06/23 11/06/23 12:50 12:50 12:50 WBC 2.90 L Hgb 11.3 L Hct 34.2 L Plt Count 61 L PT 11.5 INR 1.03 Sodium 132 L Potassium 2.8 L BUN 18 Creatinine 4.32 H Glucose 58 L Magnesium 1.7 Total Bilirubin 0.8 AST 13 L ALT < 14 Alkaline Phosphatase 71 Imagings Data: [id number] EXAMINATION: CT ABDOMEN AND PELVIS WITHOUT CONTRAST CLINICAL INDICATION: Abdominal pain. Vomiting TECHNIQUE: CT abdomen and pelvis was performed, as per department protocol. IV contrast and oral was not administered.Axial, sagittal and coronal reconstructions were obtained. One or more of the following dose reduction techniques were used: Automated exposure control, adjustment of the mA and/or kV according to the patient size, and/or iterative reconstruction. Unless otherwise specified, incidental findings do not require dedicated imaging follow-up. [id number]. COMPARISON: September 2023 FINDINGS: The lack of intravenous and contrast limits the sensitivity of this exam for evaluation of solid visceral organs, vascular structures, and bowel. Small right pleural effusion. Mild right lower lobe opacities. Mildly cirrhotic liver. Small hepatic cyst. Cholecystectomy. Spleen measures 13 cm. Kidneys mildly diminished in size. No hydronephrosis. Pancreas and adrenals grossly normal. No evidence of diverticulitis. No adnexal mass Moderate to large amount ascites. Diffuse edema within the subcutaneous Ankylosing spondylitis SI joints IMPRESSION: Cirrhosis with mild splenomegaly Mild right lower lobe opacities may represent atelectasis or pneumonia Moderate to large amount of ascites [id number] Procedure: Chest Single View History: Shortness of breath Comparison: March 2023 Small right pleural effusion. Mild right basilar lung opacities. The heart is mildly enlarged. Central venous catheter in place IMPRESSION: Mild right basilar lung opacities may represent atelectasis or pneumonia Small right pleural effusion. Conclusions/Impression: ESRD on HD -HD prn Hyponatremia -Fluid restriction Hypokalemia -Replete as ordered Hypophosphatemia -Encourage nutrition Hypotension -Albumin IV as ordered Diastolic CHF, chronic Pulmonary HTN Peripheral Edema -HD with UF DM II with CKD -RISS Liver Cirrhosis with Ascites Hypoalbuminemia -Albumin IV as ordered -GI consult -Diagnostic paracentesis today Pancytopenia -Retacrit prn Case reviewed with hospitalist team Hospitalist note reviewed
--- NOTE | 2023-11-09 03:30 | P.PN ---
Date of Service: 11/09/23 Subjective No overnight complaints, Loose stools improving, Review of Systems 10 point ROS negative, listed as per HPI Physical Examination - Physical Exam General: Alert, In no apparent distress, Oriented x3, Other (Generalized) HEENT: Atraumatic, Normocephalic Neck: Supple, JVD not distended Respiratory: Diminished, equal, unlabored, Cardiovascular: Normal pulses, Regular rate/rhythm, (lower extremity edema) Capillary refill: <2 Seconds Gastrointestinal: Normal bowel sounds, mild distention, Musculoskeletal: No clubbing, No swelling Integumentary: No breakdown, No significant lesion, Other (Dry skin) Neurological: Normal speech, Normal strength at 5/5 x4 extr, Cranial nerves 3-12 intact Assessment and Plan - Plan Assessment plan End-stage renal disease on hemodialysis Fluid volume overload Pulmonary edema Generalized weakness Nephrology consult, fall precautions Orthostatic vital sign on arrival improved with bowel Abdominal CT cirrhosis with splenomegaly, moderate to large amount of ascites, liver cirrhosis Nephrology to consult to evaluate for dialysis Right sided pneumonia, Acute hypoxic respiratory failure secondary to pneumonia Right pleural effusion IV antibiotics, nebs, azithromycin, ceftriaxone, Xopenex, changed to Zosyn, lactobacillus Chest x-ray right bibasilar lung opacities, small right pleural effusion Nephrology following for hemodialysis schedule Liver cirrhosis with ascites 11/07 paracentesis ordered GI consulted eval cirrhosis Hypotension improved Nephrology request ALONDRA eval by cardiology, Allergy consult added, Dr. Harmon notified of request chronic c difficile stool cultures ordered contact precautions Vancomycin p.o. added Pancytopenia Hyponatremia Hypotension Hypokalemia Trend electrolytes replace as needed Diabetes type 2: Continue sliding scale insulin for glucose control and carb restricted diet. Microcytic anemia anemia secondary to chronic disease Trend H&H Hypothyroidism: Hyperlipidemia continue on statin therapy. Continue levothyroxine dose. Prophylaxis: Lovenox for DVT prophylaxis. CODE STATUS: Full code. Renal diet Disposition Home independent prior Discharge Plan: Home - Advance Directives Does patient have a Living Will: No Does patient have a Durable POA for Healthcare: No - Code Status/Comfort Care Code Status: Full Code Critical Care: No Time Spent Managing Pts Care (In Minutes): 25
--- NOTE | 2023-11-09 23:11 | P.PN ---
Date of Service: 11/09/23 Vital Signs Temp Pulse Resp BP Pulse Ox 98.1 F 87 22 H 105/60 97 11/09/23 20:00 11/09/23 20:00 11/09/23 20:00 11/09/23 20:00 11/09/23 20:00 Medications Acetaminophen (Acetaminophen 500 Mg Tab) 500 mg PO Q4HP PRN PRN Reason: Pain scale 2-4 (Mild) Calcitriol (Calcitrol 0.25 Mcg Cap) 0.5 mcg PO DAILY [facility] Last Admin: 11/09/23 10:45 Dose: 0.5 mcg Insulin Human Regular (Insulin Regular (Human) 100 Unit/Ml) 0 unit SQ ACHS [facility]; Protocol Last Admin: 11/09/23 21:00 Dose: Not Given Lactobacillus Acidoph/Bulgaricus (Lactobacillus/Acidophilus Tab) 1 tab PO TID [facility] Levalbuterol HCl (Levalbuterol 0.63 Mg/3 Ml Neb) 0.63 mg NEB [id number] PRN PRN Reason: SHORTNESS OF BREATH Nutritional Formula (Ensure High Protein 237 Ml Can) 237 ml PO BID [facility] Last Admin: 11/09/23 21:21 Dose: 237 ml Ondansetron HCl (Ondansetron 4 Mg/2 Ml Vial) 4 mg IV Q6HP PRN PRN Reason: NAUSEA / VOMITING Last Admin: 11/07/23 09:50 Dose: 4 mg Vancomycin HCl (Vancomycin Hcl 125 Mg Capsule) 125 mg PO QID [facility]; Protocol Stop: 11/18/23 09:01 Last Admin: 11/09/23 21:19 Dose: 125 mg Vitamin B Complex/Vit C/Folic Acid (Multivitamins,Therapeut 1 Tab) 1 tab PO DAILY [facility] Last Admin: 11/09/23 10:46 Dose: 1 tab Microbiology Results 11/06/23 17:38 Blood - Blood Aerobic Blood Culture - Preliminary No growth in 24 hours. 11/06/23 17:38 Blood - Blood Anaerobic Blood Culture - Preliminary No growth in 24 hours. 11/06/23 17:48 Blood - Blood Aerobic Blood Culture - Preliminary No growth in 24 hours. 11/06/23 17:48 Blood - Blood Anaerobic Blood Culture - Preliminary No growth in 24 hours. Assessment/ Plan: Nephrology No dyspnea No chest pain Abdominal discomfort No acute events overnight Vitals, medications, blood work and imaging reviewed in the chart General: In no apparent distress, Oriented x3, Cooperative HEENT: Atraumatic Neck: Supple Respiratory: Normal air movement Cardiovascular: Regular rate/rhythm, Edema Gastrointestinal: Distended, Tenderness Musculoskeletal: No clubbing, No contractures Integumentary: No rashes, No cyanosis Neurological: Normal speech Laboratory Data (last 24 hrs) 11/06/23 11/06/23 11/06/23 12:50 12:50 12:50 WBC 2.90 L Hgb 11.3 L Hct 34.2 L Plt Count 61 L PT 11.5 INR 1.03 Sodium 132 L Potassium 2.8 L BUN 18 Creatinine 4.32 H Glucose 58 L Magnesium 1.7 Total Bilirubin 0.8 AST 13 L ALT < 14 Alkaline Phosphatase 71 Imagings Data: [id number] EXAMINATION: CT ABDOMEN AND PELVIS WITHOUT CONTRAST CLINICAL INDICATION: Abdominal pain. Vomiting TECHNIQUE: CT abdomen and pelvis was performed, as per department protocol. IV contrast and oral was not administered.Axial, sagittal and coronal reconstructions were obtained. One or more of the following dose reduction techniques were used: Automated exposure control, adjustment of the mA and/or kV according to the patient size, and/or iterative reconstruction. Unless otherwise specified, incidental findings do not require dedicated imaging follow-up. [id number]. COMPARISON: September 2023 FINDINGS: The lack of intravenous and contrast limits the sensitivity of this exam for evaluation of solid visceral organs, vascular structures, and bowel. Small right pleural effusion. Mild right lower lobe opacities. Mildly cirrhotic liver. Small hepatic cyst. Cholecystectomy. Spleen measures 13 cm. Kidneys mildly diminished in size. No hydronephrosis. Pancreas and adrenals grossly normal. No evidence of diverticulitis. No adnexal mass Moderate to large amount ascites. Diffuse edema within the subcutaneous Ankylosing spondylitis SI joints IMPRESSION: Cirrhosis with mild splenomegaly Mild right lower lobe opacities may represent atelectasis or pneumonia Moderate to large amount of ascites [id number] Procedure: Chest Single View History: Shortness of breath Comparison: March 2023 Small right pleural effusion. Mild right basilar lung opacities. The heart is mildly enlarged. Central venous catheter in place IMPRESSION: Mild right basilar lung opacities may represent atelectasis or pneumonia Small right pleural effusion. Conclusions/Impression: ESRD on HD -HD prn Hyponatremia -Fluid restriction Hypokalemia -Replete prn Hypophosphatemia -Encourage nutrition Hypotension -Albumin IV prn Diastolic CHF, chronic Pulmonary HTN Peripheral Edema -HD with UF DM II with CKD -RISS Liver Cirrhosis with Ascites Hypoalbuminemia -Albumin IV as ordered -GI consult -Diagnostic paracentesis results pending Pancytopenia -Retacrit prn C.diff Colitis -Vancomycin PO Case reviewed with hospitalist team Hospitalist note reviewed
[2023-11-10 05:31] LABS: Absolute Eosinophils 0.1 K/uL (0-0.5); Absolute Lymphocytes (CBC) 0.8 K/uL (0.7-4.9); Absolute Monocytes 0.5 K/uL (0.1-1.3); Absolute Neutrophil 1.9 K/uL (1.8-8.0); Basophils % 0.4 % (0-1.3); Eosinophils % 2.4 % (0-4.4); Hematocrit 32.2 % (36.0-45.0); Hemoglobin 10.9 g/dL (12.0-15.0); Lymphocytes % 23.8 % (15.3-44.8); MCH 33.2 pg (27.0-35.0); MCHC 33.7 g/dL (32.0-36.0); MCV 98.5 fL (80-100); MPV 8.1 fL (7.6-11.3); Monocytes % 16.4 % (3.3-12.3); Nucleated Red Blood Cells % 0.1 % (0-0); Platelets 99 thou/uL (152-406); RBC Red Blood Cell Count 3.27 M/uL (3.86-4.86); Red Cell Distribution Width 18.8 % (12.1-15.2)
[2023-11-10 06:10] LABS: AST/SGOT 16 U/L (15-37); Albumin 2.4 g/dL (3.4-5.0); Albumin/Globulin Ratio 0.6 (1.1-1.8); Alkaline Phosphatase 82 U/L (45-117); Anion Gap 10.2 mEq/L (5.0-15.0); BUN Blood Urea Nitrogen 28 mg/dL (7-18); Bicarbonate 24 mEq/L (21-32); Bilirubin Total 0.6 mg/dL (0.2-1.0); Globulin 3.8 g/dL (2.3-3.5); Glomerular Filtration Rate 7 ml/min (=/>90); Glucose Level 121 mg/dL (74-106); Magnesium 1.8 mg/dL (1.6-2.4); Phosphorus 2.6 mg/dL (2.5-4.9); Potassium 4.2 mEq/L (3.5-5.1); Protein, Total 6.2 g/dL (6.4-8.2); Sodium Level 133 mEq/L (136-145)
[2023-11-10 06:13] LABS: ALT/SGPT < 14 U/L (13-56)
[2023-11-10 06:28] LABS: Blood Morphology Comment NOTED (NOT SEEN); Platelet Estimate DECR; White Blood Cell Scan OK (OK)
--- NOTE | 2023-11-10 07:08 | P.PN ---
Date of Service: 11/10/23 Subjective HD per neph, today, Review of Systems 10 point ROS negative, listed as per HPI Physical Examination - Physical Exam General: Alert, In no apparent distress, Oriented x3, Other (Generalized) HEENT: Atraumatic, Normocephalic Neck: Supple, JVD not distended Respiratory: Diminished, Crackles/rales Cardiovascular: Normal pulses, Regular rate/rhythm, Edema (+2 lower extremity edema) Capillary refill: <2 Seconds Gastrointestinal: Normal bowel sounds, mild abdominal ascites Musculoskeletal: No clubbing, No swelling Integumentary: No breakdown, No significant lesion, Other (Dry skin) Neurological: Normal speech, Normal strength at 5/5 x4 extr, Cranial nerves 3-12 intact Assessment and Plan - Plan Assessment plan End-stage renal disease on hemodialysis Fluid volume overload Generalized weakness Nephrology consult, fall precautions, 250 cc IV bolus x 1 Orthostatic vital signs ordered Abdominal CT cirrhosis with splenomegaly, moderate to large amount of ascites Nephrology to consult to evaluate for dialysis schedule, plan to 11/[address] Harmon consulted, to eval for ALONDRA Nephrology requested ALONDRA Right sided pneumonia, improved Acute hypoxic respiratory failure secondary to pneumonia Right pleural effusion IV antibiotics, nebs,, ceftriaxone, azithromycin, changed to Zosyn, Chest x-ray right bibasilar lung opacities, small right pleural effusion 11/09 Hemodialysis ascites 11/07 paracen, GI consulted eval cirrhosis Leukopenia Trend WBC chronic cdifficile stool cultures ordered contact precautions P.o. vancomycin ordered Hyponatremia Hypotension Hypokalemia Trend electrolytes replace as needed Diabetes type 2: Continue sliding scale insulin for glucose control and carb restricted diet. Microcytic anemia anemia secondary to chronic disease Trend H&H Hyperlipidemia continue on statin therapy. Hypothyroidism: Continue levothyroxine dose. Prophylaxis: Lovenox for DVT prophylaxis. CODE STATUS: Full code. Renal diet Disposition Home independent prior Discharge Plan: Home - Advance Directives Does patient have a Living Will: No Does patient have a Durable POA for Healthcare: No - Code Status/Comfort Care Code Status: Full Code Critical Care: No Time Spent Managing Pts Care (In Minutes): 25
[2023-11-10] MEDS: LACTOBACILLUS/ACIDOPHILUS TAB PO SCH (10:13)
[2023-11-10] MEDS ORDERED: ALBUMIN HUMAN 25% 100 ML IV ONE (12:00)
[2023-11-10] MEDS: ALBUMIN HUMAN 25% 100 ML IV ONE (13:00)
--- NOTE | 2023-11-10 16:31 | P.PN ---
(S) Pt reports N/V/D better but still with some abd pain after eating although appetite much better she reports. S/p diagnostic paracentesis. Denies dyspnea off pulm HTN meds. Has been OOB and able to ambulate to bedside commode with 1 person assist (O) Vitals, medications, blood work and imaging reviewed in the chart General: Appears chronically ill, but NAD HEENT: Atraumatic, sclera anicteric, not on O2 Neck: Supple, Rt IJ TDC Respiratory: Normal air movement, no rhonchi Cardiovascular: Regular rate/rhythm mostly Gastrointestinal: Soft, mod distended, NT Musculoskeletal: Improved chronic peripheral edema Integumentary: No rashes Neurological: Normal speech,awake, alert, responsive Laboratory Data (last 24 hrs) Reviewed in the EMR Conclusions/Impression: -ESRD 2nd to dialysis dependent renal failure initiated on HD in late Mar/April in the setting then of [place] on CKD, HD has been held for several days to low electrolytes, no sig azotemia but will proceed with gentle dialysis today as pt is oliguric and eGFR low -Recent hypokalemia, hypophosphatemia, other as OP 2nd to N/V/D due to C-diff colitis presumably +/- other. Cont to have some dyspepsia. Has not seen GI but appetite/intake a bit better -Diastolic CHF, chronic -MR, non rheumatic -Severe pulmonary HTN, reported PAH/primary on diagnosis last Mar Had been on several/three pulm vasodilator per [facility] pul HTN but BP has been low in recent weeks with intra dialytic hypotension, pt has lost sig weight and currently all agents held here it appears without any increase in symptoms currently. -Pt has a prior diagnosis of scleroderma, it was unclear if contributory then or now to her symptoms, serologies have been ordered -Does not show the fluid overload state that she did 6 mo ago and BP now far lower, will get ALONDRA to assess filling pressures and RSVP Ascites, unspecified -Unclear if related to chronic liver dysfunction/congestive hepatopathy/Rt sided HF or other. Check SAAG, other. Kavon Maria MD, TIM
[2023-11-10 19:51] LABS: Hepatitis B surface AG Interp. Nonreactive (Nonreactive)
[2023-11-10 19:52] LABS: HBsAG Nonreactive Report Report
[2023-11-11 04:56] LABS: GLUCOSE, PERITONEAL FLUID 89 mg/dL; LD, PERITONEAL FLUID 35 U/L (<63); TOTAL PROTEIN,PERITONEAL FLUID <3.0 g/dL
[2023-11-11 06:42] LABS: Anion Gap 8.5 mEq/L (5.0-15.0); Phosphorus 2.1 mg/dL (2.5-4.9); Potassium 3.5 mEq/L (3.5-5.1)
--- NOTE | 2023-11-11 11:24 | P.PN ---
Date of Service: 11/11/23 Subjective Cardiology consult to eval for need for ALONDRA per nephrology request Review of Systems 10 point ROS negative, listed as per HPI Physical Examination - Physical Exam General: Alert, In no apparent distress, Oriented x3, Other (Generalized) HEENT: Atraumatic, Normocephalic Neck: Supple, JVD not distended Respiratory: Diminished, unlabored Cardiovascular: Normal pulses, Regular rate/rhythm, Edema (+2 lower extremity edema) Capillary refill: <2 Seconds Gastrointestinal: Normal bowel sounds, mild abdominal ascites Musculoskeletal: No clubbing, No swelling Integumentary: No breakdown, No significant lesion, Other (Dry skin) Neurological: Normal speech, Normal strength at 5/5 x4 extr, Cranial nerves 3-12 intact Assessment and Plan - Plan Assessment plan End-stage renal disease on hemodialysis Fluid volume overload Generalized weakness Nephrology consult, fall precautions, 250 cc IV bolus x 1 Orthostatic vital signs ordered Abdominal CT cirrhosis with splenomegaly, moderate to large amount of ascites Nephrology to consult to evaluate for dialysis schedule, plan to 11/[address] Harmon consulted, to eval for ALONDRA Nephrology requested ALONDRA Right sided pneumonia, improved Acute hypoxic respiratory failure secondary to pneumonia Right pleural effusion IV antibiotics, nebs,, ceftriaxone, azithromycin, changed to Zosyn, Chest x-ray right bibasilar lung opacities, small right pleural effusion 11/09 Hemodialysis ascites 11/07 paracen, GI consulted eval cirrhosis Leukopenia Trend WBC chronic cdifficile stool cultures ordered contact precautions P.o. vancomycin ordered Hyponatremia Hypotension Hypokalemia Trend electrolytes replace as needed Diabetes type 2: Continue sliding scale insulin for glucose control and carb restricted diet. Microcytic anemia Trend H&H Hyperlipidemia continue on statin therapy. Hypothyroidism: Continue levothyroxine dose. Prophylaxis: Lovenox for DVT prophylaxis. CODE STATUS: Full code. Renal diet Disposition Home independent prior Discharge Plan: Home - Advance Directives Does patient have a Living Will: No Does patient have a Durable POA for Healthcare: No - Code Status/Comfort Care Code Status: Full Code Critical Care: No Time Spent Managing Pts Care (In Minutes): 20
[2023-11-11 12:26] LABS: Absolute Eosinophils 0.1 K/uL (0-0.5); Absolute Lymphocytes (CBC) 0.5 K/uL (0.7-4.9); Absolute Monocytes 0.5 K/uL (0.1-1.3); Absolute Neutrophil 1.9 K/uL (1.8-8.0); Eosinophils % 1.9 % (0-4.4); Hematocrit 29.3 % (36.0-45.0); Hemoglobin 9.7 g/dL (12.0-15.0); Lymphocytes % 17.7 % (15.3-44.8); MCH 32.9 pg (27.0-35.0); MCHC 33.1 g/dL (32.0-36.0); MCV 99.3 fL (80-100); MPV 8.5 fL (7.6-11.3); Monocytes % 16.3 % (3.3-12.3); Neutrophils % 63.1 % (41.7-73.7); Platelets 83 thou/uL (152-406); RBC Red Blood Cell Count 2.95 M/uL (3.86-4.86); Red Cell Distribution Width 19.5 % (12.1-15.2)
[2023-11-11 12:36] LABS: Albumin 2.1 g/dL (3.4-5.0); Anion Gap 9.6 mEq/L (5.0-15.0); Magnesium 1.8 mg/dL (1.6-2.4); Phosphorus 2.2 mg/dL (2.5-4.9); Potassium 3.6 mEq/L (3.5-5.1)
--- NOTE | 2023-11-12 07:25 | P.PN ---
Date of Service: 11/12/23 Subjective Plan for dialysis on Monday, Review of Systems 10 point ROS negative, listed as per HPI Physical Examination - Physical Exam General: Alert, In no apparent distress, Oriented x3, HEENT: Atraumatic, Normocephalic Neck: Supple, JVD not distended Respiratory: Diminished equal, unlabored Cardiovascular: Normal pulses, Regular rate/rhythm, (+2 lower extremity edema) Capillary refill: <2 Seconds Gastrointestinal: Normal bowel sounds, mild abdominal ascites Musculoskeletal: No clubbing, No swelling, generalized weakness Integumentary: No breakdown, No significant lesion, Other (Dry skin) Neurological: Normal speech, Normal strength at 5/5 x4 extr, Cranial nerves 3-12 intact Assessment and Plan - Plan Assessment plan End-stage renal disease on hemodialysis Fluid volume overload Generalized weakness Nephrology consult, fall precautions, 250 cc IV bolus x 1 Orthostatic vital signs ordered Abdominal CT cirrhosis with splenomegaly, moderate to large amount of ascites Nephrology to consult to evaluate for dialysis schedule, plan to 11/[address] Harmon consulted, to eval for ALONDRA- Nephrology requested ALONDRA Right sided pneumonia, improved Acute hypoxic respiratory failure secondary to pneumonia Right pleural effusion IV antibiotics, nebs,, ceftriaxone, azithromycin, changed to Zosyn, Chest x-ray right bibasilar lung opacities, small right pleural effusion 11/09 Hemodialysis ascites 11/07 paracen, GI consulted eval cirrhosis Leukopenia Trend WBC chronic cdifficile stool cultures ordered contact precautions P.o. vancomycin ordered Hyponatremia Hypotension Hypokalemia Trend electrolytes replace as needed Diabetes type 2: Continue sliding scale insulin for glucose control and carb restricted diet. Microcytic anemia Trend H&H Hyperlipidemia continue on statin therapy. Hypothyroidism: Continue levothyroxine dose. Prophylaxis: Lovenox for DVT prophylaxis. CODE STATUS: Full code. Renal diet Disposition Home independent prior Discharge Plan: Home - Advance Directives Does patient have a Living Will: No Does patient have a Durable POA for Healthcare: No - Code Status/Comfort Care Code Status: Full Code Critical Care: No Time Spent Managing Pts Care (In Minutes): 20
[2023-11-12 09:57] LABS: Anti-Centromere Antibody >8.0
[2023-11-12 12:14] LABS: Absolute Eosinophils 0.1 K/uL (0-0.5); Absolute Lymphocytes (CBC) 0.8 K/uL (0.7-4.9); Absolute Monocytes 0.6 K/uL (0.1-1.3); Basophils % 0.8 % (0-1.3); Eosinophils % 2.2 % (0-4.4); Hematocrit 31.8 % (36.0-45.0); Hemoglobin 10.4 g/dL (12.0-15.0); Lymphocytes % 22.7 % (15.3-44.8); MCH 32.9 pg (27.0-35.0); MCHC 32.8 g/dL (32.0-36.0); MCV 100.4 fL (80-100); MPV 8.5 fL (7.6-11.3); Monocytes % 16.1 % (3.3-12.3); Neutrophils % 58.2 % (41.7-73.7); Platelets 104 thou/uL (152-406); RBC Red Blood Cell Count 3.17 M/uL (3.86-4.86); Red Cell Distribution Width 19.7 % (12.1-15.2)
[2023-11-12 12:22] LABS: Albumin 2.2 g/dL (3.4-5.0); Anion Gap 10.7 mEq/L (5.0-15.0); Magnesium 1.9 mg/dL (1.6-2.4); Potassium 3.7 mEq/L (3.5-5.1)
[2023-11-12 20:56] VITALS: O2SAT 96
[2023-11-13] MEDS: ACETAMINOPHEN 500 MG TAB PO PRN (00:47)
--- NOTE | 2023-11-13 07:26 | ECHO ---
HEIGHT: 5 ft 3 in WEIGHT: 188 lb 8 oz DATE OF STUDY: 11/10/[address]: Kavon Maria 2-DIMENSIONAL: YES M.MODE: YES DOPPLER: YES COLOR FLOW: YES TDS: PORTABLE: YES DEFINITY: BUBBLE STUDY: DIAGNOSIS: HISTORY OF SEVERE PULMONARY HYPERTENSION, ELEVATED RIGHT SIDED PRESSURE, LOW BLOOD PRESSURE CARDIAC HISTORY: CATHERIZATION: NO SURGERY: NO PROSTHETIC VALVE: NO PACEMAKER: NO MEASUREMENTS (cm) DIASTOLIC (NORMALS) SYSTOLIC (NORMALS) IVSd 1.4 (0.6-1.2) LA Diam 2.8 (1.9-4.0) LVEF 55-60% LVIDd 2.4 (3.5-5.7) LVIDs 1.8 (2.0-3.5) %FS 25% LVPWd 1.4 (0.6-1.2) Ao Diam 2.7 (2.0-3.7) 2 DIMENSIONAL ASSESSMENT: RIGHT ATRIUM: NORMAL LEFT ATRIUM: NORMAL RIGHT VENTRICLE: MILDLY DILATED LEFT VENTRICLE: LEFT VENTRICULAR HYPERTROPHY TRICUSPID VALVE: MILD TRICUSPID REGURGITATION MITRAL VALVE: MILD MITRAL ANNULAR CALCIFICATION WITH TRACE MITRAL REGURGITATION PULMONIC VALVE: MILD PULMONIC INSUFFICIENCY AORTIC VALVE: NORMAL PERICARDIAL EFFUSION: NONE AORTIC ROOT: NORMAL LEFT VENTRICULAR WALL MOTION: NORMAL DOPPLER/COLOR FLOW: SEE BELOW COMMENTS: 1. NORMAL LEFT VENTRICULAR EJECTION FRACTION 55-60% WITH NORMAL WALL MOTION 2. MODERATE CONCENTRIC LEFT VENTRICULAR HYPERTROPHY 3. PULMONARY HYPERTENSION WITH RIGHT VENTRICULAR SYSTOLIC PRESSURE AT 55-60 mmHg 4. MILDLY DILATED RIGHT VENTRICLE WITH NORMAL FUNCTION 5. MILD TRICUSPID REGURGITATION TECHNOLOGIST: TRAVON OSMAN
--- NOTE | 2023-11-13 11:18 | RAD REPORT ---
EXAMINATION: Shoulder Right 2+ Views CLINICAL INDICATION: Female, 72 years old. right shoulder pain RIGHT COMPARISON: No prior exam. FINDINGS: No shoulder fracture or dislocation. Moderate right AC joint and mild right glenohumeral joint degenerative changes. Right IJ approach dialysis catheter. IMPRESSION: No acute shoulder abnormalities.
[2023-11-13 11:28] LABS: Absolute Basophils 0.1 K/uL (0-0.5); Absolute Eosinophils 0.1 K/uL (0-0.5); Absolute Lymphocytes (CBC) 0.6 K/uL (0.7-4.9); Absolute Monocytes 0.4 K/uL (0.1-1.3); Basophils % 1.2 % (0-1.3); Eosinophils % 2.1 % (0-4.4); Hematocrit 30.2 % (36.0-45.0); Hemoglobin 9.9 g/dL (12.0-15.0); Lymphocytes % 14.5 % (15.3-44.8); MCH 32.7 pg (27.0-35.0); MCHC 32.7 g/dL (32.0-36.0); MCV 99.9 fL (80-100); MPV 7.7 fL (7.6-11.3); Monocytes % 10.7 % (3.3-12.3); Neutrophils % 71.5 % (41.7-73.7); Platelets 101 thou/uL (152-406); RBC Red Blood Cell Count 3.03 M/uL (3.86-4.86); Red Cell Distribution Width 19.4 % (12.1-15.2)
--- NOTE | 2023-11-13 11:41 | P.PN ---
Date of Service: 11/13/23 Vital Signs Temp Pulse Resp BP Pulse Ox 98.4 F 69 16 98/53 L 94 11/13/23 08:00 11/13/23 08:00 11/13/23 08:00 11/13/23 08:00 11/13/23 08:00 Medications Acetaminophen (Acetaminophen 500 Mg Tab) 500 mg PO Q4HP PRN PRN Reason: Pain scale 2-4 (Mild) Last Admin: 11/13/23 00:47 Dose: 500 mg Calcitriol (Calcitrol 0.25 Mcg Cap) 0.5 mcg PO DAILY [facility] Last Admin: 11/13/23 09:47 Dose: 0.5 mcg Heparin Sodium (Porcine) (Heparin 1,000 Unit/Ml Vial) 6,000 unit IV EVERY HD PRN PRN Reason: FOR DIALYSIS CATHETER CARE Last Admin: 11/10/23 20:36 Dose: 6,000 unit Insulin Human Regular (Insulin Regular (Human) 100 Unit/Ml) 0 unit SQ [facility]; Protocol Last Admin: 11/13/23 07:30 Dose: Not Given Lactobacillus Acidoph/Bulgaricus (Lactobacillus/Acidophilus Tab) 1 tab PO TID [facility] Last Admin: 11/13/23 09:00 Dose: 1 tab Levalbuterol HCl (Levalbuterol 0.63 Mg/3 Ml Neb) 0.63 mg NEB [id number] PRN PRN Reason: SHORTNESS OF BREATH Nutritional Formula (Ensure High Protein 237 Ml Can) 237 ml PO BID [facility] Last Admin: 11/13/23 09:00 Dose: 237 ml Ondansetron HCl (Ondansetron 4 Mg/2 Ml Vial) 4 mg IV Q6HP PRN PRN Reason: NAUSEA / VOMITING Last Admin: 11/07/23 09:50 Dose: 4 mg Vancomycin HCl (Vancomycin Hcl 125 Mg Capsule) 125 mg PO QID [facility]; Protocol Stop: 11/18/23 09:01 Last Admin: 11/13/23 09:47 Dose: 125 mg Vitamin B Complex/Vit C/Folic Acid (Multivitamins,Therapeut 1 Tab) 1 tab PO DAILY [facility] Last Admin: 11/13/23 09:46 Dose: 1 tab Microbiology Results 11/06/23 17:38 Blood - Blood Aerobic Blood Culture - Final No growth in 5 days. 11/06/23 17:38 Blood - Blood Anaerobic Blood Culture - Final No growth in 5 days. 11/06/23 17:48 Blood - Blood Aerobic Blood Culture - Final No growth in 5 days. 11/06/23 17:48 Blood - Blood Anaerobic Blood Culture - Final No growth in 5 days. Assessment/ Plan: Nephrology No dyspnea No chest pain Right shoulder pain No acute events overnight Vitals, medications, blood work and imaging reviewed in the chart General: In no apparent distress, Oriented x3, Cooperative HEENT: Atraumatic Neck: Supple Respiratory: Normal air movement Cardiovascular: Regular rate/rhythm, Edema Gastrointestinal: Distended, Tenderness Musculoskeletal: No clubbing, No contractures Integumentary: No rashes, No cyanosis Neurological: Normal speech Laboratory Data (last 24 hrs) 11/06/23 11/06/23 11/06/23 12:50 12:50 12:50 WBC 2.90 L Hgb 11.3 L Hct 34.2 L Plt Count 61 L PT 11.5 INR 1.03 Sodium 132 L Potassium 2.8 L BUN 18 Creatinine 4.32 H Glucose 58 L Magnesium 1.7 Total Bilirubin 0.8 AST 13 L ALT < 14 Alkaline Phosphatase 71 Imagings Data: [id number] EXAMINATION: CT ABDOMEN AND PELVIS WITHOUT CONTRAST CLINICAL INDICATION: Abdominal pain. Vomiting TECHNIQUE: CT abdomen and pelvis was performed, as per department protocol. IV contrast and oral was not administered.Axial, sagittal and coronal reconstructions were obtained. One or more of the following dose reduction techniques were used: Automated exposure control, adjustment of the mA and/or kV according to the patient size, and/or iterative reconstruction. Unless otherwise specified, incidental findings do not require dedicated imaging follow-up. [id number]. COMPARISON: September 2023 FINDINGS: The lack of intravenous and contrast limits the sensitivity of this exam for ev aluation of solid visceral organs, vascular structures, and bowel. Small right pleural effusion. Mild right lower lobe opacities. Mildly cirrhotic liver. Small hepatic cyst. Cholecystectomy. Spleen measures 13 cm. Kidneys mildly diminished in size. No hydronephrosis. Pancreas and adrenals grossly normal. No evidence of diverticulitis. No adnexal mass Moderate to large amount ascites. Diffuse edema within the subcutaneous Ankylosing spondylitis SI joints IMPRESSION: Cirrhosis with mild splenomegaly Mild right lower lobe opacities may represent atelectasis or pneumonia Moderate to large amount of ascites [id number] Procedure: Chest Single View History: Shortness of breath Comparison: March 2023 Small right pleural effusion. Mild right basilar lung opacities. The heart is mildly enlarged. Central venous catheter in place IMPRESSION: Mild right basilar lung opacities may represent atelectasis or pneumonia Small right pleural effusion. Conclusions/Impression: ESRD on HD -HD today Hyponatremia -Fluid restriction Hypotension -Albumin IV prn Diastolic CHF, chronic Pulmonary HTN Peripheral Edema -HD with UF DM II with CKD -RISS Liver Cirrhosis with Ascites Hypoalbuminemia -Albumin IV prn Pancytopenia -Retacrit prn C.diff Colitis -Vancomycin PO Case reviewed with hospitalist team Hospitalist note reviewed
[2023-11-13 11:48] LABS: Albumin 2.1 g/dL (3.4-5.0); Anion Gap 10.4 mEq/L (5.0-15.0); Magnesium 1.9 mg/dL (1.6-2.4); Phosphorus 3.6 mg/dL (2.5-4.9); Potassium 4.4 mEq/L (3.5-5.1)
[2023-11-13 11:54] VITALS: BP 109/59; TEMP 98.2
[2023-11-13] MEDS: dexAMETHasone 10 MG/ML VIAL IV ONE (12:19)
[2023-11-13] MEDS: FENTANYL CITR 100 MCG/2 ML IV ONE (12:19)
[2023-11-13] MEDS: ALBUMIN HUMAN 25% 100 ML IV SCH (12:20)
[2023-11-13] MEDS: FLU (Fluarix Triv) TS24-25(6MOS UP)/PF 45 MCG/0.5 ML Syringe IM ONE (14:30)
[2023-11-14 12:32] LABS: Liver/Kidney Microsome Type 1 <=20.0 U (<=20.0)
== END 2023-11-13 16:49 | disposition home or self-care (01) | DRG 193 ==
LOC: ER 12:19 → 2ND 17:13 → OBSVTOIN 11-07 06:15
PROVIDERS: ADMIT Hospitalist; ATTEND Hospitalist
PROC: 5A1D70Z Performance of Urinary Filtration, Intermittent, Less than 6 Hours Per Day (ICD-10-PCS; principal; 2023-11-06)
PROC: 0W9G3ZZ Drainage of Peritoneal Cavity, Percutaneous Approach (ICD-10-PCS; 2023-11-08)
DX: J18.9 Pneumonia, unspecified organism (principal); J96.01 Acute respiratory failure with hypoxia; N18.6 End stage renal disease; I50.32 Chronic diastolic (congestive) heart failure; I13.2 Hypertensive heart and chronic kidney disease with heart failure and with stage 5 chronic kidney disease, or end stage renal disease; R18.8 Other ascites; E87.1 Hypo-osmolality and hyponatremia; D61.818 Other pancytopenia; A04.72 Enterocolitis due to Clostridium difficile, not specified as recurrent; N17.9 Acute kidney failure, unspecified; E11.22 Type 2 diabetes mellitus with diabetic chronic kidney disease; D63.1 Anemia in chronic kidney disease; D50.9 Iron deficiency anemia, unspecified; I95.3 Hypotension of hemodialysis; E03.9 Hypothyroidism, unspecified; E78.5 Hyperlipidemia, unspecified; E87.6 Hypokalemia; K74.60 Unspecified cirrhosis of liver; E83.39 Other disorders of phosphorus metabolism; D72.819 Decreased white blood cell count, unspecified; E88.09 Other disorders of plasma-protein metabolism, not elsewhere classified; Z99.2 Dependence on renal dialysis; Z79.01 Long term (current) use of anticoagulants; Z90.49 Acquired absence of other specified parts of digestive tract; Z91.158 Patient's noncompliance with renal dialysis for other reason; Z79.890 Hormone replacement therapy; Z79.899 Other long term (current) drug therapy
CPT/HCPCS: 36415; 49083; 70450; 71045; 74176; 80048; 80053; 80069; 80076; 82024; 82042; 82150; 82533; 82945; 82947; 83605; 83615; 83735; 84100; 84157; 84439; 84443; 84484; 84550; 85025; 85610; 86015; 86140; 86235; 86255; 86256; 86376; 87040; 87045; 87046; 87070; 87177; 87209; 87324; 87340; 89050; 89055; 90935; 93005; 93306; 99285; G0378; J0696; J1100; J1644; J2405; J2543; J3010; J3480; J7040; J7050; P9047; Q5106

== ENCOUNTER 2023-12-16 08:41 | Inpatient (IN) | payer OTHER ==
[2023-12-16] MEDS ORDERED: FUROSEMIDE 40 MG/4 ML VIAL ONE (09:00)
[2023-12-16 09:25] LABS: Absolute Eosinophils 0.1 K/uL (0-0.5); Absolute Lymphocytes (CBC) 0.4 K/uL (0.7-4.9); Absolute Monocytes 0.4 K/uL (0.1-1.3); Absolute Neutrophil 2.9 K/uL (1.8-8.0); Basophils % 1.2 % (0-1.3); Eosinophils % 2.5 % (0-4.4); Hematocrit 31.6 % (36.0-45.0); Hemoglobin 10.8 g/dL (12.0-15.0); Lymphocytes % 10.5 % (15.3-44.8); MCH 36.2 pg (27.0-35.0); MCHC 34.3 g/dL (32.0-36.0); MCV 105.6 fL (80-100); MPV 8.1 fL (7.6-11.3); Monocytes % 11.4 % (3.3-12.3); Neutrophils % 74.4 % (41.7-73.7); Nucleated Red Blood Cells % 0.1 % (0-0); Platelets 142 thou/uL (152-406); RBC Red Blood Cell Count 2.99 M/uL (3.86-4.86); Red Cell Distribution Width 18.4 % (12.1-15.2)
[2023-12-16 09:35] LABS: PT Prothrombin Time 11.9 SECONDS (9.4-12.5); Protime INR 1.06
[2023-12-16 09:43] LABS: Albumin 2.4 g/dL (3.4-5.0); Albumin/Globulin Ratio 0.6 (1.1-1.8); Anion Gap 8.5 mEq/L (5.0-15.0); Bilirubin Direct 0.4 mg/dL (0-0.2); Bilirubin Indirect, Calculated 0.5 mg/dL (0.2-0.8); Bilirubin Total 0.9 mg/dL (0.2-1.0); Globulin 4.3 g/dL (2.3-3.5); Magnesium 2.1 mg/dL (1.6-2.4); Potassium 3.5 mEq/L (3.5-5.1); Protein, Total 6.7 g/dL (6.4-8.2); Troponin High Sensitivity 38.9 pg/mL (<58.9)
--- NOTE | 2023-12-16 10:11 | RAD REPORT ---
EXAM: CT CHEST, ABDOMEN AND PELVIS WITHOUT CONTRAST CLINICAL INDICATION: Shortness of breath, abdominal swelling and abdominal pain TECHNIQUE: CT chest, abdomen and pelvis was performed, without IV contrast, as per department protoco l. Axial, sagittal and coronal reconstructions were obtained. One or more of the following dose reduction techniques were used: Automated exposure control, adjustment of the mA and/or kV according to the patient size, and/or iterative reconstruction. Unless otherwise specified, incidental findings do not require dedicated imaging follow-up. The lack of IV and oral contrast limits evaluation of the mediastinum, elly, vessels, organs and cassia l. COMPARISON: October 2023 CT abdomen FINDINGS: Small right to moderate pleural effusion. Right lower lobe atelectasis No mediastinal or hilar lymphadenopathy. No pericardial effusion. Cirrhotic liver.. Small hepatic cyst. Cholecystectomy.. Distention portal vein. Mild splenomegaly Kidneys mildly diminished in size. No hydronephrosis. Pancreas and adrenals grossly normal. No evidence of diverticulitis. No adnexal mass Large amount ascites. Diffuse edema within the subcutaneous tissues Ankylosing spondylitis SI joints IMPRESSION: [id number] right pleural effusion Cirrhosis. large amount ascites
[2023-12-16 10:12] LABS: Blood Morphology Comment NOTED (NOT SEEN); Macrocytosis 1+; Platelet Estimate ADEQ; White Blood Cell Scan OK (OK)
--- NOTE | 2023-12-16 10:32 | ER ---
Nurse's Notes [facility] Name: Chanel Castillo Age: 73 yrs Sex: Female : 1950 Arrival Date: 12/16/2023 Time: 08:41 Bed 6 Private MD: Diagnosis: Anasarca Presentation: 12/15 08:44 Chief complaint:. Chief complaint: EMS states: patient called for shortness of breath ko1 and abdominal swelling, wears home O2 3l NC, has a hx of having paracentesis. Has dialysis M-W-F, had dialysis yesterday. Coronavirus screen: At this time, the client does not indicate any symptoms associated with coronavirus-19. Ebola Screen: No symptoms or risks identified at this time. Initial Sepsis Screen: Does the patient meet any 2 criteria? No. Patient's initial sepsis screen is negative. Does the patient have a suspected source of infection? No. Patient's initial sepsis screen is negative. Risk Assessment: Do you want to hurt yourself or someone else? Patient reports no desire to harm self or others. Onset of symptoms is unknown. 08:44 Method Of Arrival: EMS: [facility] ko1 08:44 Acuity: TYRESE 2 ko1 Triage Assessment: 08:52 General: Appears in no apparent distress. ill, Behavior is calm, cooperative, ko1 appropriate for age. Pain: Complains of pain in abdomen. EENT: No deficits noted. Neuro: No deficits noted. Cardiovascular: Patient's skin is warm and dry. edema to bilateral lower extremites. Respiratory: Reports shortness of breath at rest cough that is non-productive, hacking, persistent. GI: Abdomen is round distended, noted to have ascites. : Reports dialysis M-W-F, makes small amt of urine in the mornings. Derm: No deficits noted. Musculoskeletal: Swelling present in abdomen, right leg and left leg. Historical: - Allergies: 08:52 carvedilol; ko1 - Home Meds: 09:02 Folic Acid Oral [Active]; Furosemide Oral [Active]; Januvia oral [Active]; ko1 levothyroxine oral [Active]; olmesartan oral [Active]; sildenafil oral [Active]; Trelegy Ellipta inhalation [Active]; - PMHx: 08:52 Diabetes - NIDDM; DIALYSIS MWF (2022); Hyperlipidemia; Hypertension; Hypothyroidism; ko1 PULMONARY HYPERTENSION; - PSHx: 08:52 Cholecystectomy; ko1 - Immunization history:: Adult Immunizations up to date. - Infectious Disease History:: Denies. - Social history:: Smoking status: Patient denies any tobacco usage or history of. - Family history:: not pertinent. Screenin:56 [facility] ED Fall Risk Assessment (Adult) History of falling in the last 3 months, ko1 including since admission No falls in past 3 months (0 pts) Confusion or Disorientation No (0 pts) Intoxicated or Sedated No (0 pts) Impaired Gait Yes (1 pt) Mobility Assist Device Used Yes (1 pt) Altered Elimination No (0 pt) Score/Fall Risk Level 0 - 2 = Low Risk Oriented to surroundings, Maintained a safe environment, Educated pt \T\ family on fall prevention, incl call for assistance when getting out of bed, Assessed \T\ reinforced patient's understanding of fall precautions, Provided non-skid footwear, Hourly rounding (assess needs \T\ fall precautionary measures) done. Abuse screen: Denies threats or abuse. Denies injuries from another. Nutritional screening: No deficits noted. Tuberculosis screening: No symptoms or risk factors identified. Assessment: 08:56 Reassessment: see triage note. ko1 10:12 Reassessment: Pt took Benzonate 100mg capsule for cough from her home medications, aa5 okay'd by . Neuro: Level of Consciousness is awake, alert, obeys commands, Oriented to person, place, time, situation. Respiratory: Airway is patent Respiratory effort is even, unlabored, Respiratory pattern is regular, symmetrical. Derm: Skin is dry, Skin is normal, Skin temperature is warm. Vital Signs: 08:44 BP 113 / 69; Pulse 80; Resp 19; Temp 97; Pulse Ox 97% on 3 lpm NC; ko1 10:07 BP 130 / 45; Pulse 83; Resp 18; Pulse Ox 98% on 3 lpm NC; ko1 10:38 Weight 86.18 kg; Height 5 ft. 3 in. ; eb 12:02 BP 105 / 51; Pulse 73; Resp 18; Pulse Ox 98% on 3 lpm NC; ko1 12:32 BP 106 / 55; Pulse 74; Resp 15; Pulse Ox 98% on 3 lpm NC; ko1 10:38 Body Mass Index 33.66 (86.18 kg, 160.02 cm) eb ED Course: 08:44 Patient arrived in ED. hb 08:44 Trish Mcmillan, RN is Primary Nurse. ko1 08:45 Dave Mcdermott MD is Attending Physician. rt 08:52 Triage completed. ko1 08:52 Arm band placed on right wrist. Patient placed in an exam room, on a stretcher, on ko1 oxygen, on monitor car operator, on pulse oximetry, Patient notified of wait time. 08:56 Patient has correct armband on for positive identification. Allergy band placed. Fall ko1 risk band placed. Placed in gown. Bed in low position. Call light in reach. Side rails up X2. Provided Education on: labs, meds. Client placed on continuous cardiac and pulse oximetry monitoring. NIBP monitoring applied. nurse monitoring on. Door closed. Noise minimized. Lights dimmed. Warm blanket given. Pillow given. 09:00 Inserted saline lock: 20 gauge in left wrist, using aseptic technique. Blood collected. ko1 Flushed with 10 mL NS. 09:50 CT Chest Abdomen Pelvis W/O Contrast In Process Unspecified. EDMS 10:34 initiated a transfer with Susan from the [facility] [place]. eb 11:30 transfer cancelled with Mary Castillo Rn from the [facility] [place] patient eb does not want to be transferred. 11:32 Sheila Yan is Hospitalizing Provider. rt 12:31 No provider procedures requiring assistance completed. ko1 12:32 Patient admitted, IV remains in place. ko1 Administered Medications: 09:13 Drug: Furosemide IVP 40 mg IVP once; give over 2 minutes Route: IVP; Site: left wrist; aa5 09:28 Follow up: Response: No adverse reaction ko1 Medication: 08:56 VIS not applicable for this client. ko1 Outcome: 10:32 ER care complete, transfer ordered by . rt 11:32 Decision to Hospitalize by Provider. rt 12:32 Admitted to Med/surg accompanied by tech, via stretcher, room 203, with oxygen, with ko1 chart, 12:32 Condition: stable 12:32 Instructed on the need for admit, 14:10 Patient left the ED. ko1 Signatures: Dispatcher Therapydia Parvin Rahman RN RN aa5 Paulina Eldridge RN RN Radhika De Leon Kathy, RN RN ko1 Dave Mcdermott MD MD rt Corrections: (The following items were deleted from the chart) 11:31 11:30 transfer cancelled with Mary Castillo Rn/ patient does not want to be eb transferred. eb
--- NOTE | 2023-12-16 10:33 | EDPHYS ---
Physician Documentation [facility] Name: Chanel Castillo Age: 73 yrs Sex: Female : 1950 Arrival Date: 12/16/2023 Time: 08:41 Bed 6 Private MD: ED Physician Dave Mcdermott HPI: 12/15 10:28 This 73 yrs old Female presents to ER via EMS with complaints of Shortness Of rt Breath. 10:28 Patient with history of pulmonary hypertension, end-stage renal disease, cirrhosis rt presents to the ED with progressively worsening shortness of breath, abdominal swelling. Has worsened today. Denies chest pain, acute complaints, symptoms are moderate severity, no other aggravating or alleviating factors.. Historical: - Allergies: 08:52 carvedilol; ko1 - Home Meds: 09:02 Folic Acid Oral [Active]; Furosemide Oral [Active]; Januvia oral [Active]; ko1 levothyroxine oral [Active]; olmesartan oral [Active]; sildenafil oral [Active]; Trelegy Ellipta inhalation [Active]; - PMHx: 08:52 Diabetes - NIDDM; DIALYSIS MWF (2022); Hyperlipidemia; Hypertension; Hypothyroidism; ko1 PULMONARY HYPERTENSION; - PSHx: 08:52 Cholecystectomy; ko1 - Immunization history:: Adult Immunizations up to date. - Infectious Disease History:: Denies. - Social history:: Smoking status: Patient denies any tobacco usage or history of. - Family history:: not pertinent. ROS: 10:28 Constitutional: Negative for fever, chills, and weight loss, MS/Extremity: Negative for rt injury and deformity, Skin: Negative for injury, rash, and discoloration, Neuro: Negative for headache, weakness, numbness, tingling, and seizure, 10:28 Cardiovascular: Positive for edema, Negative for chest pain, 10:28 Respiratory: Positive for cough, shortness of breath, Negative for 10:28 Abdomen/GI: Positive for abdominal distension, Negative for nausea and vomiting, Exam: 10:28 Constitutional: This is a well developed, well nourished patient who is awake, alert, rt and in no acute distress. Chest/axilla: Normal chest wall appearance and motion. Nontender with no deformity. No lesions are appreciated. Cardiovascular: Regular rate and rhythm with a normal S1 and S2. No gallops, murmurs, or rubs. Normal PMI, no JVD. No pulse deficits. Respiratory: Lungs have equal breath sounds bilaterally, clear to auscultation and percussion. No rales, rhonchi or wheezes noted. No increased work of breathing, no retractions or nasal flaring. Skin: Warm, dry with normal turgor. Normal color with no rashes, no lesions, and no evidence of cellulitis. Neuro: Awake and alert, GCS 15, oriented to person, place, time, and situation. Cranial nerves II-XII grossly intact. Motor strength 5/5 in all extremities. Sensory grossly intact. Cerebellar exam normal. Normal gait. 10:28 Abdomen/GI: Distended abdomen, mild tenderness diffusely, 11:01 ECG was reviewed by the Attending Physician. rt Vital Signs: 08:44 BP 113 / 69; Pulse 80; Resp 19; Temp 97; Pulse Ox 97% on 3 lpm NC; ko1 10:07 BP 130 / 45; Pulse 83; Resp 18; Pulse Ox 98% on 3 lpm NC; ko1 10:38 Weight 86.18 kg; Height 5 ft. 3 in. ; eb 12:02 BP 105 / 51; Pulse 73; Resp 18; Pulse Ox 98% on 3 lpm NC; ko1 12:32 BP 106 / 55; Pulse 74; Resp 15; Pulse Ox 98% on 3 lpm NC; ko1 10:38 Body Mass Index 33.66 (86.18 kg, 160.02 cm) eb MDM: 08:45 Medical Screening Exam initiated rt 10:28 Differential diagnosis: CHF, renal disease, anasarca. Data reviewed: vital signs, rt nurses notes, lab test result(s), EKG, radiologic studies. Consideration of Admission/Observation Escalation of care including admission/observation considered. I considered the following discharge prescriptions or medication management in the emergency department Medications were administered in the Emergency Department. See MAR. Independent interpretation of the following test(s) in the Emergency Department CT Scan: My interpretation is Ascites seen on my interpretation of CT scan images. Care significantly affected by the following chronic conditions: Chronic Kidney Disease. Counseling: I had a detailed discussion with the patient and/or guardian regarding the historical points, exam findings, and any diagnostic results supporting the discharge/admit diagnosis, lab results, radiology results. Response to treatment: There is no appreciated change of the patient's symptoms at this time. 14:15 ED course: Patient subsequently stated that she did not wish to be transferred, will rt admit here.. 12/15 08:50 Order name: Basic Metabolic Panel; Complete Time: 09:45 rt 12/15 08:50 Order name: CBC with Diff; Complete Time: 10:14 rt 12/15 08:50 Order name: LFT's; Complete Time: 09:45 rt 12/15 08:50 Order name: Magnesium; Complete Time: 09:45 rt 12/15 08:50 Order name: PT-INR; Complete Time: 09:45 rt 12/15 08:50 Order name: Troponin HS; Complete Time: 09:45 rt 12/15 10:12 Order name: CBC Smear Scan; Complete Time: 10:14 EDMS 12/15 12:13 Order name: Thyroid Stimulating Hormone EDMS 12/15 12:13 Order name: CBC with Automated Diff EDMS 12/15 12:13 Order name: CBC with Automated Diff EDMS 12/15 12:13 Order name: CBC with Automated Diff EDMS 12/15 12:13 Order name: CBC with Automated Diff EDMS 12/15 12:13 Order name: Comprehensive Metabolic Panel EDMS 12/15 12:13 Order name: Comprehensive Metabolic Panel EDMS 12/15 12:13 Order name: Comprehensive Metabolic Panel EDMS 12/15 12:13 Order name: Comprehensive Metabolic Panel EDMS 12/15 12:13 Order name: Lipid Profile EDMS 12/15 12:13 Order name: Lipid Profile EDMS 12/15 12:13 Order name: Magnesium EDMS 12/15 12:13 Order name: Magnesium EDMS 12/15 12:13 Order name: Magnesium EDMS 12/15 12:13 Order name: Magnesium EDMS 12/15 13:05 Order name: T4 Free EDMS 12/15 08:50 Order name: CT Chest Abdomen Pelvis W/O Contrast; Complete Time: 10:14 rt 12/15 08:50 Order name: EKG; Complete Time: 08:50 rt 12/15 12:13 Order name: CONS Physician Consult EDMS 12/15 08:50 Order name: Cardiac monitoring; Complete Time: 08:57 rt 12/15 08:50 Order name: EKG - Nurse/Tech; Complete Time: 09:01 rt 12/15 08:50 Order name: IV Saline Lock; Complete Time: 09:13 rt 12/15 08:50 Order name: Labs collected and sent; Complete Time: : rt 12/15 08:50 Order name: O2 Per Protocol; Complete Time: :57 rt 12/15 08:50 Order name: O2 Sat Monitoring; Complete Time: 08:57 rt EC: Rate is 85 beats/min. Rhythm is regular, Normal Sinus Rhythm with Occasional PVCs, rt Right bundle branch block. CO interval is normal. QRS interval is normal. No Q waves. Administered Medications: : Drug: Furosemide IVP 40 mg IVP once; give over 2 minutes Route: IVP; Site: left wrist; aa5 09:28 Follow up: Response: No adverse reaction ko1 Disposition Summary: 12/16/23 11:32 Hospitalization Ordered Notes: Hospitalization Status: Inpatient Admission rt Provider: Sheila Yan rt Location: Telemetry/MedSurg (Inpatient) rt Condition: Stable(12/16/23 11:32) rt Problem: an acute exacerbation(12/16/23 11:32) rt Symptoms: are unchanged(12/16/23 11:32) rt Bed/Room Type: Standard rt Room Assignment: 203(12/16/23 12:28) eb Diagnosis - Anasarca rt Forms: - Medication Reconciliation Form rt - SBAR form rt - Leadership Thank You Letter rt Signatures: Dispatcher [employer] Parvin Rahman RN RN aa5 Radhika Estrella Kathy, RN RN ko1 Dave Mcdermott MD MD rt Corrections: (The following items were deleted from the chart) 08:50 08:50 BASIC METABOLIC PANEL+C.LAB.BRZ ordered. EDMS EDMS 08:50 08:50 CBC+H.LAB.BRZ ordered. EDMS EDMS 08:50 08:50 HEPATIC FUNCTION+C.LAB.BRZ ordered. EDMS EDMS 08:50 08:50 MAGNESIUM+C.LAB.BRZ ordered. EDMS EDMS 08:50 08:50 PROTIME (+INR)+COAG.LAB.BRZ ordered. EDMS EDMS 08:50 08:50 Troponin High Sensitivity+C.LAB.BRZ ordered. EDMS EDMS 11:29 10:32 rt rt 10:32 [facility] rt rt 10:32 Higher level of care rt rt 10:32 Stable rt rt 10:32 new rt rt 10:32 are unchanged rt rt 10:32 Anasarca rt rt 10:32 Ascites rt rt 10:32 Cirrhosis rt rt 10:32 End-stage renal disease rt rt 11:32 rt eb
--- NOTE | 2023-12-16 11:32 | P.HP ---
Certification for Inpatient Patient admitted to: Inpatient With expected LOS: >2 Midnights Patient will require the following post-hospital care: None Practitioner: I am a practitioner with admitting privileges, knowledge of patient current condition, hospital course, and medical plan of care. Services: Services provided to patient in accordance with Admission requirements found in Title 42 Section 412.3 of the Code of Federal Regulations <Shelly Heath - Last Filed: 12/16/23 15:38> Patient History Date of Service: 12/16/23 Reason for admission: shortness of breath and abdominal distension History of Present Illness: Ms. Castillo is a 73-year-old female with a past medical history of hypertension, hyperlipidemia, type 2 diabetes, hypothyroidism, cirrhosis and ESRD. Her normal dialysis schedule is Monday. Last dialysis yesterday 12/15/2023. Her last admission was 11/13/2023 for ESRD with hypotension, electrolyte derangement, and potential pneumonia. During the course of the admission, she was diagnosed with C. difficile and was released with vancomycin p.o. She presented to the emergency department today for increased difficulty breathing and abdominal swelling. On arrival, her vital signs were 113/69, 80, 19, 97 degrees, pulse ox of 97% on 3 L. She does use oxygen at home from 2 to 3 L. Her emr implementation specialist, Dr. Rowland, was contacted from the emergency department and states that he will dialyze her again today. The patient states that she has had a paracentesis for diagnostic reasons but never a large volume paracentesis. Her abdomen is quite distended but no fluid wave appreciated, CT shows cirrhotic liver. Small hepatic cysts. Distention of the portal vein. Mild splenomegaly and large amount of ascites, with diffuse edema within the subcutaneous tissue. I am not aware of any previous thoracentesis: Patient has a moderate right pleural effusion. Will reassess post dialysis. Labs: WBC 3.9, H/H 10.8/31.6 with platelets of 142, INR 1.0, electrolytes relatively normal except a creatinine of 3.48 with a GFR of 13, glucose 122, direct bili 0.4 but total bili normal at 0.9, alkaline phosphatase elevated at 174, TSH elevated at 25.7 but free T4 is 0.95 Home medications list reviewed: Yes - Past Medical/Surgical History Has patient received pneumonia vaccine in the past: Yes Diabetic: Yes -: DM -: Hypothyroidism -: OA -: Diastolic CHF -: Pulmonary HTN -: CKD V (Dr. Randolph/ Kashif) -: HTN -: appy, kerwin, l breast biopsy, tumor removed l calf Psychosocial/ Personal History: walks with walker, O2 dependent at home. Dialysis M/W/F - Social History Smoking Status: Never smoker Alcohol use: No CD- Drugs: No Caffeine use: No Place of Residence: Home <Shelly Heath - Last Filed: 12/16/23 15:38> Date of Service: 12/18/23 <MarquiseVanessa - Last Filed: 12/18/23 17:33> Allergies No Known Drug Allergies Allergy (Verified 04/26/22 13:47) Unknown Home Medications: Loratadine [Claritin*] 10 mg PO DAILY PRN 03/31/14 Sildenafil Citrate [Revatio*] 20 mg PO DAILY 90 Days #90 tab 02/11/22 Bumetanide 1 tab PO DAILY 12/16/23 Folic Acid 1 tab PO DAILY 12/16/23 Gabapentin 1 tab PO DAILY 12/16/23 Potassium Chloride [Klor-Con] 1 tab PO DAILY 12/16/23 Review of Systems 10-point ROS is otherwise unremarkable General: Weakness Eyes: Unremarkable ENT: Unremarkable Respiratory: Cough, Shortness of Breath, SOB with Excertion Cardiovascular: Unremarkable Gastrointestinal: Distention, As per HPI Genitourinary: Unremarkable Musculoskeletal: Unremarkable Integumentary: Unremarkable Neurological: Unremarkable Lymphatics: Unremarkable <Shelly Heath - Last Filed: 12/16/23 15:38> Physical Examination - Physical Exam General: Alert, In no apparent distress, Oriented x3, Obese HEENT: Atraumatic, Normocephalic Neck: Supple Respiratory: Other (right lower lobes with very little to absent breath sounds, + crackles ) Cardiovascular: Normal pulses, Edema, Irregular heart rate/rhythm Capillary refill: <2 Seconds Gastrointestinal: Other (no noted fluid wave), Distended, Ascites Musculoskeletal: No clubbing, No swelling Integumentary: No rashes, Other (Stage 1 Sacral discoloration) Neurological: Normal speech, Normal affect, Abnormal tone Lymphatics: No axilla or inguinal lymphadenopathy External genitalia: Deferred Rectal: Deferred - Studies Laboratory Data (last hrs) 12/16/23 12/16/23 12/16/23 09:10 09:10 09:10 WBC 3.90 L Hgb 10.8 L Hct 31.6 L Plt Count 142 L PT 11.9 INR 1.06 Sodium 136 Potassium 3.5 BUN 16 Creatinine 3.48 H Glucose 122 H Magnesium 2.1 Total Bilirubin 0.9 AST 32 ALT 16 Alkaline Phosphatase 174 H <Shelly Heathlen - Last Filed: 12/16/23 15:38> Assessment and Plan - Plan Assessment and Plan: Ms. Castillo is a 73-year-old female with a past medical history of hypertension, hyperlipidemia, type 2 diabetes, hypothyroidism, cirrhosis and ESRD. Her normal dialysis schedule is Monday. Last dialysis yesterday 12/15/2023. Her last admission was 11/13/2023 for ESRD with hypotension, electrolyte derangement, and potential pneumonia. During the course of the admission, she was diagnosed with C. difficile and was released with vancomycin p.o. She presented to the emergency department today for increased difficulty breathing and abdominal swelling. On arrival, her vital signs were 113/69, 80, 19, 97 degrees, pulse ox of 97% on 3 L. She does use oxygen at home from 2 to 3 L. Her emr implementation specialist, Dr. Rowland, was contacted from the emergency department and states that he will dialyze her again today. The patient states that she has had a paracentesis for diagnostic reasons but never a large volume paracentesis. Her abdomen is quite distended but no fluid wave appreciated, CT shows cirrhotic liver. Small hepatic cysts. Distention of the portal vein. Mild splenomegaly and large amount of ascites, with diffuse edema within the subcutaneous tissue. I am not aware of any previous thoracentesis: Patient has a moderate right pleural effusion. Will reassess post dialysis. Labs: WBC 3.9, H/H 10.8/31.6 with platelets of 142, INR 1.0, electrolytes relatively normal except a creatinine of 3.48 with a GFR of 13, glucose 122, direct bili 0.4 but total bili normal at 0.9, alkaline phosphatase elevated at 174, TSH elevated at 25.7 but free T4 is 0.95 #1 ESRD: Last dialysis yesterday 12/15/2023 Dr. Rowland consulted per ED MD for dialysis monitor and replete electrolytes Renal diet #2 right pleural effusion secondary to #1 May need therapeutic thoracentesis Consult Surgery #3 Acute dyspnea, cough, and edema 2nd to #1/#2 O2 per protocol I-S HOB up 30 degrees, pulmonary toilet #4 Cirrhosis with ascites and portal vein dilation (status post paracentesis for testing: Patient has never had paracentesis for volume removal) May need therapeutic/diagnostic paracentesis Consult IR VTE/GI prophylaxis - Advance Directives Does patient have a Living Will: No Does patient have a Durable POA for Healthcare: No - Code Status/Comfort Care Code Status Assessed: Yes (Full) <Shelly Heath - Last Filed: 12/16/23 15:38>
[2023-12-16] MEDS ORDERED: MANNITOL 25% 12.5 GM/50 ML VIAL IV PRN (11:33)
[2023-12-16] MEDS ORDERED: NA CHLORIDE 0.9% 1,000 ML IV PRN (11:33)
[2023-12-16] MEDS ORDERED: ALBUMIN HUMAN 25% 50 ML IV SCH (12:00)
[2023-12-16 12:51] LABS: Thyroid Stimulating Hormone 25.7 uIU/mL (0.358-3.740)
[2023-12-16] MEDS: ALBUMIN HUMAN 25% 100 ML IV ONE (14:42)
[2023-12-16] MEDS: IPRATROPIUM BROM 0.5MG/2.5ML NEB SCH (14:54)
[2023-12-16 15:24] LABS: SARS-CoV-2 Antigen CONTROL BLUE LINE VIS/BG OK; SARS-CoV-2 Antigen Rapid Res Negative (Negative)
[2023-12-16 15:28] VITALS: BMI 34.3
[2023-12-16] MEDS: HEPARIN 5000 UNIT/ML 1 ML VIAL SQ SCH (17:40)
[2023-12-16] MEDS: MIDODRINE HCL 5 MG TABLET PO ONE (20:14)
[2023-12-16] MEDS: GUAIFENESIN/DM 5 ML UCUP PO PRN (20:14)
[2023-12-16] MEDS: ROSUVASTATIN 10 MG TAB PO SCH (21:00)
--- NOTE | 2023-12-16 21:36 | P.CNS ---
Date of Consult: 12/16/23 Reason for Consult: ESRD Requesting Physician: CONNER Yan Chief Complaint: shortness of breath and abdominal distension History of Present Illness: Ms. Castillo is a 73-year-old female with a past medical history of hypertension, hyperlipidemia, type 2 diabetes, hypothyroidism, cirrhosis and ESRD. Her normal dialysis schedule is Monday. Last dialysis yesterday 12/15/2023. Her last admission was 11/13/2023 for ESRD with hypotension, electrolyte derangement, and potential pneumonia. During the course of the admission, she was diagnosed with C. difficile and was released with vancomycin p.o. She presented to the emergency department today for increased difficulty breathing and abdominal swelling. On arrival, her vital signs were 113/69, 80, 19, 97 degrees, pulse ox of 97% on 3 L. She does use oxygen at home from 2 to 3 L. Her horse show judge, Dr. Rowland, was contacted from the emergency department and states that he will dialyze her again today. The patient states that she has had a paracentesis for diagnostic reasons but never a large volume paracentesis. Her abdomen is quite distended but no fluid wave appreciated, CT shows cirrhotic liver. Small hepatic cysts. Distention of the portal vein. Mild splenomegaly and large amount of ascites, with diffuse edema within the subcutaneous tissue. I am not aware of any previous thoracentesis: Patient has a moderate right pleural effusion. Will reassess post dialysis. Labs: WBC 3.9, H/H 10.8/31.6 with platelets of 142, INR 1.0, electrolytes relatively normal except a creatinine of 3.48 with a GFR of 13, glucose 122, direct bili 0.4 but total bili normal at 0.9, alkaline phosphatase elevated at 174, TSH elevated at 25.7 but free T4 is 0.95 [id number] 10:28 This 73 yrs old Female presents to ER via EMS with complaints of Shortness Of rt Breath. 10:28 Patient with history of pulmonary hypertension, end-stage renal disease, cirrhosis rt presents to the ED with progressively worsening shortness of breath, abdominal swelling. Has worsened today. Denies chest pain, acute complaints, symptoms are moderate severity, no other aggravating or alleviating factors.. Allergies No Known Drug Allergies Allergy (Verified 04/26/22 13:47) Unknown Home medications list reviewed: Yes Home Medications: Loratadine [Claritin*] 10 mg PO DAILY PRN 03/31/14 Sildenafil Citrate [Revatio*] 20 mg PO DAILY 90 Days #90 tab 02/11/22 Bumetanide 1 tab PO DAILY 12/16/23 Folic Acid 1 tab PO DAILY 12/16/23 Gabapentin 1 tab PO DAILY 12/16/23 Potassium Chloride [Klor-Con] 1 tab PO DAILY 12/16/23 - Past Medical/Surgical History Diabetic: Yes -: DM II -: Hypothyroidism -: OA -: Diastolic CHF -: Pulmonary HTN -: CKD V (Dr. Randolph/ Kashif) -: HTN -: appy, kerwin, l breast biopsy, tumor removed l calf Psychosocial/ Personal History: walks with walker, O2 dependent at home. Dialysis M/W/F - Social History Smoking Status: Never smoker Alcohol use: No CD- Drugs: No Caffeine use: No Place of Residence: Home Review of Systems 10-point ROS is otherwise unremarkable General: Weakness Respiratory: Shortness of Breath Physical Examination Temp Pulse Resp BP Pulse Ox 97.1 F 80 18 126/60 94 12/16/23 16:00 12/16/23 16:00 12/16/23 16:00 12/16/23 16:00 12/16/23 16:00 General: In no apparent distress, Oriented x3, Cooperative, Obese HEENT: Atraumatic Neck: Supple Respiratory: Diminished Cardiovascular: Regular rate/rhythm, Edema Gastrointestinal: No guarding, Distended Musculoskeletal: No clubbing, No contractures Integumentary: No rashes, No cyanosis Neurological: Normal speech Laboratory Data (last 24 hrs) 12/16/23 12/16/23 12/16/23 09:10 09:10 09:10 WBC 3.90 L Hgb 10.8 L Hct 31.6 L Plt Count 142 L PT 11.9 INR 1.06 Sodium 136 Potassium 3.5 BUN 16 Creatinine 3.48 H Glucose 122 H Magnesium 2.1 Total Bilirubin 0.9 AST 32 ALT 16 Alkaline Phosphatase 174 H Imagings Data: EXAM: CT CHEST, ABDOMEN AND PELVIS WITHOUT CONTRAST CLINICAL INDICATION: Shortness of breath, abdominal swelling and abdominal pain TECHNIQUE: CT chest, abdomen and pelvis was performed, without IV contrast, as per department protocol. Axial, sagittal and coronal reconstructions were obtained. One or more of the following dose reduction techniques were used: Automated exposure control, adjustment of the mA and/or kV according to the patient size, and/or iterative reconstruction. Unless otherwise specified, incidental findings do not require dedicated imaging follow-up. The lack of IV and oral contrast limits evaluation of the mediastinum, elly, vessels, organs and bowel. COMPARISON: October 2023 CT abdomen FINDINGS: Small right to moderate pleural effusion. Right lower lobe atelectasis No mediastinal or hilar lymphadenopathy. No pericardial effusion. Cirrhotic liver.. Small hepatic cyst. Cholecystectomy.. Distention portal vein. Mild splenomegaly Kidneys mildly diminished in size. No hydronephrosis. Pancreas and adrenals grossly normal. No evidence of diverticulitis. No adnexal mass Large amount ascites. Diffuse edema within the subcutaneous tissues Ankylosing spondylitis SI joints IMPRESSION: [id number] right pleural effusion Cirrhosis. large amount ascites Conclusions/Impression: ESRD on HD -HD TIW MWF -Acute UF today Hypotension -Midodrine qHD Diastolic CHF, A/C Pulmonary HTN Right pleural effusion -UF as tolerated Liver Cirrhosis with Ascites -UF as tolerated -Paracentesis prn Pancytopenia -Monitor CBC Hospitalist and ER notes reviewed Case reviewed with Dr. Mcdermott Thank you kindly for the consultation
[2023-12-16] MEDS: EPOETIN ALFA 10,000 UNIT/ML VIAL IV SCH (22:00)
[2023-12-17] MEDS: LEVOTHYROXINE SOD 0.1 MG TAB PO SCH (06:15)
[2023-12-17] MEDS: PNEUMOCOCCAL VACCINE 0.5 ML IMVAC ONE (07:00)
[2023-12-17 07:34] LABS: Absolute Eosinophils 0.2 K/uL (0-0.5); Absolute Lymphocytes (CBC) 0.7 K/uL (0.7-4.9); Absolute Monocytes 0.5 K/uL (0.1-1.3); Absolute Neutrophil 2.7 K/uL (1.8-8.0); Basophils % 0.8 % (0-1.3); Eosinophils % 4.1 % (0-4.4); Hematocrit 28.5 % (36.0-45.0); Hemoglobin 9.4 g/dL (12.0-15.0); Lymphocytes % 17.5 % (15.3-44.8); MPV 9.1 fL (7.6-11.3); Monocytes % 11.8 % (3.3-12.3); Neutrophils % 65.8 % (41.7-73.7); Platelets 119 thou/uL (152-406); RBC Red Blood Cell Count 2.69 M/uL (3.86-4.86); Red Cell Distribution Width 17.8 % (12.1-15.2)
[2023-12-17 07:52] LABS: AST/SGOT 24 U/L (15-37); Albumin 2.4 g/dL (3.4-5.0); Albumin/Globulin Ratio 0.7 (1.1-1.8); Alkaline Phosphatase 143 U/L (45-117); Anion Gap 8.9 mEq/L (5.0-15.0); BUN Blood Urea Nitrogen 21 mg/dL (7-18); Bicarbonate 26 mEq/L (21-32); Bilirubin Total 0.8 mg/dL (0.2-1.0); Globulin 3.5 g/dL (2.3-3.5); Glomerular Filtration Rate 11 ml/min (=/>90); Glucose Level 95 mg/dL (74-106); HDL Cholesterol 32 mg/dL (40-60); LDL Cholesterol, Calculated 49 mg/dL (<130); LDL Cholesterol,Calc NonReport 49; Potassium 3.9 mEq/L (3.5-5.1); Protein, Total 5.9 g/dL (6.4-8.2); Sodium Level 137 mEq/L (136-145)
[2023-12-17 07:55] LABS: ALT/SGPT < 14 U/L (13-56)
[2023-12-17] MEDS: SILDENAFIL CITRATE 20 MG TABLET PO SCH (09:00)
[2023-12-17] MEDS ORDERED: AMIODARONE HCL 200 MG TAB PO SCH (09:00)
[2023-12-17] MEDS: FERROUS SULFATE 325 MG TAB PO SCH (09:37)
--- NOTE | 2023-12-17 10:24 | P.PN ---
Date of Service: 12/17/23 Review of Systems 10-point ROS is otherwise unremarkable General: Weakness Eyes: Unremarkable ENT: Unremarkable Respiratory: Cough, Shortness of Breath, SOB with Excertion Cardiovascular: Unremarkable Gastrointestinal: Distention, As per HPI, "tight" Genitourinary: Unremarkable Musculoskeletal: Unremarkable Integumentary: Unremarkable Neurological: Unremarkable Lymphatics: Unremarkable Physical Examination - Physical Exam General: Alert, In no apparent distress, Oriented x3, Obese HEENT: Atraumatic, Normocephalic Neck: Supple Respiratory: Other (right lower lobes with improved air movement over admission s/p dialysis) Cardiovascular: Normal pulses, Edema, Irregular heart rate/rhythm Capillary refill: <2 Seconds Gastrointestinal: Other (no noted fluid wave), Distended, Ascites, tight, pt uncomfortable Musculoskeletal: No clubbing, No swelling Integumentary: No rashes, Other (Stage 1 Sacral discoloration) Neurological: Normal speech, Normal affect, Abnormal tone Lymphatics: No axilla or inguinal lymphadenopathy External genitalia: Deferred Rectal: Deferred Assessment and Plan: Ms. Castillo is a 73-year-old female with a past medical history of hypertension, hyperlipidemia, type 2 diabetes, hypothyroidism, cirrhosis and ESRD. Her normal dialysis schedule is Monday. Last dialysis yesterday 12/15/2023. Her last admission was 11/13/2023 for ESRD with hypotension, electrolyte derangement, and potential pneumonia. During the course of the admission, she was diagnosed with C. difficile and was released with vancomycin p.o. She presented to the emergency department today for increased difficulty breathing and abdominal swelling. On arrival, her vital signs were 113/69, 80, 19, 97 degrees, pulse ox of 97% on 3 L. She does use oxygen at home from 2 to 3 L. Her veneer supervisor, Dr. Rowland, was contacted from the emergency department and states that he will dialyze her again today. The patient states that she has had a paracentesis for diagnostic reasons but never a large volume paracentesis. Her abdomen is quite distended but no fluid wave appreciated, CT shows cirrhotic liver. Small hepatic cysts. Distention of the portal vein. Mild splenomegaly and large amount of ascites, with diffuse edema within the subcutaneous tissue. I am not aware of any previous thoracentesis: Patient has a moderate right pleural effusion. Will reassess post dialysis. Labs: WBC 3.9, H/H 10.8/31.6 with platelets of 142, INR 1.0, electrolytes relatively normal except a creatinine of 3.48 with a GFR of 13, glucose 122, direct bili 0.4 but total bili normal at 0.9, alkaline phosphatase elevated at 174, TSH elevated at 25.7 but free T4 is 0.95 #1 ESRD: Last dialysis yesterday 12/15/2023 - rec'd dialysis last pm (12/16/23) Dr. Rowland consulted per ED MD for dialysis monitor and replete electrolytes Renal diet #2 right pleural effusion secondary to #1 May need therapeutic thoracentesis Consult Surgery prn Will try large volume paracentesis first #3 Acute dyspnea, cough, and edema 2nd to #1/#2 O2 per protocol I-S HOB up 30 degrees, pulmonary toilet Pt had dialysis 12/16/23, sitting up this am in a chair, breath sounds more audible but abd tense and large making patient uncomfortable #4 Cirrhosis with ascites and portal vein dilation (status post paracentesis for testing: Patient has never had paracentesis for volume removal) Need large volume therapeutic/diagnostic paracentesis Consult IR VTE/GI prophylaxis - Advance Directives Does patient have a Living Will: No Does patient have a Durable POA for Healthcare: No - Code Status/Comfort Care Code Status Assessed: Yes (Full)
--- NOTE | 2023-12-17 12:41 | EKG ---
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 Helper: TORRIE Richey MEASUREMENT RESULTS: Intervals: Rate: 85 LA: 176 QRSD: 134 QT: 438 QTc: 521 [place]: P: 2 LA: 176 QRS: 269 T: -8 INTERPRETIVE STATEMENTS: Sinus rhythm with premature supraventricular complexes Right bundle branch block Septal infarct, age undetermined Abnormal ECG Compared to ECG 11/06/2023 13:02:32 Atrial premature complex(es) now present Ventricular premature complex(es) no longer present Left anterior fascicular block no longer present Bifascicular block no longer present Myocardial infarct finding still present Electronically Signed On 12-17-23 12:39:08 [employer] by Shine Rivas
[2023-12-18 05:26] LABS: Absolute Eosinophils 0.2 K/uL (0-0.5); Absolute Lymphocytes (CBC) 0.9 K/uL (0.7-4.9); Absolute Monocytes 0.4 K/uL (0.1-1.3); Absolute Neutrophil 2.5 K/uL (1.8-8.0); Basophils % 0.8 % (0-1.3); Eosinophils % 3.9 % (0-4.4); Hematocrit 28.7 % (36.0-45.0); Hemoglobin 9.9 g/dL (12.0-15.0); Lymphocytes % 21.9 % (15.3-44.8); MCH 36.1 pg (27.0-35.0); MCHC 34.4 g/dL (32.0-36.0); MCV 104.9 fL (80-100); MPV 8.3 fL (7.6-11.3); Monocytes % 10.6 % (3.3-12.3); Neutrophils % 62.8 % (41.7-73.7); Platelets 134 thou/uL (152-406); RBC Red Blood Cell Count 2.73 M/uL (3.86-4.86); Red Cell Distribution Width 17.5 % (12.1-15.2)
[2023-12-18 05:50] LABS: AST/SGOT 21 U/L (15-37); Albumin 2.3 g/dL (3.4-5.0); Albumin/Globulin Ratio 0.7 (1.1-1.8); Alkaline Phosphatase 141 U/L (45-117); Anion Gap 9.9 mEq/L (5.0-15.0); BUN Blood Urea Nitrogen 26 mg/dL (7-18); Bicarbonate 25 mEq/L (21-32); Bilirubin Total 0.8 mg/dL (0.2-1.0); Globulin 3.4 g/dL (2.3-3.5); Glomerular Filtration Rate 9 ml/min (=/>90); Glucose Level 88 mg/dL (74-106); Magnesium 2.1 mg/dL (1.6-2.4); Phosphorus 4.5 mg/dL (2.5-4.9); Potassium 3.9 mEq/L (3.5-5.1); Protein, Total 5.7 g/dL (6.4-8.2); Sodium Level 135 mEq/L (136-145)
[2023-12-18 05:51] LABS: ALT/SGPT < 14 U/L (13-56)
--- NOTE | 2023-12-18 07:47 | P.PN ---
Date of Service: 12/18/23 subjective Reports shortness of breath, moderate abdominal distention, A-fib Pending paracentesis by interventional radiology today 95% on 3 L, Review of Systems 10-point ROS is otherwise unremarkable unless listed in HPI Physical Examination - Physical Exam General: Alert, In no apparent distress, Oriented x3, afebrile HEENT: Atraumatic, Normocephalic Neck: Supple Respiratory: Diminished, dyspnea with exertion, on 3 L nasal cannula Cardiovascular: Normal pulses, Edema, Capillary refill: <2 Seconds Gastrointestinal: Moderate abdominal distention, no rebound tenderness Musculoskeletal: No clubbing, No swelling, generalized weakness Integumentary: No rashes, Other sacral stage I Neurological: Normal speech, Normal affect, Abnormal tone Assessment and Plan - Plan Ms. Castillo is a 73-year-old female with a past medical history of hypertension, hyperlipidemia, type 2 diabetes, hypothyroidism, cirrhosis and ESRD, Monday. Last dialysis yesterday 12/15/2023. Her last admission was 11/13/2023 for ESRD with hypotension, electrolyte derangement, and potential pneumonia. During the course of the admission, she was diagnosed with C. difficile and was released with vancomycin p.o. She presented to the emergency department today for increased difficulty breathing and abdominal swelling. On arrival, her vital signs were 113/69, 80, 19, 97 degrees, pulse ox of 97% on 3 L. She does use oxygen at home from 2 to 3 L. Her plater helper, Dr. Rowland, The patient states that she has had a paracentesis for diagnostic reasons but never a large volume paracentesis. Her abdomen is quite distended but no fluid wave appreciated, CT shows cirrhotic liver. Small hepatic cysts. Distention of the portal vein. Mild splenomegaly and large amount of ascites, with diffuse edema within the subcutaneous tissue. Patient has a moderate right pleural effusion. Will reassess post dialysis. Labs: WBC 3.9, H/H 10.8/31.6 with platelets of 142, INR 1.0, electrolytes relatively normal except a creatinine of 3.48 with a GFR of 13, glucose 122, direct bili 0.4 but total bili normal at 0.9, alkaline phosphatase elevated at 174, TSH elevated at 25.7 but free T4 is 0.95 ESRD on hemo-dialysis Monday. Hypotension Nephrology consult Dr. Rowland consulted monitor and replete electrolytes Renal diet Acute hypoxic respiratory failure secondary to right pleural effusion, Home O2 dependent Nephrology to schedule hemodialysis for fluid removal Interventional radiology therapeutic thoracentesis ordered Will try large volume paracentesis first O2 per protocol, incentive spirometer HOB up 30 degrees, pulmonary toilet Decompensated liver disease with liver cirrhosis Cirrhosis with ascites and portal vein dilation Patient reports has never having paracentesis for volume removal) Need large volume therapeutic/diagnostic paracentesis Follow-up with hepatology after discharge Hypothyroidism Hyperlipidemia Resume appropriate home meds VTE/GI prophylaxis - Advance Directives Does patient have a Living Will: No Does patient have a Durable POA for Healthcare: No Time with patient 35-minute - Code Status/Comfort Care Code Status Assessed: Yes (Full)
[2023-12-18] MEDS: ALBUMIN HUMAN 25% 100 ML IV ONE (11:00)
[2023-12-18] MEDS: ACETAMINOPHEN 500 MG TAB PO PRN (12:49)
--- NOTE | 2023-12-18 20:53 | P.PN ---
Date of Service: 12/18/23 Vital Signs Temp Pulse Resp BP Pulse Ox 98.3 F 76 20 135/70 94 12/18/23 16:00 12/18/23 16:00 12/18/23 16:00 12/18/23 16:00 12/18/23 16:00 Medications Acetaminophen (Acetaminophen 500 Mg Tab) 500 mg PO Q4HP PRN PRN Reason: TEMP > 100' F Last Admin: 12/18/23 12:49 Dose: 500 mg Epoetin Breezy (Epoetin Breezy 10,000 Unit/Ml Vial) 10,000 unit IV EVERY HD HUGO Last Admin: 12/16/23 22:00 Dose: 10,000 unit Ferrous Sulfate (Ferrous Sulfate 325 Mg Tab) 325 mg PO DAILY [facility] Last Admin: 12/18/23 09:25 Dose: 325 mg Guaifenesin/Dextromethorphan (Guaifenesin/Dm 5 Ml Ucup) 5 ml PO Q6H PRN PRN Reason: COUGH Last Admin: 12/17/23 21:46 Dose: 5 ml Heparin Sodium (Porcine) (Heparin 1,000 Unit/Ml Vial) 6,000 unit IV EVERY HD PRN PRN Reason: AFTER EACH Last Admin: 12/16/23 22:19 Dose: 6,000 unit Heparin Sodium (Porcine) (Heparin 5000 Unit/Ml 1 Ml Vial) 5,000 unit SQ Q8HR HUGO Last Admin: 12/18/23 09:25 Dose: 5,000 unit Heparin Sodium (Porcine) (Heparin 1,000 Unit/Ml Vial) 3,000 unit IV EVERY HD PRN PRN Reason: prevent HD Systm Clotting Last Admin: 12/16/23 19:12 Dose: 3,000 unit Albumin Human (Albumin 25%) 50 mls @ 100 mls/hr IV EVERY HD [facility] Ipratropium [place] (Ipratropium Brom 0.5mg/2.5ml) 0.5 mg NEB [id number] [facility] Last Admin: 12/18/23 15:42 Dose: 0.5 mg Levothyroxine Sodium (Levothyroxine Sod 0.1 Mg Tab) 0.1 mg PO DAILYAC [facility] Last Admin: 12/18/23 05:39 Dose: 0.1 mg Mannitol (Mannitol 25% 12.5 Gm/50 Ml Vial) 12.5 gm IV EVERY HD PRN PRN Reason: Titrate to SBP (MUST DEFINE) Midodrine (Midodrine Hcl 5 Mg Tablet) 10 mg PO EVERY HD PRN PRN Reason: Goal to achieve SBP in comment Rosuvastatin Calcium (Rosuvastatin 10 Mg Tab) 10 mg PO BEDTIME [facility] Last Admin: 12/17/23 21:43 Dose: 10 mg Sildenafil Citrate (Sildenafil Citrate 20 Mg Tablet) 20 mg PO DAILY [facility] Last Admin: 12/18/23 09:00 Dose: Not Given Microbiology Results 12/16/23 14:52 Nasopharnyx Influenza Type A Antigen Screen - Final 12/16/23 14:52 Nasopharnyx Influenza Type B Antigen Screen - Final Assessment/ Plan: Nephrology No dyspnea No chest pain Persistent abdominal fullness No acute events overnight Vitals, medications, blood work and imaging reviewed in the chart General: In no apparent distress, Oriented x3, Cooperative, Obese HEENT: Atraumatic Neck: Supple Respiratory: Diminished Cardiovascular: Regular rate/rhythm, Edema Gastrointestinal: No guarding, Distended Musculoskeletal: No clubbing, No contractures Integumentary: No rashes, No cyanosis Neurological: Normal speech Laboratory Data (last 24 hrs) 12/16/23 12/16/23 12/16/23 09:10 09:10 09:10 WBC 3.90 L Hgb 10.8 L Hct 31.6 L Plt Count 142 L PT 11.9 INR 1.06 Sodium 136 Potassium 3.5 BUN 16 Creatinine 3.48 H Glucose 122 H Magnesium 2.1 Total Bilirubin 0.9 AST 32 ALT 16 Alkaline Phosphatase 174 H Imagings Data: EXAM: CT CHEST, ABDOMEN AND PELVIS WITHOUT CONTRAST CLINICAL INDICATION: Shortness of breath, abdominal swelling and abdominal pain TECHNIQUE: CT chest, abdomen and pelvis was performed, without IV contrast, as per department protocol. Axial, sagittal and coronal reconstructions were obtained. One or more of the following dose reduction techniques were used: Automated exposure control, adjustment of the mA and/or kV according to the patient size, and/or iterative reconstruction. Unless otherwise specified, incidental findings do not require dedicated imaging follow-up. The lack of IV and oral contrast limits evaluation of the mediastinum, elly, vessels, organs and bowel. COMPARISON: October 2023 CT abdomen FINDINGS: Small right to moderate pleural effusion. Right lower lobe atelectasis No mediastinal or hilar lymphadenopathy. No pericardial effusion. Cirrhotic liver.. Small hepatic cyst. Cholecystectomy.. Distention portal vein. Mild splenomegaly Kidneys mildly diminished in size. No hydronephrosis. Pancreas and adrenals grossly normal. No evidence of diverticulitis. No adnexal mass Large amount ascites. Diffuse edema within the subcutaneous tissues Ankylosing spondylitis SI joints IMPRESSION: [id number] right pleural effusion Cirrhosis. large amount ascites Conclusions/Impression: ESRD on HD -HD TIW MWF -Acute UF today Hypotension -Midodrine qHD Diastolic CHF, A/C Pulmonary HTN Right pleural effusion -UF as tolerated Liver Cirrhosis with Ascites -UF as tolerated -Paracentesis prn Pancytopenia -Monitor CBC Hospitalist note reviewed Case reviewed with the hospitalist team
[2023-12-19 05:08] LABS: Absolute Eosinophils 0.1 K/uL (0-0.5); Absolute Monocytes 0.6 K/uL (0.1-1.3); Absolute Neutrophil 3.7 K/uL (1.8-8.0); Basophils % 0.8 % (0-1.3); Eosinophils % 2.5 % (0-4.4); Hematocrit 32.7 % (36.0-45.0); Lymphocytes % 18.1 % (15.3-44.8); MCH 35.4 pg (27.0-35.0); MCHC 33.7 g/dL (32.0-36.0); MPV 7.9 fL (7.6-11.3); Monocytes % 10.3 % (3.3-12.3); Neutrophils % 68.3 % (41.7-73.7); Nucleated Red Blood Cells % 0.1 % (0-0); Platelets 148 thou/uL (152-406); RBC Red Blood Cell Count 3.11 M/uL (3.86-4.86); Red Cell Distribution Width 17.7 % (12.1-15.2)
[2023-12-19 05:26] LABS: Albumin 2.7 g/dL (3.4-5.0); Albumin/Globulin Ratio 0.7 (1.1-1.8); Anion Gap 10.8 mEq/L (5.0-15.0); Bilirubin Total 0.9 mg/dL (0.2-1.0); Globulin 3.9 g/dL (2.3-3.5); Magnesium 2.1 mg/dL (1.6-2.4); Potassium 3.8 mEq/L (3.5-5.1); Protein, Total 6.6 g/dL (6.4-8.2)
[2023-12-19 11:51] LABS: Hepatitis B surface AG Interp. Nonreactive (Nonreactive)
--- NOTE | 2023-12-19 12:01 | RAD REPORT ---
PROCEDURE: ULTRASOUND GUIDED PARACENTESIS Procedural Provider: Jak Chnio M.D. Pre-procedure diagnosis: Ascites Post-procedure diagnosis: Same as above. CLINICAL INDICATION: Uncomplicated ascites. Female, 73 years old. Ultrasound-guided therapeutic parac entesis COMPLICATIONS: No immediate complications. IMPRESSION: Ultrasound guided paracentesis, yielding 5600 mL of straw-colored fluid. PLAN: Aspirated fluid was not sent for analysis. PROCEDURE DETAILS: Consent: Informed consent for the procedure including risks, benefits and alternatives was obtained a nd time-out was performed prior to the procedure. Preparation: The site was prepared and draped using maximal sterile barrier technique including cutan eous antisepsis. Sedation: None Procedure: Initial limited abdominal ultrasound was performed and a large amount of ascites was seen. A safe window for paracentesis was identified with ultrasound to summer a suitable access site. Local anesthesia was administered. The peritoneal cavity was accessed, and fluid return confirmed pos ition. A catheter was placed and ascites was drained. The catheter was removed, and a sterile bandage was applied. [id number]. Estimated blood loss: Less than 10 mL.
[2023-12-19] MEDS: MIDODRINE HCL 5 MG TABLET PO PRN (12:34)
[2023-12-19] MEDS: ALBUMIN HUMAN 25% 100 ML IV ONE (12:34)
[2023-12-19] MEDS ORDERED: IPRATROPIUM BROM 0.5MG/2.5ML NEB PRN (14:16)
--- NOTE | 2023-12-19 20:09 | P.PN ---
Date of Service: 12/19/23 subjective Paracentesis today, Hypotensive afterward, required albumin after paracentesis, major edema Review of Systems 10-point ROS is otherwise unremarkable unless listed in HPI Physical Examination - Physical Exam Vital signs Reviewed General: Alert, oriented, no acute distress noted HEENT: Atraumatic, Normocephalic Neck: Supple, no jugular vein distention Respiratory: Diminished, dyspnea with exertion, on 3 L nasal cannula Cardiovascular: Normal pulses, Capillary refill: <2 Seconds Gastrointestinal: Moderate abdominal ascites, mild abdominal tenderness, no rebound Musculoskeletal: No clubbing, generalized weakness Integumentary: No rashes, Other sacral stage I Neurological: Normal speech, Normal affect, Abnormal tone Assessment and Plan - Plan Ms. Castillo is a 73-year-old female with a past medical history of hypertension, hyperlipidemia, type 2 diabetes, hypothyroidism, cirrhosis and ESRD, Monday. Last dialysis yesterday 12/15/2023. Her last admission was 11/13/2023 for ESRD with hypotension, electrolyte derangement, and potential pneumonia. During the course of the admission, she was diagnosed with C. difficile and was released with vancomycin p.o. She presented to the emergency department today for increased difficulty breathing and abdominal swelling. On arrival, her vital signs were 113/69, 80, 19, 97 degrees, pulse ox of 97% on 3 L. She does use oxygen at home from 2 to 3 L. 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 Rowland, The patient states that she has had a paracentesis for diagnostic reasons but never a large volume paracentesis. Her abdomen is quite distended but no fluid wave appreciated, CT shows cirrhotic liver. Small hepatic cysts. Distention of the portal vein. Mild splenomegaly and large amount of ascites, with diffuse edema within the subcutaneous tissue. Patient has a moderate right pleural effusion. Will reassess post dialysis. Labs: WBC 3.9, H/H 10.8/31.6 with platelets of 142, INR 1.0, electrolytes relatively normal except a creatinine of 3.48 with a GFR of 13, glucose 122, direct bili 0.4 but total bili normal at 0.9, alkaline phosphatase elevated at 174, TSH elevated at 25.7 but free T4 is 0.95 ESRD on hemo-dialysis Monday. Hypotension Nephrology consult Dr. Aglieco consulted monitor and replete electrolytes Renal diet Required albumin, midodrine for hypotension after paracentesis Acute hypoxic respiratory failure secondary to right pleural effusion, Home O2 dependent Nephrology to schedule hemodialysis for fluid removal Interventional radiology therapeutic thoracentesis ordered Will try large volume paracentesis first O2 per protocol, incentive spirometer HOB up 30 degrees, pulmonary toilet Decompensated liver disease with liver cirrhosis Cirrhosis with ascites and portal vein dilation Patient reports has never having paracentesis for volume removal) 12/18 large volume therapeutic/diagnostic paracentesis- 5600 mL of straw-colored fluid. Follow-up with hepatology after discharge Generalized weakness secondary to fluid volume overload from decompensated liver disease/hypotension post paracentesis PT to eval for discharge Fall precautions Hypothyroidism Hyperlipidemia Resume appropriate home meds Microcytic anemia stable Trend H&H, VTE/GI prophylaxis - Advance Directives Does patient have a Living Will: No Does patient have a Durable POA for Healthcare: No Time with patient 35-minute - Code Status/Comfort Care Code Status Assessed: Yes (Full)
--- NOTE | 2023-12-19 21:08 | P.PN ---
Date of Service: 12/19/23 Vital Signs Temp Pulse Resp BP Pulse Ox 98.4 F 78 16 94/53 L 99 12/19/23 16:00 12/19/23 16:00 12/19/23 16:00 12/19/23 16:00 12/19/23 16:00 Medications Acetaminophen (Acetaminophen 500 Mg Tab) 500 mg PO Q4HP PRN PRN Reason: TEMP > 100' F Last Admin: 12/19/23 00:28 Dose: 500 mg Epoetin Breezy (Epoetin Breezy 10,000 Unit/Ml Vial) 10,000 unit IV EVERY HD [facility] Last Admin: 12/18/23 19:15 Dose: 10,000 unit Ferrous Sulfate (Ferrous Sulfate 325 Mg Tab) 325 mg PO DAILY [facility] Last Admin: 12/19/23 09:21 Dose: 325 mg Guaifenesin/Dextromethorphan (Guaifenesin/Dm 5 Ml Ucup) 5 ml PO Q6H PRN PRN Reason: COUGH Last Admin: 12/19/23 05:53 Dose: 5 ml Heparin Sodium (Porcine) (Heparin 1,000 Unit/Ml Vial) 6,000 unit IV EVERY HD PRN PRN Reason: AFTER EACH Last Admin: 12/18/23 20:34 Dose: 6,000 unit Heparin Sodium (Porcine) (Heparin 5000 Unit/Ml 1 Ml Vial) 5,000 unit SQ Q8HR [facility] Last Admin: 12/19/23 16:47 Dose: 5,000 unit Heparin Sodium (Porcine) (Heparin 1,000 Unit/Ml Vial) 3,000 unit IV EVERY HD PRN PRN Reason: prevent HD Systm Clotting Last Admin: 12/18/23 17:27 Dose: 3,000 unit Albumin Human (Albumin 25%) 50 mls @ 100 mls/hr IV EVERY HD [facility] Ipratropium [place] (Ipratropium Brom 0.5mg/2.5ml) 0.5 mg NEB BIDRESP PRN PRN Reason: SHORTNESS OF BREATH Levothyroxine Sodium (Levothyroxine Sod 0.1 Mg Tab) 0.1 mg PO DAILYAC [facility] Last Admin: 12/19/23 05:53 Dose: 0.1 mg Mannitol (Mannitol 25% 12.5 Gm/50 Ml Vial) 12.5 gm IV EVERY HD PRN PRN Reason: Titrate to SBP (MUST DEFINE) Midodrine (Midodrine Hcl 5 Mg Tablet) 10 mg PO EVERY HD PRN PRN Reason: Goal to achieve SBP in comment Last Admin: 12/19/23 17:36 Dose: 10 mg Midodrine (Midodrine Hcl 5 Mg Tablet) 5 mg PO TID [facility] Stop: 12/20/23 09:01 Rosuvastatin Calcium (Rosuvastatin 10 Mg Tab) 10 mg PO BEDTIME [facility] Last Admin: 12/18/23 22:14 Dose: 10 mg Sildenafil Citrate (Sildenafil Citrate 20 Mg Tablet) 20 mg PO DAILY [facility] Last Admin: 12/19/23 09:00 Dose: Not Given Microbiology Results 12/16/23 14:52 Nasopharnyx Influenza Type A Antigen Screen - Final 12/16/23 14:52 Nasopharnyx Influenza Type B Antigen Screen - Final Assessment/ Plan: Nephrology No dyspnea No chest pain Persistent abdominal fullness No acute events overnight Vitals, medications, blood work and imaging reviewed in the chart General: In no apparent distress, Oriented x3, Cooperative, Obese HEENT: Atraumatic Neck: Supple Respiratory: Diminished Cardiovascular: Regular rate/rhythm, Edema Gastrointestinal: No guarding, Distended Musculoskeletal: No clubbing, No contractures Integumentary: No rashes, No cyanosis Neurological: Normal speech Laboratory Data (last 24 hrs) 12/16/23 12/16/23 12/16/23 09:10 09:10 09:10 WBC 3.90 L Hgb 10.8 L Hct 31.6 L Plt Count 142 L PT 11.9 INR 1.06 Sodium 136 Potassium 3.5 BUN 16 Creatinine 3.48 H Glucose 122 H Magnesium 2.1 Total Bilirubin 0.9 AST 32 ALT 16 Alkaline Phosphatase 174 H Imagings Data: EXAM: CT CHEST, ABDOMEN AND PELVIS WITHOUT CONTRAST CLINICAL INDICATION: Shortness of breath, abdominal swelling and abdominal pain TECHNIQUE: CT chest, abdomen and pelvis was performed, without IV contrast, as per department protocol. Axial, sagittal and coronal reconstructions were obtained. One or more of the following dose reduction techniques were used: Automated exposure control, adjustment of the mA and/or kV according to the patient size, and/or iterative reconstruction. Unless otherwise specified, incidental findings do not require dedicated imaging follow-up. The lack of IV and oral contrast limits evaluation of the mediastinum, elly, vessels, organs and bowel. COMPARISON: October 2023 CT abdomen FINDINGS: Small right to moderate pleural effusion. Right lower lobe atelectasis No mediastinal or hilar lymphadenopathy. No pericardial effusion. Cirrhotic liver.. Small hepatic cyst. Cholecystectomy.. Distention portal vein. Mild splenomegaly Kidneys mildly diminished in size. No hydronephrosis. Pancreas and adrenals grossly normal. No evidence of diverticulitis. No adnexal mass Large amount ascites. Diffuse edema within the subcutaneous tissues Ankylosing spondylitis SI joints IMPRESSION: [id number] right pleural effusion Cirrhosis. large amount ascites Conclusions/Impression: ESRD on HD -HD TIW MWF -Acute UF today Hypotension -Midodrine qHD Diastolic CHF, A/C Pulmonary HTN Right pleural effusion -UF as tolerated Liver Cirrhosis with Ascites -UF as tolerated -Paracentesis today? Pancytopenia -Monitor CBC Hospitalist note reviewed Case reviewed with the hospitalist team
[2023-12-19] MEDS: MIDODRINE HCL 5 MG TABLET PO SCH (21:18)
[2023-12-19] MEDS: MELATONIN 3 MG TABLET PO SCH (22:48)
[2023-12-20 06:07] VITALS: O2SAT 97
--- NOTE | 2023-12-20 07:12 | P.DS ---
Admission Date: 12/16/23 Discharge Date: 12/20/23 Disposition: ROUTINE DISCHARGE Discharge Condition: FAIR Reason for Admission: shortness of breath and abdominal distension Brief History of Present Illness: Ms. Castillo is a 73-year-old female with a past medical history of hypertension, hyperlipidemia, type 2 diabetes, hypothyroidism, cirrhosis and ESRD. Her normal dialysis schedule is Monday. Last dialysis yesterday 12/15/2023. Her last admission was 11/13/2023 for ESRD with hypotension, electrolyte derangement, and potential pneumonia. During the course of the admission, she was diagnosed with C. difficile and was released with vancomycin p.o. She presented to the emergency department today for increased difficulty breathing and abdominal swelling. On arrival, her vital signs were 113/69, 80, 19, 97 degrees, pulse ox of 97% on 3 L. She does use oxygen at home from 2 to 3 L. Her public health doctor, Dr. Rowland, was contacted from the emergency department and states that he will dialyze her again today. The patient states that she has had a paracentesis for diagnostic reasons but never a large volume paracentesis. Her abdomen is quite distended but no fluid wave appreciated, CT shows cirrhotic liver. Small hepatic cysts. Distention of the portal vein. Mild splenomegaly and large amount of ascites, with diffuse edema within the subcutaneous tissue. "I am not aware of any previous thoracentesis" Patient has a moderate right pleural effusion. She was seen by nephrology, had scheduled routine hemodialysis, she is decompensated liver disease, with moderate ascites, was treated with a paracentesis by interventional radiology. Generalized weakness, was evaluated with physical therapy prior to discharge General: Alert, oriented, no acute distress noted HEENT: Atraumatic, Normocephalic Neck: Supple, no jugular vein distention Respiratory: Diminished, dyspnea with exertion, on 3 L nasal cannula Cardiovascular: Normal pulses, Capillary refill: <2 Seconds Gastrointestinal: mild abdominal distention/ tenderness, no rebound Musculoskeletal: No clubbing, generalized weakness Integumentary: No rashes, Other sacral stage I Neurological: Normal speech, Normal affect, Abnormal tone Hospital Course: Ms. Castillo is a 73-year-old female with a past medical history of hypertension, hyperlipidemia, type 2 diabetes, hypothyroidism, cirrhosis and ESRD. Her normal dialysis schedule is Monday. Last dialysis yesterday 12/15/2023. Her last admission was 11/13/2023 for ESRD with hypotension, electrol yte derangement, and potential pneumonia. During the course of the admission, she was diagnosed with C. difficile and was released with vancomycin p.o. She presented to the emergency department today for increased difficulty breathing and abdominal swelling. On arrival, her vital signs were 113/69, 80, 19, 97 degrees, pulse ox of 97% on 3 L. She does use oxygen at home from 2 to 3 L. Her public health doctor, Dr. Rowlnad, was contacted from the emergency department and states that he will dialyze her again today. The patient states that she has had a paracentesis for diagnostic reasons but never a large volume paracentesis. Her abdomen is quite distended but no fluid wave appreciated, CT shows cirrhotic liver. Small hepatic cysts. Distention of the portal vein. Mild splenomegaly and large amount of ascites, with diffuse edema within the subcutaneous tissue. "I am not aware of any previous thoracentesis" Patient has a moderate right pleural effusion. She was seen by nephrology, had scheduled routine hemodialysis, she is decompensated liver disease, with moderate ascites, was treated with a paracentesis by interventional radiology. Generalized weakness, was evaluated with physical therapy prior to discharge Assessment Decompensated liver disease disease moderate ascites, treated with interventional radiology ultrasound-guided paracentesis, 5600 cc removed Acute hypoxic respiratory failure secondary to fluid volume overload/pleural effusion,-treated with hemodialysis, paracentesis, End-stage renal disease hemodialysis Monday, follow-up with nephrology after discharge Had hypotension after paracentesis, p.o. as needed midodrine for discharge home, was treated with albumin while inpatient. With soft blood pressure Hypothyroidism, hyperlipidemia, resume home med Microcytic anemia hemoglobin stable, Diet: ADA, low sodium Activity: Fall precautions GOAL: Clear understanding of disease process INSTRUCTIONS: Physician Discharge Instructions: -Follow-up with GI, hepatology after discharge -Follow-up with nephrology after discharge for hemodialysis schedule -Follow-up with PCP in 1 to 2 weeks -Please call Dr. Ramírez at [phone] if any questions regarding hospital stay -Please call nursing station at [phone] if any nursing or medication questions -Return to the emergency room if symptoms worsen Vital Signs/Physical Exam: Temp Pulse Resp BP Pulse Ox 98.7 F 73 16 108/46 L 94 12/20/23 04:00 12/20/23 04:00 12/20/23 04:00 12/20/23 04:00 12/20/23 04:00 Laboratory Data at Discharge: WBC 5.50 thou/uL (4.3-10.9) 12/19/23 04:53 Hgb 11.0 g/dL (12.0-15.0) L D 12/19/23 04:53 Hct 32.7 % (36.0-45.0) L 12/19/23 04:53 Plt Count 148 thou/uL (152-406) L 12/19/23 04:53 PT 11.9 SECONDS (9.4-12.5) 12/16/23 09:10 INR 1.06 12/16/23 09:10 Sodium 135 mEq/L (136-145) L 12/19/23 04:53 Potassium 3.8 mEq/L (3.5-5.1) 12/19/23 04:53 BUN 19 mg/dL (7-18) H 12/19/23 04:53 Creatinine 3.79 mg/dL (0.55-1.02) H 12/19/23 04:53 Glucose 111 mg/dL (74-106) H 12/19/23 04:53 Phosphorus 4.5 mg/dL (2.5-4.9) 12/18/23 04:45 Magnesium 2.1 mg/dL (1.6-2.4) 12/19/23 04:53 Total Bilirubin 0.9 mg/dL (0.2-1.0) 12/19/23 04:53 AST 24 U/L (15-37) 12/19/23 04:53 ALT 15 U/L (13-56) 12/19/23 04:53 Alkaline Phosphatase 169 U/L (45-117) H 12/19/23 04:53 Triglycerides 64 mg/dL (<150) 12/17/23 06:11 Cholesterol 94 mg/dL (<200) 12/17/23 06:11 HDL Cholesterol 32 mg/dL (40-60) L 12/17/23 06:11 Cholesterol/HDL Ratio 2.94 12/17/23 06:11 Home Medications: Loratadine [Claritin*] 10 mg PO DAILY PRN 03/31/14 Sildenafil Citrate [Revatio*] 20 mg PO DAILY 90 Days #90 tab 02/11/22 Bumetanide 1 tab PO DAILY 12/16/23 Folic Acid 1 tab PO DAILY 12/16/23 Gabapentin 1 tab PO DAILY 12/16/23 Potassium Chloride [Klor-Con] 1 tab PO DAILY 12/16/23 Epoetin [Retacrit] 10,000 unit IV EVERY HD vial 12/20/23 Midodrine HCl 10 mg PO Q8H PRN #30 tab 12/20/23 Sildenafil Citrate [Revatio*] 20 mg PO DAILY 12/20/23 New Medications: Midodrine HCl 10 mg PO Q8H PRN #30 tab PRN Reason: Titrate To Sbp (Must Define) Physician Discharge Instructions: Ms. Castillo is a 73-year-old female with a past medical history of hypertension, hyperlipidemia, type 2 diabetes, hypothyroidism, cirrhosis and ESRD. Her normal dialysis schedule is Monday. Last dialysis yesterday 12/15/2023. Her last admission was 11/13/2023 for ESRD with hypotension, electrolyte derangement, and potential pneumonia. During the course of the admission, she was diagnosed with C. difficile and was released with vancomycin p.o. She presented to the emergency department today for increased difficulty breathing and abdominal swelling. On arrival, her vital signs were 113/69, 80, 19, 97 degrees, pulse ox of 97% on 3 L. She does use oxygen at home from 2 to 3 L. Her public health doctor, Dr. Rowland, was contacted from the emergency department and states that he will dialyze her again today. The patient states that she has had a paracentesis for diagnostic reasons but never a large volume paracentesis. Her abdomen is quite distended but no fluid wave appreciated, CT shows cirrhotic liver. Small hepatic cysts. Distention of the portal vein. Mild splenomegaly and large amount of ascites, with diffuse edema within the subcutaneous tissue. "I am not aware of any previous thoracentesis" Patient has a moderate right pleural effusion. She was seen by nephrology, had scheduled routine hemodialysis, she is decompensated liver disease, with moderate ascites, was treated with a paracentesis by interventional radiology. Generalized weakness, was evaluated with physical therapy prior to discharge Discharged home with midodrine p.o. 3 times daily. Hypotension blood pressure less than 90 She needs to follow-up with hepatology/GI after discharge, she reports appointment already arranged Assessment Decompensated liver disease disease moderate ascites, treated with interventional radiology ultrasound-guided paracentesis, 5600 cc removed Acute hypoxic respiratory failure secondary to fluid volume overload/pleural effusion,-treated with hemodialysis, paracentesis, End-stage renal disease hemodialysis Monday, follow-up with nephrology after discharge Had hypotension after paracentesis, p.o. as needed midodrine for discharge home, was treated with albumin while inpatient. With soft blood pressure Hypothyroidism, hyperlipidemia, resume home med Microcytic anemia hemoglobin stable, INSTRUCTIONS: Physician Discharge Instructions: -Follow-up with PCP in 1 to 2 weeks -Please call Dr. Ramírez at [phone] if any questions regarding hospital stay -Please call nursing station at [phone] if any nursing or medication questions -Return to the emergency room if symptoms worsen Diet: ADA, low sodium Activity: Fall precautions GOAL: Clear understanding of disease process INSTRUCTIONS: Physician Discharge Instructions: -Follow-up with GI, hepatology after discharge -Follow-up with nephrology after discharge for hemodialysis schedule -Follow-up with PCP in 1 to 2 weeks -Please call Dr. Ramírez at [phone] if any questions regarding hospital stay -Please call nursing station at [phone] if any nursing or medication questions -Return to the emergency room if symptoms worsen Diet: ADA, low sodium Activity: Fall precautions Followup: Fermin Rowland DO [ACTIVE - CAN ADMIT] - 1-2 Weeks Judith Parkinson FNP [Primary Care Provider] - 1-2 Weeks Time spent managing pt's care (in minutes): 45
[2023-12-20 07:15] LABS: Absolute Eosinophils 0.1 K/uL (0-0.5); Absolute Lymphocytes (CBC) 0.9 K/uL (0.7-4.9); Absolute Monocytes 0.7 K/uL (0.1-1.3); Absolute Neutrophil 3.4 K/uL (1.8-8.0); Basophils % 0.6 % (0-1.3); Eosinophils % 2.7 % (0-4.4); Lymphocytes % 17.8 % (15.3-44.8); MCH 35.3 pg (27.0-35.0); MCHC 33.5 g/dL (32.0-36.0); MCV 105.3 fL (80-100); MPV 8.3 fL (7.6-11.3); Monocytes % 13.3 % (3.3-12.3); Neutrophils % 65.6 % (41.7-73.7); Platelets 111 thou/uL (152-406); RBC Red Blood Cell Count 2.85 M/uL (3.86-4.86)
[2023-12-20 07:31] LABS: Anion Gap 9.7 mEq/L (5.0-15.0); Potassium 3.7 mEq/L (3.5-5.1)
[2023-12-20 08:47] LABS: Blood Morphology Comment NOTED (NOT SEEN); Macrocytosis 1+; Platelet Estimate DECR; Polychromasia 1+; White Blood Cell Scan OK (OK)
--- NOTE | 2023-12-20 11:04 | P.PN ---
(S) Pt feels better s/p paracentesis, no acute complaints, on O2, but no resp distress, no current N/V (O) Vitals, medications, blood work and imaging reviewed in the chart General: Appears chronically ill, but NAD HEENT: Atraumatic, sclera anicteric, on O2 Neck: Supple, Rt IJ TDC Respiratory: Normal air movement, no rhonchi Cardiovascular: Regular rate/rhythm mostly Gastrointestinal: Soft, less distended, NT Musculoskeletal: Improved chronic peripheral edema c/w prev Integumentary: No rashes Neurological: Normal speech,awake, alert, responsive Laboratory Data (last 24 hrs) Reviewed in the EMR Conclusions/Impression: -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 Pugh recently who may have advised trying an IV pulm vasodilator therapy but pt reports has not heard since -Pt also has positive serology for scleroderma, but is not following with rheum Ascites, unspecified -s/p therapeutic paracentesis Kavon Maria MD, TIM
[2023-12-20] MEDS ORDERED: ALBUMIN HUMAN 25% 100 ML IV ONE (11:10)
[2023-12-20 11:31] VITALS: BP 90/52; TEMP 97.9
== END 2023-12-20 15:20 | disposition home or self-care (01) | DRG 291 ==
LOC: ER 08:41 → ERHOLD 12:00 → 2ND 13:55 → OBSVTOIN 15:36
PROVIDERS: ADMIT Internal Medicine; ATTEND Hospitalist
PROC: 5A1D70Z Performance of Urinary Filtration, Intermittent, Less than 6 Hours Per Day (ICD-10-PCS; principal; 2023-12-16)
PROC: 0W9G3ZZ Drainage of Peritoneal Cavity, Percutaneous Approach (ICD-10-PCS; 2023-12-19)
DX: I13.2 Hypertensive heart and chronic kidney disease with heart failure and with stage 5 chronic kidney disease, or end stage renal disease (principal); I50.33 Acute on chronic diastolic (congestive) heart failure; N18.6 End stage renal disease; J96.01 Acute respiratory failure with hypoxia; R18.8 Other ascites; D61.818 Other pancytopenia; N17.9 Acute kidney failure, unspecified; E11.22 Type 2 diabetes mellitus with diabetic chronic kidney disease; D63.1 Anemia in chronic kidney disease; D50.9 Iron deficiency anemia, unspecified; E03.9 Hypothyroidism, unspecified; E78.5 Hyperlipidemia, unspecified; E66.9 Obesity, unspecified; I95.9 Hypotension, unspecified; I48.91 Unspecified atrial fibrillation; K74.60 Unspecified cirrhosis of liver; I27.20 Pulmonary hypertension, unspecified; Z99.2 Dependence on renal dialysis; Z11.52 Encounter for screening for COVID-19; Z88.8 Allergy status to other drugs, medicaments and biological substances; Z90.49 Acquired absence of other specified parts of digestive tract; Z79.890 Hormone replacement therapy; Z79.899 Other long term (current) drug therapy; Z91.158 Patient's noncompliance with renal dialysis for other reason; Z68.34 Body mass index [BMI] 34.0-34.9, adult
CPT/HCPCS: 36415; 49083; 71250; 74176; 80048; 80053; 80061; 80076; 82533; 82947; 83735; 84100; 84439; 84443; 84484; 85025; 85610; 87340; 87804; 87811; 90732; 90935; 93005; 94640; 96374; 99285; G0378; J1644; J1940; J7644; P9047

== ENCOUNTER 2024-01-08 15:55 | Inpatient (IN) | payer OTHER ==
[2024-01-08 16:56] LABS: Absolute Eosinophils 0.1 K/uL (0-0.5); Absolute Lymphocytes (CBC) 0.5 K/uL (0.7-4.9); Absolute Monocytes 0.6 K/uL (0.1-1.3); Absolute Neutrophil 3.8 K/uL (1.8-8.0); Basophils % 0.9 % (0-1.3); Eosinophils % 1.4 % (0-4.4); Hematocrit 33.2 % (36.0-45.0); Lymphocytes % 9.5 % (15.3-44.8); MCH 34.8 pg (27.0-35.0); MCV 105.3 fL (80-100); MPV 8.7 fL (7.6-11.3); Monocytes % 11.7 % (3.3-12.3); Neutrophils % 76.5 % (41.7-73.7); Platelets 109 thou/uL (152-406); RBC Red Blood Cell Count 3.16 M/uL (3.86-4.86); Red Cell Distribution Width 15.7 % (12.1-15.2)
[2024-01-08 17:01] LABS: PTT, Activated Partial Thromb 45.1 SECONDS (24.3-36.9); Protime INR 1.07
[2024-01-08] MEDS ORDERED: ACETAMINOPHEN 500 MG TAB ONE (17:04)
[2024-01-08 17:06] LABS: SARS-CoV-2 Antigen CONTROL BLUE LINE VIS/BG OK; SARS-CoV-2 Antigen Rapid Res Negative (Negative)
[2024-01-08 17:10] LABS: Albumin 2.2 g/dL (3.4-5.0); Albumin/Globulin Ratio 0.5 (1.1-1.8); Anion Gap 9.4 mEq/L (5.0-15.0); Bilirubin Total 0.8 mg/dL (0.2-1.0); Globulin 4.7 g/dL (2.3-3.5); Potassium 3.4 mEq/L (3.5-5.1); Protein, Total 6.9 g/dL (6.4-8.2)
--- NOTE | 2024-01-08 17:40 | RAD REPORT ---
EXAMINATION: ONE VIEW CHEST XR CLINICAL INDICATION: Female, 73 years old.,COUGH TECHNIQUE: Frontal chest projection is submitted. Examination is limited by patient positioning and t echnique. COMPARISON: 11/06/2023 FINDINGS: Central interstitial prominence. Moderate to large layering right pleural effusion. No pneumothorax or sizable left-sided effusion. The heart is upper limit of normal in size. Right IJ dialysis catheter in unchanged position. Mediastinal contours are unremarkable. IMPRESSION: Progressive central interstitial prominence and moderate to large right pleural effusion. Findings ma y relate to pulmonary edema with or without underlying pneumonia.
[2024-01-08 18:25] LABS: Blood Morphology Comment NOTED (NOT SEEN); Macrocytosis SLIGHT; Platelet Estimate DECR; Polychromasia SLIGHT; White Blood Cell Scan OK (OK)
--- NOTE | 2024-01-08 18:26 | ER ---
Nurse's Notes [facility] Name: Chanel Castillo Age: 73 yrs Sex: Female : 1950 Arrival Date: 01/08/2024 Time: 15:55 Bed 17 Private MD: Diagnosis: Respiratory failure, unspecified with hypoxia Presentation: 01/07 16:14 Chief complaint: EMS states: CALLED TO [facility] DUE TO PATIENT HAVING SHORTNESS OF BREATH cm10 AND DIALYSIS. UPON EMS ARRIVAL, PTS O2 SAT WAS 89% ON 4L VIA NC. EMS PLACED PT ON CPAP. PT ARRIVED ON CPAP O2 SAT 100. CPAP REMOVED AND PT PLACED ON 4L VIA NC AND PT'S O2 SAT 93%. DIALYSIS WAS COMPLETED. Coronavirus screen: Client denies travel out of the [place] in the last 14 days. Ebola Screen: Patient denies travel to an Ebola-affected area in the 21 days before illness onset. Initial Sepsis Screen: Does the patient meet any 2 criteria? RR > 20 per min. Does the patient have a suspected source of infection? No. Patient's initial sepsis screen is negative. Risk Assessment: Do you want to hurt yourself or someone else? Patient reports no desire to harm self or others. Onset of symptoms was January 08, 2024. 16:14 Method Of Arrival: EMS: [facility] cm10 16:14 Acuity: TYRESE 2 cm10 Triage Assessment: 16:20 General: Appears in no apparent distress. uncomfortable, Behavior is calm, cooperative. cm10 Pain: Complains of pain in head. Neuro: No deficits noted. Level of Consciousness is awake, alert, obeys commands, Oriented to person, place, time, situation, Appropriate for age. Respiratory: Reports shortness of breath cough that is Onset: The symptoms/episode began/occurred just prior to arrival, the patient has mild shortness of breath. Historical: - Allergies: 16:17 carvedilol; cm10 - PMHx: 16:17 Diabetes - NIDDM; DIALYSIS MW (2022); Hyperlipidemia; Hypertension; Hypothyroidism; cm10 PULMONARY HYPERTENSION; - PSHx: 16:17 Cholecystectomy; cm10 - Immunization history:: Adult Immunizations up to date. - Infectious Disease History:: Denies. - Social history:: Smoking status: Patient/guardian denies using tobacco, the patient reports quitting approximately 30 years ago. Screenin:15 [facility] ED Fall Risk Assessment (Adult) History of falling in the last 3 months, cm10 including since admission No falls in past 3 months (0 pts) Confusion or Disorientation No (0 pts) Intoxicated or Sedated No (0 pts) Impaired Gait No (0 pts) Mobility Assist Device Used No (0 pt) Altered Elimination No (0 pt) Score/Fall Risk Level 0 - 2 = Low Risk Oriented to surroundings, Maintained a safe environment, Hourly rounding (assess needs \T\ fall precautionary measures) done. Abuse screen: Denies threats or abuse. Denies injuries from another. Nutritional screening: No deficits noted. Tuberculosis screening: No symptoms or risk factors identified. Assessment: 18:47 Reassessment: Patient appears in no apparent distress at this time. No changes from cm10 previously documented assessment. Patient and/or family updated on plan of care and expected duration. Pain level reassessed. Patient is alert, oriented x 3, equal unlabored respirations, skin warm/dry/pink. Patient states feeling better. Patient states symptoms have improved. 19:10 Respiratory: Airway is patent Trachea midline Respiratory effort is even, unlabored. rg5 19:10 Cardiovascular: Denies chest pain, Rhythm is regular. GI: Abdomen is round Abd is soft rg5 and non tender. Derm: Skin is intact, Skin is dry, Skin is normal. 19:10 Respiratory: Breath sounds are clear. rg5 20:00 Reassessment: No changes from previously documented assessment. Patient and/or family rg5 updated on plan of care and expected duration. Pain level reassessed. Patient is alert, oriented x 3, equal unlabored respirations, skin warm/dry/pink. Vital Signs: 16:14 BP 119 / 44; Pulse 88; Resp 22; Temp 98.8(O); Pulse Ox 93% on 4 lpm NC; Weight 86.18 cm10 kg; Height 5 ft. 3 in. ; Pain 0/10; 17:00 BP 114 / 48; Pulse 89; Resp 22; Pulse Ox 90% on 4 lpm NC; cm10 18:15 BP 116 / 64; Pulse 88; Resp 24; Pulse Ox 92% on 4 lpm NC; cm10 18:25 BP 116 / 64; ec2 18:30 BP 105 / 46; Pulse 84; Resp 19; Pulse Ox 94% on 4 lpm NC; cm10 19:40 BP 124 / 58; Pulse 93; Resp 19; Temp 98; Pulse Ox 94% on 4 lpm NC; rg5 20:30 BP 130 / 49; Pulse 93; Resp 19; Pulse Ox 97% on 3 lpm NC; rg5 16:14 Body Mass Index 33.66 (86.18 kg, 160.02 cm) cm10 16:14 Pain Scale: Adult cm10 ED Course: 15:57 Patient arrived in ED. ec2 15:57 Sundeep Chung MD is Attending Physician. ec2 16:14 Amanda Pina, JAVIER is Primary Nurse. cm10 16:17 Triage completed. cm10 16:17 Arm band placed on Patient placed in an exam room, on a stretcher, on oxygen, on cm10 front desk monitor, on pulse oximetry. 16:35 Initial lab(s) drawn, by me, sent to lab. First set of blood cultures drawn by me, EKG cm10 done, by ED staff, reviewed by Sundeep Chung MD. 16:44 Inserted saline lock: 18 gauge in left forearm, using aseptic technique. Blood cm10 collected. Flushed with 10 mL NS. 16:45 Patient has correct armband on for positive identification. Bed in low position. Call cm10 light in reach. Side rails up X2. 16:45 Provided Education on: ER PROCESS AND PROCEDURES.. Client placed on continuous cardiac cm10 and pulse oximetry monitoring. NIBP monitoring applied. groundwater monitoring technician on. Pulse ox on. 16:45 Oxygen administration via nasal cannula \T\ 4L/min. cm10 16:46 SARS RAPID Sent. cm10 16:46 Influenza Screen (a \T\ B) Sent. cm10 16:46 CBC with Diff Sent. cm10 16:46 CMP Sent. cm10 16:46 Lactate w/ 2H reflex if indic. Sent. cm10 16:46 Protime (+inr) Sent. cm10 16:46 Ptt, Activated Sent. cm10 17:33 Chest Single View XRAY In Process Unspecified. EDMS 18:26 Alvarado Adams MD is Hospitalizing Provider. ec2 18:46 BNP Sent. cm10 19:09 Report given to JAVIER HENDRICKS. cm10 19:10 No provider procedures requiring assistance completed. Patient admitted, IV remains in rg5 place. intact, No redness/swelling at site. 19:13 Ck Vincent, RN is Primary Nurse. rg5 Administered Medications: 17:08 Drug: Acetaminophen PO 1000 mg PO once Route: PO; cm10 18:00 Follow up: Response: No adverse reaction cm10 Medication: 18:47 VIS not applicable for this client. cm10 Outcome: 18:26 Decision to Hospitalize by Provider. ec2 22:00 Admitted to ER Hold. Please see [facility] for further documentation. rg5 22:00 Condition: stable rg5 22:00 Instructed on the need for admit, 01/09 22:46 Admitted to ICU accompanied by nurse, via stretcher, with oxygen, on monitor, with cp4 chart, Report called to Mary Alice Condition: stable Instructed on the need for admit, 22:47 Patient left the ED. cp4 Signatures: Dispatcher [employer] Amanda Evans, RN RN cm10 Sundeep Chung MD MD ec2 Sandra Grant cp4 Ck Vincent, RN RN rg5
--- NOTE | 2024-01-08 18:27 | EDPHYS ---
Physician Documentation [facility] Name: Chanel Castillo Age: 73 yrs Sex: Female : 1950 Arrival Date: 01/08/2024 Time: 15:55 Bed 17 Private MD: ED Physician Sundeep Chung HPI: 01/07 16:19 This 73 yrs old Female presents to ER via EMS with complaints of Shortness Of ec2 Breath. 16:19 Patient with history of CHF, diabetes arrives today for evaluation of shortness of ec2 breath. Patient reports that she has a history of dialysis dependence, was undergoing dialysis and became short of breath. Patient reports that she underwent a full run of dialysis. EMS reports that they noticed her to be significant work of breathing, hypoxic oxygen saturations with saturations in the upper 80s and subsequently placed her on CPAP. Patient reports she been having cough and congestion.. Historical: - Allergies: 16:17 carvedilol; cm10 - PMHx: 16:17 Diabetes - NIDDM; DIALYSIS MWF (2022); Hyperlipidemia; Hypertension; Hypothyroidism; cm10 PULMONARY HYPERTENSION; - PSHx: 16:17 Cholecystectomy; cm10 - Immunization history:: Adult Immunizations up to date. - Infectious Disease History:: Denies. - Social history:: Smoking status: Patient/guardian denies using tobacco, the patient reports quitting approximately 30 years ago. ROS: 16:19 Constitutional: as per hpi ec2 Exam: 16:19 Constitutional: GEN: NAD Head: atraumatic Eyes: EOMI Ears: External ears are ec2 normal. CV: regular rate LUNGS: Tachypnea with mild work of breathing noted. ABD: Slightly distended abdomen. SKIN: no evidence of rashes MSK: no evidence of trauma Vital Signs: 16:14 BP 119 / 44; Pulse 88; Resp 22; Temp 98.8(O); Pulse Ox 93% on 4 lpm NC; Weight 86.18 cm10 kg; Height 5 ft. 3 in. ; Pain 0/10; 17:00 BP 114 / 48; Pulse 89; Resp 22; Pulse Ox 90% on 4 lpm NC; cm10 18:15 BP 116 / 64; Pulse 88; Resp 24; Pulse Ox 92% on 4 lpm NC; cm10 18:25 BP 116 / 64; ec2 18:30 BP 105 / 46; Pulse 84; Resp 19; Pulse Ox 94% on 4 lpm NC; cm10 19:40 BP 124 / 58; Pulse 93; Resp 19; Temp 98; Pulse Ox 94% on 4 lpm NC; rg5 20:30 BP 130 / 49; Pulse 93; Resp 19; Pulse Ox 97% on 3 lpm NC; rg5 16:14 Body Mass Index 33.66 (86.18 kg, 160.02 cm) cm10 16:14 Pain Scale: Adult cm10 MDM: 15:57 Medical Screening Exam initiated ec2 16:19 Data reviewed: vital signs, nurses notes. ED course: Patient arrives today for ec2 evaluation of shortness of breath. Examination yields cardiopulmonary findings as above. Will obtain a septic workup, empirically treat with ceftriaxone, was able to take the patient off CPAP and placed patient on oxygen with maintaining saturations in the mid 90s.. 16:27 ED course: EKG independently reviewed and interpreted by me, shows normal sinus rhythm, ec2 rate of 89, no acute ST segment elevation, intervals are nonactionable.. 17:35 ED course: CBC shows slight anemia. Metabolic profile with slight hypokalemia, expected ec2 renal dysfunction. Lactic acid within normal ranges. Flu and COVID testing negative.. 18:26 ED course: On reassessment patient weaned to 4 L of oxygen with saturations in the 90s. ec2 Will admit for hypoxia, suspect likely volume overload.. 12/ 16:07 Order name: Blood Culture Adult (2) ec2 12/ 16:07 Order name: CBC with Diff; Complete Time: 18:27 ec2 12 16:07 Order name: CMP; Complete Time: 17:35 ec2 12/02 16:07 Order name: Lactate w/ 2H reflex if indic.; Complete Time: 17:35 ec2 12/02 16:07 Order name: Protime (+inr); Complete Time: 17:35 ec2 12/02 16:07 Order name: Ptt, Activated; Complete Time: 17:35 ec2 12/02 16:07 Order name: Influenza Screen (a \T\ B); Complete Time: 17:35 ec2 12/02 16:07 Order name: SARS RAPID; Complete Time: 17:35 ec2 12 17:36 Order name: BNP ec2 12 18:25 Order name: CBC Smear Scan; Complete Time: 18:27 EDMS 01/07 19:12 Order name: Urinalysis w/ reflexes EDMS 01/07 19:12 Order name: CBC with Automated Diff EDMS 01/07 19:12 Order name: CBC with Automated Diff EDMS 01/07 19:12 Order name: Comprehensive Metabolic Panel EDMS 01/07 19:12 Order name: Comprehensive Metabolic Panel EDMS 01/07 19:12 Order name: Magnesium EDMS 01/07 19:12 Order name: Magnesium EDMS 01/07 19:12 Order name: Phosphorus EDMS 01/07 19:12 Order name: Phosphorus EDMS 01/08 09:18 Order name: Glucose, Ancillary Testing EDMS 01/08 15:14 Order name: Body Fluid Cell Count EDMS 01/09 08:20 Order name: Glucose, Ancillary Testing EDMS 01/09 09:59 Order name: Body Fluid Culture EDMS 01/09 15:07 Order name: CBC with Diff db 01/09 15:07 Order name: BMP db 01/09 15:20 Order name: CBC with Automated Diff EDMS 01/09 15:23 Order name: Glucose, Ancillary Testing EDMS 01/09 15:32 Order name: Basic Metabolic Panel EDMS 01/07 16:07 Order name: Chest Single View XRAY; Complete Time: 17:41 ec2 01/08 11:31 Order name: RAD EDMS 01/09 09:45 Order name: RAD EDMS 01/07 19:12 Order name: CONS Physician Consult EDMS 01/07 16:07 Order name: Accucheck; Complete Time: 19:14 ec2 01/07 16:07 Order name: Cardiac monitoring; Complete Time: 16:45 ec2 01/07 16:07 Order name: EKG - Nurse/Tech; Complete Time: 16:45 ec2 01/07 16:07 Order name: IV Saline Lock - Large Bore; Complete Time: 16:45 ec2 01/07 16:07 Order name: Labs collected and sent; Complete Time: 16:45 ec2 01/07 16:07 Order name: O2 Per Protocol; Complete Time: 16:45 ec2 01/07 16:07 Order name: O2 Sat Monitoring; Complete Time: 16:45 ec2 01/07 16:07 Order name: Vital Signs; Complete Time: 16:45 ec2 Administered Medications: 17:08 Drug: Acetaminophen PO 1000 mg PO once Route: PO; cm10 18:00 Follow up: Response: No adverse reaction cm10 Disposition Summary: 01/08/24 18:26 Hospitalization Ordered Notes: Hospitalization Status: Inpatient Admission ec2 Provider: Alvarado Adams ec2 Condition: Stable ec2 Problem: an acute exacerbation ec2 Symptoms: have improved ec2 Bed/Room Type: Standard ec2 Location: Intensive Care Unit(01/10/24 15:58) Room Assignment: 5-(01/10/24 15:58) Diagnosis - Respiratory failure, unspecified with hypoxia ec2 Forms: - Medication Reconciliation Form ec2 - SBAR form ec2 - Leadership Thank You Letter ec2 Signatures: Dispatcher [employer] EDMS Mona Sky Diana, RN RN Parvin Parada RN RN aa5 Eve Morin RN RN ss Dayanna Pavon RN RN vc1 Gela Early rv1 Amanda Pina RN RN cm10 Sundeep Chung MD MD ec2 Corrections: (The following items were deleted from the chart) 16:08 16:08 BLOOD CULTURE*+BA.LAB.BRZ ordered. EDIN EDIN 16:08 16:08 CBC+H.LAB.BRZ ordered. [facility] EDIN 16:08 16:08 COMPREHENSIVE METABOLIC PANEL+C.LAB.BRZ ordered. EDIN EDIN 16:08 16:08 LACTATE+C.LAB.BRZ ordered. EDIN EDIN 16:08 16:08 PROTIME (+INR)+COAG.LAB.BRZ ordered. EDIN EDIN 16:08 16:08 PTT, ACTIVATED+COAG.LAB.BRZ ordered. [facility]IN EDIN 16:08 16:08 Influenza Screen (A \T\ B)+BA.LAB.BRZ ordered. [facility] EDIN 16:08 16:08 SARS-COV-2 Antigen Rapid+I.LAB.BRZ ordered. [facility] EDIN 16:08 16:08 Chest Single View+RAD.RAD.BRZ ordered. [facility] EDIN 16:20 16:19 Patient with history of CHF, diabetes arrives today for evaluation of shortness ec2 of breath. Patient reports that she has a history of dialysis dependence, was undergoing dialysis and became short of breath. Patient reports that she underwent a full run of dialysis. EMS reports that they noticed her to be significant work of breathing and subsequently placed her on CPAP. Patient reports she been having cough and congestion.. ec2 20:42 18:26 Telemetry/MedSurg (Inpatient) ec2 rv1 20:42 18:26 ec2 rv1 01/08 15:55 12 20:42 [facility] ER HOLD rv1 bd 01/08 15:55 12 20:42 ERHOLD- rv1 bd 01/08 17:47 15:55 Telemetry/MedSurg (Inpatient) bd aa5 17:47 15:55 209 bd aa5 18:28 17:47 [facility] ER HOLD aa5 dw 18:28 17:47 ERHOLD- aa5 dw 18:32 18:28 Intensive Care Unit dw dw 18:32 18:28 dw dw 19:04 18:32 dw vc1 01/09 10:13 1203 18:32 [facility] ER HOLD dw bd 01/09 10:13 1203 19:04 ERHOLD- vc1 bd 01/09 10:42 10:13 Telemetry/MedSurg (Inpatient) bd ss 10:42 10:13 220 bd ss 13:31 10:42 ss ss 15:58 10:42 [facility] ER HOLD ss ss 15:58 13:31 ERHOLD- ss ss
--- NOTE | 2024-01-08 19:05 | P.HP ---
Certification for Inpatient Patient admitted to: Inpatient With expected LOS: >2 Midnights Practitioner: I am a practitioner with admitting privileges, knowledge of patient current condition, hospital course, and medical plan of care. Services: Services provided to patient in accordance with Admission requirements found in Title 42 Section 412.3 of the Code of Federal Regulations Patient History Date of Service: 01/08/24 Reason for admission: SOB History of Present Illness: 73 yrs old Female with past medical history of diabetes, hypertension, hyperlipidemia, hypothyroidism, pulmonary artery hypertension, CHF, ESRD on dialysis Monday who was brought to ER with shortness of breath. She underwent full run of dialysis today. But started having shortness of breath which continued to progress and was brought to ER.. EMS reports that they noticed her to be significant work of breathing, and was hypoxic with saturations up to 80s and was placed on CPAP and oxygen support. And was brought to ER. Patient started having cough and congestion for the last 2 days as well. Denies any fever or chills. No known sick contacts. Patient was assessed in the ER and is admitted for further management of fluid overload and hypoxic respiratory failure Allergies No Known Drug Allergies Allergy (Verified 04/26/22 13:47) Unknown Home medications list reviewed: Yes Home Medications: Loratadine [Claritin*] 10 mg PO DAILY PRN 03/31/14 Sildenafil Citrate [Revatio*] 20 mg PO DAILY 90 Days #90 tab 02/11/22 Bumetanide 1 tab PO DAILY 12/16/23 Folic Acid 1 tab PO DAILY 12/16/23 Gabapentin 1 tab PO DAILY 12/16/23 Potassium Chloride [Klor-Con] 1 tab PO DAILY 12/16/23 Epoetin [Retacrit] 10,000 unit IV EVERY HD vial 12/20/23 Midodrine HCl 10 mg PO Q8H PRN #30 tab 12/20/23 Sildenafil Citrate [Revatio*] 20 mg PO DAILY 12/20/23 - Past Medical/Surgical History Diabetic: Yes Past Medical History: Reviewed- Non-Contributory -: DM II -: Hypothyroidism -: OA -: Diastolic CHF -: Pulmonary HTN -: CKD V (Dr. Randolph/ Kashif) -: HTN Past Surgical History: Reviewed- Non-Contributory -: appy, kerwin, l breast biopsy, tumor removed l calf Psychosocial/ Personal History: walks with walker, O2 dependent at home. Dialysis M/W/F - Social History Smoking Status: Never smoker Alcohol use: No CD- Drugs: No Caffeine use: No Review of Systems 10-point ROS is otherwise unremarkable Physical Examination - Vital Signs Temperature: 98.2 F Blood Pressure: 168/72 Pulse: 78 Respirations: 18 Pulse Ox (%): 94 - Physical Exam General: Alert, Oriented x3, Mild distress HEENT: Atraumatic, Normocephalic Neck: Supple Respiratory: Diminished, Crackles/rales Cardiovascular: Regular rate/rhythm, Normal S1 S2 Capillary refill: <2 Seconds Gastrointestinal: Soft and benign, Non-distended, W/out hepatosplenomegaly Musculoskeletal: No clubbing Integumentary: No rashes Neurological: Normal speech, Normal strength at 5/5 x4 extr, Cranial nerves 3-12 intact, Normal reflexes 2+ Lymphatics: No axilla or inguinal lymphadenopathy - Studies Laboratory Data (last 24 hrs) 01/08/24 01/08/24 01/08/24 16:35 16:35 16:35 WBC 4.90 Hgb 11.0 L Hct 33.2 L Plt Count 109 L PT 12.0 INR 1.07 APTT 45.1 H Sodium 137 Potassium 3.4 L BUN 11 Creatinine 2.48 H Glucose 150 H Total Bilirubin 0.8 AST 45 H ALT 18 Alkaline Phosphatase 194 H Microbiology Data (last 24 hrs): 01/08/24 16:35 Nasopharnyx Influenza Type A Antigen Screen - Final 01/08/24 16:35 Nasopharnyx Influenza Type B Antigen Screen - Final Assessment and Plan - Plan Acute on chronic CHF possibly systolic/diastolic Acute hypoxic respiratory failure Monitor closely on telemetry Started on aggressive diuresis X-ray findings consistent with CHF Oxygen supplementation Will try to wean down oxygen requirement Continue home medications Titrate as needed Will obtain an echocardiogram Cardiology consult ESRD on dialysis Nephrology consulted Aggressive diuresis Electrolytes monitor and replace accordingly Hypertension Antihypertensives titrated Continue home medications and titrate as needed Hyperlipidemia Continue statin Diabetes Insulin sliding scale Accu-Chek before every meal and at bedtime Anemia of chronic disease Monitor H&H closely No overt bleeding at this time GI/DVT prophylaxis Advanced directive full code Discharge Plan: Home Plan to discharge in: 48 Hours - Advance Directives Does patient have a Living Will: No Does patient have a Durable POA for Healthcare: No - Code Status/Comfort Care Code Status: Full Code Time Spent Managing Pts Care (In Minutes): 48
[2024-01-08] MEDS: FUROSEMIDE 40 MG/4 ML VIAL IV SCH (20:01)
[2024-01-08] MEDS ORDERED: ALBUTEROL 2.5 MG/3 ML NEB SOL ONE (20:16)
[2024-01-08] MEDS ORDERED: IPRATROPIUM BROM 0.5MG/2.5ML ONE (20:16)
[2024-01-08] MEDS: ALBUTEROL 2.5 MG/3 ML NEB SOL NEB PRN (20:20)
[2024-01-08] MEDS: IPRATROPIUM BROM 0.5MG/2.5ML NEB PRN (20:20)
[2024-01-08] MEDS: HEPARIN 5000 UNIT/ML 1 ML VIAL SQ SCH (21:00)
[2024-01-08] MEDS ORDERED: HEPARIN 5000 UNIT/ML 1 ML VIAL ONE (21:47)
[2024-01-08] MEDS ORDERED: FUROSEMIDE 40 MG/4 ML VIAL ONE (21:47)
[2024-01-09] MEDS ORDERED: FUROSEMIDE 40 MG/4 ML VIAL ONE ×2 (01:58→08:41)
[2024-01-09 06:13] LABS: Absolute Lymphocytes (CBC) 0.5 K/uL (0.7-4.9); Absolute Monocytes 0.8 K/uL (0.1-1.3); Absolute Neutrophil 4.7 K/uL (1.8-8.0); Basophils % 0.6 % (0-1.3); Eosinophils % 0.5 % (0-4.4); Lymphocytes % 7.6 % (15.3-44.8); MCH 34.9 pg (27.0-35.0); MCHC 33.2 g/dL (32.0-36.0); MCV 105.2 fL (80-100); MPV 8.4 fL (7.6-11.3); Monocytes % 12.9 % (3.3-12.3); Neutrophils % 78.4 % (41.7-73.7); Platelets 107 thou/uL (152-406); RBC Red Blood Cell Count 2.57 M/uL (3.86-4.86); Red Cell Distribution Width 15.8 % (12.1-15.2)
[2024-01-09 06:23] LABS: AST/SGOT 28 U/L (15-37); Albumin 1.8 g/dL (3.4-5.0); Albumin/Globulin Ratio 0.4 (1.1-1.8); Alkaline Phosphatase 133 U/L (45-117); Anion Gap 7.6 mEq/L (5.0-15.0); BUN Blood Urea Nitrogen 16 mg/dL (7-18); Bicarbonate 26 mEq/L (21-32); Bilirubin Total 0.8 mg/dL (0.2-1.0); Globulin 4.1 g/dL (2.3-3.5); Glomerular Filtration Rate 16 ml/min (=/>90); Glucose Level 108 mg/dL (74-106); Magnesium 2.1 mg/dL (1.6-2.4); Phosphorus 3.1 mg/dL (2.5-4.9); Potassium 3.6 mEq/L (3.5-5.1); Protein, Total 5.9 g/dL (6.4-8.2); Sodium Level 137 mEq/L (136-145)
[2024-01-09 06:25] LABS: ALT/SGPT < 14 U/L (13-56)
[2024-01-09] MEDS ORDERED: HEPARIN 5000 UNIT/ML 1 ML VIAL ONE ×2 (08:40→19:50)
[2024-01-09] MEDS: PNEUMOCOCCAL VACCINE 0.5 ML IMVAC ONE (10:00)
--- NOTE | 2024-01-09 11:31 | RAD REPORT ---
EXAM: Chest Single View HISTORY: POST THORA COMPARISON: Yesterday FINDINGS: LUNGS/PLEURA: Improved aeration of the right lung following thoracentesis. Similar diffuse prominence of the pulmonary interstitium. No pneumothorax. Small volume of residual right pleural fluid. MEDIASTINUM: The mediastinal silhouette is within normal limits. CARDIAC: Cardiomegaly UPPER ABDOMEN: No significant abnormality. BONES: No acute fracture. LINES/TUBES/OTHER: Right IJ approach dialysis catheter with tip overlying the right atrium. IMPRESSION: Status post right-sided thoracentesis. Decreased pleural fluid. No pneumothorax. Interstitial edema r emains.
--- NOTE | 2024-01-09 11:47 | P.CNS ---
Date of Consult: 01/09/24 Reason for Consult: ESRD, dyspnea Requesting Physician: Albert Adams Chief Complaint: SOB History of Present Illness: Ms. Castillo is a 73-year-old female with a past medical history of scleroderma, severe pulm HTN diagnosed earlier this year, dialysis dependent renal failure since earlier this year when renal function worsened, and currently on iHD MWF with last HD yesterday. She has had freq admissions in recent mo for weakness, diarrhea, ascites, other. Imaging has now shown cirrhotic appearing liver and large vol ascites s/p paracentesis here on the last admission last mo. UF has been limited by low BP at times. She has been on pulm vasodilators per pulm HTN specialist at [facility] but not followed consistently with them and her weight and fluid retention has worsened in the past 2 mo. Allergies No Known Drug Allergies Allergy (Verified 04/26/22 13:47) Unknown Home Medications: Loratadine [Claritin*] 10 mg PO DAILY PRN 03/31/14 Sildenafil Citrate [Revatio*] 20 mg PO DAILY 90 Days #90 tab 02/11/22 Bumetanide 2 mg PO DAILY 12/16/23 Folic Acid 1 tab PO DAILY 12/16/23 Gabapentin 1 tab PO DAILY 12/16/23 Potassium Chloride [Klor-Con] 1 tab PO DAILY 12/16/23 Epoetin [Retacrit] 10,000 unit IV EVERY HD vial 12/20/23 Macitentan [Opsumit] 1 mg PO DAILY 01/09/24 Midodrine HCl 5 mg PO Q8H PRN 01/09/24 - Past Medical/Surgical History Diabetic: Yes -: DM II -: Hypothyroidism -: OA -: Diastolic CHF -: Pulmonary HTN -: CKD V (Dr. Randolph/ Kashif) -: HTN -: appy, kerwin, l breast biopsy, tumor removed l calf Psychosocial/ Personal History: walks with walker, O2 dependent at home. Dialysis M/W/F - Social History Smoking Status: Never smoker Alcohol use: No CD- Drugs: No Caffeine use: No Review of Systems General: Weakness, As per HPI Eyes: Unremarkable ENT: Unremarkable Respiratory: Shortness of Breath, As per HPI Cardiovascular: Edema, As per HPI Gastrointestinal: Distention, As per HPI Genitourinary: Unremarkable Musculoskeletal: Unremarkable Integumentary: Unremarkable Neurological: Unremarkable Physical Examination Temp Pulse Resp BP Pulse Ox 98.0 F 77 17 103/51 L 98 01/09/24 08:00 01/09/24 08:00 01/09/24 08:00 01/09/24 08:00 01/09/24 08:00 General: Cooperative, Other (Chronically ill) HEENT: Atraumatic, Normocephalic, Other (BIPAP mask) Neck: Supple Respiratory: Other (b/l air entry, reduced BS Rt base) Cardiovascular: Other, Edema (Non tachy) Gastrointestinal: No tenderness, No guarding, Distended, Ascites Musculoskeletal: No tenderness, Swelling Integumentary: No rashes Neurological: Other (Lethargic but awake, converses briefly, generalized weakness) Laboratory Data (last 24 hrs) 01/08/24 01/08/24 01/08/24 16:35 16:35 16:35 WBC 4.90 Hgb 11.0 L Hct 33.2 L Plt Count 109 L PT 12.0 INR 1.07 APTT 45.1 H Sodium 137 Potassium 3.4 L BUN 11 Creatinine 2.48 H Glucose 150 H Total Bilirubin 0.8 AST 45 H ALT 18 Alkaline Phosphatase 194 H Conclusions/Impression: Conclusions/Impression: -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 Pugh recently who may have advised trying an IV pulm vasodilator therapy but pt reports has not started yet -Pt also has positive serology for scleroderma, but is not following with rheum -Volume overload, Rt sided pleural effusion Agree with thoracentesis, may need pressor support for UF on dialysis Ascites, unspecified -s/p therapeutic paracentesis last mo, monitor closely Kvaon Maria MD, TIM
[2024-01-09] MEDS ORDERED: ALBUMIN HUMAN 25% 50 ML IV ONE ×2 (12:40→14:15)
--- NOTE | 2024-01-09 12:41 | P.PN ---
Subjective Date of Service: 01/09/24 Chief Complaint: SOB Subjective: No new changes She is on CPAP, she states that her breathing seems to be improving, she has had a paracentesis 2 weeks ago at the hospital. She reports that she is compliant with hemodialysis, she finished a full course of hemodialysis yesterday. Review of Systems Other: Consitutional; fever(-), chills (-), rigor(-), night sweat(-), unintentional weight loss(-) HEENT; diplopia (-), rhinorrhea (-), epistaxis (-), otorrhea (-), otalgia (-) Respiratory; shortness of breath (+), wheezing (-), cough (-), sputum (-), pleuritic chest pain (-) Cardiovascular; chest pain (-), peripheral edema (+), paroxysmal nocturnal dyspnea (-), orthopnea (-) Gastrointestinal; nausea (-), vomiting (-), abdominal pain (-), diarrhea (-), constipation (-), melena (-), hematochezia (-) Urinary; urinary frequency (-), dysuria (-), urgency (-), flank pain (-), gross hematuria (-), incontinence (-) Skin; rash (-), 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 General: Not acutely ill looking, in no apparent distress,. HEENT: Normocephalic, atraumatic, nonicteric sclera, nonanemic conjunctive. Neck: Supple, without JVD or goiter or thyroid mass. Respiratory: In mild respiratory distress, decreased breath sound in the right lower lung field with increased dullness, basilar crackle sound in the left lung. Cardiovascular: Regular rate and rhythm, S1, S2 normal, no murmur no gallop. Gastrointestinal: Normal bowel sounds, nondistended, nontender, moderate ascites, , No masses, no hepatosplenomegaly. Extremities l: No clubbing, +2/+2 peripheral edema, full range of motion, no deformity. Integumentary: No rashes, petechia, suspected lesions. Lymphatics: No axilla or cervical lymphadenopathy. Neurology; alert awake oriented x3, no focal rhoda rologic deficit, normal affection . mood and behavior. - Studies Laboratory Data (last 24 hrs) 01/08/24 01/08/24 01/08/24 16:35 16:35 16:35 WBC 4.90 Hgb 11.0 L Hct 33.2 L Plt Count 109 L PT 12.0 INR 1.07 APTT 45.1 H Sodium 137 Potassium 3.4 L BUN 11 Creatinine 2.48 H Glucose 150 H Total Bilirubin 0.8 AST 45 H ALT 18 Alkaline Phosphatase 194 H Microbiology Data (last 24 hrs): 01/08/24 16:35 Nasopharnyx Influenza Type A Antigen Screen - Final 01/08/24 16:35 Nasopharnyx Influenza Type B Antigen Screen - Final Assessment And Plan - Plan This is 73 years old female patient with past medical history notable for diabetes, ESRD on hemodialysis, decompensated liver cirrhosis secondary to VALLE or connective tissue disease with primary pulmonary hypertension with intractable ascites who came in for worsening shortness of breath for 1 day even after a complete course of dialysis yesterday, noted to have oxygen saturation 80% on room air, placed on BiPAP #1 acute hypoxic respiratory failure due to #2 #2 large right-sided pleural effusion #3 ESRD on hemodialysis #4 decompensated liver cirrhosis secondary to VALLE or right-sided heart failure #5 anemia of CKD Continue BiPAP, I ordered diagnostic and therapeutic thoracentesis for large right-sided pleural effusion by IR, case discussed with interventional radiologist and straddle bug, I will obtain pleural fluid cell count with differential, protein, albumin, LDH and bacterial culture. I will give 25 g albumin x 1 for borderline hypotension, patient have a poor prognosis requiring therapeutic thoracentesis and paracentesis in spite of scheduled hemodialysis.
[2024-01-09] MEDS: ALBUMIN HUMAN 25% 100 ML IV ONE ×2 (13:00→14:02)
[2024-01-09] MEDS: MIDODRINE HCL 5 MG TABLET PO SCH ×2 (14:00→17:04)
[2024-01-09] MEDS ORDERED: MIDODRINE HCL 5 MG TABLET ONE ×2 (14:15→19:50)
[2024-01-09] MEDS ORDERED: ALBUMIN HUMAN 25% 100 ML IV ONE (14:53)
[2024-01-09 15:13] LABS: Appearance TURBID (CLEAR); Body Fluid Source PLEURAL; Color of fluid Yellow (COLORLESS); Tube # SINGLE
[2024-01-09 15:14] LABS: Body Fluid WBC 58 /mm^3
[2024-01-09 15:49] LABS: Body Fluid Lymphocytes 67 %; Fluid Total Cells Count 100
[2024-01-09] MEDS ORDERED: NACHLORIDE 0.45% 0 ML IV ONE (19:43)
[2024-01-09] MEDS ORDERED: ACETAMINOPHEN 325 MG TABLET ONE (19:50)
[2024-01-09] MEDS: ACETAMINOPHEN 325 MG TABLET PO PRN (20:34)
--- NOTE | 2024-01-10 09:44 | RAD REPORT ---
EXAMINATION: ONE VIEW CHEST XR CLINICAL INDICATION: Female, 73 years old.,Follow-up after R. therapeutic thoracentesis TECHNIQUE: Frontal chest projection is submitted. Examination is limited by patient positioning and t echnique. COMPARISON: 01/09/2024 FINDINGS: Marginal decrease in size of the layering right pleural effusion. Mildly progressive central intersti tial prominence and perihilar fluffy opacities. Elevation of the left hemidiaphragm and possible left small to moderate effusion, stable. No pneumothorax. The heart is again enlarged. Mediastinal co ntours are unchanged. IMPRESSION: Marginal decrease in size of right pleural effusion allowing for differences in technique. Mildly progressive central interstitial prominence and perihilar fluffy opacities concerning for pulm onary edema.
[2024-01-10] MEDS ORDERED: MIDODRINE HCL 5 MG TABLET ONE ×2 (11:06→19:14)
[2024-01-10] MEDS ORDERED: HEPARIN 5000 UNIT/ML 1 ML VIAL ONE (11:06)
--- NOTE | 2024-01-10 11:13 | P.PN ---
(S) Pt remains in the ICU, s/p Rt sided thoracentesis, unclear how much was drained, weaned off BIPAP, not in resp distress, BP remains soft, MAP 60. 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 Pugh recently who may have advised trying an IV pulm vasodilator therapy but pt reports has not started yet -Pt also has positive serology for scleroderma, but is not following with rheum -Volume overload, Rt sided pleural effusion Agreed with thoracentesis, repeat CXR with marginal reduction, b/l infiltrates, will need low dose pressor support for UF on dialysis Ascites, unspecified -s/p therapeutic paracentesis last mo, monitor closely Kavon Maria MD, TIM
--- NOTE | 2024-01-10 13:42 | P.PN ---
Subjective Date of Service: 01/10/24 Chief Complaint: SOB Subjective: Improving Patient said she only had 1 L right pleural effusion drained because of the chest pain during the procedure, however her shortness of breath significantly improved after drainage, now transitioned to nasal cannula 5 L from BiPAP. Review of Systems Other: Consitutional; fever(-), chills (-), rigor(-), night sweat(-), unintentional weight loss(-) HEENT; diplopia (-), rhinorrhea (-), epistaxis (-), otorrhea (-), otalgia (-) Respiratory; shortness of breath (+), wheezing (-), cough (-), sputum (-), pleuritic chest pain (-) Cardiovascular; chest pain (-), peripheral edema (-), paroxysmal nocturnal dyspnea (-), orthopnea (-) Gastrointestinal; nausea (-), vomiting (-), abdominal distention (+), diarrhea (-), constipation (-), melena (-), hematochezia (-) Urinary; urinary frequency (-), dysuria (-), urgency (-), flank pain (-), gross hematuria (-), incontinence (-) Skin; rash (-), 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 General: Chronic ill- looking, in no apparent distress,. HEENT: Normocephalic, atraumatic, icteric sclera, anemic conjunctive. Neck: Supple, without JVD or goiter or thyroid mass. Respiratory: In mild respiratory distress, decreased breath sound in the right lower lung field with increased dullness, basilar crackle sound in the left lung. Cardiovascular: Regular rate and rhythm, S1, S2 normal, no murmur no gallop. Gastrointestinal: Normal bowel sounds, nondistended, nontender, moderate ascites, , No masses, no hepatosplenomegaly. Extremities l: No clubbing, +2/+2 peripheral edema, full range of motion, no deformity. Integumentary: No rashes, petechia, suspected lesions. Lymphatics: No axilla or cervical lymphadenopathy. Neurology; alert awake oriented x3, no focal neurologic deficit, normal affection . mood and behavior. Assessment And Plan - Plan This is 73 years old female patient with past medical history notable for diab etes, ESRD on hemodialysis, decompensated liver cirrhosis secondary to VALLE or connective tissue disease with primary pulmonary hypertension with intractable ascites who came in for worsening shortness of breath for 1 day even after a complete course of dialysis yesterday, noted to have oxygen saturation 80% on room air, placed on BiPAP #1 acute hypoxic respiratory failure due to #2 Improved, now nasal cannula 5 L, transitioned from BiPAP #2 large symptomatic right-sided pleural effusion status post diagnostic and therapeutic thoracentesis on January 08 #3 ESRD on hemodialysis #4 decompensated liver cirrhosis secondary to VALLE or right-sided heart failure secondary to primary pulmonary hypertension? #5 anemia of CKD Only 1 L of light fluid was drained yesterday, clinically improved, follow-up chest x-ray personally reviewed no significant change, her blood pressure is borderline in spite of midodrine 5 mg 3 times daily, pleural fluid analysis reviewed, lymphocyte predominant, chemistry still pending, nephrology planning on ultrafiltration during hemodialysis with vasopressor, awaiting ICU bed, patient will likely need another thoracentesis and/ paracentesis for right hydro thorax and intractable ascites, she has a very poor prognosis.
[2024-01-10] MEDS: NOREPINEPHRINE 4 MG in D5W 250 ML IV SCH (14:25)
[2024-01-10 15:19] LABS: Absolute Eosinophils 0.1 K/uL (0-0.5); Absolute Lymphocytes (CBC) 0.5 K/uL (0.7-4.9); Absolute Monocytes 0.4 K/uL (0.1-1.3); Absolute Neutrophil 2.9 K/uL (1.8-8.0); Basophils % 0.8 % (0-1.3); Eosinophils % 1.9 % (0-4.4); Hematocrit 27.6 % (36.0-45.0); Hemoglobin 9.3 g/dL (12.0-15.0); Lymphocytes % 12.1 % (15.3-44.8); MCH 35.5 pg (27.0-35.0); MCHC 33.9 g/dL (32.0-36.0); MCV 104.6 fL (80-100); MPV 8.2 fL (7.6-11.3); Monocytes % 11.2 % (3.3-12.3); Nucleated Red Blood Cells % 0.4 % (0-0); Platelets 109 thou/uL (152-406); RBC Red Blood Cell Count 2.63 M/uL (3.86-4.86); Red Cell Distribution Width 15.5 % (12.1-15.2)
[2024-01-10 15:32] LABS: Anion Gap 9.9 mEq/L (5.0-15.0); Potassium 3.9 mEq/L (3.5-5.1)
[2024-01-10] MEDS: PNEUMOCOCCAL VACCINE 0.5 ML IMVAC ONE (18:00)
[2024-01-10 23:11] LABS: Hepatitis B surface AG Interp. Nonreactive (Nonreactive)
[2024-01-10 23:12] LABS: HBsAG Nonreactive Report Report
[2024-01-11 06:43] LABS: Absolute Eosinophils 0.1 K/uL (0-0.5); Absolute Lymphocytes (CBC) 0.7 K/uL (0.7-4.9); Absolute Monocytes 0.5 K/uL (0.1-1.3); Absolute Neutrophil 2.7 K/uL (1.8-8.0); Basophils % 0.8 % (0-1.3); Eosinophils % 2.5 % (0-4.4); Hematocrit 27.9 % (36.0-45.0); Hemoglobin 9.1 g/dL (12.0-15.0); Lymphocytes % 17.7 % (15.3-44.8); MCH 34.7 pg (27.0-35.0); MCHC 32.7 g/dL (32.0-36.0); MCV 105.9 fL (80-100); MPV 8.2 fL (7.6-11.3); Monocytes % 12.6 % (3.3-12.3); Neutrophils % 66.4 % (41.7-73.7); Platelets 109 thou/uL (152-406); RBC Red Blood Cell Count 2.64 M/uL (3.86-4.86); Red Cell Distribution Width 15.9 % (12.1-15.2)
[2024-01-11 06:57] LABS: Anion Gap 9.6 mEq/L (5.0-15.0); Magnesium 2.1 mg/dL (1.6-2.4); Phosphorus 3.1 mg/dL (2.5-4.9); Potassium 3.6 mEq/L (3.5-5.1)
[2024-01-11] MEDS: POTASSIUM 25 MEQ EFFERV TAB PO ONE (08:27)
[2024-01-11] MEDS: BENZONATATE 100 MG CAP PO SCH (09:23)
[2024-01-11] MEDS: guaiFENesin 100 MG/5 ML UCUP PO PRN (10:15)
--- NOTE | 2024-01-11 11:13 | P.PN ---
Subjective Date of Service: 01/11/24 Chief Complaint: SOB Subjective: Worsening She underwent hemodialysis yesterday and removed 2 L by ultrafiltration while on low-dose norepinephrine infusion, patient complaining of severe cough this morning, her oxygen requirement increased from 2 L to 4 to 5 L by nasal cannula. . Review of Systems Other: Consitutional; fever(-), chills (-), rigor(-), night sweat(-), unintentional weight loss(-) HEENT; diplopia (-), rhinorrhea (-), epistaxis (-), otorrhea (-), otalgia (-) Respiratory; shortness of breath (+), wheezing (-), cough (+), sputum (-), pleuritic chest pain (-) Cardiovascular; chest pain (-), peripheral edema (-), paroxysmal nocturnal dyspnea (-), orthopnea (-) Gastrointestinal; nausea (-), vomiting (-), abdominal pain (-), diarrhea (-), constipation (-), melena (-), hematochezia (-) Urinary; urinary frequency (-), dysuria (-), urgency (-), flank pain (-), gross hematuria (-), incontinence (-) Skin; 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 General: Chronic ill- looking, in moderate distress due to intractable cough,. HEENT: Normocephalic, atraumatic, icteric sclera, anemic conjunctive. Neck: Supple, without JVD or goiter or thyroid mass. Respiratory: In mild respiratory distress, decreased breath sound in the right lower lung field with increased dullness, basilar crackle sound in the left lung. Cardiovascular: Regular rate and rhythm, S1, S2 normal, no murmur no gallop. Gastrointestinal: Normal bowel sounds, nondistended, nontender, moderate ascites, , No masses, no hepatosplenomegaly. Extremities l: No clubbing, +2/+2 peripheral edema, full range of motion, no deformity. Integumentary: No rashes, petechia, suspected lesions. Lymphatics: No axilla or cervical lymphadenopathy. Neurology; alert awake oriented x3, no focal neurologic deficit, normal affection . mood and behavior. Assessment And Plan - Plan This is 73 years old female patient with past medical history notable for diabetes, ESRD on hemodialysis, decompensated liver cirrhosis secondary to VALLE or connective tissue disease with primary pulmonary hypertension with intractable ascites who came in for worsening shortness of breath for 1 day even after a complete course of dialysis yesterday, noted to have oxygen saturation 80% on room air, placed on BiPAP #1 acute hypoxic respiratory failure due to #2 Worsening again, now requiring 5 L/min by nasal cannula , will put her back on BiPAP if any progression #2 large symptomatic right-sided pleural effusion status post diagnostic and the rapeutic thoracentesis on January 08 Only removed 1 L of pleural effusion due to chest pain during the procedure, pleural fluid analysis, lymphocyte predominant, chemistry still pending, Gram stain negative, no growth to date no significant change on follow-up chest x-ray after thoracentesis, I will order another 1 today to evaluate whether patient need another thoracentesis. Will give her antitussive for symptomatic improvement #3 ESRD on hemodialysis Continuous hemodialysis with maximum ultrafiltration on low-dose vasopressor as well as oral midodrine per visitor service assistant #4 decompensated liver cirrhosis secondary to VALLE or right-sided heart failure #5 history of severe pulmonary hypertension, multifactorial related to liver cirrhosis and ESRD with /without questionable scleroderma #6 anemia of CKD and pancytopenia related to #4 Hemoglobin 9.0, no clinical bleeding Patient continues to need ICU care at this moment.
--- NOTE | 2024-01-11 11:36 | RAD REPORT ---
Procedure: Chest Single View HISTORY: Cough COMPARISON: January 10, 2024 FINDINGS: Right hemithorax has become more hazy probably indicating enlargement of the pleural effusion.. Right atelectasis. Pulmonary vascular congestion is present. The heart remains enlarged. Central venous catheter in place. IMPRESSION: Enlargement of the right pleural effusion. It probably is large. Further evaluation with ultrasound c ould be obtained if clinically indicated
--- NOTE | 2024-01-11 20:44 | P.PN ---
Date of Service: 01/11/24 Vital Signs Temp Pulse Resp BP Pulse Ox 98.4 F 71 16 104/56 L 98 01/11/24 16:00 01/11/24 19:00 01/11/24 19:00 01/11/24 19:00 01/11/24 19:00 Medications Acetaminophen (Acetaminophen 325 Mg Tablet) 650 mg PO Q4HP PRN PRN Reason: Pain scale 2-4 (Mild) Last Admin: 01/09/24 20:34 Dose: 650 mg Albuterol Sulfate (Albuterol 2.5 Mg/3 Ml Neb Oma) 2.5 mg NEB [id number] PRN PRN Reason: SHORTNESS OF BREATH Benzonatate (Benzonatate 100 Mg Cap) 100 mg PO TID [facility] Last Admin: 01/11/24 20:11 Dose: 100 mg Furosemide (Furosemide 40 Mg/4 Ml Vial) 40 mg IV Q8HR [facility] Last Admin: 01/11/24 17:45 Dose: 40 mg Guaifenesin (Guaifenesin 100 Mg/5 Ml Ucup) 100 mg PO QID PRN PRN Reason: COUGH Last Admin: 01/11/24 20:10 Dose: 100 mg Heparin Sodium (Porcine) (Heparin 5000 Unit/Ml 1 Ml Vial) 5,000 unit SQ Q12HR [facility] Last Admin: 01/11/24 20:09 Dose: 5,000 unit Heparin Sodium (Porcine) (Heparin 1,000 Unit/Ml Vial) 6,000 unit IV EVERY HD PRN PRN Reason: FOR DIALYSIS CATHETER CARE Last Admin: 01/10/24 18:00 Dose: 6,000 unit Norepinephrine Bitartrate 4 mg (/ Dextrose) 254 mls @ 16.383 mls/hr IV TITR [facility]; Protocol Last Titration: 01/10/24 15:22 Dose: 0 mcg/kg/min, 0 mls/hr Ipratropium [place] (Ipratropium Brom 0.5mg/2.5ml) 0.5 mg NEB [id number] PRN PRN Reason: SHORTNESS OF BREATH Last Admin: 01/11/24 09:26 Dose: 0.5 mg Midodrine (Midodrine Hcl 5 Mg Tablet) 10 mg PO TID [facility] Last Admin: 01/11/24 14:00 Dose: Not Given Ondansetron HCl (Ondansetron 4 Mg/2 Ml Vial) 4 mg IV Q6HP PRN PRN Reason: NAUSEA / VOMITING Microbiology Results 01/08/24 17:09 Blood - Blood Aerobic Blood Culture - Preliminary No growth in 24 hours. 01/08/24 17:09 Blood - Blood Anaerobic Blood Culture - Preliminary No growth in 24 hours. 01/08/24 16:35 Blood - Blood Aerobic Blood Culture - Preliminary No growth in 24 hours. 01/08/24 16:35 Blood - Blood Anaerobic Blood Culture - Preliminary No growth in 24 hours. 01/08/24 16:35 Nasopharnyx Influenza Type A Antigen Screen - Final 01/08/24 16:35 Nasopharnyx Influenza Type B Antigen Screen - Final Assessment/ Plan: Nephrology No dyspnea No chest pain Malaise, fatigue and weakness No acute events overnight Vitals, medications, blood work and imaging reviewed in the chart General: Cooperative HEENT: Atraumatic, Normocephalic, Other (BIPAP mask) Neck: Supple Respiratory: Other (b/l air entry, reduced BS Rt base) Cardiovascular: Other, sig LE Edema (Non tachy but irregular) Gastrointestinal: No tenderness, No guarding, Ascites Musculoskeletal: No tenderness, Swelling Integumentary: No rashes Neurological: Awake Laboratory Data (last 24 hrs) Reviewed in the EMR Conclusions/Impression: ESRD on HD MWF -HD TIW Hyponatremia Hypokalemia -HD TIW Diastolic CHF, chronic Severe Pulmonary HTN with MR -HD with UF Acute hypoxic respiratory failure Right pleural effusion s/p thoracentesis 01/09/24 -Bipap prn -Continue Oxygen supplementation Liver Cirrhosis with Ascites Hypoalbuminemia -Paracentesis prn -Give Albumin with HD Anemia in CKD -Retacrit prn Hospitalist note reviewed 35min patient care
[2024-01-11 21:15] LABS: Absolute Eosinophils 0.1 K/uL (0-0.5); Absolute Lymphocytes (CBC) 0.6 K/uL (0.7-4.9); Absolute Monocytes 0.6 K/uL (0.1-1.3); Absolute Neutrophil 4.3 K/uL (1.8-8.0); Basophils % 0.5 % (0-1.3); Eosinophils % 1.6 % (0-4.4); Hemoglobin 10.9 g/dL (12.0-15.0); Lymphocytes % 9.9 % (15.3-44.8); MCHC 32.1 g/dL (32.0-36.0); Monocytes % 10.5 % (3.3-12.3); Neutrophils % 77.5 % (41.7-73.7); Platelets 143 thou/uL (152-406); Red Cell Distribution Width 15.7 % (12.1-15.2)
[2024-01-11 21:20] LABS: MCV 106.1 fL (80-100); PT Prothrombin Time 11.1 SECONDS (9.4-12.5); PTT, Activated Partial Thromb 30.5 SECONDS (24.3-36.9); Protime INR 0.99
[2024-01-11] MEDS: ALBUTEROL 2.5 MG/3 ML NEB SOL NEB PRN (21:40)
[2024-01-12 05:21] LABS: Absolute Eosinophils 0.1 K/uL (0-0.5); Absolute Lymphocytes (CBC) 0.7 K/uL (0.7-4.9); Absolute Monocytes 0.7 K/uL (0.1-1.3); Absolute Neutrophil 3.4 K/uL (1.8-8.0); Basophils % 0.6 % (0-1.3); Hematocrit 28.6 % (36.0-45.0); Hemoglobin 9.3 g/dL (12.0-15.0); Lymphocytes % 13.9 % (15.3-44.8); MCH 34.4 pg (27.0-35.0); MCHC 32.5 g/dL (32.0-36.0); MPV 8.6 fL (7.6-11.3); Monocytes % 14.5 % (3.3-12.3); Platelets 123 thou/uL (152-406); RBC Red Blood Cell Count 2.71 M/uL (3.86-4.86); Red Cell Distribution Width 15.5 % (12.1-15.2)
[2024-01-12 05:25] LABS: MCV 105.8 fL (80-100)
[2024-01-12 05:38] LABS: AST/SGOT 15 U/L (15-37); Albumin 1.8 g/dL (3.4-5.0); Albumin/Globulin Ratio 0.5 (1.1-1.8); Alkaline Phosphatase 114 U/L (45-117); Anion Gap 9.4 mEq/L (5.0-15.0); BUN Blood Urea Nitrogen 34 mg/dL (7-18); Bicarbonate 26 mEq/L (21-32); Bilirubin Total 0.6 mg/dL (0.2-1.0); Globulin 3.6 g/dL (2.3-3.5); Glomerular Filtration Rate 11 ml/min (=/>90); Glucose Level 109 mg/dL (74-106); Phosphorus 3.6 mg/dL (2.5-4.9); Potassium 4.4 mEq/L (3.5-5.1); Protein, Total 5.4 g/dL (6.4-8.2); Sodium Level 133 mEq/L (136-145)
[2024-01-12 05:42] LABS: ALT/SGPT < 14 U/L (13-56)
[2024-01-12] MEDS: ALBUMIN HUMAN 25% 100 ML IV SCH (09:32)
--- NOTE | 2024-01-12 10:27 | P.PN ---
(S) Pt remains in the ICU, off BIPAP, not in any resp distress, plan for repeat thoracentesis. Not currently on pressor support. 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 initiated on HD in late Mar/April in the setting then of [place] on CKD, multifactorial etiology HD performed Mon per OP schedule, dialyzed on Mon, metab profile stable yesterday, may perform gentle HD today primarily for UF post thoracentesis if stable, otherwise will wait until AM -Diastolic CHF, chronic -MR, non rheumatic -Severe pulmonary HTN, reported PAH/primary on diagnosis last Mar -Associated 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 Pugh recently who may have advised trying an IV pulm vasodilator therapy but pt reports has not started yet -Pt also has positive serology for scleroderma, but is not following with rheum -Volume overload, Rt sided pleural effusion Agreed with repeat thoracentesis as large effusion persists, b/l infiltrates, will need low dose pressor support for UF on dialysis Ascites, unspecified -s/p therapeutic paracentesis last mo, monitor closely Poor prognosis, had discussed DNR status with her on Mon, will cont to follow up Kavon Maria MD, TIM
--- NOTE | 2024-01-12 12:32 | RAD REPORT ---
EXAMINATION: ONE VIEW CHEST XR CLINICAL INDICATION: Female, 73 years old.,POST THORA TECHNIQUE: Frontal chest projection is submitted. Examination is limited by patient positioning and t echnique. COMPARISON: 01/11/2024 FINDINGS: Right Pleurx catheter has been placed, tracking cranially. There may be a tiny apical pneumothorax. Moderate residual right pleural effusion with underlying airspace opacification. Central interstitial prominence, stable. The heart is normal in size. Mediastinal contours are unchanged. Rig ht IJ dialysis catheter in place. IMPRESSION: Right Pleurx catheter in place as above with moderate residual effusion. Suspected tiny apical pneumothorax.
--- NOTE | 2024-01-12 12:51 | P.PN ---
Subjective Date of Service: 01/12/24 Chief Complaint: SOB Subjective: No new changes She is still coughing, complaining of shortness of breath on minimal exertion, requiring a 5 L/min by nasal cannula Review of Systems Other: Consitutional; fever(-), chills (-), rigor(-), night sweat(-), unintentional weight loss(-) HEENT; diplopia (-), rhinorrhea (-), epistaxis (-), otorrhea (-), otalgia (-) Respiratory; shortness of breath (+), wheezing (-), cough (+), sputum (-), pleuritic chest pain (-) Cardiovascular; chest pain (-), peripheral edema (-), paroxysmal nocturnal dyspnea (-), orthopnea (-) Gastrointestinal; nausea (-), vomiting (-), abdominal pain (-), diarrhea (-), constipation (-), melena (-), hematochezia (-) Urinary; urinary frequency (-), dysuria (-), urgency (-), flank pain (-), gross hematuria (-), incontinence (-) Skin; rash (-), pruritus (-) 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 General: Chronic ill- looking, in mild discomfort for intractable cough,. HEENT: Normocephalic, atraumatic, icteric sclera, anemic conjunctive. Neck: Supple, without JVD or goiter or thyroid mass. Respiratory: In mild respiratory distress, decreased breath sound in the right lower lung field with increased dullness, dialysis catheter in the right upper chest. Cardiovascular: Regular rate and rhythm, S1, S2 normal, no murmur no gallop. Gastrointestinal: Normal bowel sounds, nondistended, nontender, moderate ascites, , No masses, no hepatosplenomegaly. Extremities l: No clubbing, +1/+1 peripheral edema, full range of motion, no deformity. Integumentary: No rashes, petechia, suspected lesions. Lymphatics: No axilla or cervical lymphadenopathy. Neurology; alert awake oriented x3, no focal neurologic deficit, normal affection . mood and behavior. Assessment And Plan - Plan This is 73 years old female patient with past medical history notable for diabetes, ESRD on hemodialysis, decompensated liver cirrhosis secondary to VALLE or connective tissue disease with primary pulmonary hypertension with intractable ascites who came in for worsening shortness of breath for 1 day even after a complete course of dialysis yesterday, noted to have oxygen saturation 80% on room air, placed on BiPAP #1 acute hypoxic respiratory failure due to #2 Worsening again, now requiring 5 L/min by nasal cannula , will put her back on BiPAP if any progression #2 large symptomatic right-sided pleural effusion, likely hepatic hydrothorax status post diagnostic and therapeutic thoracentesis on January 08 Only removed 1 L of pleural effusion due to chest pain during the procedure, pleural fluid analysis, lymphocyte predominant, chemistry still pending, Gram stain negative, culture no growth to date no significant change on follow-up chest x-ray after therapeutic thoracentesis, I will order a pigtail oral fluid X catheter placement today by IR because patient will likely have recurrent right pleural effusion. #3 ESRD on hemodialysis Continuous hemodialysis with maximum ultrafiltration on low-dose vasopressor as well as oral midodrine per logistics planner #4 decompensated liver cirrhosis secondary to VALLE or right-sided heart failure #5 borderline asymptomatic hypotension secondary to #4 Continue on midodrine, will consider using IV vasopressor if patient is symptomatic or systolic blood pressure less than 90 mmHg #6 history of severe pulmonary hypertension, multifactorial related to liver cirrhosis and ESRD with /without questionable scleroderma #7 anemia of CKD and pancytopenia related to #4 Hemoglobin 9.0, no clinical bleeding Patient continues to need ICU care at this moment.
--- NOTE | 2024-01-12 14:28 | RAD REPORT ---
PROCEDURE: ULTRASOUND GUIDED THORACENTESIS, PLEURX CATHETER INSERTION CLINICAL INDICATION: [facility] MAIN Recurrent large right pleural effusion Pigtail or Pleurx catheter insertion please Hepatic hydrothorax, ESRD on hemodialysis, end-sta PROCEDURE DETAILS: Consent: Informed consent for the procedure including risks, benefits and alternatives was obtained f rom the patient, and time-out was performed prior to the procedure. Preparation: The site was prepared and draped using maximal sterile barrier technique including cutan eous antisepsis. Procedure: Initial limited thoracic ultrasound was performed and a large right pleural effusion was s een. A safe window for thoracentesis was identified with ultrasound to summer a suitable access site. Local anesthesia was administered using 10 mL one percent lidocaine. The pleural cavity was accessed using a coaxial needle, and fluid return confirmed position. A J-shaped guidewire was inserted following removal of the coaxial needle, and a series of dilators were used along the tract. Finally, Pleurx catheter tubing was inserted through the sheath, and guided into the posterior aspect of the chest cavity, after which the sheath was peeled. The catheter was secured in place using silk sut ures, and covered using sterile dressing. The catheter was connected to a collection bulb. 1 L of pleural fluid was evacuated during the insertion. Estimated blood loss: Less than 10 mL. The patient tolerated the procedure with no immediate complications. An x-ray of the chest was obtain ed following the procedure. The patient was then sent to the inpatient floor. IMPRESSION: SUCCESSFUL ultrasound guided right thoracentesis, yielding 1000 mL of clear fluid. Additional procedure(s): Right Pleurx catheter insertion PLAN: Aspirated fluid was not sent for analysis.
[2024-01-12] MEDS: MORPHINE 2 MG/ML SYR IV PRN (21:35)
[2024-01-13] MEDS: HYDROCODONE/APAP 5/325 MG TAB PO PRN (02:18)
--- NOTE | 2024-01-13 06:33 | RAD REPORT ---
PROCEDURE: ULTRASOUND GUIDED THORACENTESIS CLINICAL INDICATION: [facility] MAIN pleural effusion, right (large) Please consult IR for therapeutic/diagnostic thora PROCEDURE DETAILS: Consent: Informed consent for the procedure including risks, benefits and alternatives was obtained a nd time-out was performed prior to the procedure. Preparation: The site was prepared and draped using maximal sterile barrier technique including cutan eous antisepsis. Procedure: Initial limited thoracic ultrasound was performed and a large pleural effusion was seen. A safe window for thoracentesis was identified with ultrasound to summer a suitable access site. Local anesthesia was administered. The pleural cavity was accessed, and fluid return confirmed position. A 6F [id number] catheter was placed and fluid was drained. The catheter was removed, and a sterile bandage was applied. . Estimated blood loss: Less than 10 mL. IMPRESSION: RIGHT ultrasound guided thoracentesis, yielding 1200 mL of straw-colored fluid. Additional procedure(s): Limited thoracic ultrasound. PLAN: Aspirated fluid was sent for analysis.
--- NOTE | 2024-01-13 06:47 | RAD REPORT ---
EXAM: Chest Single View HISTORY: Right pleural effusion COMPARISON: 01/12/2024 FINDINGS: LUNGS/PLEURA: Decrease in size of the right pleural effusion with improved aeration of the right lung . Pulmonary edema remains. Some pleural fluid that is probably loculated is noted near the right heart border.No pneumothorax.. MEDIASTINUM: The mediastinal silhouette is within normal limits. CARDIAC: Cardiomegaly. UPPER ABDOMEN: No significant abnormality. BONES: No acute fracture. LINES/TUBES/OTHER: Right IJ approach Vas-Cath catheter with tip overlying the right atrium. Right-shaneka ed chest tube in similar position. IMPRESSION: Improved aeration of the right lung with decrease in volume of the right pleural fluid with chest tub e in place. There is still a prominent loculated component at the medial right lung base. No pneumothorax.
--- NOTE | 2024-01-13 10:10 | P.PN ---
Subjective Date of Service: 01/13/24 Chief Complaint: SOB Subjective: Improving No overnight event noted, her shortness of breath and intractable cough has significantly improved after pleurx catheter insertion yesterday, about 2 to 3 L of clear pleural fluid has drained, a follow-up chest x-ray revealed significant decrease in right pleural effusion. pleurx catheter is clamped, she is complaining of moderate pain at the Pleurx catheter insertion site. Review of Systems Other: Consitutional; fever(-), chills (-), rigor(-), night sweat(-), unintentional weight loss(-) HEENT; diplopia (-), rhinorrhea (-), epistaxis (-), otorrhea (-), otalgia (-) Respiratory; shortness of breath (+), wheezing (-), cough (-), sputum (-), pleuritic chest pain (+) Cardiovascular; chest pain (-), peripheral edema (-), paroxysmal nocturnal dyspnea (-), orthopnea (-) Gastrointestinal; nausea (-), vomiting (-), abdominal pain (-), diarrhea (-), constipation (-), melena (-), hematochezia (-) Urinary; urinary frequency (-), dysuria (-), urgency (-), flank pain (-), gross hematuria (-), incontinence (-) Skin; rash (-), pruritus (-) [employer]; headache (-), paresthesia (-), numbness (-), paralysis (-) Physical Examination - Vital Signs Temperature: 98.8 F Blood Pressure: 116/54 Pulse: 75 Respirations: 22 Pulse Ox (%): 95 - Physical Exam Other Physical/Emotional Findings: - Physical Exam. General: Chronic ill- looking, in mild discomfort for intractable cough,. HEENT: Normocephalic, atraumatic, icteric sclera, anemic conjunctive. Neck: Supple, without JVD or goiter or thyroid mass. Respiratory: In no longer respiratory distress, improved aeration of the right lung field, dialysis catheter in the right upper chest. Cardiovascular: Regular rate and rhythm, S1, S2 normal, no murmur no gallop. Gastrointestinal: Normal bowel sounds, nondistended, nontender, moderate ascites, , No masses, no hepatosplenomegaly. Extremities l: No clubbing, +1/+1 peripheral edema, full range of motion, no deformity. Integumentary: No rashes, petechia, suspected lesions. Lymphatics: No axilla or cervical lymphadenopathy. Neurology; alert awake oriented x3, no focal neurologic deficit, normal affection . mood and behavior. Assessment And Plan - Plan This is 73 years old female patient with past medical history notable for diabetes, ESRD on hemodialysis, decompensated liver cirrhosis secondary to VALLE or connective tissue disease with primary pulmonary hypertension with intractable ascites who came in for worsening shortness of breath for 1 day even after a complete course of dialysis yesterday, noted to have oxygen saturation 80% on room air, placed on BiPAP #1 acute hypoxic respiratory failure due to #2 Resolving after second therapeutic thoracentesis with pleurx catheter insertion on January 11 #2 large symptomatic right-sided pleural effusion, likely hepatic hydrothorax status post thoracentesis on January 08 and pleurx catheter insertion on January 11 pleural fluid analysis, lymphocyte predominant, chemistry still pending, culture no growth to date Markedly decreased in size of rightpleural effusion chest x-ray today, will drain pleural fluid as needed #3 ESRD on hemodialysis Continuous hemodialysis with maximum ultrafiltration with or without low-dose vasopressor as well as oral midodrine per entertainment lawyer #4 decompensated liver cirrhosis secondary to VALLE or right-sided heart failure #5 borderline asymptomatic hypotension secondary to #4 Systolic blood pressure over 100 continue on midodrine, #6 history of severe pulmonary hypertension, multifactorial related to liver cirrhosis and ESRD with /without questionable scleroderma #7 anemia of CKD and pancytopenia related to #4 Hemoglobin 9.0, no clinical bleeding I will downgrade patient to general medical floor today unless nephrology wants to start a low-dose vasopressor for ultrafiltration during hemodialysis. Disposition; plan to discharge home next week with pleurx catheter
--- NOTE | 2024-01-13 13:15 | P.PN ---
(S) Pt remains in the ICU, off BIPAP, not in any resp distress, s/p repeat thoracentesis, HD yesterday postponed until this AM, seen at the end of HD, tolerated well, did not require pressor support, 2L removed. (O) vitals reviewed in the EMR General: Cooperative, Other (Chronically ill) HEENT: Atraumatic, Normocephalic, Other (off BIPAP mask and on NC) Neck: Supple Respiratory: Other (b/l air entry, reduced BS Rt base), rt pleurx catheter Cardiovascular: Other, sig LE Edema (Non tachy but irregular) Gastrointestinal: No tenderness, No guarding, Mod Distended, Ascites Musculoskeletal: No tenderness, Swelling Integumentary: No rashes Neurological: Other (Lethargic but awake, converses briefly, generalized weakness) Laboratory Data (last 24 hrs) Reviewed in the EMR Conclusions/Impression: -ESRD 2nd to dialysis dependent renal failure initiated on HD in late Mar/April in the setting then of [place] on CKD, multifactorial etiology HD performed Mon per OP schedule, dialyzed on Mon, metab profile stable stable, HD completed today. 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 Pugh recently who may have advised trying an IV pulm vasodilator therapy but pt reports has not started yet Currently off pulm HTN medications -Pt also has positive serology for scleroderma, but is not following with rheum -Volume overload, Rt sided pleural effusion S/p Pleurx catheter placement as with the ascites and persistent effusion, IM/IR team made that decision, will defer to them on instructions for intermittent drainage Will cont UF on HD as tolerated with pressor support if needed Ascites, unspecified -s/p therapeutic paracentesis last mo, monitor closely Poor overall prognosis despite current stabilization, had discussed DNR status with her on Mon, will cont to follow up on goals of care discussion Kavon Maria MD, TIM
[2024-01-13] MEDS: KETOROLAC 30 MG/ML INJ IV PRN (13:35)
[2024-01-13] MEDS: ONDANSETRON 4 MG/2 ML VIAL IV PRN (15:34)
[2024-01-14 05:06] VITALS: BMI 34.3
--- NOTE | 2024-01-14 09:57 | P.PN ---
Subjective Date of Service: 01/14/24 Chief Complaint: SOB Subjective: Improving No overnight event noted, transfer order to the general medical floor however there is no room therefore patient still seen in ICU. She report only mild shortness of breath and a cough at rest, she underwent dialysis without any vasopressor removed 2 L yesterday Review of Systems Other: Consitutional; fever(-), chills (-), rigor(-), night sweat(-), unintentional weight loss(-) HEENT; diplopia (-), rhinorrhea (-), epistaxis (-), otorrhea (-), otalgia (-) Respiratory; shortness of breath (+), wheezing (-), cough (+), sputum (-), pleuritic chest pain (-) Cardiovascular; chest pain (-), peripheral edema (-), paroxysmal nocturnal dyspnea (-), orthopnea (-) Gastrointestinal; nausea (-), vomiting (-), abdominal pain (-), diarrhea (-), constipation (-), melena (-), hematochezia (-) Urinary; urinary frequency (-), dysuria (-), urgency (-), flank pain (-), gross hematuria (-), incontinence (-) Skin; rash (-), pruritus (-) 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 General: Chronic ill- looking, not in acute distress, looks a lot more comfortable,. HEENT: Normocephalic, atraumatic, icteric sclera, anemic conjunctive. Neck: Supple, without JVD or goiter or thyroid mass. Respiratory: , improved aeration of the right lung field, dialysis catheter in the right upper chest. Cardiovascular: Regular rate and rhythm, S1, S2 normal, no murmur no gallop. Gastrointestinal: Normal bowel sounds, nondistended, nontender, mild ascites, , No masses, no hepatosplenomegaly. Extremities l: No clubbing, +1/+1 peripheral edema, full range of motion, no deformity. Integumentary: No rashes, petechia, suspected lesions. Lymphatics: No axilla or cervical lymphadenopathy. Neurology; alert awake oriented x3, no focal neurologic deficit, normal affection . mood and behavior. - Studies Microbiology Data (last 24 hrs): 01/08/24 17:09 Blood - Blood Aerobic Blood Culture - Final No growth in 5 days. 01/08/24 17:09 Blood - Blood Anaerobic Blood Culture - Final No growth in 5 days. 01/08/24 16:35 Blood - Blood Aerobic Blood Culture - Final No growth in 5 days. 01/08/24 16:35 Blood - Blood Anaerobic Blood Culture - Final No growth in 5 days. Assessment And Plan - Plan This is 73 years old female patient with past medical history notable for diabetes, ESRD on hemodialysis, decompensated liver cirrhosis secondary to VALLE or connective tissue disease with primary pulmonary hypertension with intractable ascites who came in for worsening shortness of breath for 1 day even after a complete course of dialysis yesterday, noted to have oxygen saturation 80% on room air, placed on BiPAP #1 acute hypoxic respiratory failure due to #2 Resolving after second therapeutic thoracentesis with pleurx catheter insertion on January 11 Now on 3 L/min nasal cannula #2 large symptomatic right-sided pleural effusion, likely hepatic hydrothorax status post thoracentesis on January 08 and pleurx catheter insertion on pleural fluid analysis, lymphocyte predominant, chemistry still pending, culture no growth to date Markedly decreased in size of rightpleural effusion chest x-ray, I will order repeat chest x-ray tomorrow and will drain pleural fluid as needed #3 ESRD on hemodialysis Continuous hemodialysis with maximum ultrafiltration per boning room worker #4 decompensated liver cirrhosis secondary to VALLE or right-sided heart failure Intractable ascites clinically decreased after drainage of the right hepatic hydrothorax #5 borderline asymptomatic hypotension secondary to #4 Systolic blood pressure around 90 to 110 on midodrine, #6 history of severe pulmonary hypertension, multifactorial related to liver cirrhosis and ESRD with /without questionable scleroderma #7 anemia of CKD and pancytopenia related to #4 Hemoglobin 9.0, no clinical bleeding, I will order CBC CMP tomorrow morning. Transferred to general medical floor ordered, waiting for a bed Disposition; plan to discharge home next week with pleurx catheter, home health for drainage once or twice a week
--- NOTE | 2024-01-14 14:34 | P.PN ---
(S) Pt moved out of the ICU, seen sitting in chair, no resp distress, rt pleuritic pain better she reports appetite low, no N/V (O) vitals reviewed in the EMR General: Cooperative, Other (Chronically ill) HEENT: Atraumatic, Normocephalic, Other (off BIPAP mask and off NC) Neck: Supple Respiratory: Other (b/l air entry, reduced BS Rt base), rt pleurx catheter Cardiovascular: Other, improved below knee LE Edema (Non tachy, murmur present) Gastrointestinal: No tenderness, No guarding, Mod Distended, Ascites Musculoskeletal: No tenderness, Swelling Integumentary: No rashes Neurological: Other (Lethargic but awake, converses briefly, generalized weakness) Laboratory Data (last 24 hrs) Reviewed in the EMR Conclusions/Impression: -ESRD 2nd to dialysis dependent renal failure initiated on HD in late Mar/April in the setting then of [place] on CKD, multifactorial etiology HD performed last Mon per OP schedule, dialyzed on Mon, metab profile stable stable, HD completed Sat. 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 pulm HTN and have long encouraged f/u with them and pt finally saw Dr. Pugh recently who may have advised trying an IV pulm vasodilator therapy but pt reports has not started yet Currently off pulm HTN medications -Pt also has positive serology for scleroderma, but is not following with rheum -Volume overload, Rt sided pleural effusion S/p Pleurx catheter placement as with the ascites and persistent effusion, IM/IR team made that decision, will defer to them on instructions for intermittent drainage Will cont UF on HD as tolerated with pressor support if needed Ascites, unspecified -s/p therapeutic paracentesis last mo, monitor closely Poor overall prognosis despite current stabilization, had discussed/recommended DNR status with her on Mon, will cont to follow up on goals of care discussion Kavon Maria MD, TIM
[2024-01-14] MEDS: NEPRO SHAKE 237 ML CAN PO SCH (14:46)
[2024-01-14] MEDS: HEPARIN 5000 UNIT/ML 1 ML VIAL ONE (21:23)
[2024-01-15 06:41] LABS: Absolute Eosinophils 0.2 K/uL (0-0.5); Absolute Lymphocytes (CBC) 0.8 K/uL (0.7-4.9); Absolute Monocytes 0.7 K/uL (0.1-1.3); Absolute Neutrophil 3.1 K/uL (1.8-8.0); Eosinophils % 3.7 % (0-4.4); Hematocrit 28.1 % (36.0-45.0); Hemoglobin 9.1 g/dL (12.0-15.0); Lymphocytes % 16.1 % (15.3-44.8); MCH 34.3 pg (27.0-35.0); MCHC 32.4 g/dL (32.0-36.0); MCV 105.7 fL (80-100); MPV 8.3 fL (7.6-11.3); Monocytes % 15.2 % (3.3-12.3); Platelets 143 thou/uL (152-406); RBC Red Blood Cell Count 2.66 M/uL (3.86-4.86); Red Cell Distribution Width 15.3 % (12.1-15.2)
[2024-01-15 07:07] LABS: AST/SGOT 18 U/L (15-37); Albumin 1.9 g/dL (3.4-5.0); Albumin/Globulin Ratio 0.5 (1.1-1.8); Alkaline Phosphatase 115 U/L (45-117); Anion Gap 9.1 mEq/L (5.0-15.0); BUN Blood Urea Nitrogen 38 mg/dL (7-18); Bicarbonate 26 mEq/L (21-32); Bilirubin Total 0.7 mg/dL (0.2-1.0); Globulin 3.8 g/dL (2.3-3.5); Glomerular Filtration Rate 11 ml/min (=/>90); Glucose Level 92 mg/dL (74-106); Phosphorus 4.7 mg/dL (2.5-4.9); Potassium 5.1 mEq/L (3.5-5.1); Protein, Total 5.7 g/dL (6.4-8.2); Sodium Level 130 mEq/L (136-145)
[2024-01-15 07:08] LABS: ALT/SGPT < 14 U/L (13-56)
--- NOTE | 2024-01-15 07:18 | RAD REPORT ---
Procedure: Chest Single View HISTORY: Pleural effusion COMPARISON: January 13, 2024 FINDINGS: Right chest tube remains in place. No pneumothorax. Right basilar atelectasis. Right pleural effusion appears relatively small.. Mild bilateral pulmonary opacities probably mild pulmonary edema. Heart remains enlarged. Central venous line in place.
[2024-01-15 09:30] LABS: Platelet Estimate DECR; White Blood Cell Scan OK (OK)
[2024-01-15 09:31] LABS: Blood Morphology Comment NOTED (NOT SEEN); Macrocytosis 1+
[2024-01-15 11:26] VITALS: O2SAT 99
[2024-01-15] MEDS: ALBUMIN HUMAN 25% 100 ML IV ONE (15:00)
[2024-01-15 15:12] VITALS: BP 98/55; TEMP 98.7
--- NOTE | 2024-01-15 21:21 | RAD REPORT ---
EXAMINATION: ONE VIEW CHEST XR CLINICAL INDICATION: Female, 73 years old.,pneumonia TECHNIQUE: Frontal chest projection is submitted. Examination is limited by patient positioning and t echnique. COMPARISON: Chest radiograph of earlier the same day dating back to 01/11/2024 FINDINGS: Stable positioning of right thoracostomy tube, and right IJ dialysis catheter. Stable small to modera te residual right pleural effusion and perihilar hazy opacities more pronounced on the right, which may relate to atelectasis, central edema, or a combination of both. No pneumothorax. The heart is no rmal in size. Mediastinal contours are unremarkable. IMPRESSION: Stable findings as above.
--- NOTE | 2024-01-15 22:00 | P.PN ---
Date of Service: 01/15/24 Vital Signs Temp Pulse Resp BP Pulse Ox 98.7 F 69 18 98/55 L 94 01/15/24 12:00 01/15/24 12:00 01/15/24 12:00 01/15/24 12:00 01/15/24 12:00 Medications Acetaminophen (Acetaminophen 325 Mg Tablet) 650 mg PO Q4HP PRN PRN Reason: Pain scale 2-4 (Mild) Last Admin: 01/12/24 20:40 Dose: 650 mg Hydrocodone Bitart/Acetaminophen (Hydrocodone/Apap 5/325 Mg Tab) 1 tab PO Q4H PRN PRN Reason: Pain scale 5-7 (Moderate) Last Admin: 01/13/24 15:34 Dose: 1 tab Albuterol Sulfate (Albuterol 2.5 Mg/3 Ml Neb Oma) 2.5 mg NEB [id number] PRN PRN Reason: SHORTNESS OF BREATH Last Admin: 01/11/24 21:40 Dose: 2.5 mg Benzonatate (Benzonatate 100 Mg Cap) 100 mg PO TID [facility] Last Admin: 01/15/24 14:00 Dose: Not Given Enteral Nutritional Formula (Nepro Shake 237 Ml Can) 240 ml PO BID [facility] Last Admin: 01/15/24 09:11 Dose: 240 ml Guaifenesin (Guaifenesin 100 Mg/5 Ml Ucup) 100 mg PO QID PRN PRN Reason: COUGH Last Admin: 01/15/24 04:49 Dose: 100 mg Heparin Sodium (Porcine) (Heparin 5000 Unit/Ml 1 Ml Vial) 5,000 unit SQ Q12HR [facility] Stop: 01/20/24 23:59 Last Admin: 01/15/24 10:46 Dose: 5,000 unit Heparin Sodium (Porcine) (Heparin 1,000 Unit/Ml Vial) 6,000 unit IV EVERY HD PRN PRN Reason: FOR DIALYSIS CATHETER CARE Last Admin: 01/15/24 18:04 Dose: 6,000 unit Heparin Sodium (Porcine) (Heparin 1,000 Unit/Ml Vial) 2,000 unit IV EVERY HD PRN PRN Reason: Prevent HD System Clotting Last Admin: 01/15/24 14:57 Dose: 2,000 unit Ipratropium [place] (Ipratropium Brom 0.5mg/2.5ml) 0.5 mg NEB [id number] PRN PRN Reason: SHORTNESS OF BREATH Last Admin: 01/11/24 21:40 Dose: 0.5 mg Ketorolac Tromethamine (Ketorolac 30 Mg/Ml Inj) 15 mg IV 1X PRN PRN Reason: Pain scale 5-7 (Moderate) Last Admin: 01/13/24 13:35 Dose: 15 mg Midodrine (Midodrine Hcl 5 Mg Tablet) 10 mg PO TID HUGO Last Admin: 01/15/24 14:00 Dose: Not Given Ondansetron HCl (Ondansetron 4 Mg/2 Ml Vial) 4 mg IV Q6HP PRN PRN Reason: NAUSEA / VOMITING Last Admin: 01/14/24 08:37 Dose: 4 mg Microbiology Results 01/08/24 17:09 Blood - Blood Aerobic Blood Culture - Final No growth in 5 days. 01/08/24 17:09 Blood - Blood Anaerobic Blood Culture - Final No growth in 5 days. 01/08/24 16:35 Blood - Blood Aerobic Blood Culture - Final No growth in 5 days. 01/08/24 16:35 Blood - Blood Anaerobic Blood Culture - Final No growth in 5 days. 01/08/24 16:35 Nasopharnyx Influenza Type A Antigen Screen - Final 01/08/24 16:35 Nasopharnyx Influenza Type B Antigen Screen - Final Assessment/ Plan: Nephrology No dyspnea No chest pain Malaise, fatigue and weakness +BM No acute events overnight Vitals, medications, blood work and imaging reviewed in the chart General: Cooperative HEENT: Atraumatic, Normocephalic Neck: Supple Respiratory: CTA/ Diminished Cardiovascular: S1S2 LE Edema trace Gastrointestinal: No tenderness, No guarding, Ascites Musculoskeletal: No tenderness, Swelling Integumentary: No rashes Neurological: Awake Laboratory Data (last 24 hrs) Reviewed in the EMR EXAMINATION: ONE VIEW CHEST XR CLINICAL INDICATION: Female, 73 years old.,pneumonia TECHNIQUE: Frontal chest projection is submitted. Examination is limited by patient positioning and technique. COMPARISON: Chest radiograph of earlier the same day dating back to 01/11/2024 FINDINGS: Stable positioning of right thoracostomy tube, and right IJ dialysis catheter. Stable small to moderate residual right pleural effusion and perihilar hazy opacities more pronounced on the right, which may relate to atelectasis, central edema, or a combination of both. No pneumothorax. The heart is normal in size. Mediastinal contours are unremarkable. IMPRESSION: Stable findings as above. 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
[2024-01-16 12:28] LABS: TOTAL PROTEIN, PLEURAL FLUID 3.7 g/dL
[2024-01-16 13:43] LABS: ALBUMIN, PLEURAL FLUID 1.8 g/dL
--- NOTE | 2024-01-22 16:07 | P.DS ---
Discharge Date: 01/15/24 Disposition: DC HOME/HOME HEALTH CARE Discharge Condition: GOOD Reason for Admission: SOB Consultations: Nephrology for hemodialysis Brief History of Present Illness: 73 yrs old Female with past medical history of diabetes, hypertension, hyperlipidemia, hypothyroidism, pulmonary artery hypertension, CHF, ESRD on dialysis Monday who was brought to ER with shortness of breath. She underwent full run of dialysis today. But started having shortness of breath which continued to progress and was brought to ER.. EMS reports that they noticed her to be significant work of breathing, and was hypoxic with saturations up to 80s and was placed on CPAP and oxygen support. And was brought to ER. Patient started having cough and congestion for the last 2 days as well. Denies any fever or chills. No known sick contacts. Patient was assessed in the ER and is admitted for further management of fluid overload and hypoxic respiratory failure Hospital Course: patient has done well during hospitalization. Respiratory status has improved. Patient clinically doing much better. Continue with cough medication as needed. Outpatient follow-up with Pulmonary in 1-2 weeks. Vital Signs/Physical Exam: Temp Pulse Resp BP Pulse Ox 98.7 F 69 18 98/55 L 94 01/15/24 12:00 01/15/24 12:00 01/15/24 12:00 01/15/24 12:00 01/15/24 12:00 General: Alert, In no apparent distress, Oriented x3 Other Physical/Emotional Findings: - Physical Exam. General: Chronic ill- looking, not in acute distress, looks a lot more comfortable,. HEENT: Normocephalic, atraumatic, icteric sclera, anemic conjunctive. Neck: Supple, without JVD or goiter or thyroid mass. Respiratory: , improved aeration of the right lung field, dialysis catheter in the right upper chest. Cardiovascular: Regular rate and rhythm, S1, S2 normal, no murmur no gallop. Gastrointestinal: Normal bowel sounds, nondistended, nontender, mild ascites, , No masses, no hepatosplenomegaly. Extremities l: No clubbing, +1/+1 peripheral edema, full range of motion, no deformity. Integumentary: No rashes, petechia, suspected lesions. Lymphatics: No axilla or cervical lymphadenopathy. Neurology; alert awake oriented x3, no focal neurologic deficit, normal affection . mood and behavior. Laboratory Data at Discharge: WBC 4.80 thou/uL (4.3-10.9) 01/15/24 06:07 Hgb 9.1 g/dL (12.0-15.0) L 01/15/24 06:07 Hct 28.1 % (36.0-45.0) L 01/15/24 06:07 Plt Count 143 thou/uL (152-406) L 01/15/24 06:07 PT 11.1 SECONDS (9.4-12.5) 01/11/24 21:00 INR 0.99 01/11/24 21:00 APTT 30.5 SECONDS (24.3-36.9) 01/11/24 21:00 Sodium 130 mEq/L (136-145) L 01/15/24 06:07 Potassium 5.1 mEq/L (3.5-5.1) 01/15/24 06:07 BUN 38 mg/dL (7-18) H 01/15/24 06:07 Creatinine 4.18 mg/dL (0.55-1.02) H 01/15/24 06:07 Glucose 92 mg/dL (74-106) 01/15/24 06:07 Phosphorus 4.7 mg/dL (2.5-4.9) 01/15/24 06:07 Magnesium 2.0 mg/dL (1.6-2.4) 01/15/24 06:07 Total Bilirubin 0.7 mg/dL (0.2-1.0) 01/15/24 06:07 AST 18 U/L (15-37) 01/15/24 06:07 ALT < 14 U/L (13-56) 01/15/24 06:07 Alkaline Phosphatase 115 U/L (45-117) 01/15/24 06:07 Home Medications: Loratadine [Claritin*] 10 mg PO DAILY PRN 03/31/14 Sildenafil Citrate [Revatio*] 20 mg PO DAILY 90 Days #90 tab 02/11/22 Bumetanide 2 mg PO DAILY 12/16/23 Folic Acid 1 tab PO DAILY 12/16/23 Gabapentin 1 tab PO DAILY 12/16/23 Potassium Chloride [Klor-Con] 1 tab PO DAILY 12/16/23 Epoetin [Retacrit] 10,000 unit IV EVERY HD vial 12/20/23 Macitentan [Opsumit] 1 mg PO DAILY 01/09/24 Midodrine HCl 5 mg PO Q8H PRN 01/09/24 Benzonatate [Tessalon Perle*] 100 mg PO TID #30 cap 01/15/24 Guaifen W/Codeine Syrup [ROBITUSSIN A-C Syrup] 10 ml PO Q12HP PRN #150 ml 01/15/24 New Medications: Guaifen W/Codeine Syrup [ROBITUSSIN A-C Syrup] 10 ml PO Q12HP PRN #150 ml PRN Reason: Cough Benzonatate [Tessalon Perle*] 100 mg PO TID #30 cap Physician Discharge Instructions: -DC IV and DC home -Follow-up with PCP in 1 to 2 weeks -Follow-up with Nephrology for HD as scheduled and follow-up with Cardiology in 1 to 2 weeks -Please call Dr. Ramírez at [phone] if any questions regarding hospital stay -Please call nursing station at [phone] if any nursing or medication questions -Return to the emergency room if symptoms worsen Home Health: [facility] P:[phone] F:[phone] Diet: Renal Activity: Fall precautions Followup: Kavon Maria [ACTIVE - CAN ADMIT] - NONE,NONE [Primary Care Provider] - Time spent managing pt's care (in minutes): 35
--- NOTE | 2024-01-23 12:13 | EKG ---
Test Date: 2024-01-08 Test Time: 16:21:24 Line Erector: [place] MEASUREMENT RESULTS: Intervals: Rate: 89 WI: 154 QRSD: 142 QT: 426 QTc: 518 Zirconia: P: 10 WI: 154 QRS: -62 T: -14 INTERPRETIVE STATEMENTS: Normal sinus rhythm Right bundle branch block Left anterior fascicular block Bifascicular block Septal infarct, age undetermined Abnormal ECG Compared to ECG 12/16/2023 08:54:02 Left anterior fascicular block now present Bifascicular block now present Atrial premature complex(es) no longer present Myocardial infarct finding still present Electronically Signed On 01-23-24 12:07:49 FOOD AND BEVERAGE ASSISTANT by Shine Rivas
== END 2024-01-15 19:28 | disposition home health service (06) | DRG 291 ==
LOC: ER 15:55 → ERHOLD 19:05 → 2ND 01-09 17:18 → ERHOLD 01-09 17:18 → 3RD-ICU 01-10 22:18 → 4TH 01-14 13:32
PROVIDERS: ADMIT Family Medicine; ATTEND Hospitalist
PROC: 5A09457 Assistance with Respiratory Ventilation, 24-96 Consecutive Hours, Continuous Positive Airway Pressure (ICD-10-PCS; 2024-01-09)
PROC: 3E033XZ Introduction of Vasopressor into Peripheral Vein, Percutaneous Approach (ICD-10-PCS; 2024-01-09)
PROC: 0W993ZX Drainage of Right Pleural Cavity, Percutaneous Approach, Diagnostic (ICD-10-PCS; 2024-01-09)
PROC: 5A1D70Z Performance of Urinary Filtration, Intermittent, Less than 6 Hours Per Day (ICD-10-PCS; principal; 2024-01-10)
DX: I13.2 Hypertensive heart and chronic kidney disease with heart failure and with stage 5 chronic kidney disease, or end stage renal disease (principal); I50.33 Acute on chronic diastolic (congestive) heart failure; N18.6 End stage renal disease; J96.01 Acute respiratory failure with hypoxia; R18.8 Other ascites; N17.9 Acute kidney failure, unspecified; D61.818 Other pancytopenia; E87.1 Hypo-osmolality and hyponatremia; J94.8 Other specified pleural conditions; E11.22 Type 2 diabetes mellitus with diabetic chronic kidney disease; D63.1 Anemia in chronic kidney disease; E78.5 Hyperlipidemia, unspecified; I27.20 Pulmonary hypertension, unspecified; K74.60 Unspecified cirrhosis of liver; E83.51 Hypocalcemia; E88.09 Other disorders of plasma-protein metabolism, not elsewhere classified; K75.81 Nonalcoholic steatohepatitis (NASH); E03.9 Hypothyroidism, unspecified; E87.6 Hypokalemia; Z99.2 Dependence on renal dialysis; Z88.8 Allergy status to other drugs, medicaments and biological substances; Z11.52 Encounter for screening for COVID-19; Z90.49 Acquired absence of other specified parts of digestive tract; Z87.891 Personal history of nicotine dependence; Z79.899 Other long term (current) drug therapy
CPT/HCPCS: 32555; 36415; 71045; 80048; 80053; 82042; 82947; 83605; 83615; 83735; 83880; 84100; 84157; 85025; 85610; 85730; 87040; 87070; 87340; 87804; 87811; 89050; 90935; 93005; 94640; 94660; 97116; 97161; 97530; 99285; J1644; J1940; J2270; J2405; J7060; J7613; J7644; P9047

== ENCOUNTER 2024-01-26 12:11 | Emergency (ER) | payer OTHER ==
[2024-01-26] MEDS ORDERED: NA CHLORIDE 0.9% 250 ML ONE (12:36)
[2024-01-26 12:43] LABS: Absolute Lymphocytes (CBC) 0.4 K/uL (0.7-4.9); Absolute Monocytes 0.7 K/uL (0.1-1.3); Absolute Neutrophil 6.8 K/uL (1.8-8.0); Basophils % 0.2 % (0-1.3); Eosinophils % 0.1 % (0-4.4); Hematocrit 27.9 % (36.0-45.0); Hemoglobin 8.8 g/dL (12.0-15.0); Lymphocytes % 5.3 % (15.3-44.8); MCH 33.5 pg (27.0-35.0); MCHC 31.7 g/dL (32.0-36.0); MCV 105.8 fL (80-100); MPV 8.4 fL (7.6-11.3); Monocytes % 8.4 % (3.3-12.3); Platelets 143 thou/uL (152-406); RBC Red Blood Cell Count 2.64 M/uL (3.86-4.86); Red Cell Distribution Width 15.9 % (12.1-15.2)
[2024-01-26 13:02] LABS: Anion Gap 12.8 mEq/L (5.0-15.0); Potassium 3.8 mEq/L (3.5-5.1)
[2024-01-26] MEDS ORDERED: MIDODRINE HCL 5 MG TABLET ONE (13:02)
[2024-01-26 13:05] LABS: Troponin High Sensitivity 298.9 pg/mL (<58.9)
[2024-01-26 13:06] LABS: Anisocytosis 1+; Blood Morphology Comment NOTED (NOT SEEN); Macrocytosis 1+; Ovalocytes SLIGHT; Platelet Estimate ADEQ; Poikilocytosis SLIGHT; SARS-CoV-2 Antigen CONTROL BLUE LINE VIS/BG OK; SARS-CoV-2 Antigen Rapid Res Negative (Negative); White Blood Cell Scan OK (OK)
[2024-01-26] MEDS ORDERED: NOREPINEPHRINE BITARTRATE/D5W 4 MG/250 ML KIT IV ONE (13:10)
--- NOTE | 2024-01-26 13:14 | RAD REPORT ---
EXAMINATION: ONE VIEW CHEST XR CLINICAL INDICATION: Female, 73 years old.,COUGH TECHNIQUE: Frontal chest projection is submitted. Examination is limited by patient positioning and t echnique. COMPARISON: 01/15/2024 FINDINGS: Lungs are hypoinflated. Central interstitial prominence again seen. Right thoracostomy tube and right IJ dialysis catheter unchanged in position. Progressive right pleural effusion, now large in volume. Underlying opacification of airspace disease. No pneumothorax or sizable left effusion. The heart is normal in size. Mediastinal contours are unremarkable. IMPRESSION: Central interstitial prominence which may reflect congestion and/or edema. Progressive right pleural effusion.
[2024-01-26] MEDS ORDERED: MIDODRINE HCL 5 MG TABLET PO SCH (14:00)
[2024-01-26] MEDS ORDERED: HEPARIN/D5W 25,000 UNIT/500 ML BAG IV ONE (14:20)
--- NOTE | 2024-01-26 14:23 | EDPHYS ---
Physician Documentation [facility] Name: Chanel Castillo Age: 73 yrs Sex: Female : 1950 Arrival Date: 01/26/2024 Time: 12:11 Bed 4 Private MD: ED Physician Sundeep Chung HPI: 01/25 12:23 This 73 yrs old Female presents to ER via EMS with complaints of Shortness Of ec2 Breath. 12:23 Patient arrives today for evaluation of shortness of breath. Patient is on baseline 5 L ec2 of oxygen nasal cannula at home, states that she was not wearing her oxygen and subsequently feels short of breath. Improved with oxygen with EMS. Patient is ESRD and dialysis dependent with her last dialysis 2 days ago with a full run.. Historical: - Allergies: 12:17 carvedilol; me1 - PMHx: 12:17 Diabetes - NIDDM; DIALYSIS MWF (2022); DIALYSIS MWF (2022); Hyperlipidemia; me1 Hypertension; Hypothyroidism; PULMONARY HYPERTENSION; - PSHx: 12:17 Cholecystectomy; me1 - Immunization history:: Adult Immunizations up to date. - Infectious Disease History:: Denies. - Social history:: Smoking status: unknown. ROS: 12:24 Constitutional: as per hpi ec2 Exam: 12:24 Constitutional: GEN: NAD Head: atraumatic Eyes: EOMI Ears: External ears are ec2 normal. CV: regular rate, lower extremity edema LUNGS: no respiratory distress, diminished lung sounds on the right lower lung field. ABD: non-distended SKIN: no evidence of rashes MSK: no evidence of trauma Vital Signs: 12:13 BP 82 / 44; Pulse 91; Resp 26; Temp 98.6; Pulse Ox 99% ; Weight 90.72 kg; Height 5 ft. me1 3 in. ; Pain 3/10; 12:52 BP 76 / 44; Pulse 78; Resp 18; Pulse Ox 95% on 3 lpm NC; ko1 13:15 BP 97 / 44; Pulse 78; Resp 19; Pulse Ox 92% on 5 lpm NC; ko1 13:30 BP 100 / 46; Pulse 80; Resp 18; Pulse Ox 93% on 5 lpm NC; ko1 13:45 BP 120 / 52; Pulse 77; Resp 15; Pulse Ox 93% on 5 lpm NC; ko1 14:06 BP 120 / 52; Pulse 85; ec2 14:15 BP 112 / 56; Pulse 78; Resp 15; Pulse Ox 92% on 5 lpm NC; ko1 14:30 BP 111 / 60; Pulse 80; Resp 18; Pulse Ox 91% on 5 lpm NC; ko1 15:00 BP 106 / 52; Pulse 80; Resp 18; Pulse Ox 98% on 10 lpm Non-rebreather mask; ko1 15:30 BP 106 / 47; Pulse 77; Resp 19; Pulse Ox 98% on 10 lpm Non-rebreather mask; ko1 16:00 BP 119 / 69; Pulse 81; Resp 19; Pulse Ox 97% on 10 lpm Non-rebreather mask; ko1 17:30 BP 102 / 45; Pulse 78; Resp 17; Pulse Ox 96% on 10 lpm Non-rebreather mask; ko1 18:46 BP 105 / 55; Pulse 81; Resp 15; Pulse Ox 98% on 10 lpm Non-rebreather mask; ko1 12:13 Body Mass Index 35.43 (90.72 kg, 160.02 cm) me1 12:13 Pain Scale: Adult me1 Procedures: 14:05 Central Line: the site was prepped with Betadine, in sterile fashion, a triple lumen ec2 catheter was inserted, in the left femoral vein, in 1 attempts. placement was verified, by blood return, the site was dressed with Tegaderm, using sterile technique, the patient tolerated the procedure, well. MDM: 12:15 Medical Screening Exam initiated ec2 12:24 Data reviewed:. Data reviewed: vital signs, nurses notes. ED course: Patient arrives ec2 today for shortness of breath. Examination reveals lower extremity edema along with diminished lung sounds in the right lower lung field. Will obtain cardiac workup, chest x-ray. Suspect volume overload. Will give the patient midodrine which she normally takes at home.. 13:04 ED course: EKG independently reviewed and interpreted by me, shows normal sinus rhythm, ec2 rate of 84, frequent PVCs noted, right bundle branch block noted. 13:07 ED course: Metabolic profile shows expected renal dysfunction with a creatinine of 3.5. ec2 Troponin elevated to 99. Will give the patient full dose aspirin. Patient with expected renal dysfunction. Anemia noted with hemoglobin 8.8.. 13:12 ED course: Patient with multiple hypotensive blood pressure readings, will start the ec2 patient on Levophed and place central line. Discussed risk and benefits with patient agreeable.. 13:24 ED course: BNP markedly elevated at 71,000. Chest x-ray shows vascular congestion along ec2 with right-sided pleural effusion.. 14:05 ED course: Central line placed without issue. ec2 14:18 ED course: I discussed the case with nephrology, as well as cardiology, Dr. lorna Rivas, who agreed to help manage the patient. Dr. Dejesus will discuss w/ Dr. Maria who is covering for her. I will admit her to our ICU for further management, hypotension, volume overload.. 14:36 ED course: Ultimately I suspect patient is significantly volume overloaded causing ec2 heart strain and subsequent hypotension requiring Levophed.. 15:26 ED course: Nephrology called back to further discuss, now express further concern ec2 regarding the pt's hypotension and recommend transfer for possible CRRT. 17:34 ED course: I discussed case with cardiology as well as clinical coordinator over at [address] agreed except the patient for transfer. Patient updated on the plan of care and agreeable.. 12 12:15 Order name: Basic Metabolic Panel; Complete Time: 13:23 ec2 01/25 12:15 Order name: CBC with Diff; Complete Time: 13:07 ec2 01/25 12:15 Order name: NT PRO-BNP; Complete Time: 13:23 ec2 01/25 12:15 Order name: Troponin HS; Complete Time: 13:23 ec2 01/25 12:17 Order name: Influenza Screen (a \T\ B); Complete Time: 13:07 ec2 01/25 12:17 Order name: SARS RAPID; Complete Time: 13:07 ec2 01/25 12:46 Order name: CBC Smear Scan; Complete Time: 13:07 EDMS 01/25 13:13 Order name: Blood Culture Adult (2) ec2 01/25 13:13 Order name: Lactate w/ 2H reflex if indic.; Complete Time: 14:51 ec2 01/25 13:13 Order name: Protime (+inr); Complete Time: 14:36 ec2 01/25 13:13 Order name: Ptt, Activated; Complete Time: 14:36 ec2 01/25 12:15 Order name: XRAY Chest (1 view); Complete Time: 13:23 ec2 01/25 13:13 Order name: EKG; Complete Time: 13:13 ec2 01/25 12:15 Order name: Cardiac monitoring; Complete Time: 12:41 ec2 01/25 12:15 Order name: EKG - Nurse/Tech; Complete Time: 12:51 ec2 01/25 12:15 Order name: IV Saline Lock; Complete Time: 12:38 ec2 01/25 12:15 Order name: Labs collected and sent; Complete Time: 12:38 ec2 01/25 12:15 Order name: O2 Per Protocol; Complete Time: 12:38 ec2 01/25 12:15 Order name: O2 Sat Monitoring; Complete Time: 12:38 ec2 01/25 13:13 Order name: Accucheck; Complete Time: 14:16 ec2 01/25 13:13 Order name: IV Saline Lock - Large Bore; Complete Time: 14:16 ec2 01/25 13:13 Order name: Vital Signs; Complete Time: 14:16 ec2 Administered Medications: 12:38 Drug: NS 0.9% IV 250 ml IV at bolus once; to be given as a bolus over 30 minutes Route: ko1 IV; Rate: bolus; Site: left wrist; 13:07 Follow up: Response: No adverse reaction; IV Status: Completed infusion; IV Intake: ko1 250ml 13:06 Drug: midodrine 10 mg PO once Route: PO; ko1 13:36 Follow up: Response: No adverse reaction; Blood pressure is unchanged ko1 13:15 Drug: Norepinephrine IV 0.1 mcg/kg/min IV at calculated rate See Administration ko1 Instructions; (Standard concentration 4 mg / 250 mL D5W); Recommended max rate 3 mcg/kg/min; Titrate 0.05 mcg/kg/min as often as every 5 minutes to achieve goal (see titration policy); Goal parameter MAP greater than 65 mmHg. Route: IV; Rate: calculated rate; Site: left wrist; 13:20 Follow up: Response: Blood pressure is elevated; Rate change 8 mcg/min ko1 16:40 Follow up: Response: No adverse reaction; Rate change 7 mcg/min; IV Status: Infusion ko1 continued 17:55 Follow up: Response: No adverse reaction; Rate change 7 mcg/min; IV Status: Infusion ko1 continued upon transfer 14:42 Drug: Heparin ([place] Drip) 12 units/kg/[place] - ([place] [address] units, D5W IV 500 ml) IV at ko1 calculated rate Per protocol; Max initial rate 1000 units/hr {Co-Signature: aa5 (Parvin Parada RN).} {Note: started at 1000 units/hr .} Route: IV; Rate: calculated rate; Site: left femoral; 17:55 Follow up: IV Status: Infusion continued upon transfer ko1 14:45 Drug: Aspirin PO Chewable Tablet 324 mg PO once; 81 mg tablets x 4 Route: PO; ko1 15:15 Follow up: Response: No adverse reaction ko1 Disposition: 14:05 Critical Care:. ec2 Disposition Summary: 01/26/24 15:25 Transfer Ordered Notes: Transfer Location: [facility] ec2 Reason: Higher level of care ec2 Condition: Fair(01/26/24 15:25) ec2 Problem: an acute exacerbation(01/26/24 15:25) ec2 Symptoms: have improved(01/26/24 15:25) ec2 Accepting Physician: transferring doc(01/26/24 18:47) ko1 Diagnosis - NSTEMI, Volume Overload, Cardiogenic Shock, Hypoxia ec2 Forms: - Medication Reconciliation Form ec2 - SBAR form ec2 Critical care time excluding procedures: 14:05 Critical care time: Bedside Care: 30 minutes, Consultation: 10 minutes. Total time: 40 ec2 minutes Signatures: Dispatcher [employer] EDTrish Raines RN RN ko1 Ade Betancur RN RN me1 Sundeep Chung MD MD ec2 Parvin Parada RN aa5 Corrections: (The following items were deleted from the chart) 12:16 12:16 BASIC METABOLIC PANEL+C.LAB.BRZ ordered. EDMS EDMS 12:16 12:16 CBC+H.LAB.BRZ ordered. EDMS EDMS 12:16 12:16 PROBNP+C.LAB.BRZ ordered. EDMS EDMS 12:16 12:16 Troponin High Sensitivity+C.LAB.BRZ ordered. EDMS EDMS 12:16 12:16 Chest Single View+RAD.RAD.BRZ ordered. EDMS EDMS 12:17 12:17 Influenza Screen (A \T\ B)+BA.LAB.BRZ ordered. EDMS EDMS 12:17 12:17 SARS-COV-2 Antigen Rapid+I.LAB.BRZ ordered. EDMS EDMS 13:13 13:13 BLOOD CULTURE*+BA.LAB.BRZ ordered. EDMS EDMS 13:13 13:13 LACTATE+C.LAB.BRZ ordered. EDMS EDMS 13:13 13:13 PROTIME (+INR)+COAG.LAB.BRZ ordered. EDMS EDMS 13:13 13:13 PTT, ACTIVATED+COAG.LAB.BRZ ordered. EDMS EDMS 14:21 14:18 ED course: I discussed the case with nephrology, as well as ec2 cardiology, Dr. Rivas, who. ec2 15:24 14:23 Inpatient Admission ec2 ec2 15:24 14:23 [place], [place] ec2 ec2 15:24 14:23 Intensive Care Unit ec2 ec2 15:24 14:23 Fair ec2 ec2 15:24 14:23 an acute exacerbation ec2 ec2 15:24 14:23 have improved ec2 ec2 15:24 14:23 Standard ec2 ec2 15:24 14:23 ec2 ec2 15:24 14:23 Volume Overload, Cardiogenic Shock, Hypoxia ec2 ec2 15:24 14:27 NSTEMI ec2 ec2 18:47 15:25 transferring doc ec2 ko1
--- NOTE | 2024-01-26 14:23 | ER ---
Nurse's Notes [facility] Name: Chanel Castillo Age: 73 yrs Sex: Female : 1950 Arrival Date: 01/26/2024 Time: 12:11 Bed 4 Private MD: Diagnosis: NSTEMI, Volume Overload, Cardiogenic Shock, Hypoxia Presentation: 01/25 12:13 Chief complaint: EMS states: toned out to dialysis center for sob. [place] [facility] [place] without oxygen on but wears o2 at 4-5 lpm via nc at her baseline. Became sob that didn't resolve with oxygen when she got to dialysis. Sat was in mid 80s on EMS arrival. Put on NRB and came up to the 90s. hypotensive 80s/50s. Coronavirus screen: Vaccine status: Patient reports receiving the 2nd dose of the covid vaccine. Ebola Screen: No symptoms or risks identified at this time. Initial Sepsis Screen: Does the patient meet any 2 criteria? Systolic BP < 90 mmHg. Does the patient have a suspected source of infection?. Risk Assessment: Do you want to hurt yourself or someone else? Patient reports no desire to harm self or others. Onset of symptoms was January 26, 2024 at 11:20. Care prior to arrival: Oxygen administered. via a non-rebreather mask. 12:13 Method Of Arrival: EMS: [place] [id number] 12:13 Acuity: TYRESE 3 mo1 12:15 Acuity: TYRESE 2 hb Triage Assessment: 12:17 General: Appears comfortable, obese, well developed, Behavior is cooperative, anxious, me1 Reports sob. Pain: Complains of pain in buttocks Pain does not radiate. Pain currently is 3 out of 10 on a pain scale. Quality of pain is described as tender, Pain began gradually, Is continuous. EENT: No signs and/or symptoms were reported regarding the EENT system. Neuro: Level of Consciousness is awake, alert, obeys commands, Oriented to person, place, time, situation, Appropriate for age. Cardiovascular: Patient's skin is warm and dry. hypotensive. Respiratory: Reports shortness of breath at rest on exertion Airway is patent Trachea midline Respiratory effort is labored, Respiratory pattern is tachypnea Onset: The symptoms/episode began/occurred this morning, the patient has moderate shortness of breath. GI: No signs and/or symptoms were reported involving the gastrointestinal system. : Reports dialysis m,w,f. Derm: Skin is intact, Skin is pink, warm \T\ dry. Musculoskeletal: No signs and/or symptoms reported regarding the musculoskeletal system. Historical: - Allergies: 12: carvedilol; me1 - PMHx: 12:17 Diabetes - NIDDM; DIALYSIS MWF (2022); DIALYSIS MWF (2022); Hyperlipidemia; me1 Hypertension; Hypothyroidism; PULMONARY HYPERTENSION; - PSHx: 12:17 Cholecystectomy; me1 - Immunization history:: Adult Immunizations up to date. - Infectious Disease History:: Denies. - Social history:: Smoking status: unknown. Screenin:[facility] ED Fall Risk Assessment (Adult) History of falling in the last 3 months, ko1 including since admission No falls in past 3 months (0 pts) Confusion or Disorientation No (0 pts) Intoxicated or Sedated No (0 pts) Impaired Gait Yes (1 pt) Mobility Assist Device Used Yes (1 pt) Altered Elimination Yes (1 pt) Score/Fall Risk Level 3 or more points = High Risk Oriented to surroundings, Maintained a safe environment, Educated pt \T\ family on fall prevention, incl call for assistance when getting out of bed, Assessed \T\ reinforced patient's understanding of fall precautions, Provided non-skid footwear, Hourly rounding (assess needs \T\ fall precautionary measures) done, Used ambulatory aids as needed (educated on \T\ assisted with), Apply high fall risk patient identification: yellow non skid footwear/ fall signage, Remained with patient while ambulating, Utilized family, sitter, or virtual hand cloth examiner as indicated. Abuse screen: Denies threats or abuse. Denies injuries from another. Nutritional screening: No deficits noted. Tuberculosis screening: No symptoms or risk factors identified. Assessment: 12:52 General: Appears uncomfortable, ill, Behavior is calm, cooperative, appropriate for ko1 age. Pain: Denies pain. Neuro: No deficits noted. Cardiovascular: Reports shortness of breath, Patient's skin is warm and dry. Rhythm is regular. Respiratory: Reports shortness of breath at rest on exertion Airway is patent Breath sounds are diminished bilaterally. GI: No deficits noted. : Reports dialysis patient. EENT: No deficits noted. Derm: No deficits noted. Musculoskeletal: Swelling present in right leg and left leg. Vital Signs: 12:13 BP 82 / 44; Pulse 91; Resp 26; Temp 98.6; Pulse Ox 99% ; Weight 90.72 kg; Height 5 ft. me1 3 in. ; Pain 3/10; 12:52 BP 76 / 44; Pulse 78; Resp 18; Pulse Ox 95% on 3 lpm NC; ko1 13:15 BP 97 / 44; Pulse 78; Resp 19; Pulse Ox 92% on 5 lpm NC; ko1 13:30 BP 100 / 46; Pulse 80; Resp 18; Pulse Ox 93% on 5 lpm NC; ko1 13:45 BP 120 / 52; Pulse 77; Resp 15; Pulse Ox 93% on 5 lpm NC; ko1 14:06 BP 120 / 52; Pulse 85; ec2 14:15 BP 112 / 56; Pulse 78; Resp 15; Pulse Ox 92% on 5 lpm NC; ko1 14:30 BP 111 / 60; Pulse 80; Resp 18; Pulse Ox 91% on 5 lpm NC; ko1 15:00 BP 106 / 52; Pulse 80; Resp 18; Pulse Ox 98% on 10 lpm Non-rebreather mask; ko1 15:30 BP 106 / 47; Pulse 77; Resp 19; Pulse Ox 98% on 10 lpm Non-rebreather mask; ko1 16:00 BP 119 / 69; Pulse 81; Resp 19; Pulse Ox 97% on 10 lpm Non-rebreather mask; ko1 17:30 BP 102 / 45; Pulse 78; Resp 17; Pulse Ox 96% on 10 lpm Non-rebreather mask; ko1 18:46 BP 105 / 55; Pulse 81; Resp 15; Pulse Ox 98% on 10 lpm Non-rebreather mask; ko1 12:13 Body Mass Index 35.43 (90.72 kg, 160.02 cm) me1 12:13 Pain Scale: Adult me1 ED Course: 12:13 Patient arrived in ED. me1 12:15 Sundeep Chung MD is Attending Physician. ec2 12:17 Triage completed. me1 12:17 Arm band placed on Patient placed in an exam room. me1 12:34 Trish Mcmillan RN is Primary Nurse. ko1 12:37 Initial lab(s) drawn, by me, sent to lab. Inserted saline lock: 22 gauge in left wrist, hb using aseptic technique. Blood collected. Flushed with 10 mL NS. 12:37 SARS RAPID Sent. hb 12:37 Influenza Screen (a \T\ B) Sent. hb 12:38 Basic Metabolic Panel Sent. hb 12:38 CBC with Diff Sent. hb 12:38 NT PRO-BNP Sent. hb 12:38 Troponin HS Sent. hb 12:40 XRAY Chest (1 view) In Process Unspecified. EDMS 12:51 Patient has correct armband on for positive identification. Allergy band placed. Bed in ko1 low position. Call light in reach. Side rails up X2. Provided Education on: labs, bp. Client placed on continuous cardiac and pulse oximetry monitoring. NIBP monitoring applied. customer program manager on. Door closed. Noise minimized. Lights dimmed. Warm blanket given. Pillow given. 13:45 Assisted provider with central line placement. Set up central line tray. Triple lumen ko1 line placed in left femoral. Line placed by Sundeep Chung MD Placement verified by blood return, Dressed with Tegaderm, Blood was collected. Patient tolerated well. Before procedure, did Practitioner(s) obtain informed consent? Yes. Patient \T\ family education about procedure, CLABSI prevention and S/S of infection? Yes. Time-out/Briefing performed prior to start of procedure? Yes. Was handwashing/sanitizing done immediately prior to procedure? Yes. Was patient positioned to in a way to prevent air embolism? Yes. Was procedure site sterilized? Yes, with chlorhexidine. Was the site allowed to dry? Yes. Was local anesthetic and/or sedation utilized? N/A. During the procedure, did the Practitioner(s) maintain a sterile field? Yes. Were unused ports clamped during insertion? Yes. Was a 2nd qualified MD obtained after 3 unsuccessful insertion attempts? No. Was blood aspirated from each lumen? Yes. After the procedure, did the Practitioner(s) clean the site and apply a sterile dressing? Yes. 14:15 First set of blood cultures drawn by me, Second set of blood cultures drawn by me, EKG ko1 done, by ED staff, reviewed by Sundeep Chung MD COVID swab sent to lab. Flu and/or RSV swab sent to lab. Oxygen administration via nasal cannula \T\ 5L/min. 14:16 Blood Culture Adult (2) Sent. ko1 14:16 Lactate w/ 2H reflex if indic. Sent. ko1 14:16 Protime (+inr) Sent. ko1 14:16 Ptt, Activated Sent. ko1 14:22 Sheila Yan is Hospitalizing Provider. ec2 15:32 initiated a transfer with Mc from the [facility]. eb 17:[address] Pugh the mechanic sound technician supervisor of communications with Dr. Chung for patient transfer eb consultation. 17:30 Patient transferred, IV remains in place. ko1 Administered Medications: 12:38 Drug: NS 0.9% IV 250 ml IV at bolus once; to be given as a bolus over 30 minutes Route: ko1 IV; Rate: bolus; Site: left wrist; 13:07 Follow up: Response: No adverse reaction; IV Status: Completed infusion; IV Intake: ko1 250ml 13:06 Drug: midodrine 10 mg PO once Route: PO; ko1 13:36 Follow up: Response: No adverse reaction; Blood pressure is unchanged ko1 13:15 Drug: Norepinephrine IV 0.1 mcg/kg/min IV at calculated rate See Administration ko1 Instructions; (Standard concentration 4 mg / 250 mL D5W); Recommended max rate 3 mcg/kg/min; Titrate 0.05 mcg/kg/min as often as every 5 minutes to achieve goal (see titration policy); Goal parameter MAP greater than 65 mmHg. Route: IV; Rate: calculated rate; Site: left wrist; 13:20 Follow up: Response: Blood pressure is elevated; Rate change 8 mcg/min ko1 16:40 Follow up: Response: No adverse reaction; Rate change 7 mcg/min; IV Status: Infusion ko1 continued 17:55 Follow up: Response: No adverse reaction; Rate change 7 mcg/min; IV Status: Infusion ko1 continued upon transfer 14:42 Drug: Heparin ([place] Drip) 12 units/kg/[place] - ([place] [address] units, D5W IV 500 ml) IV at ko1 calculated rate Per protocol; Max initial rate 1000 units/hr {Co-Signature: aa5 (Parvin Parada RN).} {Note: started at 1000 units/hr .} Route: IV; Rate: calculated rate; Site: left femoral; 17:55 Follow up: IV Status: Infusion continued upon transfer ko1 14:45 Drug: Aspirin PO Chewable Tablet 324 mg PO once; 81 mg tablets x 4 Route: PO; ko1 15:15 Follow up: Response: No adverse reaction ko1 Medication: 12:52 VIS not applicable for this client. ko1 Intake: 13:07 IV: 250ml; Total: 250ml. ko1 Outcome: 14:23 Decision to Hospitalize by Provider. ec2 15:25 ER care complete, transfer ordered by . ec2 17:56 Condition: improved ko1 17:56 Discharge instructions given to patient, EMS, Instructed on the need for transfer, Demonstrated understanding of instructions, 18:46 Transferred by ground EMS [facility] [place] [facility] [place] ko1 completed. X-rays sent w/ patient. 18:47 Patient left the ED. ko1 Addendum: 01/31/2024 09:03 Addendum: Culture Results: Positive blood culture. Phone call Attempt #1 faxed report i w to [phone]. Signatures: Dispatcher [employer] Tahira Garcia, RN JAVIER Paulina Eldridge RN RN Radhika Estrella Kathy, RN RN ko1 Ade Betancur RN RN me1 Sundeep Chung MD MD ec2 Parvin Parada RN aa5 Corrections: (The following items were deleted from the chart) 01/25 12:21 12:13 BP 82 / 44; Pulse 91bpm; Resp 18bpm; Pulse Ox 99%; Temp 98.6F; 90.72 kg; Height 5 me1 ft. 3 in.; BMI: 35.4; Pain 3/10, Adult; me1
[2024-01-26 14:30] LABS: PT Prothrombin Time 14.5 SECONDS (9.4-12.5); PTT, Activated Partial Thromb 26.3 SECONDS (24.3-36.9); Protime INR 1.3
[2024-01-26] MEDS ORDERED: ASPIRIN 81 MG CHEWABLE TABLET ONE (14:40)
[2024-01-26 19:03] VITALS: TEMP 98.6
[2024-01-26 19:24] VITALS: BP 105/55; O2SAT 98
--- NOTE | 2024-01-28 13:08 | EKG ---
Test Date: 2024-01-26 Test Time: 12:49:24 Launderette Attendant: CHARLI MEASUREMENT RESULTS: Intervals: Rate: 84 MT: 164 QRSD: 144 QT: 414 QTc: 489 [place]: P: 30 MT: 164 QRS: -80 T: 17 INTERPRETIVE STATEMENTS: Sinus rhythm with frequent premature ventricular complexes Left axis deviation Right bundle branch block Possible Lateral infarct, age undetermined Abnormal ECG Compared to ECG 01/08/2024 16:21:24 Ventricular premature complex(es) now present Left-axis deviation now present Left anterior fascicular block no longer present Bifascicular block no longer present Myocardial infarct finding still present Electronically Signed On 01-28-24 13:04:52 ICE GRINDER by Shine Rivas
== END 2024-01-26 18:47 | disposition short-term general hospital (02) ==
LOC: ER 12:11
DX: I21.4 Non-ST elevation (NSTEMI) myocardial infarction (principal); E87.70 Fluid overload, unspecified; R57.0 Cardiogenic shock; R09.02 Hypoxemia; E11.9 Type 2 diabetes mellitus without complications; E78.5 Hyperlipidemia, unspecified; I10 Essential (primary) hypertension; E03.9 Hypothyroidism, unspecified; N18.6 End stage renal disease; Z99.2 Dependence on renal dialysis; Z11.52 Encounter for screening for COVID-19
CPT/HCPCS: 93005; 87040 ×2; 85025; 80048; 36415; 87205 ×4; 85610; 83605; 85730; 87077 ×2; 87186 ×2; 84484; 83880; 87804 ×2; 71045; 99291; 99292; 36556; 87811; J7050